=== PATIENT | male | born 1960 | race Caucasian/White ===

== ENCOUNTER 2024-06-12 10:01 | Emergency (ER) | payer MEDICARE, SELFPAY ==
[2024-06-12 10:02] VITALS: BMI 25.6
--- NOTE | 2024-06-12 10:07 | EKG_ITS ---
[facility] Test Date: 2024-06-12 Pat Name: JAI REBOLLEDO Department: Room: - Gender: Male Assistant News Director: : 1960 Requested By: ED Temporary Provider Order Number: [id number] Reading MD: ED Temporary Provider Measurements Intervals [place] Rate: 104 P: 47 [place]: 148 QRS: -40 QRSD: 109 T: 102 QT: 355 QTc: 468 Interpretive Statements SINUS TACHYCARDIA LEFT ATRIAL ENLARGEMENT [-0.15mV P-WAVE IN V1/V2] LEFT AXIS DEVIATION [QRS AXIS < -30] ST DEVIATION AND MODERATE T-WAVE ABNORMALITY, CONSIDER LATERAL ISCHEMIA [-0.1+ mV T-WAVE IN I/aVL/V5/V6] Compared to ECG 03/22/2019 01:22:29 T-wave abnormality now present Possible ischemia now present Left ventricular hypertrophy no longer present ST (T wave) deviation no longer present /store/S0/[id number].pdf
[2024-06-12 10:18] VITALS: BP 119/83; PULSE 100; RESP 19; TEMP 36.3; O2SAT 96; BMI 25.6
--- NOTE | 2024-06-12 10:19 | XR_ITS ---
Examination: Duplex scan of the lower extremity, unilateral left complete Date and time of exam: June 12, 2024 1054 hours INDICATIONS: Left leg swelling and pain beginning 5 days ago Technique: Duplex scan of the extremity veins using B-mode/grayscale imaging and Doppler spectral analysis and color flow Attention is directed to internal echogenicity, compression and augmentation involving these veins, color flow assessment, spectral analysis Findings: Major deep venous structures in the extremity demonstrate normal course and caliber. There is no evidence of deep vein thrombosis. Normal color flow and spectral analysis Impression: Negative for DVT..
--- NOTE | 2024-06-12 10:20 | XR_ITS ---
Examination: PA lateral chest 2 views TECHNIQUE: Upright PA lateral chest 2 views Exam date and time: June 12, 2024 1043 hours Comparison March 22, 2019 INDICATIONS: Coughing chest pain today. FINDINGS: Early heart failure Mild enlargement cardiac contour Prominent vascular congestion with early perihilar edema Cardiac leads satisfactory position IMPRESSION: Early heart failure
[2024-06-12 10:37] LABS: Basophils % (Auto) 0 % (0-2.5); Eosinophils # (Auto) 0.2 Thou/mm3 (0.0-0.5); Eosinophils % (Auto) 3 % (0-10); Hematocrit 38.4 % (41.0-53.0); Hemoglobin 11.9 g/dL (13.5-16.0); Immature Granulocytes % (Auto) 0 % (0-0); Immature Granulocytes Auto 0.02 Thou/mm3 (0.00-0.00); Lymphocytes # (Auto) 1.1 Thou/mm3 (1.0-4.8); Lymphocytes % (Auto) 13 % (10-50); Mean Corpuscular Hemoglobin 30.4 pg (25.0-35.0); Mean Corpuscular Volume 98 fL (80-100); Monocytes # (Auto) 0.9 Thou/mm3 (0.0-0.8); Monocytes % (Auto) 10 % (0-12); Neutrophils # (Auto) 6.6 Thou/mm3 (1.8-7.7); Neutrophils % (Auto) 74 % (37-80); Nucleated Red Blood Cell % 0 /100 WBC (0); Platelet Count 277 Thou/mm3 (140-440); RDW Standard Deviation 55.4 fL (35.1-43.9); Red Blood Count 3.92 Miln/mm3 (4.50-5.90); White Blood Count 8.9 Thou/mm3 (3.8-10.6)
--- NOTE | 2024-06-12 10:38 | PD.EDRME ---
Rapid Medical Screening Exam E Arrival date/time: 06/12/24 10:01 63-year-old male presents to the emergency department today with complaints of left lower extremity swelling and shortness of breath patient reports history of CHF Chief Complaint: Ankle/Foot Injury Vital signs: Vital Signs Temperature 97.4 F 06/12/24 10:18 Pulse Rate 100 06/12/24 10:18 Respiratory Rate 19 06/12/24 10:18 Blood Pressure 119/83 06/12/24 10:18 Pulse Oximetry (%) 96 06/12/24 10:18 Oxygen Delivery Method Room Air 06/12/24 10:18
[2024-06-12 10:57] LABS: B-Type Natriuretic Peptide 2754 pg/mL (0-100)
[2024-06-12 10:58] LABS: Alanine Aminotransferase 125 U/L (10-49); Albumin, Serum 3.9 gm/dL (3.4-4.8); Albumin/Globulin Ratio 1.3 (1.2-2.2); Alkaline Phosphatase 140 U/L (46-116); Anion Gap 5 (7-16); Aspartate Amino Transferase 41 U/L (0-34); BUN/Creatinine Ratio 14 Ratio (12-20); Bilirubin,Total 2.9 mg/dL (0.3-1.2); Blood Urea Nitrogen 19 mg/dL (9-23); Calcium 9.3 mg/dL (8.3-10.6); Calcium (Corrected) 9.4 mg/dL (8.5-10.1); Carbon Dioxide 27.6 mMol/L (20.0-31.0); Chloride 103 mMol/L (98-107); Creatinine (Component) 1.4 mg/dL (0.6-1.3); Estimated Creatinine Clearance 59.3 mL/min (>60); Glucose 93 mg/dL (74-106); Magnesium 1.8 mg/dL (1.6-2.6); Osmolality,Calculated 274 (275-295); Potassium 3.9 mMol/L (3.4-5.1); Sodium 136 mMol/L (136-145); Total Protein 6.9 gm/dL (5.7-8.2); Troponin I 0.043 ng/mL (0.0-0.045); eGFR 56 See Note
--- NOTE | 2024-06-12 12:10 | PC.NURSE ---
PT STATES WANTING TO LEAVE AT THIS TIME; PER PT, I WANNA LEAVE; I NEED A NEW TRUCK AND I NEED A BITE TO EAT. RN OFFERED FOOD FOR PT, BUT PT REFUSED AT THIS TIME. RN ATTEMPTED TO PERSUADE TO STAY BUT PT STATES, I CAN GET CHECKED IN AT [facility] BY THE TIME MATERIALS RESEARCH ENGINEER IF I NEED TO. I WANNA GO. PT SIGNED AMA FORM AT THIS TIME.
[2024-06-12 14:10] LABS: INR 1.1 (0.9-1.3); Partial Thromboplastin Time 28.3 Seconds (22.0-36.0); Prothrombin Time 12.4 Seconds (9.0-12.2)
== END 2024-06-12 12:14 | disposition left against medical advice (07) ==
LOC: SERX 10:42
PROVIDERS: Nurse Practitioner Primary Care; Emergency Provider Emergency Medicine
DX: M79.89 Other specified soft tissue disorders (principal); R06.02 Shortness of breath; R00.0 Tachycardia, unspecified; I50.9 Heart failure, unspecified; Z53.29 Procedure and treatment not carried out because of patient's decision for other reasons
CPT/HCPCS: 36415; 71046; 80053; 80307; 81001; 83735; 83880; 84484; 85025; 85610; 85730; 93005; 93971; 99281

== ENCOUNTER 2024-06-19 09:37 | Inpatient (IN) | payer MEDICARE, SELFPAY ==
[2024-06-19] VITALS (54 sets, daily range): BP systolic 76–157; BP diastolic 50–110; PULSE 92–152; RESP 5–35; TEMP 36.2–36.9; O2SAT 89–98; BMI 26.8
--- NOTE | 2024-06-19 09:45 | EKG_ITS ---
[facility] Test Date: 2024-06-19 Pat Name: JAI REBOLLEDO Department: Room: - Gender: Male Fuel Oil Clerk: : 1960 Requested By: Winston Balderas Order Number: [id number] Reading MD: Winston Balderas Measurements Intervals [place] Rate: 114 P: 61 [place]: 179 QRS: -27 QRSD: 96 T: 98 QT: 333 QTc: 459 Interpretive Statements SINUS TACHYCARDIA POSSIBLE ANTERIOR MYOCARDIAL INFARCTION , OF INDETERMINATE AGE [30 ms Q WAVE IN V3/V4, OR R < 0.2 mV IN V4] MODERATE T-WAVE ABNORMALITY, CONSIDER LATERAL ISCHEMIA [-0.1+ mV T-WAVE IN I/aVL/V5/V6] Compared to ECG 06/12/2024 10:14:07 Myocardial infarct finding now present Atrial abnormality no longer present Left-axis deviation no longer present T-wave abnormality still present Possible ischemia still present /store/S0/[id number]/ecg/[id number].pdf
--- NOTE | 2024-06-19 09:45 | EDNOTE_ITS ---
Nausea/Vomit./Diarrhea-RME/HPI General Chief complaint: Abdominal Pain Stated complaint: ABD PAIN Time Seen by Provider: 06/19/24 09:44 Arrival date/time: 06/19/24 09:37 Limitations: no limitations RME / HPI RME / HPI Narrative: 63 year old male with history of CHF, CAD, hypertension, COPD presents to the ED BIBA from home for evaluation of nausea and nonbloody vomiting beginning at 02:00 AM today. Additionally reports two episodes of loose, watery bowel movements this morning and epigastric abdominal pain. Patient reports they attempted to drink a mixture of drink water, cranberry, and apple juice but was unable to tolerate due to nausea and vomiting. Medics reported administering 4mg Zofran with some improvement. Patient denies fever, chills, or recent changes in appetite. Patient denies any history of diabetes or chronic gastrointestinal conditions. Related Data Previous Rx's ?Medication ?Instructions ?Recorded carvedilol 3.125 mg tablet 3.125 mg PO BID #60 tabs furosemide 40 mg tablet (Lasix) 40 mg PO QDAY #30 tabs 01/01/19 lisinopril 2.5 mg tablet 2.5 mg PO QDAY #30 tabs 12/19 06/06 furosemide 40 mg tablet (Lasix) 40 mg PO QDAY #14 tabs 03/19/19 lisinopril 10 mg tablet 10 mg PO QDAY #14 tabs 03/19 potassium chloride 20 mEq 20 meq PO QDAY #14 tabs 02/20 020 tablet,extended release fluticasone 250 mcg-salmeterol 50 1 each inhalation Q1 2H #60 ea 03/22/19 mcg/dose blistr powdr for inhalation (Advair Diskus) ipratropium 0.5 mg-albuterol 3 mg 3 ml inhalation QID PRN shortness 03/22/19 (2.5 mg base)/3 mL nebulization of breath #90 mL soln lorazepam 0.5 mg tablet (Ativan) 0.5 mg PO BID PRN anx iety #20 tabs 03/22/19 nebulizer and compressor #1 ea 03/22/19 Allergies Allergy/AdvReac Type Severity Reaction Status Date / Time Iodinated Contrast Media Allergy Severe Swelling Verified 06/19/24 10:02 of Lip/Tongue/Throat iodine Allergy Severe Hives Verified 06/19/24 10:02 Review of Systems Review of Systems Systems Reviewed: All systems reviewed, normal except as documented Past Medical History Past Medical History CARDIAC: Positive Cardiac Disorders, Congestive Heart Failure and Hypertension RESPIRATORY: Positive Chronic Obstructive Pulmonary Disease (COPD) PSYCHO/SOCIAL: Positive Depression and Anxiety Family History FAMILY HISTORY: Positive Family Cardiac Disorders Surgical History SURGICAL: Negative Cardiac Catheterization Social History SMOKING STATUS: Former smoker SUBSTANCE USE: former substance user, amphetamines and methamphetamine ED Exam General Limitations: Present no limitations General appearance: Present alert and other (Pale, diaphoretic, arrived in position ) Head Head exam: Present atraumatic Eye Eye exam: Present normal appearance, PERRL and EOMI ENT ENT exam: Present normal exam, normal oropharynx and mucous membranes moist Neck Neck exam: Present normal inspection, full ROM and trachea midline Chest Chest inspection: Present normal inspection and symmetric chest wall rise Respiratory Respiratory exam: Present normal lung sounds bilaterally Cardiovascular Cardiovascular exam: Present regular rate, normal rhythm and normal heart sounds Abdominal Exam Abdominal exam: Present soft and normal bowel sounds Extremities Exam Extremities exam: Present normal inspection and full ROM Back Exam Back exam: Present normal inspection and full ROM Neurological Exam Neurological exam: Present alert, oriented X3 and CN II-XII intact Psychiatric Psychiatric exam: Present normal affect and normal mood Skin Skin exam: Present warm, dry, intact and normal color Course Quality Measures none Orders Category Date Time Status CT Screening NOW Care 06/19/24 13:44 Active Low Pressure Boiler Operator STAT Care 06/19/24 09:45 Active Continuous Pulse Oximetry ONCE Care 06/19/24 09:45 Active EKG (ED ONLY) *Do not use* NOW Care 06/19/24 09:45 Completed EKG (ED ONLY) *Do not use* NOW Care 06/19/24 11:39 Active Insert IV STAT Care 06/19/24 09:[address] abdomen pelvis w con Stat Exams 06/19/24 13:42 Ordered EKG (ED Only) Stat Exams 06/19/24 09:45 Draft EKG (ED Only) Stat Exams 06/19/24 11:39 Draft US abdomen limited Stat Exams 06/19/24 11:05 Taken XR chest 1V portable Stat Exams 06/19/24 09:45 Completed Blood Culture (Lab) Stat Lab 06/19/24 13:51 Received CBC Stat Lab 06/19/24 10:03 Completed Comprehensive Metabolic Panel Stat Lab 06/19/24 10:03 Completed Lipase Stat Lab 06/19/24 11:47 Completed Troponin I Stat Lab 06/19/24 10:03 Completed Troponin I Stat Lab 06/19/24 11:47 Completed Aspirin Chew Med 06/19/24 12:29 Discontinued 162 mg PO X1 ONE Metoprolol Tartrate Inj [Lopressor Inj] Med 06/19/24 12:31 Discontinued 2.5 mg IVP X1 ONE Morphine Inj Med 06/19/24 10:17 Discontinued 5 mg IVP X1 ONE Morphine Inj Med 06/19/24 12:29 Discontinued 5 mg IVP X1 ONE Nitroglycerin Oint 2% [Nitro-paste Oint 2%] Med 06/19/24 12:29 Discontinued 1 inch TOP X1 ONE Ondansetron Inj [Zofran Inj] Med 06/19/24 09:46 Discontinued 4 mg IV X1 ONE Piper/Tazo Inj [Zosyn Inj] 4.5 gm Med 06/19/24 13:44 Discontinued Sodium Chloride 0.9% (Pop) [NS 0.9% mini bag] 100 ml IV X1 Sodium Chloride 0.9% 1000 ml [Ns] 1,000 ml Med 06/19/24 09:45 Discontinued IV 999 mls/hr Sodium Chloride 0.9% 1000 ml [Ns] 1,000 ml Med 06/19/24 13:43 Discontinued IV 999 mls/hr Reevaluation(s) Reevaluation #1: On reassessment, the patient reports pain has subsided and is not vomiting, negative Roque's and no epigastric pain on examination. Time: 11:08 Reevaluation #2: Notified by RN that the patient had a run, ~ 60 seconds, of tachycardia rate 150s. Plan to repeat EKG and troponin. Time: 11:38 Reevaluation #3: We reviewed todays results and discussed treatment plan. Reports his cardiologi st is Dr. Vela in [place], [place]. Time: 12:35 Vital Signs Vital signs: Vital Signs Temperature 98.5 F 06/19/24 09:46 Pulse Rate 121 H 06/19/24 09:46 Respiratory Rate 20 06/19/24 09:46 Blood Pressure 127/84 06/19/24 09:46 Pulse Oximetry (%) 92 L 06/19/24 09:46 Oxygen Delivery Method Room Air 06/19/24 09:46 Pulse ox is 93% on room air which is borderline low. Nausea/Vomiting/Diarrhea MDM Narrative MDM Narrative:: Nguyen Ken am scribing for and in the presence of Dr. Balderas. Patient data External records reviewed:: [facility] previous records (I reviewed ED visit on 09/12/2022 for cellulitis ) and EMS form Clinical information provided by:: patient and EMS Social determinants that could affect healthcare access:: none Patient has the following chronic illnesses:: CHF, CAD, hypertension, COPD How is presenting disease/condition affected by chronic disease/condition?: uneffected by Evaluation data The following diagnostics were reviewed and interpreted by me:: lab results, radiology exam(s) and EKG tracing(s) (EKG #1 at 09:56 am. Sinus tachycardia, rate 114, nonspecific ST and T-wave changes. EKG #2 @ 11:43 am. Sinus tachycardia, rate 108, early repolarization v3 v4 which was seen on EKG #1 and is unchanged. ) Lab and/or radiology exams considered but not ordered:: None Interpretation Summary: Ordering Physician: Winston Balderas MD Date of Service: 06/19/24 Procedure(s): XR chest 1V portable Accession Number(s): [id number] cc: Winston Balderas MD; Jaime Sands MD; NO PRIMARY/FAMILY,PHYSICIAN~ Examination: AP chest single view Technique one AP portable semiupright chest single Exam date and time: June 19, 2024 at 1042 hours INDICATIONS: Chest pain beginning 2 days ago. FINDINGS: Mild prominence left ventricle Cardiac leads stable position compared with June 12, 2024 No pneumonia or pulmonary edema IMPRESSION: No interval pneumonia or pulmonary edema Dictated By: Jaime Sands MD Signed By: <Electronically signed by Jaime Sands MD in OV> 06/19/24 1059 Medications / Prescriptions Medications / Prescriptions considered but not ordered:: None Medication administrations:: Medication Administration History Acetaminophen (Acetaminophen 325 Mg Tablet) 650 mg PO Q6H PRN PRN Reason: Fever >101.5 Stop: 07/19/24 14:17 Acetaminophen (Acetaminophen 325 Mg Tablet) 650 mg PO Q6H PRN PRN Reason: PAIN SCALE 1-3 (mild Stop: 07/19/24 14:17 Hydrocodone Bitart/Acetaminophen (Hydrocodone/Apap 10/325 Tab) 1 tab PO Q4H PRN PRN Reason: PAIN SCALE 4-6 (Moderate Stop: 06/24/24 14:17 Dobutamine HCl/Dextrose (Dobutrex/D5w Ivpb) 500 mg in 250 mls @ 2.694 mls/hr IV .Q24H ONE; Protocol Stop: 06/20/24 15:02 Morphine Sulfate (Morphine Sulf Inj 10 Mg/Ml Vial) 2 mg IVP Q2H PRN PRN Reason: PAIN SCALE 7-10 (Severe Stop: 06/24/24 14:17 Ondansetron HCl (Ondansetron Inj 2 Mg/Ml Inj 2 Ml) 4 mg IV Q6H PRN; Protocol PRN Reason: NAUSEA OR VOMITING Stop: 07/19/24 14:17 Discontinued Medications Aspirin (Aspirin 81 Mg Chew) 162 mg PO X1 ONE Stop: 06/19/24 12:30 Last Admin: 06/19/24 12:38 Dose: 162 mg Documented By: SIERRA Sodium Chloride (Ns) 1,000 mls @ 999 mls/hr IV .Q1H1M ONE Stop: 06/19/24 10:45 Last Infusion: 06/19/24 11:10 Dose: Infused Documented By: Admin: 06/19/24 10:08 Dose: 999 mls/hr Documented By: SIERRA Piperacillin Sod/Tazobactam (Sod 4.5 gm/ Sodium Chloride) 100 mls @ 200 mls/hr IV X1 ONE Stop: 06/19/24 14:13 Sodium Chloride (Ns) 1,000 mls @ 999 mls/hr IV .Q1H1M ONE Stop: 06/19/24 14:43 Last Admin: 06/19/24 15:52 Dose: Not Given Documented By: JUAN Non-Admin Reason: Cancelled by Provider Metoprolol Tartrate (Metoprolol Tartrate Inj 1 Mg/Ml Amp 5 Ml) 2.5 mg IVP X1 ONE Stop: 06/19/24 12:32 Last Admin: 06/19/24 12:45 Dose: 2.5 mg Documented By: SIERRA Morphine Sulfate (Morphine Sulf Inj 10 Mg/Ml Vial) 5 mg IVP X1 ONE Stop: 06/19/24 10:18 Last Admin: 06/19/24 10:25 Dose: 5 mg Documented By: SIERRA Morphine Sulfate (Morphine Sulf Inj 10 Mg/Ml Vial) 5 mg IVP X1 ONE Stop: 06/19/24 12:30 Last Admin: 06/19/24 12:37 Dose: 5 mg Documented By: Nitroglycerin (Nitroglycerin Oint 2% 1 Inch Packet) 1 inch TOP X1 ONE Stop: 06/19/24 12:30 Last Admin: 06/19/24 12:37 Dose: 1 inch Documented By: Ondansetron HCl (Ondansetron Inj 2 Mg/Ml Inj 2 Ml) 4 mg IV X1 ONE Stop: 06/19/24 09:47 Last Admin: 06/19/24 10:07 Dose: 4 mg Documented By: See above Consultations Consultation(s) initiated? (list below): Yes Consultation #1 (Physician, Specialty, Details): I called hydroelectric plant mechanical engineer Dr. Kiran, no answer. Left a voicemail. Time: 12:44 Consultation #2 (Physician, Specialty, Details): I spoke with hydroelectric plant mechanical engineer Dr. Kiran. Discussed patients PMHx, HPI, ED course, exam findings, labs, EKG, and radiology results. States troponin elevation is type II. He agrees to consult. Time: 13:40 Consultation #3 (Physician, Specialty, Details): I spoke with monument mason Dr. Martinez. Discussed patients PMHx, HPI, ED course, exam findings, labs, and radiology results. Exhibit Carpenter accept the patient for admission. Diagnosis Nausea Differential Diagnosis: food poisoning, gastroenteritis, drug-induced nausea and vomiting, dehydration and other (cholelithiasis, cholecystitis, NSTEMI) Most likely diagnosis given after review of the tests above:: Elevated liver enzymes elevated troponin Sepsis Admission Indicated Admission indicated?: indicated Admission Request Was there a request for admission?: Yes Admission Attestation Admission request attestation: Discussed case with [] from Hospitalist service regarding admission. Discussed patients ED course, exam findings, labs, and radiology results. The Hospitalist [agrees,declines] to accept the patient for admission. Disposition Plan Disposition Plan: Admit Critical Care Time Critical Care Time Critical Care Time: Yes Total Critical Care Time (min.): 35 Attestation: The high probability of sudden, clinically significant deterioration in the patient's condition required the highest level of my preparedness to intervene urgently. The services I provided to this patient were to treat and/or prevent clinically significant deterioration. Services included the following: chart data review, reviewing nursing notes and/or old charts, documentation time, international travel consultant collaboration regarding findings and treatment options, medication orders and management, direct patient care, vital sign assessments and ordering, interpreting and reviewing diagnostic studies and lab tests. Aggregate critical care time includes only time during which I was engaged in work directly related to the patient's care, as described above, whether at bedside or elsewhere in the Emergency Department. It did not include time spent performing other reported procedures or the services of residents, students, nurses or physician assistants. Discharge Plan Plan Patient Disposition: Admit Acute Care w/in Hospital Problem List Clinical Impression: Elevated liver enzymes, Sepsis, Elevated troponin
[2024-06-19] MEDS: ONDANSETRON INJ 2 MG/ML INJ 2 ML 4 MG IV (10:07)
[2024-06-19] MEDS: SODIUM CHLORIDE 0.9% 1000 ML 1,000 ML 999 ML IV (10:08)
[2024-06-19 10:16] LABS: Basophils # (Auto) 0.1 Thou/mm3 (0.0-0.2); Basophils % (Auto) 0 % (0-2.5); Eosinophils % (Auto) 0 % (0-10); Hematocrit 43.7 % (41.0-53.0); Hemoglobin 13.8 g/dL (13.5-16.0); Immature Granulocytes % (Auto) 1 % (0-0); Immature Granulocytes Auto 0.34 Thou/mm3 (0.00-0.00); Lymphocytes # (Auto) 0.8 Thou/mm3 (1.0-4.8); Lymphocytes % (Auto) 3 % (10-50); Mean Corpuscular HGB Conc 31.6 g/dl (31.0-37.0); Mean Corpuscular Hemoglobin 30.5 pg (25.0-35.0); Mean Corpuscular Volume 97 fL (80-100); Monocytes % (Auto) 7 % (0-12); Neutrophils # (Auto) 26.6 Thou/mm3 (1.8-7.7); Neutrophils % (Auto) 89 % (37-80); Nucleated Red Blood Cell # 0.03 Thou/mm3 (0.00-0.00); Nucleated Red Blood Cell % 0 /100 WBC (0); Platelet Count 343 Thou/mm3 (140-440); RDW Standard Deviation 55.1 fL (35.1-43.9); Red Blood Count 4.52 Miln/mm3 (4.50-5.90); White Blood Count 29.8 Thou/mm3 (3.8-10.6)
[2024-06-19] MEDS: MORPHINE SULF INJ 10 MG/ML VIAL 5 MG IVP ×2 (10:25→12:37)
[2024-06-19 10:55] LABS: Alanine Aminotransferase 2363 U/L (10-49); Albumin, Serum 3.9 gm/dL (3.4-4.8); Albumin/Globulin Ratio 1.2 (1.2-2.2); Alkaline Phosphatase 140 U/L (46-116); Anion Gap 28 (7-16); Aspartate Amino Transferase 5489 U/L (0-34); BUN/Creatinine Ratio 13 Ratio (12-20); Bilirubin,Total 5.3 mg/dL (0.3-1.2); Blood Urea Nitrogen 33 mg/dL (9-23); Calcium 9.6 mg/dL (8.3-10.6); Calcium (Corrected) 9.7 mg/dL (8.5-10.1); Chloride 94 mMol/L (98-107); Creatinine (Component) 2.5 mg/dL (0.6-1.3); Estimated Creatinine Clearance 33.2 mL/min (>60); Globulin 3.2 gm/dL (2.3-3.5); Glucose 67 mg/dL (74-106); Osmolality,Calculated 279 (275-295); Potassium 4.7 mMol/L (3.4-5.1); Sodium 137 mMol/L (136-145); Total Protein 7.1 gm/dL (5.7-8.2); eGFR 28 See Note
[2024-06-19 11:01] LABS: Carbon Dioxide 14.6 mMol/L (20.0-31.0); Troponin I 3.548 ng/mL (0.0-0.045)
--- NOTE | 2024-06-19 11:05 | XR_ITS ---
Examination: Abdomen sonogram, Limited Date and time of exam: June 19, 2024 at 1252 hours INDICATIONS: Onset epigastric pain today Technique: Real-time espinoza scale transabdominal sonographic images of the upper abdomen obtained. Findings: FINDINGS: Negative for gallstones Gallbladder wall is thickened 16mm with edema Common bile duct obscured by bowel gas The liver 15.1 cm fatty infiltration free fluid adjacent to the liver Pancreatic head 3.2 cm Normal hepatopedal portal venous flow, patent IVC IMPRESSION: Gallbladder wall is thickened with edema suspicious for acute cholecystitis Consider HIDA scan or MRCP follow-up At least mild ascites
--- NOTE | 2024-06-19 11:39 | EKG_ITS ---
[facility] Test Date: 2024-06-19 Pat Name: JAI REBOLLEDO Department: Room: - Gender: Male Application Processor: : 1960 Requested By: Winston Balderas Order Number: [id number] Reading MD: Winston Balderas Measurements Intervals [place] Rate: 108 P: 63 [place]: 177 QRS: -40 QRSD: 102 T: 109 QT: 348 QTc: 468 Interpretive Statements SINUS TACHYCARDIA ANTERIOR MYOCARDIAL INFARCTION , OF INDETERMINATE AGE [40+ ms Q WAVE AND/OR ST/T ABNORMALITY IN V3/V4] INFERIOR MYOCARDIAL INFARCTION , OF INDETERMINATE AGE [40+ ms Q WAVE AND/OR ST/T ABNORMALITY IN II/aVF] MODERATE T-WAVE ABNORMALITY, CONSIDER LATERAL ISCHEMIA [-0.1+ mV T-WAVE IN I/aVL/V5/V6] Compared to ECG 06/19/2024 09:56:55 No significant changes /store/S0/[id number].pdf
[2024-06-19 12:26] LABS: Lipase 40 U/L (12-53)
[2024-06-19 12:28] LABS: Troponin I 4.524 ng/mL (0.0-0.045)
[2024-06-19] MEDS: NITROGLYCERIN OINT 2% 1 INCH PACKET TOP (12:37)
[2024-06-19] MEDS: ASPIRIN 81 MG CHEW 162 MG PO (12:38)
--- NOTE | 2024-06-19 12:39 | PC.CC ---
Addendum entered by Albina Mariee RN 06/19/24 14:01: [address] Balderas that he was able to speak to Dr. Kiran and Dr. Kiran will be consulting the pt. Pt will be admitted. No need for transfer at this time. 1312 called ED charge nurse, Dr. Balderas is unavailable at this time. 1305 called ED to speak to Dr. Balderas for followup. He is unavailable at this time. Left message with ED. Original Note: [address] Espinoza that pt needs to be transferred for [facility] needs cardiology services because pt car repairer is Dr. Watt at [facility]. I informed Dr. Mullins if he reached out to our car repairer laborer construction or leak gang. He stated he will speak to Dr. Kiarn and call me back if transfer is needed.
[2024-06-19] MEDS: METOPROLOL TARTRATE INJ 1 MG/ML AMP 5 ML 2.5 MG IVP (12:45)
--- NOTE | 2024-06-19 14:30 | ESHP_ITS ---
Documentation for date of: 06/19/24 [facility] History of Present Illness Chief complaint: Chest pain History of present illness: Patient is a 63-year-old male with past medical history of CAD, pacemaker/defibrillator by Dr. Ramirez in [place] for abnormal rhythm CHF, hypertension, COPD who came into our ER after he was woken up at 2 AM with chest pain. Patient is a poor historian but does explain that he woke up at 2 AM with severe chest pain that caused some nausea and vomiting after which he decided to come to the ED. Patient lives alone he called 911. In the ED patient was found to be tachycardic with a pulse of 121 saturating at 92% on room air. Troponins were found to be elevated at 3.54 initially and climbed up to 4.52 by the time we saw him at bedside. Patient was also found to have elevated transaminases in the thousands. Chest x-ray revealed no pulmonary edema and EKG showed sinus tachycardia. Patient was given Zofran as well as 1 L bolus of fluids and morphine in the ER as well as aspirin and nitroglycerin and metoprolol which seem to have helped the patient's pain at the time. Dr. Martinez and myself went to evaluate patient at bedside and he was lethargic with brown gunk in his mouth which he describes as sputum and he denies any signs of bleeding. Physical exam revealed 2+ pitting edema in the lower extremities with bilateral lower extremities mottling up to the knees. Patient was pale and capillary refill was greater than 10 seconds. Patient's jugular venous pressure was elevated which was confirmed with ultrasound and patient was found to be likely in cardiogenic shock. The decision was made to admit patient to the ICU and we inserted a central line and arterial line. Further testing revealed that patient was methamphetamine positive. BUN was greater than 3280, lactic acid was elevated at 18 and pH was 7.10 with a pCO2 of 29 and pO2 of 105 subsequent VBG showed improvement in pH to 7.19. Patient was started on dobutamine drip in the ED as well as Levophed. Review of Systems Review of Systems Systems Reviewed: All systems reviewed, normal except as documented Exam Vital Signs Temp Pulse Resp BP Pulse Ox O2 Del Method 97.6 F 111 H 24 H 146/103 H 95 Room Air 06/19/24 12:22 06/19/24 12:45 06/19/24 12:22 06/19/24 12:45 06/19/24 12:22 06/19/24 12:22 Narrative Exam Constitutional: Pale disheveled elderly male that is hard to understand when he speaks Head: Normocephalic/Atraumatic Eyes: PERRL , no conjunctival injection , symmetrical lids. ENMT: Moist Mucous Membranes, No trauma or injury. There seems to be black substance in his mouth.D CVS: RRR, S1 and S2 present, no murmurs, rubs or gallops . JVP was 7 cm above the sternal angle. Capillary refill was greater than 10 seconds. RESP: CTAB, no SOB, no rales, rhonchi or wheezing. No respiratory Distress GI: Normal BS, Nontender/Nondistended. MSK: Full range of motion, No trauma or deformities or masses. Skin: Patient was cold to touch with bilateral lower extremity mottling up to the knees. Neuro: wallpaper cleaner II-XII grossly intact. Sensation grossly intact. Psych: (AAO) x3 . Appropriate mood and affect but lethargic. Results: Labs 06/24/24 04:55 06/24/24 04:55 Labs: Short CBC 06/19/24 Range/Units 10:03 WBC 29.8 H D (3.8-10.6) Thou/mm3 Hgb 13.8 (13.5-16.0) g/dL Hct 43.7 (41.0-53.0) % Plt Count 343 D (140-440) Thou/mm3 BMP 06/19/24 10:03 Sodium 137 Potassium 4.7 Chloride 94 L Carbon Dioxide 14.6 L* BUN 33 H Creatinine 2.5 H D Glucose 67 L Calcium 9.6 Cardiac Enzymes 06/19/24 06/19/24 Range/Units 10:03 11:47 Troponin I 3.548 H* 4.524 H* D (0.0-0.045) ng/mL Liver Function 06/19/24 Range/Units 10:03 Total Bilirubin 5.3 H (0.3-1.2) mg/dL AST 5489 H* (0-34) U/L ALT 2363 H* (10-49) U/L Alkaline Phosphatase 140 H (46-116) U/L Albumin 3.9 (3.4-4.8) gm/dL Quality Measures Quality Measures none Medications Home Medications and Allergies Home Medications ?Medication ?Instructions ?Recorded ?Confirmed ?Type digoxin 125 mcg (0.125 mg) tablet 0.125 mg PO DAILY 06/19/24 History empagliflozin 10 mg tablet 10 mg PO QAM 06/19/2406/19 History (Jardiance) Allergies Allergy/AdvReac Type Severity Reaction Status Date / Time Iodinated Contrast Media Allergy Severe Swelling Verified 06/19/24 10:02 of Lip/Tongue/Throat iodine Allergy Severe Hives Verified 06/19/24 10:02 Visit Medications Acetaminophen (Acetaminophen 325 Mg Tablet) 650 mg PO Q6H PRN PRN Reason: Fever >101.5 Stop: 07/19/24 14:17 Acetaminophen (Acetaminophen 325 Mg Tablet) 650 mg PO Q6H PRN PRN Reason: PAIN SCALE 1-3 (mild Stop: 07/19/24 14:17 Hydrocodone Bitart/Acetaminophen (Hydrocodone/Apap 10/325 Tab) 1 tab PO Q4H PRN PRN Reason: PAIN SCALE 4-6 (Moderate Stop: 06/24/24 14:17 Sodium Chloride (Ns) 1,000 mls @ 999 mls/hr IV .Q1H1M ONE Stop: 06/19/24 14:43 Morphine Sulfate (Morphine Sulf Inj 10 Mg/Ml Vial) 2 mg IVP Q2H PRN PRN Reason: PAIN SCALE 7-10 (Severe Stop: 06/24/24 14:17 Ondansetron HCl (Ondansetron Inj 2 Mg/Ml Inj 2 Ml) 4 mg IV Q6H PRN; Protocol PRN Reason: NAUSEA OR VOMITING Stop: 07/19/24 14:17 Discontinued Medications Aspirin (Aspirin 81 Mg Chew) 162 mg PO X1 ONE Stop: 06/19/24 12:30 Last Admin: 06/19/24 12:38 Dose: 162 mg Sodium Chloride (Ns) 1,000 mls @ 999 mls/hr IV .Q1H1M ONE Stop: 06/19/24 10:45 Last Infusion: 06/19/24 11:10 Dose: Infused Piperacillin Sod/Tazobactam (Sod 4.5 gm/ Sodium Chloride) 100 mls @ 200 mls/hr IV X1 ONE Stop: 06/19/24 14:13 Metoprolol Tartrate (Metoprolol Tartrate Inj 1 Mg/Ml Amp 5 Ml) 2.5 mg IVP X1 ONE Stop: 06/19/24 12:32 Last Admin: 06/19/24 12:45 Dose: 2.5 mg Morphine Sulfate (Morphine Sulf Inj 10 Mg/Ml Vial) 5 mg IVP X1 ONE Stop: 06/19/24 10:18 Last Admin: 06/19/24 10:25 Dose: 5 mg Morphine Sulfate (Morphine Sulf Inj 10 Mg/Ml Vial) 5 mg IVP X1 ONE Stop: 06/19/24 12:30 Last Admin: 06/19/24 12:37 Dose: 5 mg Nitroglycerin (Nitroglycerin Oint 2% 1 Inch Packet) 1 inch TOP X1 ONE Stop: 06/19/24 12:30 Last Admin: 06/19/24 12:37 Dose: 1 inch Ondansetron HCl (Ondansetron Inj 2 Mg/Ml Inj 2 Ml) 4 mg IV X1 ONE Stop: 06/19/24 09:47 Last Admin: 06/19/24 10:07 Dose: 4 mg Assessment & Plan Plan 63-year-old male with past medical history of CAD, pacemaker/defibrillator by Dr. Ramirez in [place] for abnormal rhythm CHF, hypertension, COPD who came into our ER after he was woken up at 2 AM with chest pain and admitted to the ICU for further management of his shock likely cardiogenic. Neuro #Acute encephalopathy Likely metabolic from substance abuse versus shock Patient is currently calm but lethargic however he is easily arousable. CVS #Shock Likely cardiogenic versus distributive Patient presented with chest pain that started in the early hours of the night Sr. Consultant was consulted in the ED, Dr. Kiran did a bedside ultrasound which showed an estimated EF of 15 to 20% Patient has a history of meth abuse and he did test positive for methamphetamine in the urine tox Troponins were initially 3.54 and has gradually increased to 7.37. BNP is greater than 3280 Patient had 2+ pitting edema bilaterally with decreased capillary refill greater than 10 seconds as well as bilateral mottling up to the knees which improved once patient was started on the drips Patient also received morphine and aspirin in the ED as well as metoprolol and nitroglycerin Patient received Zosyn in the ER Plan: ?Follow-up [facility] ? Follow blood cultures to rule out infectious cause ? Dobutamine drip at 2 mics per hour ? Levophed ? Will repeat an echocardiogram ?Strict ULISES's ? Will optimize patient's volume status ? Will monitor his electrical activity ? Cardiology consulted, appreciate recommendations #Troponinemia Likely NSTEMI type II due to demand ischemia Patient's troponin was elevated at 3.54 and has continued to climb to 7.37 EKG did not show any obvious signs of ST segment elevation ? Will continue to trend troponins ? Will monitor closely in telemetry Resp #Stable GI #Transaminases Likely congestive liver versus ischemic damage Patient's LFTs were in the thousands T. bili was also elevated at 5.3 Abdominal ultrasound revealed gallbladder wall thickening could be possibly from congestion Patient denied any right upper quadrant tenderness and there was no jaundice or fevers ? Will continue daily CMP Renal #KERWIN Patient presented with a BUN of 33 and creatinine of 2.5 from a baseline of 1.3 Likely cardiorenal as patient's EF is estimated to be 15 to 20% on bedside ultrasound Patient could be in the early stages of ATN. Infectious source is not ruled out yet ? Will continue to monitor patient's urine output ? Will order renal ultrasound ? Will follow-up with daily renal function panel #High anion gap metabolic acidosis # High anion gap metabolic acidosis #Lactic acidosis Patient presented with a pH of 7.1 Lactic acid was elevated at 18 Patient had bilateral lower extremity mottling up to the knees signifying decreased perfusion Plan ? Will continue inotropic support for the patient Endocrine #Stable ID/Skin #Shock sepsis not ruled out Patient presented with tachycardia and an elevated WBC of the 29.8 Patient did have nausea and vomiting with abdominal pain Patient received Zosyn in the ED as well as 1 L bolus of NS UA shows a concentrated urine but no obvious signs of urinary tract infection Currently an infectious source cannot be identified Patient's abdominal ultrasound revealed gallbladder wall thickening which could be related to congestive heart failure Plan: ? Follow-up with Pro-Jhonny ? Follow-up with blood cultures ? Follow-up with CT abdomen pelvis ? Follow-up daily CBCs Hematology #Leukocytosis Likely reactive Hospital Maintenance: FEN: N.p.o. DVT PPx: Heparin subcu GI PPx: None IV lines: Right IJ, right femoral arterial line Khoury: Inserted Code Status: DNR/DNI Dispo: Patient will remain in the ICU for further management of his shock I discussed patient's care with coordinate measuring machine technician, Dr Michelle Chau MD, PGY3 Attending Provider Attestation/Addendum Patient seen and examined with above resident, Cecil Chau MD. I agree with the findings, assessment, and plan of care as documented except for any differences below. Patient with cardiogenic shock likely in the setting of methamphetamine abuse. Known history of systolic dysfunction. Patient on evaluation emergency department with mottling and hypoperfusion state with altered mental status. Laboratory testing confirmed severe hepatic congestion and associated likely necrosis as well as severe lactic acidosis and renal dysfunction. Likely component of acute tubular necrosis will follow-up in the coming days. Patient did receive 1 L of fluid in the emergency department. Will hold off on diuretics until we are able to adequately ensure perfusion. Central line was placed with VBG to be done for monitoring of central sat. Serial lactate should be trended as well but this may show slow decline despite inotropic support due to lack of ability for clearance in the setting of renal and hepatic dysfunction. Will also asked resident to place arterial line for close monitoring of blood pressure as it is possible that the patient will require vasopressor support given the vasodilatory effect of dobutamine and milrinone. Patient fortunately on minimal oxygen requirements and seems to be on the spray drier operator helper side already. Remain conservative with fluid status. Appreciate cardiology input, agree that there is likely no need for intervention from a ischemic workup perspective. I do not suspect there is an underlying infection or sepsis and this is purely cardiogenic shock at this point. Will continue to follow in the coming days to see how we can wean him off of inotropic support appropriately. Monitor closely for arrhythmia. He does have a BiV AICD in place to provide some layer of protection. Total critical care time: I personally spent 45 minutes for review of physiologic parameters, directing plan of care throughout the day, coordination of care with other specialties, and counseling patient at bedside. This is exclusive of time spent teaching housestaff or performing any separate billable procedures. Patient remains at significant risk for further morbidity and mortality warranting close monitoring and care only available in the ICU. Patient required critical care services for acute on chronic systolic heart failure/cardiogenic shock secondary to methamphetamine abuse with acute renal failure and congestive hepatopathy.
--- NOTE | 2024-06-19 15:39 | XR_ITS ---
Examination: AP chest single view Technique one AP portable supine chest single view Exam date and time: June 19, 2024, 1554 hours Comparison June 19, 2024 1042 hours INDICATIONS: Post central line placement FINDINGS: Right internal jugular central line tip SVC satisfactory position Mild prominence cardiac contour Cardiac leads satisfactory position No pneumothorax, no pneumonia IMPRESSION: Interval right internal jugular central line, tip in satisfactory position, no pneumothorax
[2024-06-19 16:17] LABS: INR 2.9 (0.9-1.3); Prothrombin Time 29.8 Seconds (9.0-12.2)
[2024-06-19] MEDS: PIPER/TAZO INJ 4.5 GM in SODIUM CHLORIDE 0.9% (POP) 100 ML IV (16:21)
[2024-06-19] MEDS: DOBUTamine/D5w 500 MG IVPB 500 MG/250 ML BAG IV (16:25)
[2024-06-19 16:26] LABS: Base Excess -21 (-3-3); HCO3 6 mEq/L (20-26); Inspired O2, VO2 Liters 1 L/min; O2 Saturation 96 % (91-98); PCO2 20 mmHg (32.0-48.0); PO2 105 mmHg (83-108)
[2024-06-19] MEDS: MORPHINE SULF INJ 10 MG/ML VIAL 2 MG IVP (16:28)
[2024-06-19 16:30] LABS: Allen Test Performed/OK; Puncture Site Right Radial
[2024-06-19 16:33] LABS: Glucose Estimated Average 88 mg/dL (80-131); Hemoglobin A1C 4.7 % Hgb (4.8-6.0)
--- NOTE | 2024-06-19 16:43 | ESCONSULT_ITS ---
<Statement entered by Mayela Kiran MD - 06/20/24 16:36> I personally evaluated the patient examined with resident physician in the emergency room as well as after admission patient has history of chronic methamphetamine use acute meth use came to the hospital multiple problems elevated troponin levels with multiple symptoms and sepsis as well as cardiogenic shock bedside echo showed ejection fraction 15 to 20% end-stage heart disease has already had his ICD implanted possibly futility at this time patient is critically ill slight respond to dobutamine but prognosis extremely poor condition remains critical will continue to monitor the patient intensive care unit closely with ICU team patient is not a candidate for any cardiac interventions this acute myocardial infarction 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 HPI Data of Consult Requesting Physician: Bob Martinez MD Admitting Provider: Bob Martinez MD Attending Provider: Bob Martinez MD Primary Care Provider: Physician No Primary/Family Consult Narrative History of present illness: 63-year-old male with past medical history of coronary artery disease, pacemaker/defibilator placed by Dr. Villalobos in [place] for abnormal rhythm CHF, hypertension, COPD came to the ED with chief complaint of nausea and vomiting since last 24-hour. Initial labs in the ED showed WBC count of 29.8 . pH?7.10, pCO2 20, bicarb of 6, sodium?137, potassium?4.7, chloride 97, carbon oxide?14.6, BUN 33, AG 28, creatinine 2.5, lactic acid?18, total bilirubin?5.3, AST?5489, ALT?2363, alk phos?140, elevated troponin initial was 3.5 for the repeat troponin is 4.52. Chest x-ray did not show any pneumonia/no pulmonary fuction . utox showed meth and opoid positive . Bedside Echo showed EF of 15-20 %. PMH- as above PSH- not able to obtain SH- no able to obatin history Allergy- iodine cc:: cc: Bob Martinez MD Review of Systems Review of Systems Systems Reviewed: All systems reviewed, normal except as documented Narrative Review of Systems: GENERAL: Frail, sick looking elderly male on NC HEENT: Normocephalic, atraumatic. Pupils are equal and reactive. Oral mucosa is moist. NECK: Supple, nontender, right IJ present CARDIOVASCULAR: Heart regular rhythm & rate. S1/S2. no murmur or gallop rub or extra beats. LUNGS: Clear to auscultation bilaterally with symmetrical chest rise. No laboring tachypnea or wheezing. ABDOMEN: Soft, flat, nontender to palpation, no guarding or rebound tenderness. Active and normal bowel sounds. EXTREMITIES:Moves all 4 extremities,No B/L LE edema. SKIN: b/l motteling present NEURO: Patient is AO x 3, Cranial nerves II through XII grossly intact. There is no focal neurologic deficits noted. PSYCHIATRIC: Patient is in normal mood, cooperative, no SI or HI or hallucinations. Exam Vital Signs Temp Pulse Resp BP Pulse Ox O2 Del Method O2 Flow Rate 97.6 F 103 H 24 H 117/77 97 Nasal Cannula 2 06/19/24 16:23 06/19/24 16:25 06/19/24 16:23 06/19/24 16:25 06/19/24 16:23 06/19/24 16:23 06/19/24 16:23 Results Labs 06/19/24 10:03 06/19/24 10:03 Labs: Short CBC 06/19/24 Range/Units 10:03 WBC 29.8 H D (3.8-10.6) Thou/mm3 Hgb 13.8 (13.5-16.0) g/dL Hct 43.7 (41.0-53.0) % Plt Count 343 D (140-440) Thou/mm3 BMP 06/19/24 10:03 Sodium 137 Potassium 4.7 Chloride 94 L Carbon Dioxide 14.6 L* BUN 33 H Creatinine 2.5 H D Glucose 67 L Calcium 9.6 Cardiac Enzymes 06/19/24 06/19/24 Range/Units 10:03 11:47 Troponin I 3.548 H* 4.524 H* D (0.0-0.045) ng/mL Liver Function 06/19/24 Range/Units 10:03 Total Bilirubin 5.3 H (0.3-1.2) mg/dL AST 5489 H* (0-34) U/L ALT 2363 H* (10-49) U/L Alkaline Phosphatase 140 H (46-116) U/L Albumin 3.9 (3.4-4.8) gm/dL ABG Interpretation ABG results: 06/19/24 16:21 ABG pH 7.10 L* ABG pCO2 20 L ABG pO2 105 ABG HCO3 6 L* ABG O2 Saturation 96 ABG Base Excess -21 L Quality Measures Quality Measures none Medications Home Medications and Allergies Allergies Allergy/AdvReac Type Severity Reaction Status Date / Time Iodinated Contrast Media Allergy Severe Swelling Verified 06/19/24 10:02 of Lip/Tongue/Throat iodine Allergy Severe Hives Verified 06/19/24 10:02 Visit Medications Acetaminophen (Acetaminophen 325 Mg Tablet) 650 mg PO Q6H PRN PRN Reason: Fever >101.5 Stop: 07/19/24 14:17 Acetaminophen (Acetaminophen 325 Mg Tablet) 650 mg PO Q6H PRN PRN Reason: PAIN SCALE 1-3 (mild Stop: 07/19/24 14:17 Hydrocodone Bitart/Acetaminophen (Hydrocodone/Apap 10/325 Tab) 1 tab PO Q4H PRN PRN Reason: PAIN SCALE 4-6 (Moderate Stop: 06/24/24 14:17 Dobutamine HCl/Dextrose (Dobutrex/D5w Ivpb) 500 mg in 250 mls @ 2.694 mls/hr IV .Q24H ONE; Protocol Stop: 06/20/24 15:02 Last Admin: 06/19/24 16:25 Dose: 1 mcg/kg/min, 2.694 mls/hr Morphine Sulfate (Morphine Sulf Inj 10 Mg/Ml Vial) 2 mg IVP Q2H PRN PRN Reason: PAIN SCALE 7-10 (Severe Stop: 06/24/24 14:17 Last Admin: 06/19/24 16:28 Dose: 2 mg Ondansetron HCl (Ondansetron Inj 2 Mg/Ml Inj 2 Ml) 4 mg IV Q6H PRN; Protocol PRN Reason: NAUSEA OR VOMITING Stop: 07/19/24 14:17 Discontinued Medications Aspirin (Aspirin 81 Mg Chew) 162 mg PO X1 ONE Stop: 06/19/24 12:30 Last Admin: 06/19/24 12:38 Dose: 162 mg Sodium Chloride (Ns) 1,000 mls @ 999 mls/hr IV .Q1H1M ONE Stop: 06/19/24 10:45 Last Infusion: 06/19/24 11:10 Dose: Infused Piperacillin Sod/Tazobactam (Sod 4.5 gm/ Sodium Chloride) 100 mls @ 200 mls/hr IV X1 ONE Stop: 06/19/24 14:13 Last Admin: 06/19/24 16:21 Dose: 200 mls/hr Sodium Chloride (Ns) 1,000 mls @ 999 mls/hr IV .Q1H1M ONE Stop: 06/19/24 14:43 Last Admin: 06/19/24 15:52 Dose: Not Given Metoprolol Tartrate (Metoprolol Tartrate Inj 1 Mg/Ml Amp 5 Ml) 2.5 mg IVP X1 ONE Stop: 06/19/24 12:32 Last Admin: 06/19/24 12:45 Dose: 2.5 mg Morphine Sulfate (Morphine Sulf Inj 10 Mg/Ml Vial) 5 mg IVP X1 ONE Stop: 06/19/24 10:18 Last Admin: 06/19/24 10:25 Dose: 5 mg Morphine Sulfate (Morphine Sulf Inj 10 Mg/Ml Vial) 5 mg IVP X1 ONE Stop: 06/19/24 12:30 Last Admin: 06/19/24 12:37 Dose: 5 mg Nitroglycerin (Nitroglycerin Oint 2% 1 Inch Packet) 1 inch TOP X1 ONE Stop: 06/19/24 12:30 Last Admin: 06/19/24 12:37 Dose: 1 inch Ondansetron HCl (Ondansetron Inj 2 Mg/Ml Inj 2 Ml) 4 mg IV X1 ONE Stop: 06/19/24 09:47 Last Admin: 06/19/24 10:07 Dose: 4 mg Assessment & Plan Plan 63-year-old male with past medical history of coronary artery disease, pacemaker/defibilator placed by Dr. 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 Initial labs in the ED showed WBC count of 29.8 . pH?7.10, pCO2 20, bicarb of 6, sodium?137, potassium?4.7, chloride 97, carbon oxide?14.6, BUN 33, AG 28, creatinine 2.5, lactic acid?18, total bilirubin?5.3, AST?5489, ALT?2363, alk phos?140, elevated troponin initial was 3.5 for the repeat troponin is 4.52. Chest x-ray did not show any pneumonia/no pulmonary fuction . # Cardiogenic shock # NSTEMI most likely type II in setting of Meth use # cardiomyopathy from meth #HfrEF 15-20 % ( bedside US ) - pt came to ED with Chicf complain of pain abdomen , labs showed elevated troponin 3.5 , repeat troponin was 4.5 , -motteling present on B/l legs - he denies chest pain -Bedside US showed EF of 15-20 % -he has ROLL SETTER-D placed by Dr Tam from [place] unknown exact date -His elevated troponin could be type I versus type II, most likely in the setting of sepsis -Echo 2019 shows - Normal left ventricular size and function. Approximate ejection fraction is 30-35%. Moderate mitral and tricuspid regurgitation noted. Mild pulmonic regurgitation.Mild PHTN. Slight posterior MVP. -he received 1 L NS in ED -Started him on Dobutamine drip -will do echo -meth is positive # H/o HTN #H/o chf - pending BNP - held home anti hypertensive meds in setting of cardiogenic shock - he will need diuretics later after he is more warm Rest of medcal problem management as per ICU Case discussed david my attending Dr Magno Shea, PGY-3
[2024-06-19 16:55] LABS: Collection Type, Urine Catheter
[2024-06-19 17:01] LABS: Bilirubin,Urine 1+ (Negative); Blood,Urine 2+ (Negative); Clarity,Urine Cloudy (Clear/Hazy); Color,Urine Drk-Yellow (Lt Yel-Yel); Glucose, Urine Negative (Negative); Hyaline Casts,Urine 3 /hpf (0-1); Ketones,Urine 1+ (Negative); Leukocyte Esterase,Urine Negative (Negative); Nitrite,Urine Negative (Negative); PH,Urine 5.5 (5.0-7.0); Protein,Urine 2+ (Neg - Trace); RBC,Urine 4 /hpf (0-3); Specific Gravity,Urine 1.022 (1.001-1.035); Squamous Epithelial Cell,Urine 1 /hpf (0-5); WBC,Urine 9 /hpf (0-5)
--- NOTE | 2024-06-19 17:10 | PD.RESPROC ---
Procedures Procedure Date / Time 06/19/24 1710 Procedure Narrative Procedure Narrative: Attending attestation: I was present for entire procedure. Patient tolerated procedure well with no immediate complications. Follow-up chest x-ray showed adequate placement of central line/tip of catheter. No postprocedural pneumothorax. No significant blood loss. Central Line Placement Right IJ: Indication(s): shock Informed consent obtained: from patient and procedure done urgently Time out done, and the following verified: correct patient, side and site, procedure and patient position Patient placed on monitor/pulse ox: Yes Hand Hygiene: scrub, soap & water and alcohol-based hand rub Max Sterile Barrier Techniques used: cap, mask, sterile gown, sterile gloves and sterile full body drape Central line prep: Povidone-Iodine 1%, Chlorhexidine scrub and sterile drapes applied Local anesthesia used: lidocaine 1% Amount of anesthesia used (mL): 5 Sterile Technique if Ultrasound used, including sterile gel: yes Central line lumen inserted: triple Post procedure: sutured in place, good blood return, all ports aspirated, flushed, capped and sterile dressing applied Post procedure x-ray: tip of catheter in good position and no pneumothorax seen Patient tolerated procedure: well and no complications EBL(ml): 3 Complications: none Procedure comment: Procedure was done at bedside in the ER with Dr. Martinez. There were no complications and patient had minimal blood loss.
[2024-06-19 17:21] LABS: B-Type Natriuretic Peptide > 3280 pg/mL (0-100)
[2024-06-19 17:21] LABS: Amphetamine/Methamp Scrn,U Positive (Negative); Barbiturate Screen,Urine Negative (Negative); Benzodiazepines Screen,Urine Negative (Negative); Benzoylecgonine Screen, Ur Negative (Negative); Fentanyl Screen,Urine Negative (Negative); Opiate Screen,Urine Positive (Negative); THC Screen,Urine Negative (Negative)
[2024-06-19] MEDS: Sodium Bicarb Inj 8.4% SYR 50 ML SYRINGE IV (17:26)
[2024-06-19 17:33] LABS: Troponin I 6.577 ng/mL (0.0-0.045)
[2024-06-19 17:52] LABS: Base Excess, Venous -16 (-3-3); O2 Saturation, Venous 81 % (96-97); PCO2, Venous 28 mmHg (36-56); PO2, Venous 55 mmHg (15-58); pH, Venous 7.19 (7.33-7.66)
[2024-06-19] MEDS: Norepinephrine/NS 16mg/250ml 16 MG/250 ML BAG 4.21 MG IV (18:20)
[2024-06-19] MEDS: DOBUTamine/D5w 500 MG IVPB 500 MG/250 ML BAG 5.389 MG IV (18:40)
[2024-06-19 18:49] LABS: Reflex Lactate? Y
--- NOTE | 2024-06-19 19:45 | XR_ITS ---
Examination: Abdomen AP single view Technique: AP portable supine abdomen, single view Exam date and time: June 19, 2024 2018 hours INDICATIONS: Post insertion of arterial line FINDINGS: Arterial line overlies the common femoral artery in proper position Mildly air distended stomach No obstruction No free air Mild enlargement left ventricle IMPRESSION: Arterial line overlies the region of the common femoral artery
--- NOTE | 2024-06-19 20:26 | PD.RESPROC ---
Procedures Procedure Date / Time 06/19/241925 Procedure Narrative Procedure Narrative: Attending attestation: I was not present at the time of procedure. However, it was discussed with me, I remain agreeable for placement for close monitoring blood pressure in the setting of cardiogenic shock. Arterial Line Indication(s): frequent arterial line sampling and shock Informed consent obtained: from patient and procedure done urgently Time out done, and the following verified: correct patient, side and site, procedure and patient position Size (Gauge): 20 Technique used: direct puncture technique Post-Procedure: line sutured into place and dry sterile dressing placed Patient tolerated procedure: well and no complications EBL(ml): 2 Complications: none Site: right and femoral Procedure comment: Procedure was done in the ICU at bedside with Dr. Martinez. Procedure went well without complications and patient tolerated procedure with minimal blood loss.
[2024-06-19 20:38] LABS: Troponin I 7.374 ng/mL (0.0-0.045)
[2024-06-19] MEDS: HEPARIN SOD INJ 5000 UNIT/ML VIAL SC (22:32)
[2024-06-19 22:56] LABS: Procalcitonin 6.08 ng/ml (0.0-0.49)
[2024-06-20] VITALS (103 sets, daily range): BP systolic 70–136; BP diastolic 43–95; PULSE 75–111; RESP 7–26; TEMP 35.7–36.8; O2SAT 80–100
[2024-06-20 02:35] LABS: Lactate (Lactic Acid) 11.6 mMol/L (0.4-2.0)
[2024-06-20 03:05] LABS: Lactate (Lactic Acid) 6.4 mMol/L (0.4-2.0)
[2024-06-20 03:25] LABS: Troponin I 9.896 ng/mL (0.0-0.045)
[2024-06-20 05:14] LABS: Basophils % (Auto) 0 % (0-2.5); Eosinophils % (Auto) 0 % (0-10); Hemoglobin 11.2 g/dL (13.5-16.0); Immature Granulocytes % (Auto) 1 % (0-0); Immature Granulocytes Auto 0.17 Thou/mm3 (0.00-0.00); Lactate (Lactic Acid) 5.2 mMol/L (0.4-2.0); Lymphocytes # (Auto) 0.6 Thou/mm3 (1.0-4.8); Lymphocytes % (Auto) 2 % (10-50); Mean Corpuscular Hemoglobin 30.8 pg (25.0-35.0); Mean Corpuscular Volume 96 fL (80-100); Monocytes # (Auto) 1.1 Thou/mm3 (0.0-0.8); Monocytes % (Auto) 5 % (0-12); Neutrophils # (Auto) 21.6 Thou/mm3 (1.8-7.7); Neutrophils % (Auto) 92 % (37-80); Nucleated Red Blood Cell # 0.08 Thou/mm3 (0.00-0.00); Nucleated Red Blood Cell % 0 /100 WBC (0); Platelet Count 254 Thou/mm3 (140-440); RDW Standard Deviation 54.2 fL (35.1-43.9); Red Blood Count 3.64 Miln/mm3 (4.50-5.90); White Blood Count 23.4 Thou/mm3 (3.8-10.6)
[2024-06-20] MEDS: HEPARIN SOD INJ 5000 UNIT/ML VIAL SC (05:19)
[2024-06-20 05:30] LABS: Reflex Lactate? Y
[2024-06-20 05:44] LABS: INR 3.2 (0.9-1.3)
[2024-06-20 05:48] LABS: Prothrombin Time 31.8 Seconds (9.0-12.2)
[2024-06-20 05:55] LABS: Reflex Lactate? Y
--- NOTE | 2024-06-20 06:00 | XR_ITS ---
Examination: AP chest single view TECHNIQUE: Portable upright AP chest single view Exam date and time: June 20, 2024 at 0640 hours Comparison June 19, 2024 INDICATIONS: Shortness of breath this week FINDINGS: Mild heart failure Mild enlargement cardiac contour Prominent vascular congestion Air distended stomach. Cardiac leads stable position. Right internal jugular central line tip right atrium No pneumothorax IMPRESSION: Mild heart failure
[2024-06-20 06:29] LABS: Albumin, Serum 3.2 gm/dL (3.4-4.8); Albumin/Globulin Ratio 1.2 (1.2-2.2); Alkaline Phosphatase 137 U/L (46-116); Anion Gap 18 (7-16); BUN/Creatinine Ratio 15 Ratio (12-20); Bilirubin,Total 5.5 mg/dL (0.3-1.2); Blood Urea Nitrogen 50 mg/dL (9-23); Calcium 7.5 mg/dL (8.3-10.6); Calcium (Corrected) 8.1 mg/dL (8.5-10.1); Cardiac Risk Estimate 8.7 RATIO (4.0-6.7); Chloride 97 mMol/L (98-107); Cholesterol 113 mg/dL (132-200); Creatinine (Component) 3.4 mg/dL (0.6-1.3); Estimated Creatinine Clearance 24.4 mL/min (>60); Globulin 2.6 gm/dL (2.3-3.5); Glucose 114 mg/dL (74-106); HDL Cholesterol 13 mg/dL (40-60); LDL Cholesterol,Calculated 86 mg/dL (0-130); Magnesium 1.9 mg/dL (1.6-2.6); Osmolality,Calculated 291 (275-295); Phosphorous 7.9 mg/dL (2.4-5.1); Potassium 4.4 mMol/L (3.4-5.1); Sodium 139 mMol/L (136-145); Total Protein 5.8 gm/dL (5.7-8.2); Triglycerides 70 mg/dL (30-150); eGFR 19 See Note
[2024-06-20 06:55] LABS: Alanine Aminotransferase > 3300 U/L (10-49); Aspartate Amino Transferase > 6000 U/L (0-34)
[2024-06-20 08:14] LABS: Reflex Lactate? Y
[2024-06-20 08:57] LABS: Base Excess, Venous 1 (-3-3); O2 Saturation, Venous 62 % (96-97); PCO2, Venous 46 mmHg (36-56); PO2, Venous 37 mmHg (15-58); pH, Venous 7.38 (7.33-7.66)
[2024-06-20 08:58] LABS: Lactic Acid, 3 HR 4.3 mMol/L (0.4-2.0)
[2024-06-20] MEDS: ASPIRIN EC 81 MG TABEC PO (09:02)
[2024-06-20] MEDS: CALCIUM GLUC/NS 1000MG IVPB 1,000 MG/50 ML BAG 50 MG IV (09:08)
[2024-06-20] MEDS: SODIUM CHLORIDE 0.9% 500 ML 500 ML 150 ML IV (09:08)
[2024-06-20 09:25] LABS: Troponin I 12.943 ng/mL (0.0-0.045)
[2024-06-20] MEDS: DEXMEDETOMIDINE 400 MCG IVPB 400 MCG/100 ML BAG IV (10:12)
[2024-06-20] MEDS: PANTOPRAZOLE INJ 40 MG VIAL IVP ×2 (10:12→20:40)
--- NOTE | 2024-06-20 10:31 | XR_ITS ---
Examination: AP chest single view. TECHNIQUE: AP portable semiupright chest single view Exam date and time: June 20, 2024, 11:00 AM Comparison June 20, 2024 0640 hours INDICATIONS: Increasing shortness of breath history. FINDINGS: Mild heart failure. Mild enlargement left ventricle Prominent vascular congestion. Early septal edema at the lung bases. Stable position transvenous dual-chamber bipolar cardiac leads. Right internal jugular central line tip SVC, no pneumothorax IMPRESSION: Mild heart failure
[2024-06-20] MEDS: LIDOCAINE INJ PF 2% 5 ML VIAL INFL (10:51)
[2024-06-20 11:20] LABS: Base Excess -1 (-3-3); Base Excess, Venous 0 (-3-3); HCO3 24 mEq/L (20-26); Inspired Oxygen, FIO2 5 %; O2 Saturation 91 % (91-98); O2 Saturation, Venous 64 % (96-97); PCO2 40 mmHg (32.0-48.0); PCO2, Venous 44 mmHg (36-56); PO2 63 mmHg (83-108); PO2, Venous 38 mmHg (15-58); pH, Arterial 7.39 (7.35-7.45); pH, Venous 7.37 (7.33-7.66)
[2024-06-20 11:21] LABS: Allen Test Not Performed; Puncture Site Arterial Line
--- NOTE | 2024-06-20 11:39 | ESPR_ITS ---
<Statement entered by Mayela Kiran MD - 06/20/24 16:39> I personally evaluated the patient examined intensive care in critical condition remains on vasopressors including norepinephrine as well as dobutamine blood pressure still soft cardiogenic shock as well as possible sepsis underlying methamphetamine abuse causing toxic cardiomyopathy chronic systolic heart failure acute decompensation with cardiogenic shock troponin continues to go up but still possible due to methamphetamine use prognosis poor condition remains critical so far is not have any arrhythmias hemodynamically tolerating the medications well we will continue to monitor the patient cardiac status no cardiac intervention can be performed. Documentation for date of: 06/20/24 Subjective Subjective Interval history: Patient was examined at bedside this morning, troponin went upto 12 , meth positive in utox , lactic acid trending down. he is still on dobutamine , AST > 6000, ALT- 3300, procsl- 6.08 . levophed added to maintain the pressure. he has poor prognosis Exam Vital Signs Temp Pulse Resp BP Pulse Ox O2 Del Method O2 Flow Rate 98.2 F 105 H 17 100/76 95 Nasal Cannula 2 06/20/24 08:00 06/20/24 10:30 06/20/24 10:30 06/20/24 10:30 06/20/24 10:30 06/19/24 16:23 06/19/24 16:23 Narrative Exam GENERAL: Frail, sick looking elderly male on NC , mittins on hand HEENT: Normocephalic, atraumatic. Pupils are equal and reactive. Oral mucosa is moist. NECK: Supple, nontender, right IJ present CARDIOVASCULAR: Heart regular rhythm & rate. S1/S2. no murmur or gallop rub or extra beats. LUNGS: Clear to auscultation bilaterally with symmetrical chest rise. No laboring tachypnea or wheezing. ABDOMEN: Soft, flat, nontender to palpation, no guarding or rebound tenderness. Active and normal bowel sounds. EXTREMITIES:Moves all 4 extremities,No B/L LE edema. SKIN: b/l motteling present NEURO: Patient is AO x 3, Cranial nerves II through XII grossly intact. There is no focal neurologic deficits noted. PSYCHIATRIC: Patient is in normal mood, cooperative, no SI or HI or hallucinations. Objective Labs 06/20/24 05:04 06/20/24 05:04 Labs: Laboratory Results - last 24 hr 06/19/24 06/19/24 06/19/24 11:47 15:23 16:21 WBC RBC Hgb Hct MCV MCH MCHC RDW Std Deviation Plt Count Neut % (Auto) Lymph % (Auto) [place] % (Auto) Eos % (Auto) Baso % (Auto) Neut # (Auto) Lymph # (Auto) [place] # (Auto) Eos # (Auto) Baso # (Auto) Immature Gran # (Auto) Absolute Nucleated RBC Immature Gran % Nucleated RBC % PT 29.8 H D INR 2.9 H Puncture Site Right Radial ABG pH 7.10 L* ABG pCO2 20 L ABG pO2 105 ABG HCO3 6 L* ABG O2 Saturation 96 ABG Base Excess -21 L VBG pH VBG pCO2 VBG pO2 VBG O2 Sat ([place]) VBG Base Excess Oxygen Liter Flow 1 FiO2 Sodium Potassium Chloride Carbon Dioxide Anion Gap BUN Creatinine Estim Creat Clear Calc eGFR BUN/Creatinine Ratio Glucose Estimated Ave Glu mg/dL 88 Hemoglobin A1c 4.7 L Calculated Osmolality Lactic Acid 18.0 H* Calcium Corrected Calcium Phosphorus Magnesium Total Bilirubin AST ALT Alkaline Phosphatase Troponin I 4.524 H* D 6.577 H* D B-Natriuretic Peptide > 3280 H* Total Protein Albumin Globulin Albumin/Globulin Ratio Triglycerides Cholesterol LDL Cholesterol, Calc HDL Cholesterol Cholesterol/HDL Ratio Lipase 40 Procalcitonin Ur Collection Type Urine Color Urine Clarity Urine pH Ur Specific [place] Urine Protein Urine Glucose (UA) Urine Ketones Urine Blood Urine Nitrite Urine Bilirubin Urine Urobilinogen (Auto) Ur Leukocyte Esterase Urine RBC Urine WBC Ur Squamous Epith Cells Urine Bacteria Hyaline Casts Urine Opiates Screen Urine Fentanyl Screen Ur Barbiturates Screen U Amphetamin/Meth Scrn U Benzodiazepines Scrn U Cocaine Metab Screen U Marijuana (THC) Screen 06/19/24 06/19/24 06/19/24 16:40 16:46 17:41 WBC RBC Hgb Hct MCV MCH MCHC RDW Std Deviation Plt Count Neut % (Auto) Lymph % (Auto) [place] % (Auto) Eos % (Auto) Baso % (Auto) Neut # (Auto) Lymph # (Auto) [place] # (Auto) Eos # (Auto) Baso # (Auto) Immature Gran # (Auto) Absolute Nucleated RBC Immature Gran % Nucleated RBC % PT INR Puncture Site ABG pH ABG pCO2 ABG pO2 ABG HCO3 ABG O2 Saturation ABG Base Excess VBG pH 7.19 L VBG pCO2 28 L VBG pO2 55 VBG O2 Sat (Ariana) 81 L VBG Base Excess -16 L Oxygen Liter Flow FiO2 Sodium Potassium Chloride Carbon Dioxide Anion Gap BUN Creatinine Estim Creat Clear Calc eGFR BUN/Creatinine Ratio Glucose Estimated Ave Glu mg/dL Hemoglobin A1c Calculated Osmolality Lactic Acid Calcium Corrected Calcium Phosphorus Magnesium Total Bilirubin AST ALT Alkaline Phosphatase Troponin I B-Natriuretic Peptide Total Protein Albumin Globulin Albumin/Globulin Ratio Triglycerides Cholesterol LDL Cholesterol, Calc HDL Cholesterol Cholesterol/HDL Ratio Lipase Procalcitonin Ur Collection Type Catheter Urine Color Drk-Yellow A Urine Clarity Cloudy A Urine pH 5.5 Ur Specific [place] 1.022 Urine Protein 2+ A Urine Glucose (UA) Negative Urine Ketones 1+ A Urine Blood 2+ A Urine Nitrite Negative Urine Bilirubin 1+ A Urine Urobilinogen (Auto) 4.0 Ur Leukocyte Esterase Negative Urine RBC 4 H Urine WBC 9 H Ur Squamous Epith Cells 1 Urine Bacteria None Hyaline Casts 3 H Urine Opiates Screen Positive A Urine Fentanyl Screen Negative Ur Barbiturates Screen Negative U Amphetamin/Meth Scrn Positive A U Benzodiazepines Scrn Negative U Cocaine Metab Screen Negative U Marijuana (THC) Screen Negative 06/19/24 06/19/24 06/19/24 19:54 22:19 22:40 WBC RBC Hgb Hct MCV MCH MCHC RDW Std Deviation Plt Count Neut % (Auto) Lymph % (Auto) [place] % (Auto) Eos % (Auto) Baso % (Auto) Neut # (Auto) Lymph # (Auto) [place] # (Auto) Eos # (Auto) Baso # (Auto) Immature Gran # (Auto) Absolute Nucleated RBC Immature Gran % Nucleated RBC % PT INR Puncture Site ABG pH ABG pCO2 ABG pO2 ABG HCO3 ABG O2 Saturation ABG Base Excess VBG pH VBG pCO2 VBG pO2 VBG O2 Sat (Ariana) VBG Base Excess Oxygen Liter Flow FiO2 Sodium Potassium Chloride Carbon Dioxide Anion Gap BUN Creatinine Estim Creat Clear Calc eGFR BUN/Creatinine Ratio Glucose Estimated Ave Glu mg/dL Hemoglobin A1c Calculated Osmolality Lactic Acid 16.0 H* 11.6 H* Calcium Corrected Calcium Phosphorus Magnesium Total Bilirubin AST ALT Alkaline Phosphatase Troponin I 7.374 H* D B-Natriuretic Peptide Total Protein Albumin Globulin Albumin/Globulin Ratio Triglycerides Cholesterol LDL Cholesterol, Calc HDL Cholesterol Cholesterol/HDL Ratio Lipase Procalcitonin 6.08 H Ur Collection Type Urine Color Urine Clarity Urine pH Ur Specific [place] Urine Protein Urine Glucose (UA) Urine Ketones Urine Blood Urine Nitrite Urine Bilirubin Urine Urobilinogen (Auto) Ur Leukocyte Esterase Urine RBC Urine WBC Ur Squamous Epith Cells Urine Bacteria Hyaline Casts Urine Opiates Screen Urine Fentanyl Screen Ur Barbiturates Screen U Amphetamin/Meth Scrn U Benzodiazepines Scrn U Cocaine Metab Screen U Marijuana (THC) Screen 06/20/24 06/20/24 06/20/24 02:50 05:04 08:48 WBC 23.4 H D RBC 3.64 L Hgb 11.2 L D Hct 35.0 L MCV 96 MCH 30.8 MCHC 32.0 RDW Std Deviation 54.2 H Plt Count 254 D Neut % (Auto) 92 H Lymph % (Auto) 2 L [place] % (Auto) 5 Eos % (Auto) 0 Baso % (Auto) 0 Neut # (Auto) 21.6 H Lymph # (Auto) 0.6 L [place] # (Auto) 1.1 H Eos # (Auto) 0.0 Baso # (Auto) 0.0 Immature Gran # (Auto) 0.17 H Absolute Nucleated RBC 0.08 H Immature Gran % 1 H Nucleated RBC % 0 PT 31.8 H* INR 3.2 H Puncture Site ABG pH ABG pCO2 ABG pO2 ABG HCO3 ABG O2 Saturation ABG Base Excess VBG pH 7.38 VBG pCO2 46 D VBG pO2 37 VBG O2 Sat (Ariana) 62 L D VBG Base Excess 1 Oxygen Liter Flow FiO2 Sodium 139 Potassium 4.4 Chloride 97 L Carbon Dioxide 24.0 Anion Gap 18 H BUN 50 H Creatinine 3.4 H D Estim Creat Clear Calc 24.4 L eGFR 19 L BUN/Creatinine Ratio 15 Glucose [address] Glu mg/dL Hemoglobin A1c Calculated Osmolality 291 Lactic Acid 6.4 H* 5.2 H* 4.3 H* Calcium 7.5 L D Corrected Calcium 8.1 L D Phosphorus 7.9 H Magnesium 1.9 Total Bilirubin 5.5 H AST > 6000 H* ALT > 3300 H* Alkaline Phosphatase 137 H Troponin I 9.896 H* D B-Natriuretic Peptide Total Protein 5.8 Albumin 3.2 L D Globulin 2.6 Albumin/Globulin Ratio 1.2 Triglycerides 70 Cholesterol 113 L LDL Cholesterol, Calc 86 HDL Cholesterol 13 L Cholesterol/HDL Ratio 8.7 H Lipase Procalcitonin Ur Collection Type Urine Color Urine Clarity Urine pH Ur Specific [place] Urine Protein Urine Glucose (UA) Urine Ketones Urine Blood Urine Nitrite Urine Bilirubin Urine Urobilinogen (Auto) Ur Leukocyte Esterase Urine RBC Urine WBC Ur Squamous Epith Cells Urine Bacteria Hyaline Casts Urine Opiates Screen Urine Fentanyl Screen Ur Barbiturates Screen U Amphetamin/Meth Scrn U Benzodiazepines Scrn U Cocaine Metab Screen U Marijuana (THC) Screen 06/20/24 06/20/24 08:53 11:10 WBC RBC Hgb Hct MCV MCH MCHC RDW Std Deviation Plt Count Neut % (Auto) Lymph % (Auto) [place] % (Auto) Eos % (Auto) Baso % (Auto) Neut # (Auto) Lymph # (Auto) [place] # (Auto) Eos # (Auto) Baso # (Auto) Immature Gran # (Auto) Absolute Nucleated RBC Immature Gran % Nucleated RBC % PT INR Puncture Site Arterial Line ABG pH 7.39 D ABG pCO2 40 D ABG pO2 63 L D ABG HCO3 24 ABG O2 Saturation 91 ABG Base Excess -1 VBG pH 7.37 VBG pCO2 44 VBG pO2 38 VBG O2 Sat (Ariana) 64 L VBG Base Excess 0 Oxygen Liter Flow FiO2 5 Sodium Potassium Chloride Carbon Dioxide Anion Gap BUN Creatinine Estim Creat Clear Calc eGFR BUN/Creatinine Ratio Glucose Estimated Ave Glu mg/dL Hemoglobin A1c Calculated Osmolality Lactic Acid Calcium Corrected Calcium Phosphorus Magnesium Total Bilirubin AST ALT Alkaline Phosphatase Troponin I 12.943 H* D B-Natriuretic Peptide Total Protein Albumin Globulin Albumin/Globulin Ratio Triglycerides Cholesterol LDL Cholesterol, Calc HDL Cholesterol Cholesterol/HDL Ratio Lipase Procalcitonin Ur Collection Type Urine Color Urine Clarity Urine pH Ur Specific [place] Urine Protein Urine Glucose (UA) Urine Ketones Urine Blood Urine Nitrite Urine Bilirubin Urine Urobilinogen (Auto) Ur Leukocyte Esterase Urine RBC Urine WBC Ur Squamous Epith Cells Urine Bacteria Hyaline Casts Urine Opiates Screen Urine Fentanyl Screen Ur Barbiturates Screen U Amphetamin/Meth Scrn U Benzodiazepines Scrn U Cocaine Metab Screen U Marijuana (THC) Screen ABG Interpretation ABG results: 06/19/24 06/19/24 06/20/24 16:21 17:41 08:48 ABG pH 7.10 L* ABG pCO2 20 L ABG pO2 105 ABG HCO3 6 L* ABG O2 Saturation 96 ABG Base Excess -21 L VBG pH 7.19 L 7.38 VBG pCO2 28 L 46 D VBG pO2 55 37 VBG Base Excess -16 L 1 06/20/24 11:10 ABG pH 7.39 D ABG pCO2 40 D ABG pO2 63 L D ABG HCO3 24 ABG O2 Saturation 91 ABG Base Excess -1 VBG pH 7.37 VBG pCO2 44 VBG pO2 38 VBG Base Excess 0 Quality Measures Quality Measures none Assessment & Plan Assessment Current Active Medications: Generic Name Dose Route Start Last Admin Trade Name Freq PRN Reason Stop Dose Admin Acetaminophen 650 mg 06/19/24 14:18 Acetaminophen 325 Mg Tablet PO 07/19/24 14:17 Q6H PRN Fever >101.5 Acetaminophen 650 mg 06/19/24 14:18 Acetaminophen 325 Mg Tablet PO 07/19/24 14:17 Q6H PRN PAIN SCALE 1-3 (mild Hydrocodone Bitart/Acetaminophen 1 tab 06/19/24 14:18 Hydrocodone/Apap 10/325 Tab PO 06/24/24 14:17 Q4H PRN PAIN SCALE 4-6 (Moderate Albuterol/Ipratropium 3 ml 06/20/24 07:13 Albuterol/Ipratropium (Duoneb) Rt Yamila 3 Ml Nebu INH 07/20/24 07:12 Q2HR PRN SHORTNESS OF BREATH OR WHEEZE Albuterol/Ipratropium 3 ml 06/20/24 15:00 Albuterol/Ipratropium (Duoneb) Rt Yamila 3 Ml Nebu INH 07/20/24 14:59 Q8HRRT NYDIA Aspirin 81 mg 06/20/24 09:00 06/20/24 09:02 Aspirin Ec 81 Mg Tabec PO 07/20/24 08:59 81 mg QDAY NYDIA Administration Atorvastatin Calcium 80 mg 06/20/24 21:00 Atorvastatin Calcium 20 Mg Tablet PO 07/20/24 20:59 HS NYDIA Heparin Sodium (Porcine) 5,000 unit 06/19/24 22:00 06/20/24 05:19 Heparin Sod Inj 5000 Unit/Ml Vial SC 07/03/24 21:59 5,000 unit Q8HR NYDIA Administration Norepinephrine Bitartrate 16 mg in 250 mls @ 4.21 mls/hr 06/19/24 18:21 06/20/24 11:00 Levophed In Ns 16mg/250ml IV 07/19/24 18:20 0.05 mcg/kg/min .Q24H PRN 4.21 mls/hr PER protocol Titration Protocol 0.05 MCG/KG/MIN Dobutamine HCl/Dextrose 500 mg in 250 mls @ 5.389 mls/hr 06/19/24 18:48 06/19/24 18:40 Dobutrex/D5w Ivpb IV 07/19/24 18:47 2 mcg/kg/min .Q24H PRN 5.389 mls/hr PER PROTOCOL Administration Protocol 2 MCG/KG/MIN Dexmedetomidine/Sodium Chloride 400 mcg in 100 mls @ 4.3 mls/hr 06/20/24 10:00 06/20/24 11:08 Precedex Ivpb IV 07/20/24 09:59 1 mcg/kg/hr .[id number] PRN 21.5 mls/hr Per PROTOCOL Titration Protocol 0.2 MCG/KG/HR Morphine Sulfate 2 mg 06/19/24 14:18 06/19/24 16:28 Morphine Sulf Inj 10 Mg/Ml Vial IVP 06/24/24 14:17 2 mg Q2H PRN Administration PAIN SCALE 7-10 (Severe Ondansetron HCl 4 mg 06/19/24 14:18 Ondansetron Inj 2 Mg/Ml Inj 2 Ml IV 07/19/24 14:17 Q6H PRN NAUSEA OR VOMITING Protocol Pantoprazole Sodium 40 mg 06/20/24 10:00 06/20/24 10:12 Pantoprazole Inj 40 Mg Vial IVP 07/20/24 09:59 40 mg BID NYDIA Administration Plan 63-year-old male with past medical history of coronary artery disease, pacemaker/defibilator placed by Dr. 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 Initial labs in the ED showed WBC count of 29.8 . pH?7.10, pCO2 20, bicarb of 6, sodium?137, potassium?4.7, chloride 97, carbon oxide?14.6, BUN 33, AG 28, creatinine 2.5, lactic acid?18, total bilirubin?5.3, AST?5489, ALT?2363, alk phos?140, elevated troponin initial was 3.5 for the repeat troponin is 4.52. Chest x-ray did not show any pneumonia/no pulmonary fuction . # Cardiogenic shock # NSTEMI most likely type II in setting of Meth use # cardiomyopathy from meth #HfrEF 15-20 % ( bedside US ) - pt came to ED with [place] complain of pain abdomen , labs showed elevated troponin 3.5 , repeat troponin was 4.5 , -motteling present on B/l legs - he denies chest pain -Bedside US showed EF of 15-20 % -he has VP [employer]ATIONS-D placed by Dr Tam from [place] unknown exact date -His elevated troponin could be type I versus type II, most likely in the setting of sepsis -Echo 2018 shows - Normal left ventricular size and function. Approximate ejection fraction is 30-35%. Moderate mitral and tricuspid regurgitation noted. Mild pulmonic regurgitation.Mild PHTN. Slight posterior MVP. -he received 1 L NS in ED -Started him on Dobutamine drip -will do echo -meth is positive 06/20/2024: troponin went upto 12 , meth positive in utox , lactic acid trending down. he is still on dobutamine 2mcg , AST > 6000, ALT- 3300, procsl- 6.08 . levophed added to maintain the pressure. he has overall poor prognosis, levophed requirement going up . # H/o HTN #H/o chf - BNP ->3280 - held home anti hypertensive meds in setting of cardiogenic shock - he will need diuretics later after he is more warm Rest of medcal problem management as per ICU Case discussed david my attending Dr Magno Shea, PGY-3
--- NOTE | 2024-06-20 12:56 | PD.RESPRO ---
Documentation for date of: 06/20/24 Subjective Subjective Interval history: Patient is a 63-year-old male with past medical history of CAD, pacemaker/defibrillator by Dr. Ramirez in [place] for abnormal rhythm CHF, hypertension, COPD who came into our ER after he was woken up at 2 AM with chest pain. Patient is a poor historian but does explain that he woke up at 2 AM with severe chest pain that caused some nausea and vomiting after which he decided to come to the ED. Patient lives alone he called 911. In the ED patient was found to be tachycardic with a pulse of 121 saturating at 92% on room air. Troponins were found to be elevated at 3.54 initially and climbed up to 4.52 by the time we saw him at bedside. Patient was also found to have elevated transaminases in the thousands. Chest x-ray revealed no pulmonary edema and EKG showed sinus tachycardia. Patient was given Zofran as well as 1 L bolus of fluids and morphine in the ER as well as aspirin and nitroglycerin and metoprolol which seem to have helped the patient's pain at the time. Physical exam revealed 2+ pitting edema in the lower extremities with bilateral lower extremities mottling up to the knees. Patient was pale and capillary refill was greater than 10 seconds. Patient's jugular venous pressure was elevated which was confirmed with ultrasound and patient was found to be likely in cardiogenic shock. The decision was made to admit patient to the ICU and we inserted a central line and arterial line. Further testing revealed that patient was methamphetamine positive. BUN was greater than 3280, lactic acid was elevated at 18 and pH was 7.10 with a pCO2 of 29 and pO2 of 105 subsequent VBG showed improvement in pH to 7.19. Patient was started on dobutamine drip in the ED as well as Levophed. 06/20/2024: Patient seen and examined in the ICU today. There were no major overnight events and patient was stable this morning. Cardiac output has maintained with pressor support and dobutamine. Patient has been spitting out frothy pink to dark brown material likely from pulmonary congestion. Patient's ABG and VBG showed increased cardiac output and is now warmer with no mottling and capillary refill of less than 3 seconds. Patient received 1 dose of Lasix 40 mg IV push. Will continue to monitor patient closely and try to wean him off of pressor support and inotropic support. Patient's PT and INR are elevated with an INR of 3.2. Patient is likely in DIC as his liver is still short with T. bili of 5.5 and AST greater than 6000 and ALT greater than 3300. Troponins have continued to climb to 12.9 but patient denies any chest pain, it is likely secondary to demand ischemia as well as damage from substance abuse, methamphetamine. Urine output has slowly improved. Exam Vital Signs Temp Pulse Resp BP Pulse Ox O2 Del Method O2 Flow Rate 98.2 F 94 12 93/64 92 L Nasal Cannula 2 06/20/24 08:00 06/20/24 12:15 06/20/24 12:15 06/20/24 12:15 06/20/24 12:15 06/19/24 16:23 06/19/24 16:23 Narrative Exam Constitutional: Pale disheveled elderly male in no acute distress Head: Normocephalic/Atraumatic Eyes: PERRL , no conjunctival injection , symmetrical lids. ENMT: Moist Mucous Membranes, No trauma or injury. There seems to be black substance in his mouth. Neck: Supple to palpation CVS: RRR, S1 and S2 present, no murmurs, rubs or gallops . Capillary refills less than 3 seconds RESP: CTAB, no SOB, no rales, rhonchi or wheezing. No respiratory Distress GI: Normal BS, Nontender/Nondistended. MSK: Full range of motion, No trauma or deformities or masses. Skin: Skin is warm to the touch and there is no mottling seen on the lower extremities anymore. Neuro: Patient is AAO x 2 as he is alert to place but not to time. Objective Labs 06/24/24 04:55 06/24/24 04:55 Labs: Laboratory Results - last 24 hr 06/19/24 06/19/24 06/19/24 15:23 16:21 16:40 WBC RBC Hgb Hct MCV MCH MCHC RDW Std Deviation Plt Count Neut % (Auto) Lymph % (Auto) [place] % (Auto) Eos % (Auto) Baso % (Auto) Neut # (Auto) Lymph # (Auto) [place] # (Auto) Eos # (Auto) Baso # (Auto) Immature Gran # (Auto) Absolute Nucleated RBC Immature Gran % Nucleated RBC % PT 29.8 H D INR 2.9 H Puncture Site Right Radial ABG pH 7.10 L* ABG pCO2 20 L ABG pO2 105 ABG HCO3 6 L* ABG O2 Saturation 96 ABG Base Excess -21 L VBG pH VBG pCO2 VBG pO2 VBG O2 Sat (Ariana) VBG Base Excess Oxygen Liter Flow 1 FiO2 Sodium Potassium Chloride Carbon Dioxide Anion Gap BUN Creatinine Estim Creat Clear Calc eGFR BUN/Creatinine Ratio Glucose Estimated Ave Glu mg/dL 88 Hemoglobin A1c 4.7 L Calculated Osmolality Lactic Acid 18.0 H* Calcium Corrected Calcium Phosphorus Magnesium Total Bilirubin AST ALT Alkaline Phosphatase Troponin I 6.577 H* D B-Natriuretic Peptide > 3280 H* Total Protein Albumin Globulin Albumin/Globulin Ratio Triglycerides Cholesterol LDL Cholesterol, Calc HDL Cholesterol Cholesterol/HDL Ratio Procalcitonin Ur Collection Type Catheter Urine Color Drk-Yellow A Urine Clarity Cloudy A Urine pH 5.5 Ur Specific [place] 1.022 Urine Protein 2+ A Urine Glucose (UA) Negative Urine Ketones 1+ A Urine Blood 2+ A Urine Nitrite Negative Urine Bilirubin 1+ A Urine Urobilinogen (Auto) 4.0 Ur Leukocyte Esterase Negative Urine RBC 4 H Urine WBC 9 H Ur Squamous Epith Cells 1 Urine Bacteria None Hyaline Casts 3 H Urine Opiates Screen Urine Fentanyl Screen Ur Barbiturates Screen U Amphetamin/Meth Scrn U Benzodiazepines Scrn U Cocaine Metab Screen U Marijuana (THC) Screen Blood Type Antibody Screen Blood Bank Wristband ID 06/19/24 06/19/24 06/19/24 16:46 17:41 19:54 WBC RBC Hgb Hct MCV MCH MCHC RDW Std Deviation Plt Count Neut % (Auto) Lymph % (Auto) Mil[place] % (Auto) Eos % (Auto) Baso % (Auto) Neut # (Auto) Lymph # (Auto) [place] # (Auto) Eos # (Auto) Baso # (Auto) Immature Gran # (Auto) Absolute Nucleated RBC Immature Gran % Nucleated RBC % PT INR Puncture Site ABG pH ABG pCO2 ABG pO2 ABG HCO3 ABG O2 Saturation ABG Base Excess VBG pH 7.19 L VBG pCO2 28 L VBG pO2 55 VBG O2 Sat (Ariana) 81 L VBG Base Excess -16 L Oxygen Liter Flow FiO2 Sodium Potassium Chloride Carbon Dioxide Anion Gap BUN Creatinine Estim Creat Clear Calc eGFR BUN/Creatinine Ratio Glucose Estimated Ave Glu mg/dL Hemoglobin A1c Calculated Osmolality Lactic Acid 16.0 H* Calcium Corrected Calcium Phosphorus Magnesium Total Bilirubin AST ALT Alkaline Phosphatase Troponin I 7.374 H* D B-Natriuretic Peptide Total Protein Albumin Globulin Albumin/Globulin Ratio Triglycerides Cholesterol LDL Cholesterol, Calc HDL Cholesterol Cholesterol/HDL Ratio Procalcitonin Ur Collection Type Urine Color Urine Clarity Urine pH Ur Specific [place] Urine Protein Urine Glucose (UA) Urine Ketones Urine Blood Urine Nitrite Urine Bilirubin Urine Urobilinogen (Auto) Ur Leukocyte Esterase Urine RBC Urine WBC Ur Squamous Epith Cells Urine Bacteria Hyaline Casts Urine Opiates Screen Positive A Urine Fentanyl Screen Negative Ur Barbiturates Screen Negative U Amphetamin/Meth Scrn Positive A U Benzodiazepines Scrn Negative U Cocaine Metab Screen Negative U Marijuana (THC) Screen Negative Blood Type Antibody Screen Blood Bank Wristband ID 06/19/24 06/19/24 06/20/24 22:19 22:40 02:50 WBC RBC Hgb Hct MCV MCH MCHC RDW Std Deviation Plt Count Neut % (Auto) Lymph % (Auto) [place] % (Auto) Eos % (Auto) Baso % (Auto) Neut # (Auto) Lymph # (Auto) [place] # (Auto) Eos # (Auto) Baso # (Auto) Immature Gran # (Auto) Absolute Nucleated RBC Immature Gran % Nucleated RBC % PT INR Puncture Site ABG pH ABG pCO2 ABG pO2 ABG HCO3 ABG O2 Saturation ABG Base Excess VBG pH VBG pCO2 VBG pO2 VBG O2 Sat (Ariana) VBG Base Excess Oxygen Liter Flow FiO2 Sodium Potassium Chloride Carbon Dioxide Anion Gap BUN Creatinine Estim Creat Clear Calc eGFR BUN/Creatinine Ratio Glucose Estimated Ave Glu mg/dL Hemoglobin A1c Calculated Osmolality Lactic Acid 11.6 H* 6.4 H* Calcium Corrected Calcium Phosphorus Magnesium Total Bilirubin AST ALT Alkaline Phosphatase Troponin I 9.896 H* D B-Natriuretic Peptide Total Protein Albumin Globulin Albumin/Globulin Ratio Triglycerides Cholesterol LDL Cholesterol, Calc HDL Cholesterol Cholesterol/HDL Ratio Procalcitonin 6.08 H Ur Collection Type Urine Color Urine Clarity Urine pH Ur Specific [place] Urine Protein Urine Glucose (UA) Urine Ketones Urine Blood Urine Nitrite Urine Bilirubin Urine Urobilinogen (Auto) Ur Leukocyte Esterase Urine RBC Urine WBC Ur Squamous Epith Cells Urine Bacteria Hyaline Casts Urine Opiates Screen Urine Fentanyl Screen Ur Barbiturates Screen U Amphetamin/Meth Scrn U Benzodiazepines Scrn U Cocaine Metab Screen U Marijuana (THC) Screen Blood Type Antibody Screen Blood Bank Wristband ID 06/20/24 06/20/24 06/20/24 05:04 08:48 08:53 WBC 23.4 H D RBC 3.64 L Hgb 11.2 L D Hct 35.0 L MCV 96 MCH 30.8 MCHC 32.0 RDW Std Deviation 54.2 H Plt Count 254 D Neut % (Auto) 92 H Lymph % (Auto) 2 L Milam % (Auto) 5 Eos % (Auto) 0 Baso % (Auto) 0 Neut # (Auto) 21.6 H Lymph # (Auto) 0.6 L Milam # (Auto) 1.1 H Eos # (Auto) 0.0 Baso # (Auto) 0.0 Immature Gran # (Auto) 0.17 H Absolute Nucleated RBC 0.08 H Immature Gran % 1 H Nucleated RBC % 0 PT 31.8 H* INR 3.2 H Puncture Site ABG pH ABG pCO2 ABG pO2 ABG HCO3 ABG O2 Saturation ABG Base Excess VBG pH 7.38 VBG pCO2 46 D VBG pO2 37 VBG O2 Sat (Ariana) 62 L D VBG Base Excess 1 Oxygen Liter Flow FiO2 Sodium 139 Potassium 4.4 Chloride 97 L Carbon Dioxide 24.0 Anion Gap 18 H BUN 50 H Creatinine 3.4 H D Estim Creat Clear Calc 24.4 L eGFR 19 L BUN/Creatinine Ratio 15 Glucose [address] Glu mg/dL Hemoglobin A1c Calculated Osmolality 291 Lactic Acid 5.2 H* 4.3 H* Calcium 7.5 L D Corrected Calcium 8.1 L D Phosphorus 7.9 H Magnesium 1.9 Total Bilirubin 5.5 H AST > 6000 H* ALT > 3300 H* Alkaline Phosphatase 137 H Troponin I 12.943 H* D B-Natriuretic Peptide Total Protein 5.8 Albumin 3.2 L D Globulin 2.6 Albumin/Globulin Ratio 1.2 Triglycerides 70 Cholesterol 113 L LDL Cholesterol, Calc 86 HDL Cholesterol 13 L Cholesterol/HDL Ratio 8.7 H Procalcitonin Ur Collection Type Urine Color Urine Clarity Urine pH Ur Specific [place] Urine Protein Urine Glucose (UA) Urine Ketones Urine Blood Urine Nitrite Urine Bilirubin Urine Urobilinogen (Auto) Ur Leukocyte Esterase Urine RBC Urine WBC Ur Squamous Epith Cells Urine Bacteria Hyaline Casts Urine Opiates Screen Urine Fentanyl Screen Ur Barbiturates Screen U Amphetamin/Meth Scrn U Benzodiazepines Scrn U Cocaine Metab Screen U Marijuana (THC) Screen Blood Type Antibody Screen Blood Bank Wristband ID 06/20/24 06/20/24 11:10 11:11 WBC RBC Hgb Hct MCV MCH MCHC RDW Std Deviation Plt Count Neut % (Auto) Lymph % (Auto) [place] % (Auto) Eos % (Auto) Baso % (Auto) Neut # (Auto) Lymph # (Auto) [place] # (Auto) Eos # (Auto) Baso # (Auto) Immature Gran # (Auto) Absolute Nucleated RBC Immature Gran % Nucleated RBC % PT INR Puncture Site Arterial Line ABG pH 7.39 D ABG pCO2 40 D ABG pO2 63 L D ABG HCO3 24 ABG O2 Saturation 91 ABG Base Excess -1 VBG pH 7.37 VBG pCO2 44 VBG pO2 38 VBG O2 Sat (Ariana) 64 L VBG Base Excess 0 Oxygen Liter Flow FiO2 5 Sodium Potassium Chloride Carbon Dioxide Anion Gap BUN Creatinine Estim Creat Clear Calc eGFR BUN/Creatinine Ratio Glucose Estimated Ave Glu mg/dL Hemoglobin A1c Calculated Osmolality Lactic Acid Calcium Corrected Calcium Phosphorus Magnesium Total Bilirubin AST ALT Alkaline Phosphatase Troponin I B-Natriuretic Peptide Total Protein Albumin Globulin Albumin/Globulin Ratio Triglycerides Cholesterol LDL Cholesterol, Calc HDL Cholesterol Cholesterol/HDL Ratio Procalcitonin Ur Collection Type Urine Color Urine Clarity Urine pH Ur Specific [place] Urine Protein Urine Glucose (UA) Urine Ketones Urine Blood Urine Nitrite Urine Bilirubin Urine Urobilinogen (Auto) Ur Leukocyte Esterase Urine RBC Urine WBC Ur Squamous Epith Cells Urine Bacteria Hyaline Casts Urine Opiates Screen Urine Fentanyl Screen Ur Barbiturates Screen U Amphetamin/Meth Scrn U Benzodiazepines Scrn U Cocaine Metab Screen U Marijuana (THC) Screen Blood Type O Negative Antibody Screen NEGATIVE Blood Bank Wristband ID Yes ABG Interpretation ABG results: 06/19/24 06/19/24 06/20/24 16:21 17:41 08:48 ABG pH 7.10 L* ABG pCO2 20 L ABG pO2 105 ABG HCO3 6 L* ABG O2 Saturation 96 ABG Base Excess -21 L VBG pH 7.19 L 7.38 VBG pCO2 28 L 46 D VBG pO2 55 37 VBG Base Excess -16 L 1 06/20/24 11:10 ABG pH 7.39 D ABG pCO2 40 D ABG pO2 63 L D ABG HCO3 24 ABG O2 Saturation 91 ABG Base Excess -1 VBG pH 7.37 VBG pCO2 44 VBG pO2 38 VBG Base Excess 0 Quality Measures Quality Measures none Assessment & Plan Assessment Current Active Medications: Generic Name Dose Route Start Last Admin Trade Name Freq PRN Reason Stop Dose Admin Acetaminophen 650 mg 06/19/24 14:18 Acetaminophen 325 Mg Tablet PO 07/19/24 14:17 Q6H PRN Fever >101.5 Acetaminophen 650 mg 06/19/24 14:18 Acetaminophen 325 Mg Tablet PO 07/19/24 14:17 Q6H PRN PAIN SCALE 1-3 (mild Hydrocodone Bitart/Acetaminophen 1 tab 06/19/24 14:18 Hydrocodone/Apap 10/325 Tab PO 06/24/24 14:17 Q4H PRN PAIN SCALE 4-6 (Moderate Albuterol/Ipratropium 3 ml 06/20/24 07:13 Albuterol/Ipratropium (Duoneb) Rt Yamila 3 Ml Nebu INH 07/20/24 07:12 Q2HR PRN SHORTNESS OF BREATH OR WHEEZE Albuterol/Ipratropium 3 ml 06/20/24 15:00 Albuterol/Ipratropium (Duoneb) Rt Yamila 3 Ml Nebu INH 07/20/24 14:59 Q8HRRT NYDIA Aspirin 81 mg 06/20/24 09:00 06/20/24 09:02 Aspirin Ec 81 Mg Tabec PO 07/20/24 08:59 81 mg QDAY NYDIA Administration Atorvastatin Calcium 80 mg 06/20/24 21:00 Atorvastatin Calcium 20 Mg Tablet PO 07/20/24 20:59 HS NYDIA Heparin Sodium (Porcine) 5,000 unit 06/19/24 22:00 06/20/24 05:19 Heparin Sod Inj 5000 Unit/Ml Vial SC 07/03/24 21:59 5,000 unit Q8HR NYDIA Administration Norepinephrine Bitartrate 16 mg in 250 mls @ 4.21 mls/hr 06/19/24 18:21 06/20/24 12:15 Levophed In Ns 16mg/250ml IV 07/19/24 18:20 0.11 mcg/kg/min .Q24H PRN 9.262 mls/hr PER protocol Titration Protocol 0.05 MCG/KG/MIN Dobutamine HCl/Dextrose 500 mg in 250 mls @ 5.389 mls/hr 06/19/24 18:48 06/19/24 18:40 Dobutrex/D5w Ivpb IV 07/19/24 18:47 2 mcg/kg/min .Q24H PRN 5.389 mls/hr PER PROTOCOL Administration Protocol 2 MCG/KG/MIN Dexmedetomidine/Sodium Chloride 400 mcg in 100 mls @ 4.3 mls/hr 06/20/24 10:00 06/20/24 11:38 Precedex Ivpb IV 07/20/24 09:59 1.2 mcg/kg/hr .[id number] PRN 25.8 mls/hr Per PROTOCOL Titration Protocol 0.2 MCG/KG/HR Morphine Sulfate 2 mg 06/19/24 14:18 06/19/24 16:28 Morphine Sulf Inj 10 Mg/Ml Vial IVP 06/24/24 14:17 2 mg Q2H PRN Administration PAIN SCALE 7-10 (Severe Ondansetron HCl 4 mg 06/19/24 14:18 Ondansetron Inj 2 Mg/Ml Inj 2 Ml IV 07/19/24 14:17 Q6H PRN NAUSEA OR VOMITING Protocol Pantoprazole Sodium 40 mg 06/20/24 10:00 06/20/24 10:12 Pantoprazole Inj 40 Mg Vial IVP 07/20/24 09:59 40 mg BID NYDIA Administration Plan 63-year-old male with past medical history of CAD, pacemaker/defibrillator by Dr. Ramirez in [place] for abnormal rhythm CHF, hypertension, COPD who came into our ER after he was woken up at 2 AM with chest pain and admitted to the ICU for further management of his shock likely cardiogenic. Neuro #Acute encephalopathy Likely metabolic from substance abuse versus shock Patient is currently calm but lethargic however he is easily arousable. CVS #Shock Likely cardiogenic versus distributive Patient presented with chest pain that started in the early hours of the night Risk Assessment Consultant was consulted in the ED, Dr. Kiran did a bedside ultrasound which showed an estimated EF of 15 to 20% Patient has a history of meth abuse and he did test positive for methamphetamine in the urine tox Troponins were initially 3.54 and has gradually increased to 7.37. BNP is greater than 3280 Patient had 2+ pitting edema bilaterally with decreased capillary refill greater than 10 seconds as well as bilateral mottling up to the knees which improved once patient was started on the drips Patient also received morphine and aspirin in the ED as well as metoprolol and nitroglycerin Patient received Zosyn in the ER. Patient's cardiac output has improved with pressor support and dobutamine drip. Plan: ? Dobutamine drip at 2 mics per hour ? Levophed ? Will repeat an echocardiogram ?Strict ULISES's ? Will optimize patient's volume status ? Will monitor his electrical activity ? Cardiology consulted, appreciate recommendations #Troponinemia Likely NSTEMI type II due to demand ischemia Patient's troponin was elevated at 3.54 and has continued to climb to 7.37 EKG did not show any obvious signs of ST segment elevation ? Will continue to trend troponins ? Will monitor closely in telemetry Resp #History of COPD Patient is oxygenating well on 2 L nasal cannula There is no wheezing or rhonchi heard on physical examination Patient is spitting out frothy sputum that is mixed with dried blood likely from nasopharyngeal bleed ?Oxygen support ? Frequent suctioning ? DuoNebs as needed for wheezing GI #Transaminases #Ischemic hepatitis #DIC Likely congestive liver versus ischemic damage Patient's LFTs were in the thousands T. bili was also elevated at 5.3 Abdominal ultrasound revealed gallbladder wall thickening could be possibly from congestion Patient denied any right upper quadrant tenderness and there was no jaundice or fevers Patient is spitting up frothy dark brown substance likely an upper airway bleed as patient may be in DIC PT/INR elevated without INR of 3.2 ? Will continue daily CMP ? Follow-up with DIC panel ?Hold heparin Renal #KERWIN Patient presented with a BUN of 33 and creatinine of 2.5 from a baseline of 1.3 Likely cardiorenal as patient's EF is estimated to be 15 to 20% on bedside ultrasound Patient could be in the early stages of ATN. Infectious source is not ruled out yet Urine output has slowly increased today. ? Will continue to monitor patient's urine output ? Will follow-up with daily renal function panel #High anion gap metabolic acidosis?improving # High anion gap metabolic acidosis #Lactic acidosis?improving Patient presented with a pH of 7.1 Lactic acid was elevated at 18 trended down to 4.2 Patient had bilateral lower extremity mottling up to the knees signifying decreased perfusion Plan ? Will continue inotropic support for the patient ?Will trend lactate Endocrine #Stable ID/Skin #Shock sepsis not ruled out but less likely Patient presented with tachycardia and an elevated WBC of the 29.8 Patient did have nausea and vomiting with abdominal pain Patient received Zosyn in the ED as well as 1 L bolus of NS UA shows a concentrated urine but no obvious signs of urinary tract infection Currently an infectious source cannot be identified Patient's abdominal ultrasound revealed gallbladder wall thickening which could be related to congestive heart failure Pro-Jhonny is elevated but this is inaccurate as patient is likely in ATN with decreased urine output Plan: ? Follow-up with blood cultures ? Follow-up with CT abdomen pelvis ? Follow-up daily CBCs Hematology #Leukocytosis Likely reactive # DIC Patient is likely in DIC due to severe shock DIC panel showed up platelet that is within normal limits at 236, PTT is elevated at 32, INR 3.2, fibrinogen 172 and D-dimer 3300 ISTH criteria for DIC is [address] the patient overt DIC Patient is currently having small amounts of bleeding from the upper respiratory tract Plan: ? Will hold heparin at this time ? Will continue to evaluate for any signs of major bleeding and monitor H&H and transfuse blood products if needed Hospital Maintenance: FEN: N.p.o. DVT PPx: Heparin subcu on hold GI PPx: None IV lines: Right IJ, right femoral arterial line Khoury: Inserted Code Status: DNR/DNI Dispo: Patient will remain in the ICU for further management of his shock I discussed patient's care with spray booth operator, Dr Michelle Chau MD, PGY3 Attending Provider Attestation/Addendum Patient seen and examined with above resident, Cecil Chau MD. I agree with the findings, assessment, and plan of care as documented except for any differences below. Patient with decompensated heart failure, systolic with subsequent development of cardiogenic shock setting of methamphetamine use. Requiring inotropic support with dobutamine. Low pressor requirement for countering vaso dilation associated with beta agonist. Patient's renal function remains stable but he has component of acute tubular necrosis which will improve gradually. Will consider challenge with diuretics based on fluid status. Patient with likely normal CVP based on bedside assessment. Will continue to use central side and lactic acid serially to help determine appropriate titration of inotropic support as well as vasopressors for adequate perfusion. His mottling has resolved his mentation slowly improving. LFTs remain elevated though will likely trend in the right direction in coming days. Patient with brownish sputum/hematemesis output potentially. I do not suspect upper GI bleed at this point though coagulopathy likely is present in the setting of his acute liver injury from congestive hepatopathy and possible necrosis. Will continue to monitor coagulation and intervene as appropriately needed. Patient remains DNR based on prior wishes and family input. We we will continue to monitor closely in the ICU's given risk of further morbidity and mortality now in the setting of multiorgan dysfunction though he appears to be on the right trajectory now. Total critical care time: I personally spent 40 minutes for review of physiologic parameters, directing plan of care with frequent titration of vasopressors and inotropic support, counseling patient at bedside, and coordination of care with other specialists. This is exclusive of time spent teaching housestaff or performing any separate billable procedures. home patient requiring critical care services for acute on chronic systolic heart failure secondary to methamphetamine abuse complicated by cardiogenic shock, acute tubular necrosis, and congestive hepatopathy.
[2024-06-20] MEDS: FUROSEMIDE INJ 10 MG/ML 4ML VIAL 40 MG IVP (13:01)
[2024-06-20] MEDS: DEXMEDETOMIDINE 400 MCG IVPB 400 MCG/100 ML BAG 21.5 MCG IV ×2 (14:17→18:58)
[2024-06-20 14:36] LABS: Lactate (Lactic Acid) 2.5 mMol/L (0.4-2.0)
[2024-06-20 14:41] LABS: Basophils % (Auto) 0 % (0-2.5); Eosinophils % (Auto) 0 % (0-10); Hematocrit 34.2 % (41.0-53.0); Hemoglobin 10.8 g/dL (13.5-16.0); Immature Granulocytes % (Auto) 1 % (0-0); Immature Granulocytes Auto 0.18 Thou/mm3 (0.00-0.00); Lymphocytes # (Auto) 0.5 Thou/mm3 (1.0-4.8); Lymphocytes % (Auto) 3 % (10-50); Mean Corpuscular HGB Conc 31.6 g/dl (31.0-37.0); Mean Corpuscular Hemoglobin 30.3 pg (25.0-35.0); Mean Corpuscular Volume 96 fL (80-100); Monocytes # (Auto) 0.8 Thou/mm3 (0.0-0.8); Monocytes % (Auto) 4 % (0-12); Neutrophils # (Auto) 19.7 Thou/mm3 (1.8-7.7); Neutrophils % (Auto) 93 % (37-80); Nucleated Red Blood Cell # 0.09 Thou/mm3 (0.00-0.00); Nucleated Red Blood Cell % 0 /100 WBC (0); Platelet Count 236 Thou/mm3 (140-440); RDW Standard Deviation 54.2 fL (35.1-43.9); Red Blood Count 3.56 Miln/mm3 (4.50-5.90); White Blood Count 21.3 Thou/mm3 (3.8-10.6)
[2024-06-20 15:02] LABS: Fibrinogen 172 mg/dL (175-375); INR 3.2 (0.9-1.3); Partial Thromboplastin Time 32.8 Seconds (22.0-36.0)
[2024-06-20 15:11] LABS: D-Dimer 3300 ng/mL (<600); Thyroid Stimulating Hormone 0.55 uIU/mL (0.55-4.78); Troponin I 13.252 ng/mL (0.0-0.045)
--- NOTE | 2024-06-20 16:15 | PC.NURSE ---
Patients toes were noted to be purple on examination, which was a change from the previous assessment. MD Chau was notified and ordered for the levophed to be titrated down as the MAP allows, and to continue to monitor.
[2024-06-20 17:34] LABS: Reflex Lactate? Y
[2024-06-20 18:05] LABS: Lactic Acid, 3 HR 2.9 mMol/L (0.4-2.0)
[2024-06-20 18:33] LABS: Base Excess, Venous 1 (-3-3); O2 Saturation, Venous 91 % (96-97); PCO2, Venous 36 mmHg (36-56); PO2, Venous 58 mmHg (15-58); pH, Venous 7.45 (7.33-7.66)
[2024-06-20 19:54] LABS: Base Excess 2 (-3-3); HCO3 27 mEq/L (20-26); Inspired O2, VO2 Liters 5 L/min; Inspired Oxygen, FIO2 21 %; O2 Saturation 97 % (91-98); PCO2 45 mmHg (32.0-48.0); PO2 90 mmHg (83-108); pH, Arterial 7.39 (7.35-7.45)
[2024-06-20 19:55] LABS: Puncture Site Arterial Line
[2024-06-20 22:21] LABS: Troponin I 10.874 ng/mL (0.0-0.045)
[2024-06-20] MEDS: DEXMEDETOMIDINE 400 MCG IVPB 400 MCG/100 ML BAG 17.2 MCG IV (23:19)
[2024-06-21] VITALS (107 sets, daily range): BP systolic 11–163; BP diastolic 10–138; PULSE 69–93; RESP 7–31; TEMP 35.6–36.2; O2SAT 84–100; BMI 25.0
[2024-06-21 03:53] LABS: Troponin I 9.881 ng/mL (0.0-0.045)
[2024-06-21 04:55] LABS: Base Excess 2 (-3-3); HCO3 27 mEq/L (20-26); Inspired O2, VO2 Liters 5 L/min; Inspired Oxygen, FIO2 21 %; O2 Saturation 99 % (91-98); PCO2 43 mmHg (32.0-48.0); PO2 102 mmHg (83-108); pH, Arterial 7.41 (7.35-7.45)
[2024-06-21 04:56] LABS: Allen Test Performed/OK; Puncture Site Arterial Line
[2024-06-21] MEDS: DEXMEDETOMIDINE 400 MCG IVPB 400 MCG/100 ML BAG 17.2 MCG IV (05:00)
[2024-06-21 06:23] LABS: Base Excess, Venous 2 (-3-3); O2 Saturation, Venous 100 % (96-97); PCO2, Venous 29 mmHg (36-56); PO2, Venous 115 mmHg (15-58); pH, Venous 7.53 (7.33-7.66)
[2024-06-21 06:32] LABS: Basophils % (Auto) 0 % (0-2.5); Eosinophils % (Auto) 0 % (0-10); Hemoglobin 10.8 g/dL (13.5-16.0); Immature Granulocytes % (Auto) 1 % (0-0); Immature Granulocytes Auto 0.12 Thou/mm3 (0.00-0.00); Lymphocytes # (Auto) 0.6 Thou/mm3 (1.0-4.8); Lymphocytes % (Auto) 4 % (10-50); Mean Corpuscular HGB Conc 32.7 g/dl (31.0-37.0); Mean Corpuscular Hemoglobin 30.7 pg (25.0-35.0); Mean Corpuscular Volume 94 fL (80-100); Monocytes # (Auto) 0.5 Thou/mm3 (0.0-0.8); Monocytes % (Auto) 4 % (0-12); Neutrophils % (Auto) 91 % (37-80); Nucleated Red Blood Cell # 0.07 Thou/mm3 (0.00-0.00); Nucleated Red Blood Cell % 1 /100 WBC (0); Platelet Count 214 Thou/mm3 (140-440); RDW Standard Deviation 51.4 fL (35.1-43.9); Red Blood Count 3.52 Miln/mm3 (4.50-5.90); White Blood Count 13.2 Thou/mm3 (3.8-10.6)
[2024-06-21 06:47] LABS: INR 2.8 (0.9-1.3); Prothrombin Time 28.5 Seconds (9.0-12.2)
[2024-06-21 07:03] LABS: Alanine Aminotransferase 2568 U/L (10-49); Albumin, Serum 2.9 gm/dL (3.4-4.8); Albumin/Globulin Ratio 1.1 (1.2-2.2); Alkaline Phosphatase 145 U/L (46-116); Anion Gap 14 (7-16); Aspartate Amino Transferase 2968 U/L (0-34); BUN/Creatinine Ratio 20 Ratio (12-20); Bilirubin,Total 5.9 mg/dL (0.3-1.2); Blood Urea Nitrogen 77 mg/dL (9-23); Calcium 7.1 mg/dL (8.3-10.6); Carbon Dioxide 26.1 mMol/L (20.0-31.0); Chloride 101 mMol/L (98-107); Creatinine (Component) 3.9 mg/dL (0.6-1.3); Estimated Creatinine Clearance 21.3 mL/min (>60); Globulin 2.6 gm/dL (2.3-3.5); Glucose 132 mg/dL (74-106); Magnesium 2.2 mg/dL (1.6-2.6); Osmolality,Calculated 306 (275-295); Phosphorous 6.3 mg/dL (2.4-5.1); Potassium 4.1 mMol/L (3.4-5.1); Sodium 141 mMol/L (136-145); Total Protein 5.5 gm/dL (5.7-8.2); eGFR 17 See Note
[2024-06-21] MEDS: PANTOPRAZOLE INJ 40 MG VIAL IVP (08:09)
[2024-06-21] MEDS: CALCIUM GLUC/NS 1000MG IVPB 1,000 MG/50 ML BAG 50 MG IV (08:09)
--- NOTE | 2024-06-21 09:37 | PD.RESPRO ---
Documentation for date of: 06/21/24 Subjective Subjective Interval history: Patient is a 63-year-old male with past medical history of CAD, pacemaker/defibrillator by Dr. Ramirez in [place] for abnormal rhythm CHF, hypertension, COPD who came into our ER after he was woken up at 2 AM with chest pain. Patient is a poor historian but does explain that he woke up at 2 AM with severe chest pain that caused some nausea and vomiting after which he decided to come to the ED. Patient lives alone he called 911. In the ED patient was found to be tachycardic with a pulse of 121 saturating at 92% on room air. Troponins were found to be elevated at 3.54 initially and climbed up to 4.52 by the time we saw him at bedside. Patient was also found to have elevated transaminases in the thousands. Chest x-ray revealed no pulmonary edema and EKG showed sinus tachycardia. Patient was given Zofran as well as 1 L bolus of fluids and morphine in the ER as well as aspirin and nitroglycerin and metoprolol which seem to have helped the patient's pain at the time. Physical exam revealed 2+ pitting edema in the lower extremities with bilateral lower extremities mottling up to the knees. Patient was pale and capillary refill was greater than 10 seconds. Patient's jugular venous pressure was elevated which was confirmed with ultrasound and patient was found to be likely in cardiogenic shock. The decision was made to admit patient to the ICU and we inserted a central line and arterial line. Further testing revealed that patient was methamphetamine positive. BUN was greater than 3280, lactic acid was elevated at 18 and pH was 7.10 with a pCO2 of 29 and pO2 of 105 subsequent VBG showed improvement in pH to 7.19. Patient was started on dobutamine drip in the ED as well as Levophed. 06/20/2024: Patient seen and examined in the ICU today. There were no major overnight events and patient was stable this morning. Cardiac output has maintained with pressor support and dobutamine. Patient has been spitting out frothy pink to dark brown material likely from pulmonary congestion. Patient's ABG and VBG showed increased cardiac output and is now warmer with no mottling and capillary refill of less than 3 seconds. Patient received 1 dose of Lasix 40 mg IV push. Will continue to monitor patient closely and try to wean him off of pressor support and inotropic support. Patient's PT and INR are elevated with an INR of 3.2. Patient is likely in DIC as his liver is still short with T. bili of 5.5 and AST greater than 6000 and ALT greater than 3300. Troponins have continued to climb to 12.9 but patient denies any chest pain, it is likely secondary to demand ischemia as well as damage from substance abuse, methamphetamine. Urine output has slowly improved. 06/21/2024: Overnight, patient was started on precedex for agitation and weaned off this morning. He remains on levophed at 0.03 and dobutamine at 0.2. He had good urine output at 2.6L in the last 24 hours and is net negative at 1.9L. Extremities are warm. His SvO2 with dobutamine at 2 was 100%, suggestive of peripheral shunting. Extremities are warm and liver enzymes are improving, suggestive that cardiogenic shock is improving. Patient was titrated off levophed and dobutamine adjusted from 2 to 1. The SvO2 was then 40%, so dobutamine was increased to 1.5. Will follow up on next VBG for SvO2 and adjust rate of dobutamine accordingly. For his ATN, patient now in polyuric phase so will replace volume with gentle IVF. Will discontinue arterial line. Exam Vital Signs Temp Pulse Resp BP Pulse Ox O2 Del Method O2 Flow Rate 96.4 F L 85 23 H 101/68 92 L Nasal Cannula 5 06/21/24 04:00 06/21/24 08:15 06/21/24 08:15 06/21/24 08:15 06/21/24 08:15 06/21/24 04:00 06/20/24 20:00 Narrative Exam Constitutional: Mild agitation. Orientated to name, place, year. HEENT: NCAT. Vision grossly intact. Mucous membranes dry. Respiratory: Mild bilateral ronchi. Cardiac: RRR Abdomen: Soft, non-distended, non-tender. MSK: No B/L LE edema. Skin: No mottling appreciated. Extremities warm. Objective Labs 06/22/24 05:27 06/22/24 05:27 Labs: Laboratory Results - last 24 hr 06/20/24 06/20/24 06/20/24 11:10 11:11 14:20 WBC 21.3 H RBC 3.56 L Hgb 10.8 L Hct 34.2 L MCV 96 MCH 30.3 MCHC 31.6 RDW Std Deviation 54.2 H Plt Count 236 Neut % (Auto) 93 H Lymph % (Auto) 3 L [place] % (Auto) 4 Eos % (Auto) 0 Baso % (Auto) 0 Neut # (Auto) 19.7 H Lymph # (Auto) 0.5 L [place] # (Auto) 0.8 Eos # (Auto) 0.0 Baso # (Auto) 0.0 Immature Gran # (Auto) 0.18 H Absolute Nucleated RBC 0.09 H Immature Gran % 1 H Nucleated RBC % 0 PT 32.0 H* INR 3.2 H APTT 32.8 Fibrinogen 172 L D-Dimer 3300 H Puncture Site Arterial Line ABG pH 7.39 D ABG pCO2 40 D ABG pO2 63 L D ABG HCO3 24 ABG O2 Saturation 91 ABG Base Excess -1 VBG pH 7.37 VBG pCO2 44 VBG pO2 38 VBG O2 Sat (Ariana) 64 L VBG Base Excess 0 Oxygen Liter Flow FiO2 5 Sodium Potassium Chloride Carbon Dioxide Anion Gap BUN Creatinine Estim Creat Clear Calc eGFR BUN/Creatinine Ratio Glucose Calculated Osmolality Lactic Acid 2.5 H Calcium Corrected Calcium Phosphorus Magnesium Total Bilirubin AST ALT Alkaline Phosphatase Troponin I 13.252 H* D Total Protein Albumin Globulin Albumin/Globulin Ratio TSH 0.55 Blood Type O Negative Antibody Screen NEGATIVE Blood Bank Wristband ID Yes 06/20/24 06/20/24 06/20/24 17:54 19:45 21:24 WBC RBC Hgb Hct MCV MCH MCHC RDW Std Deviation Plt Count Neut % (Auto) Lymph % (Auto) [place] % (Auto) Eos % (Auto) Baso % (Auto) Neut # (Auto) Lymph # (Auto) [place] # (Auto) Eos # (Auto) Baso # (Auto) Immature Gran # (Auto) Absolute Nucleated RBC Immature Gran % Nucleated RBC % PT INR APTT Fibrinogen D-Dimer Puncture Site Arterial Line ABG pH 7.39 ABG pCO2 45 ABG pO2 90 D ABG HCO3 27 H ABG O2 Saturation 97 ABG Base Excess 2 VBG pH 7.45 VBG pCO2 36 VBG pO2 58 D VBG O2 Sat (Ariana) 91 L D VBG Base Excess 1 Oxygen Liter Flow 5 FiO2 21 Sodium Potassium Chloride Carbon Dioxide Anion Gap BUN Creatinine Estim Creat Clear Calc eGFR BUN/Creatinine Ratio Glucose Calculated Osmolality Lactic Acid 2.9 H Calcium Corrected Calcium Phosphorus Magnesium Total Bilirubin AST ALT Alkaline Phosphatase Troponin I 10.874 H* D Total Protein Albumin Globulin Albumin/Globulin Ratio TSH Blood Type Antibody Screen Blood Bank Wristband ID 06/21/24 06/21/24 06/21/24 02:25 04:30 05:56 WBC 13.2 H D RBC 3.52 L Hgb 10.8 L Hct 33.0 L MCV 94 MCH 30.7 MCHC 32.7 RDW Std Deviation 51.4 H Plt Count 214 Neut % (Auto) 91 H Lymph % (Auto) 4 L [place] % (Auto) 4 Eos % (Auto) 0 Baso % (Auto) 0 Neut # (Auto) 12.0 H Lymph # (Auto) 0.6 L [place] # (Auto) 0.5 Eos # (Auto) 0.0 Baso # (Auto) 0.0 Immature Gran # (Auto) 0.12 H Absolute Nucleated RBC 0.07 H Immature Gran % 1 H Nucleated RBC % 1 H PT 28.5 H D INR 2.8 H APTT Fibrinogen D-Dimer Puncture Site Arterial Line ABG pH 7.41 ABG pCO2 43 ABG pO2 102 ABG HCO3 27 H ABG O2 Saturation 99 H ABG Base Excess 2 VBG pH 7.53 VBG pCO2 29 L VBG pO2 115 H D VBG O2 Sat (Ariana) 100 H VBG Base Excess 2 Oxygen Liter Flow 5 FiO2 21 Sodium 141 Potassium 4.1 Chloride 101 Carbon Dioxide 26.1 Anion Gap 14 BUN 77 H Creatinine 3.9 H D Estim Creat Clear Calc 21.3 L eGFR 17 L BUN/Creatinine Ratio 20 Glucose 132 H Calculated Osmolality 306 H Lactic Acid Calcium 7.1 L Corrected Calcium 8.0 L Phosphorus 6.3 H Magnesium 2.2 Total Bilirubin 5.9 H AST 2968 H* ALT 2568 H* Alkaline Phosphatase 145 H Troponin I 9.881 H* D Total Protein 5.5 L Albumin 2.9 L Globulin 2.6 Albumin/Globulin Ratio 1.1 L [facility] Blood Type Antibody Screen Blood Bank Wristband ID ABG Interpretation ABG results: 06/19/24 06/19/24 06/20/24 16:21 17:41 08:48 ABG pH 7.10 L* ABG pCO2 20 L ABG pO2 105 ABG HCO3 6 L* ABG O2 Saturation 96 ABG Base Excess -21 L VBG pH 7.19 L 7.38 VBG pCO2 28 L 46 D VBG pO2 55 37 VBG Base Excess -16 L 1 06/20/24 06/20/24 06/20/24 11:10 17:54 19:45 ABG pH 7.39 D 7.39 ABG pCO2 40 D 45 ABG pO2 63 L D 90 D ABG HCO3 24 27 H ABG O2 Saturation 91 97 ABG Base Excess -1 2 VBG pH 7.37 7.45 VBG pCO2 44 36 VBG pO2 38 58 D VBG Base Excess 0 1 06/21/24 06/21/24 04:30 05:56 ABG pH 7.41 ABG pCO2 43 ABG pO2 102 ABG HCO3 27 H ABG O2 Saturation 99 H ABG Base Excess 2 VBG pH 7.53 VBG pCO2 29 L VBG pO2 115 H D VBG Base Excess 2 Quality Measures Quality Measures none Assessment & Plan Assessment Current Active Medications: Generic Name Dose Route Start Last Admin Trade Name Freq PRN Reason Stop Dose Admin Acetaminophen 650 mg 06/19/24 14:18 Acetaminophen 325 Mg Tablet PO 07/19/24 14:17 Q6H PRN Fever >101.5 Acetaminophen 650 mg 06/19/24 14:18 Acetaminophen 325 Mg Tablet PO 07/19/24 14:17 Q6H PRN PAIN SCALE 1-3 (mild Hydrocodone Bitart/Acetaminophen 1 tab 06/19/24 14:18 Hydrocodone/Apap 10/325 Tab PO 06/24/24 14:17 Q4H PRN PAIN SCALE 4-6 (Moderate Albuterol/Ipratropium 3 ml 06/20/24 07:13 Albuterol/Ipratropium (Duoneb) Rt Yamila 3 Ml Nebu INH 07/20/24 07:12 Q2HR PRN SHORTNESS OF BREATH OR WHEEZE Aspirin 81 mg 06/20/24 09:00 06/21/24 08:13 Aspirin Ec 81 Mg Tabec PO 07/20/24 08:59 Not Given QDAY NYDIA Atorvastatin Calcium 80 mg 06/20/24 21:00 06/20/24 20:14 Atorvastatin Calcium 20 Mg Tablet PO 07/20/24 20:59 Not Given HS NYDIA Heparin Sodium (Porcine) 5,000 unit 06/19/24 22:00 06/20/24 05:19 Heparin Sod Inj 5000 Unit/Ml Vial SC 07/03/24 21:59 5,000 unit Q8HR NYDIA Administration Norepinephrine Bitartrate 16 mg in 250 mls @ 4.21 mls/hr 06/19/24 18:21 06/21/24 06:00 Levophed In Ns 16mg/250ml IV 07/19/24 18:20 0.03 mcg/kg/min .Q24H PRN 2.526 mls/hr PER protocol Titration Protocol 0.05 MCG/KG/MIN Dobutamine HCl/Dextrose 500 mg in 250 mls @ 5.389 mls/hr 06/19/24 18:48 06/21/24 06:00 Dobutrex/D5w Ivpb IV 07/19/24 18:47 2 mcg/kg/min .Q24H PRN 5.389 mls/hr PER PROTOCOL Titration Protocol 2 MCG/KG/MIN Dexmedetomidine/Sodium Chloride 400 mcg in 100 mls @ 4.3 mls/hr 06/20/24 10:00 06/21/24 06:00 Precedex Ivpb IV 07/20/24 09:59 0.8 mcg/kg/hr .[id number] PRN 17.2 mls/hr Per PROTOCOL Titration Protocol 0.2 MCG/KG/HR Morphine Sulfate 2 mg 06/19/24 14:18 06/19/24 16:28 Morphine Sulf Inj 10 Mg/Ml Vial IVP 06/24/24 14:17 2 mg Q2H PRN Administration PAIN SCALE 7-10 (Severe Ondansetron HCl 4 mg 06/19/24 14:18 Ondansetron Inj 2 Mg/Ml Inj 2 Ml IV 07/19/24 14:17 Q6H PRN NAUSEA OR VOMITING Protocol Pantoprazole Sodium 40 mg 06/20/24 10:00 06/21/24 08:09 Pantoprazole Inj 40 Mg Vial IVP 07/20/24 09:59 40 mg BID NYDIA Administration Plan 63-year-old male with past medical history of CAD, pacemaker/defibrillator by Dr. Ramirez in [place] for abnormal rhythm CHF, hypertension, COPD who came into our ER after he was woken up at 2 AM with chest pain and admitted to the ICU for further management of his shock likely cardiogenic. Neuro #Acute encephalopathy Likely metabolic from substance abuse versus shock - Discontinue precedex CVS #Shock Likely cardiogenic versus distributive Patient presented with chest pain that started in the early hours of the night [employer] was consulted in the ED, Dr. Kiran did a bedside ultrasound which showed an estimated EF of 15 to 20% Patient has a history of meth abuse and he did test positive for methamphetamine in the urine tox Troponins were initially 3.54 and has gradually increased to 7.37. BNP is greater than 3280 Patient had 2+ pitting edema bilaterally with decreased capillary refill greater than 10 seconds as well as bilateral mottling up to the knees which improved once patient was started on the drips Patient also received morphine and aspirin in the ED as well as metoprolol and nitroglycerin Patient received Zosyn in the ER. Patient's cardiac output has improved with pressor support and dobutamine drip. Plan: ? Dobutamine at 1.5, follow SvO2 for goal 65-75% ? Echo pending ? Strict ULISES's ? Cardiology consulted: medical management #Troponinemia, downtrending Likely NSTEMI type II due to demand ischemia EKG did not show any obvious signs of ST segment elevation - Echo ordered Resp #Acute hypoxic respiratory failure due to pulmonary edema #History of COPD Patient is oxygenating well on 2 L nasal cannula There is no wheezing or rhonchi heard on physical examination Patient is spitting out frothy sputum that is mixed with dried blood likely from nasopharyngeal bleed ?Oxygen support ? Frequent suctioning ? DuoNebs as needed for wheezing GI #Ischemic hepatitis, improving Likely congestive liver Abdominal ultrasound revealed gallbladder wall thickening could be possibly from congestion Patient denied any right upper quadrant tenderness and there was no jaundice or fevers PT/INR elevated without INR of 3.2 ? Will continue daily CMP Renal #KERWIN Patient presented with a BUN of 33 and creatinine of 2.5 from a baseline of 1.3 Likely cardiorenal as patient's EF is estimated to be 15 to 20% on bedside ultrasound Creatinine uptrending. Patient polyuric - 50cc NS /hr - Check IVC later if need 250 bolus - Monitor UOP #High anion gap metabolic acidosis, resolved #Lactic acidosis?improving ? Will continue inotropic support for the patient Endocrine #Stable ID/Skin #Shock sepsis not ruled out but less likely No acute problems Hematology #Leukocytosis Likely reactive #Coagulopathy Given fibrinogen low end of normal, less likely patient is in DIC and coagulopathy is related to acute liver injury - Continue heparin for DVT prophylaxis Hospital Maintenance: FEN: N.p.o., can eat once pass swallow screen DVT PPx: Heparin GI PPx: pepcid IV lines: Right IJ, Khoury, arterial line (to be removed) Code Status: DNR/DNI Dispo: Patient will remain in the ICU for further management of his shock, remains on dobutamine drip I have reviewed and discussed the patient's care with my attending, Dr. Martinez, Leonora Mariscal MD PGY-3 Attending Provider Attestation/Addendum Patient seen and examined with above resident, Leonora Mariscal MD. I agree with the findings, assessment, and plan of care as documented except for any differences below. Patient continues to slowly improve with ability to wean down dobutamine. Will continue to adjust based on central saturation from right IJ. This line is little bit deeper than ideally situation but continuing to use it serially will help guide therapy. Patient also with notable pulse pressure variation and likely is now partially volume depleted. We did check CVP which showed normal. Patient will benefit from some return of volume likely with high output post obstructive diuresis in the setting of ATN from his prerenal failure in the setting of cardiogenic shock. Patient no longer requiring pressor support with normalized blood pressure. Patient's mentation continues to lag behind though this may no longer be related to hypoperfusion but instead withdraw from methamphetamine use. Acute exacerbation of his systolic heart failure likely in the setting of methamphetamine abuse which will take days to resolve. Will continue to wean as able. Khoury remains in place for close monitoring of output. Will not try to return or fluid back but instead moderate based on response of post perforation on arterial catheter/line. Once this has been normalized we will DC the arterial line as well. Patient's family has been updated by resident staff. Patient is not a candidate for long-term therapy with inotropic support so we will have to continue to be aggressive to wean off and at this point I suspect he will continue to improve as evidenced by both renal and liver functions headed in the right direction. Total critical care time: I personally spent 40 minutes for review of physiologic parameters, directing plan of care throughout the day, coordination of care with other specialties, and counseling patient at bedside. This is exclusive of time spent teaching housestaff performing any separate billable procedures. Patient continues require critical care services for cardiogenic shock secondary to methamphetamine induced acute on chronic systolic heart failure. Patient remains at significant risk for further morbidity and mortality warranting close monitoring and care only available in the ICU.
[2024-06-21] MEDS: DEXMEDETOMIDINE 400 MCG IVPB 400 MCG/100 ML BAG 12.9 MCG IV (10:45)
[2024-06-21 10:58] LABS: Troponin I 8.389 ng/mL (0.0-0.045)
[2024-06-21] MEDS: SODIUM CHLORIDE 0.9% 1000 ML 1,000 ML 50 ML IV (11:55)
[2024-06-21 12:22] LABS: Base Excess, Venous 5 (-3-3); O2 Saturation, Venous 66 % (96-97); PCO2, Venous 51 mmHg (36-56); PO2, Venous 39 mmHg (15-58); pH, Venous 7.39 (7.33-7.66)
[2024-06-21 14:20] LABS: Base Excess, Venous 5 (-3-3); O2 Saturation, Venous 46 % (96-97); PCO2, Venous 49 mmHg (36-56); PO2, Venous 29 mmHg (15-58); pH, Venous 7.41 (7.33-7.66)
[2024-06-21] MEDS: HEPARIN SOD INJ 5000 UNIT/ML VIAL SC ×2 (14:45→21:14)
[2024-06-21 14:49] LABS: Troponin I 8.252 ng/mL (0.0-0.045)
[2024-06-21] MEDS: DOBUTamine/D5w 500 MG IVPB 500 MG/250 ML BAG IV ×2 (15:50→18:13)
[2024-06-21 16:01] LABS: Base Excess, Venous 3 (-3-3); O2 Saturation, Venous 93 % (96-97); PCO2, Venous 30 mmHg (36-56); PO2, Venous 57 mmHg (15-58); pH, Venous 7.54 (7.33-7.66)
--- NOTE | 2024-06-21 17:00 | ESPR_ITS ---
<Statement entered by Mayela Kiran MD - 06/21/24 17:56> I personally evaluated examined this patient who is intensive care unit but much more stable today he is taken off the IV vasopressors sedated still not responding that well because of sedation but definite improvement perfusion improved as well patient had clearly methamphetamine abuse with active abuse or methamphetamine and is having problems with elevated troponin levels cardiogenic shock despite low ejection fraction of 15 to 20% he used methamphetamine survive this episode but will be strongly recommended to quit methamphetamine completely in order for him to survive. Evaluate the patient all the findings agree with the treatment plan recommendation as per ICU team and also as documented recommended by Dr. Salazar PGY 2 who is rotating in cardiology Documentation for date of: 06/21/24 Subjective Subjective Interval history: Patient was seen and examined at the bedside. No acute overnight events. Patient was discontinued on norepinephrine and remained only on dobutamine 2 mcg/kg/min. He is able to maintain blood pressure around 90/60. His heparin remains on hold due to suspected DIC. Transaminitis remains high. He remains on Precedex drip. Continue current management and monitor patient. Exam Vital Signs Temp Pulse Resp BP Pulse Ox O2 Del Method O2 Flow Rate 97.2 F 77 13 163/138 H 96 Nasal Cannula 5 06/21/24 12:00 06/21/24 15:15 06/21/24 15:15 06/21/24 14:50 06/21/24 15:15 06/21/24 08:00 06/21/24 13:38 Narrative Exam Gen: Well-developed and well-nourished male. HEENT: NCAT, PERRLA, EOMI, MMM, anicteric conjunctivae. CVS: normal S1 and S2. RRR. No M/R/G. Resp: Minimal rhonchi B/L. No rhonchi, rales, crackles or wheezing. Abd: soft, non-tender, non-distended. BS+ in all 4 quadrants. MSK: Good ROM in BUE & BLE. Trace edema BLE. Neuro: Limited exam due to sedation. Objective Labs 06/21/24 05:56 06/21/24 05:56 Labs: Laboratory Results - last 24 hr 06/20/24 06/20/24 06/20/24 17:54 19:45 21:24 WBC RBC Hgb Hct MCV MCH MCHC RDW Std Deviation Plt Count Neut % (Auto) Lymph % (Auto) [place] % (Auto) Eos % (Auto) Baso % (Auto) Neut # (Auto) Lymph # (Auto) [place] # (Auto) Eos # (Auto) Baso # (Auto) Immature Gran # (Auto) Absolute Nucleated RBC Immature Gran % Nucleated RBC % PT INR Puncture Site Arterial Line ABG pH 7.39 ABG pCO2 45 ABG pO2 90 D ABG HCO3 27 H ABG O2 Saturation 97 ABG Base Excess 2 VBG pH 7.45 VBG pCO2 36 VBG pO2 58 D VBG O2 Sat (Ariana) 91 L D VBG Base Excess 1 Oxygen Liter Flow 5 FiO2 21 Sodium Potassium Chloride Carbon Dioxide Anion Gap BUN Creatinine Estim Creat Clear Calc eGFR BUN/Creatinine Ratio Glucose Calculated Osmolality Lactic Acid 2.9 H Calcium Corrected Calcium Phosphorus Magnesium Total Bilirubin AST ALT Alkaline Phosphatase Troponin I 10.874 H* D Total Protein Albumin Globulin Albumin/Globulin Ratio 06/21/24 06/21/24 06/21/24 02:25 04:30 05:56 WBC 13.2 H D RBC 3.52 L Hgb 10.8 L Hct 33.0 L MCV 94 MCH 30.7 MCHC 32.7 RDW Std Deviation 51.4 H Plt Count 214 Neut % (Auto) 91 H Lymph % (Auto) 4 L [place] % (Auto) 4 Eos % (Auto) 0 Baso % (Auto) 0 Neut # (Auto) 12.0 H Lymph # (Auto) 0.6 L [place] # (Auto) 0.5 Eos # (Auto) 0.0 Baso # (Auto) 0.0 Immature Gran # (Auto) 0.12 H Absolute Nucleated RBC 0.07 H Immature Gran % 1 H Nucleated RBC % 1 H PT 28.5 H D INR 2.8 H Puncture Site Arterial Line ABG pH 7.41 ABG pCO2 43 ABG pO2 102 ABG HCO3 27 H ABG O2 Saturation 99 H ABG Base Excess 2 VBG pH 7.53 VBG pCO2 29 L VBG pO2 115 H D VBG O2 Sat (Ariana) 100 H VBG Base Excess 2 Oxygen Liter Flow 5 FiO2 21 Sodium 141 Potassium 4.1 Chloride 101 Carbon Dioxide 26.1 Anion Gap 14 BUN 77 H Creatinine 3.9 H D Estim Creat Clear Calc 21.3 L eGFR 17 L BUN/Creatinine Ratio 20 Glucose 132 H Calculated Osmolality 306 H Lactic Acid Calcium 7.1 L Corrected Calcium 8.0 L Phosphorus 6.3 H Magnesium 2.2 Total Bilirubin 5.9 H AST 2968 H* ALT 2568 H* Alkaline Phosphatase 145 H Troponin I 9.881 H* D Total Protein 5.5 L Albumin 2.9 L Globulin 2.6 Albumin/Globulin Ratio 1.1 L 06/21/24 06/21/24 06/21/24 09:12 12:00 13:45 WBC RBC Hgb Hct MCV MCH MCHC RDW Std Deviation Plt Count Neut % (Auto) Lymph % (Auto) [place] % (Auto) Eos % (Auto) Baso % (Auto) Neut # (Auto) Lymph # (Auto) [place] # (Auto) Eos # (Auto) Baso # (Auto) Immature Gran # (Auto) Absolute Nucleated RBC Immature Gran % Nucleated RBC % PT INR Puncture Site ABG pH ABG pCO2 ABG pO2 ABG HCO3 ABG O2 Saturation ABG Base Excess VBG pH 7.39 VBG pCO2 51 D VBG pO2 39 D VBG O2 Sat (Ariana) 66 L D VBG Base Excess 5 H Oxygen Liter Flow FiO2 Sodium Potassium Chloride Carbon Dioxide Anion Gap BUN Creatinine Estim Creat Clear Calc eGFR BUN/Creatinine Ratio Glucose Calculated Osmolality Lactic Acid Calcium Corrected Calcium Phosphorus Magnesium Total Bilirubin AST ALT Alkaline Phosphatase Troponin I 8.389 H* D 8.252 H* Total Protein Albumin Globulin Albumin/Globulin Ratio 06/21/24 06/21/24 13:50 15:37 WBC RBC Hgb Hct MCV MCH MCHC RDW Std Deviation Plt Count Neut % (Auto) Lymph % (Auto) [place] % (Auto) Eos % (Auto) Baso % (Auto) Neut # (Auto) Lymph # (Auto) [place] # (Auto) Eos # (Auto) Baso # (Auto) Immature Gran # (Auto) Absolute Nucleated RBC Immature Gran % Nucleated RBC % PT INR Puncture Site ABG pH ABG pCO2 ABG pO2 ABG HCO3 ABG O2 Saturation ABG Base Excess VBG pH 7.41 7.54 VBG pCO2 49 30 L D VBG pO2 29 57 D VBG O2 Sat (Ariana) 46 L D 93 L D VBG Base Excess 5 H 3 Oxygen Liter Flow FiO2 Sodium Potassium Chloride Carbon Dioxide Anion Gap BUN Creatinine Estim Creat Clear Calc eGFR BUN/Creatinine Ratio Glucose Calculated Osmolality Lactic Acid Calcium Corrected Calcium Phosphorus Magnesium Total Bilirubin AST ALT Alkaline Phosphatase Troponin I Total Protein Albumin Globulin Albumin/Globulin Ratio ABG Interpretation ABG results: 06/19/24 06/19/24 06/20/24 16:21 17:41 08:48 ABG pH 7.10 L* ABG pCO2 20 L ABG pO2 105 ABG HCO3 6 L* ABG O2 Saturation 96 ABG Base Excess -21 L VBG pH 7.19 L 7.38 VBG pCO2 28 L 46 D VBG pO2 55 37 VBG Base Excess -16 L 1 06/20/24 06/20/24 06/20/24 11:10 17:54 19:45 ABG pH 7.39 D 7.39 ABG pCO2 40 D 45 ABG pO2 63 L D 90 D ABG HCO3 24 27 H ABG O2 Saturation 91 97 ABG Base Excess -1 2 VBG pH 7.37 7.45 VBG pCO2 44 36 VBG pO2 38 58 D VBG Base Excess 0 1 06/21/24 06/21/24 06/21/24 04:30 05:56 12:00 ABG pH 7.41 ABG pCO2 43 ABG pO2 102 ABG HCO3 27 H ABG O2 Saturation 99 H ABG Base Excess 2 VBG pH 7.53 7.39 VBG pCO2 29 L 51 D VBG pO2 115 H D 39 D VBG Base Excess 2 5 H 06/21/24 06/21/24 13:50 15:37 ABG pH ABG pCO2 ABG pO2 ABG HCO3 ABG O2 Saturation ABG Base Excess VBG pH 7.41 7.54 VBG pCO2 49 30 L D VBG pO2 29 57 D VBG Base Excess 5 H 3 Quality Measures Quality Measures VTE prophylaxis Assessment & Plan Assessment Current Active Medications: Generic Name Dose Route Start Last Admin Trade Name Freq PRN Reason Stop Dose Admin Acetaminophen 650 mg 06/19/24 14:18 Acetaminophen 325 Mg Tablet PO 07/19/24 14:17 Q6H PRN Fever >101.5 Acetaminophen 650 mg 06/19/24 14:18 Acetaminophen 325 Mg Tablet PO 07/19/24 14:17 Q6H PRN PAIN SCALE 1-3 (mild Hydrocodone Bitart/Acetaminophen 1 tab 06/19/24 14:18 Hydrocodone/Apap 10/325 Tab PO 06/24/24 14:17 Q4H PRN PAIN SCALE 4-6 (Moderate Albuterol/Ipratropium 3 ml 06/20/24 07:13 Albuterol/Ipratropium (Duoneb) Rt Yamila 3 Ml Nebu INH 07/20/24 07:12 Q2HR PRN SHORTNESS OF BREATH OR WHEEZE Aspirin 81 mg 06/20/24 09:00 06/21/24 08:13 Aspirin Ec 81 Mg Tabec PO 07/20/24 08:59 Not Given QDAY NYDIA Atorvastatin Calcium 80 mg 06/20/24 21:00 06/20/24 20:14 Atorvastatin Calcium 20 Mg Tablet PO 07/20/24 20:59 Not Given HS NYDIA Famotidine 10 mg 06/21/24 21:00 Famotidine Inj 10 Mg/Ml Vial 2 Ml IVP 07/21/24 20:59 HS NYDIA Heparin Sodium (Porcine) 5,000 unit 06/19/24 22:00 06/21/24 14:45 Heparin Sod Inj 5000 Unit/Ml Vial SC 07/03/24 21:59 5,000 unit Q8HR NYDIA Administration Norepinephrine Bitartrate 16 mg in 250 mls @ 4.21 mls/hr 06/19/24 18:21 06/21/24 10:49 Levophed In Ns 16mg/250ml IV 07/19/24 18:20 0 mcg/kg/min .Q24H PRN 0 mls/hr PER protocol Titration Protocol 0.05 MCG/KG/MIN Dexmedetomidine/Sodium Chloride 400 mcg in 100 mls @ 4.3 mls/hr 06/20/24 10:00 06/21/24 10:45 Precedex Ivpb IV 07/20/24 09:59 0.6 mcg/kg/hr .[id number] PRN 12.9 mls/hr Per PROTOCOL Administration Protocol 0.2 MCG/KG/HR Dobutamine HCl/Dextrose 500 mg in 250 mls @ 4.041 mls/hr 06/21/24 16:00 Dobutrex/D5w Ivpb IV 07/19/24 18:47 .Q24H PRN PER PROTOCOL Protocol 1.5 MCG/KG/MIN Morphine Sulfate 2 mg 06/19/24 14:18 06/19/24 16:28 Morphine Sulf Inj 10 Mg/Ml Vial IVP 06/24/24 14:17 2 mg Q2H PRN Administration PAIN SCALE 7-10 (Severe Ondansetron HCl 4 mg 06/19/24 14:18 Ondansetron Inj 2 Mg/Ml Inj 2 Ml IV 07/19/24 14:17 Q6H PRN NAUSEA OR VOMITING Protocol Plan 63-year-old male with past medical history of coronary artery disease, pacemaker/defibilator placed by Dr. 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 Initial labs in the ED showed WBC count of 29.8 . pH?7.10, pCO2 20, bicarb of 6, sodium?137, potassium?4.7, chloride 97, carbon oxide?14.6, BUN 33, AG 28, creatinine 2.5, lactic acid?18, total bilirubin?5.3, AST?5489, ALT?2363, alk phos?140, elevated troponin initial was 3.5 for the repeat troponin is 4.52. Chest x-ray did not show any pneumonia/no pulmonary fuction . # Cardiogenic shock. # NSTEMI most likely type II in setting of Meth use. # Cardiomyopathy from meth use. # HFrEF 15-20 % ( bedside US ) -pt came to ED with [place] complain of pain abdomen , labs showed elevated troponin 3.5 , repeat troponin was 4.5 , -motteling present on B/l legs -he denies chest pain -Bedside US showed EF of 15-20 % -he has [employer]-D placed by Dr Tam from [place] unknown exact date -His elevated troponin could be type I versus type II, most likely in the setting of sepsis -Echo 2018 shows - Normal left ventricular size and function. Approximate ejection fraction is 30-35%. Moderate mitral and tricuspid regurgitation noted. Mild pulmonic regurgitation.Mild PHTN. Slight posterior MVP. -he received 1 L NS in ED. Plan: -Continue on Dobutamine drip. -Norepinephrine discontinued. -Continue on Precedex. 06/20/2024: troponin went upto 12 , meth positive in utox , lactic acid trending down. he is still on dobutamine 2mcg , AST > 6000, ALT- 3300, procsl- 6.08 . levophed added to maintain the pressure. he has overall poor prognosis, levophed requirement going up . 06/21/2024: Norepinephrine was discontinued by ICU team, he is able to maintain blood pressure around 90/60. Continue dobutamine drip. LFTs are downtrending. # H/o HTN - BNP ->3280 - held home anti hypertensive meds in setting of cardiogenic shock Rest of medical problem management as per ICU team. Case discussed with my attending Dr Kiran. Martin Armstrong MD, PGY 2. Disclaimer: This note was dictated by speech recognition. Minor errors in security attendant may be present due to voice recognition software.
[2024-06-21] MEDS: FAMOTIDINE INJ 10 MG/ML VIAL 2 ML IVP (20:25)
[2024-06-21] MEDS: ATORVASTATIN CALCIUM 20 MG TABLET 80 MG PO (20:25)
[2024-06-22] VITALS (105 sets, daily range): BP systolic 96–158; BP diastolic 44–134; PULSE 82–123; RESP 10–95; TEMP 36.2–36.8; O2SAT 88–100; BMI 23.6; BMI 23.5
[2024-06-22] MEDS: SODIUM CHLORIDE 0.9% 250 ML 250 ML 999 ML IV (00:59)
[2024-06-22 04:37] LABS: Base Excess 3 (-3-3); HCO3 27 mEq/L (20-26); Inspired Oxygen, FIO2 3 %; O2 Saturation 97 % (91-98); PCO2 39 mmHg (32.0-48.0); PO2 78 mmHg (83-108); pH, Arterial 7.46 (7.35-7.45)
[2024-06-22 04:40] LABS: Allen Test Performed/OK; Puncture Site Right Radial
[2024-06-22] MEDS: HEPARIN SOD INJ 5000 UNIT/ML VIAL SC ×3 (05:33→21:52)
[2024-06-22 05:49] LABS: Base Excess, Venous 4 (-3-3); Lactate (Lactic Acid) 1.7 mMol/L (0.4-2.0); O2 Saturation, Venous 69 % (96-97); PCO2, Venous 45 mmHg (36-56); PO2, Venous 39 mmHg (15-58); pH, Venous 7.43 (7.33-7.66)
[2024-06-22 06:13] LABS: Basophils % (Auto) 0 % (0-2.5); Eosinophils % (Auto) 0 % (0-10); Hematocrit 32.5 % (41.0-53.0); Hemoglobin 10.9 g/dL (13.5-16.0); INR 1.8 (0.9-1.3); Immature Granulocytes % (Auto) 1 % (0-0); Immature Granulocytes Auto 0.15 Thou/mm3 (0.00-0.00); Lymphocytes # (Auto) 0.7 Thou/mm3 (1.0-4.8); Lymphocytes % (Auto) 7 % (10-50); Mean Corpuscular HGB Conc 33.5 g/dl (31.0-37.0); Mean Corpuscular Hemoglobin 31.2 pg (25.0-35.0); Mean Corpuscular Volume 93 fL (80-100); Monocytes # (Auto) 0.7 Thou/mm3 (0.0-0.8); Monocytes % (Auto) 6 % (0-12); Neutrophils # (Auto) 9.1 Thou/mm3 (1.8-7.7); Neutrophils % (Auto) 86 % (37-80); Nucleated Red Blood Cell # 0.04 Thou/mm3 (0.00-0.00); Nucleated Red Blood Cell % 0 /100 WBC (0); Platelet Count 215 Thou/mm3 (140-440); Prothrombin Time 18.8 Seconds (9.0-12.2); RDW Standard Deviation 51.8 fL (35.1-43.9); Red Blood Count 3.49 Miln/mm3 (4.50-5.90); White Blood Count 10.7 Thou/mm3 (3.8-10.6)
[2024-06-22 06:53] LABS: Alanine Aminotransferase 1863 U/L (10-49); Albumin/Globulin Ratio 1.2 (1.2-2.2); Alkaline Phosphatase 143 U/L (46-116); Anion Gap 15 (7-16); Aspartate Amino Transferase 1097 U/L (0-34); BUN/Creatinine Ratio 25 Ratio (12-20); Bilirubin,Total 6.9 mg/dL (0.3-1.2); Blood Urea Nitrogen 95 mg/dL (9-23); Calcium 7.9 mg/dL (8.3-10.6); Calcium (Corrected) 8.7 mg/dL (8.5-10.1); Carbon Dioxide 26.8 mMol/L (20.0-31.0); Chloride 103 mMol/L (98-107); Creatinine (Component) 3.8 mg/dL (0.6-1.3); Estimated Creatinine Clearance 21.8 mL/min (>60); Globulin 2.6 gm/dL (2.3-3.5); Glucose 98 mg/dL (74-106); Magnesium 2.4 mg/dL (1.6-2.6); Osmolality,Calculated 318 (275-295); Potassium 3.5 mMol/L (3.4-5.1); Sodium 145 mMol/L (136-145); Total Protein 5.6 gm/dL (5.7-8.2); eGFR 17 See Note
--- NOTE | 2024-06-22 09:09 | PD.RESPRO ---
Documentation for date of: 06/22/24 Subjective Subjective Interval history: Patient is a 63-year-old male with past medical history of CAD, pacemaker/defibrillator by Dr. Ramirez in [place] for abnormal rhythm CHF, hypertension, COPD who came into our ER after he was woken up at 2 AM with chest pain. Patient is a poor historian but does explain that he woke up at 2 AM with severe chest pain that caused some nausea and vomiting after which he decided to come to the ED. Patient lives alone he called 911. In the ED patient was found to be tachycardic with a pulse of 121 saturating at 92% on room air. Troponins were found to be elevated at 3.54 initially and climbed up to 4.52 by the time we saw him at bedside. Patient was also found to have elevated transaminases in the thousands. Chest x-ray revealed no pulmonary edema and EKG showed sinus tachycardia. Patient was given Zofran as well as 1 L bolus of fluids and morphine in the ER as well as aspirin and nitroglycerin and metoprolol which seem to have helped the patient's pain at the time. Physical exam revealed 2+ pitting edema in the lower extremities with bilateral lower extremities mottling up to the knees. Patient was pale and capillary refill was greater than 10 seconds. Patient's jugular venous pressure was elevated which was confirmed with ultrasound and patient was found to be likely in cardiogenic shock. The decision was made to admit patient to the ICU and we inserted a central line and arterial line. Further testing revealed that patient was methamphetamine positive. BUN was greater than 3280, lactic acid was elevated at 18 and pH was 7.10 with a pCO2 of 29 and pO2 of 105 subsequent VBG showed improvement in pH to 7.19. Patient was started on dobutamine drip in the ED as well as Levophed. 06/20/2024: Patient seen and examined in the ICU today. There were no major overnight events and patient was stable this morning. Cardiac output has maintained with pressor support and dobutamine. Patient has been spitting out frothy pink to dark brown material likely from pulmonary congestion. Patient's ABG and VBG showed increased cardiac output and is now warmer with no mottling and capillary refill of less than 3 seconds. Patient received 1 dose of Lasix 40 mg IV push. Will continue to monitor patient closely and try to wean him off of pressor support and inotropic support. Patient's PT and INR are elevated with an INR of 3.2. Patient is likely in DIC as his liver is still short with T. bili of 5.5 and AST greater than 6000 and ALT greater than 3300. Troponins have continued to climb to 12.9 but patient denies any chest pain, it is likely secondary to demand ischemia as well as damage from substance abuse, methamphetamine. Urine output has slowly improved. 06/21/2024: Overnight, patient was started on precedex for agitation and weaned off this morning. He remains on levophed at 0.03 and dobutamine at 0.2. He had good urine output at 2.6L in the last 24 hours and is net negative at 1.9L. Extremities are warm. His SvO2 with dobutamine at 2 was 100%, suggestive of peripheral shunting. Extremities are warm and liver enzymes are improving, suggestive that cardiogenic shock is improving. Patient was titrated off levophed and dobutamine adjusted from 2 to 1. The SvO2 was then 40%, so dobutamine was increased to 1.5. Will follow up on next VBG for SvO2 and adjust rate of dobutamine accordingly. For his ATN, patient now in polyuric phase so will replace volume with gentle IVF. Will discontinue arterial line. 06/22/2024: Patient was seen and examined in ICU today. There were no major overnight events and patient was gradually titrating down on dobutamine. Patient's official echo confirmed 15-20% EF. Dobutamine was stopped around 8 AM in the morning and follow up SvO2 showed adequate perfusion and patient continues to be warm to touch in the extremities as well as good urine output. Patient was started on coreg for goal directed medical therapy for HFrEF, and we are holding his TONI/ARBS until his kidney function improves. Patient was subsequently downgraded to telemetry in the afternoon and Dr Wright accepted the downgrade. We recommend adding the rest of goal directed medical therapy for HFrEF prior to DC. Exam Vital Signs Temp Pulse Resp BP Pulse Ox O2 Del Method O2 Flow Rate 97.4 F 99 14 123/87 H 93 L Nasal Cannula 3 06/22/24 04:00 06/22/24 06:00 06/22/24 06:00 06/22/24 06:00 06/22/24 06:00 06/22/24 04:00 06/22/24 04:00 Narrative Exam Constitutional: Pale disheveled elderly male in no acute distress CVS: RRR, S1 and S2 present, no murmurs, rubs or gallops . Capillary refills less than 3 seconds RESP: CTAB, no SOB, no rales, rhonchi or wheezing. No respiratory Distress GI: Normal BS, Nontender/Nondistended. MSK: Full range of motion, No trauma or deformities or masses. Skin: Skin is warm to the touch and there is no mottling seen on the lower extremities anymore. Neuro: Patient is AAO x 2 as he is alert to place but not to time. Objective Labs 06/25/24 05:35 06/25/24 05:35 Labs: Laboratory Results - last 24 hr 06/21/24 06/21/24 06/21/24 09:12 12:00 13:45 WBC RBC Hgb Hct MCV MCH MCHC RDW Std Deviation Plt Count Neut % (Auto) Lymph % (Auto) Woods % (Auto) Eos % (Auto) Baso % (Auto) Neut # (Auto) Lymph # (Auto) Woods # (Auto) Eos # (Auto) Baso # (Auto) Immature Gran # (Auto) Absolute Nucleated RBC Immature Gran % Nucleated RBC % PT INR Puncture Site ABG pH ABG pCO2 ABG pO2 ABG HCO3 ABG O2 Saturation ABG Base Excess VBG pH 7.39 VBG pCO2 51 D VBG pO2 39 D VBG O2 Sat (Ariana) 66 L D VBG Base Excess 5 H FiO2 Sodium Potassium Chloride Carbon Dioxide Anion Gap BUN Creatinine Estim Creat Clear Calc eGFR BUN/Creatinine Ratio Glucose Calculated Osmolality Lactic Acid Calcium Corrected Calcium Phosphorus Magnesium Total Bilirubin AST ALT Alkaline Phosphatase Troponin I 8.389 H* D 8.252 H* Total Protein Albumin Globulin Albumin/Globulin Ratio 06/21/24 06/21/24 06/22/24 13:50 15:37 04:18 WBC RBC Hgb Hct MCV MCH MCHC RDW Std Deviation Plt Count Neut % (Auto) Lymph % (Auto) Woods % (Auto) Eos % (Auto) Baso % (Auto) Neut # (Auto) Lymph # (Auto) Woods # (Auto) Eos # (Auto) Baso # (Auto) Immature Gran # (Auto) Absolute Nucleated RBC Immature Gran % Nucleated RBC % PT INR Puncture Site Right Radial ABG pH 7.46 H ABG pCO2 39 ABG pO2 78 L D ABG HCO3 27 H ABG O2 Saturation 97 ABG Base Excess 3 VBG pH 7.41 7.54 VBG pCO2 49 30 L D VBG pO2 29 57 D VBG O2 Sat (Ariana) 46 L D 93 L D VBG Base Excess 5 H 3 FiO2 3 Sodium Potassium Chloride Carbon Dioxide Anion Gap BUN Creatinine Estim Creat Clear Calc eGFR BUN/Creatinine Ratio Glucose Calculated Osmolality Lactic Acid Calcium Corrected Calcium Phosphorus Magnesium Total Bilirubin AST ALT Alkaline Phosphatase Troponin I Total Protein Albumin Globulin Albumin/Globulin Ratio 06/22/24 05:27 WBC 10.7 H RBC 3.49 L Hgb 10.9 L Hct 32.5 L MCV 93 MCH 31.2 MCHC 33.5 RDW Std Deviation 51.8 H Plt Count 215 Neut % (Auto) 86 H Lymph % (Auto) 7 L Woods % (Auto) 6 Eos % (Auto) 0 Baso % (Auto) 0 Neut # (Auto) 9.1 H Lymph # (Auto) 0.7 L Woods # (Auto) 0.7 Eos # (Auto) 0.0 Baso # (Auto) 0.0 Immature Gran # (Auto) 0.15 H Absolute Nucleated RBC 0.04 H Immature Gran % 1 H Nucleated RBC % 0 PT 18.8 H D INR 1.8 H Puncture Site ABG pH ABG pCO2 ABG pO2 ABG HCO3 ABG O2 Saturation ABG Base Excess VBG pH 7.43 VBG pCO2 45 D VBG pO2 39 VBG O2 Sat (Ariana) 69 L D VBG Base Excess 4 H FiO2 Sodium 145 Potassium 3.5 D Chloride 103 Carbon Dioxide 26.8 Anion Gap 15 BUN 95 H Creatinine 3.8 H Estim Creat Clear Calc 21.8 L eGFR 17 L BUN/Creatinine Ratio 25 H Glucose 98 Calculated Osmolality 318 H Lactic Acid 1.7 Calcium 7.9 L Corrected Calcium 8.7 Phosphorus 4.0 Magnesium 2.4 Total Bilirubin 6.9 H D AST 1097 H* ALT 1863 H* Alkaline Phosphatase 143 H Troponin I Total Protein 5.6 L Albumin 3.0 L Globulin 2.6 Albumin/Globulin Ratio 1.2 ABG Interpretation ABG results: 06/19/24 06/19/24 06/20/24 16:21 17:41 08:48 ABG pH 7.10 L* ABG pCO2 20 L ABG pO2 105 ABG HCO3 6 L* ABG O2 Saturation 96 ABG Base Excess -21 L VBG pH 7.19 L 7.38 VBG pCO2 28 L 46 D VBG pO2 55 37 VBG Base Excess -16 L 1 06/20/24 06/20/24 06/20/24 11:10 17:54 19:45 ABG pH 7.39 D 7.39 ABG pCO2 40 D 45 ABG pO2 63 L D 90 D ABG HCO3 24 27 H ABG O2 Saturation 91 97 ABG Base Excess -1 2 VBG pH 7.37 7.45 VBG pCO2 44 36 VBG pO2 38 58 D VBG Base Excess 0 1 06/21/24 06/21/24 06/21/24 04:30 05:56 12:00 ABG pH 7.41 ABG pCO2 43 ABG pO2 102 ABG HCO3 27 H ABG O2 Saturation 99 H ABG Base Excess 2 VBG pH 7.53 7.39 VBG pCO2 29 L 51 D VBG pO2 115 H D 39 D VBG Base Excess 2 5 H 06/21/24 06/21/24 06/22/24 13:50 15:37 04:18 ABG pH 7.46 H ABG pCO2 39 ABG pO2 78 L D ABG HCO3 27 H ABG O2 Saturation 97 ABG Base Excess 3 VBG pH 7.41 7.54 VBG pCO2 49 30 L D VBG pO2 29 57 D VBG Base Excess 5 H 3 06/22/24 05:27 ABG pH ABG pCO2 ABG pO2 ABG HCO3 ABG O2 Saturation ABG Base Excess VBG pH 7.43 VBG pCO2 45 D VBG pO2 39 VBG Base Excess 4 H Quality Measures Quality Measures VTE prophylaxis Assessment & Plan Assessment Current Active Medications: Generic Name Dose Route Start Last Admin Trade Name Freq PRN Reason Stop Dose Admin Acetaminophen 650 mg 06/19/24 14:18 Acetaminophen 325 Mg Tablet PO 07/19/24 14:17 Q6H PRN Fever >101.5 Acetaminophen 650 mg 06/19/24 14:18 Acetaminophen 325 Mg Tablet PO 07/19/24 14:17 Q6H PRN PAIN SCALE 1-3 (mild Hydrocodone Bitart/Acetaminophen 1 tab 06/19/24 14:18 Hydrocodone/Apap 10/325 Tab PO 06/24/24 14:17 Q4H PRN PAIN SCALE 4-6 (Moderate Albuterol/Ipratropium 3 ml 06/20/24 07:13 Albuterol/Ipratropium (Duoneb) Rt Yamila 3 Ml Nebu INH 07/20/24 07:12 Q2HR PRN SHORTNESS OF BREATH OR WHEEZE Aspirin 81 mg 06/20/24 09:00 06/21/24 08:13 Aspirin Ec 81 Mg Tabec PO 07/20/24 08:59 Not Given QDAY NYDIA Atorvastatin Calcium 80 mg 06/20/24 21:00 06/21/24 20:25 Atorvastatin Calcium 20 Mg Tablet PO 07/20/24 20:59 80 mg HS NYDIA Administration Famotidine 10 mg 06/21/24 21:00 06/21/24 20:25 Famotidine Inj 10 Mg/Ml Vial 2 Ml IVP 07/21/24 20:59 10 mg HS NYDIA Administration Heparin Sodium (Porcine) 5,000 unit 06/19/24 22:00 06/22/24 05:33 Heparin Sod Inj 5000 Unit/Ml Vial SC 07/03/24 21:59 5,000 unit Q8HR NYDIA Administration Norepinephrine Bitartrate 16 mg in 250 mls @ 4.21 mls/hr 06/19/24 18:21 06/21/24 10:49 Levophed In Ns 16mg/250ml IV 07/19/24 18:20 0 mcg/kg/min .Q24H PRN 0 mls/hr PER protocol Titration Protocol 0.05 MCG/KG/MIN Morphine Sulfate 2 mg 06/19/24 14:18 06/19/24 16:28 Morphine Sulf Inj 10 Mg/Ml Vial IVP 06/24/24 14:17 2 mg Q2H PRN Administration PAIN SCALE 7-10 (Severe Ondansetron HCl 4 mg 06/19/24 14:18 Ondansetron Inj 2 Mg/Ml Inj 2 Ml IV 07/19/24 14:17 Q6H PRN NAUSEA OR VOMITING Protocol Plan 63-year-old male with past medical history of CAD, pacemaker/defibrillator by Dr. Ramirez in [place] for abnormal rhythm CHF, hypertension, COPD who came into our ER after he was woken up at 2 AM with chest pain and admitted to the ICU for further management of his shock likely cardiogenic. Neuro #Acute encephalopathy Likely metabolic from substance abuse versus shock - Discontinue precedex since 06/21/24 CVS #Shock #HFrEF EF 15-20% Likely cardiogenic versus distributive Patient presented with chest pain that started in the early hours of the night Preschool Assistant Principal was consulted in the ED, Dr. Kiran did a bedside ultrasound which showed an estimated EF of 15 to 20% Patient has a history of meth abuse and he did test positive for methamphetamine in the urine tox Troponins were initially 3.54 and has gradually increased to 7.37. BNP is greater than 3280 Patient had 2+ pitting edema bilaterally with decreased capillary refill greater than 10 seconds as well as bilateral mottling up to the knees which improved once patient was started on the drips Patient also received morphine and aspirin in the ED as well as metoprolol and nitroglycerin Patient received Zosyn in the ER. Patient's cardiac output has improved with pressor support and dobutamine drip. Plan: ? Discontinued Dobutamine since 06/22/24 ? Echo revealed EF 15-0% ? Strict ULISES's ? Cardiology consulted: medical management #Troponinemia, downtrending Likely NSTEMI type II due to demand ischemia EKG did not show any obvious signs of ST segment elevation Resp #Acute hypoxic respiratory failure due to pulmonary edema #History of COPD Patient is oxygenating well on 2 L nasal cannula There is no wheezing or rhonchi heard on physical examination Patient is spitting out frothy sputum that is mixed with dried blood likely from nasopharyngeal bleed ?Oxygen support ? Frequent suctioning ? DuoNebs as needed for wheezing GI #Ischemic hepatitis, improving Likely congestive liver Abdominal ultrasound revealed gallbladder wall thickening could be possibly from congestion Patient denied any right upper quadrant tenderness and there was no jaundice or fevers PT/INR elevated without INR of 3.2 ? Will continue daily CMP Renal #KERWIN Patient presented with a BUN of 33 and creatinine of 2.5 from a baseline of 1.3 Likely cardiorenal as patient's EF is estimated to be 15 to 20% on bedside ultrasound Creatinine uptrending. Patient polyuric - 50cc NS /hr - Check IVC later if need 250 bolus - Monitor UOP #High anion gap metabolic acidosis, resolved #Lactic acidosis?improving ? Will continue inotropic support for the patient Endocrine #Stable ID/Skin #Shock sepsis not ruled out but less likely No acute problems Hematology #Leukocytosis Likely reactive #Coagulopathy Given fibrinogen low end of normal, less likely patient is in DIC and coagulopathy is related to acute liver injury - Continue heparin for DVT prophylaxis Hospital Maintenance: FEN: Cardiac diet DVT PPx: Heparin GI PPx: pepcid IV lines: PIV Code Status: DNR/DNI Dispo: Patient downgraded to telemetry for monitoring of HFrEF exacerbation I have reviewed and discussed the patient's care with my attending, Dr. Martinez, Dr Cecil Chau PGY3 Attending Provider Attestation/Addendum Patient seen and examined with above resident, Cecil Chau MD. I agree with the findings, assessment, and plan of care as documented except for any differences below. Patient with resolution of cardiogenic shock with discontinuation of inotropic support. Remains slightly tachycardic and we will start to initiate therapy with goal-directed optimization. Will start with beta-blockade before addition of TONI/ARB or Entresto given acute tubular necrosis which will likely recover in the coming days. Urine output remains excellent and we have ensured adequate fluid replacement to avoid secondary insult from hypovolemia associated with postobstructive diuresis on a tubular level. Patient's mentation slowly continues to improve along with need for oxygen supplementation which is likely more reflection of his hypoventilation from central apnea. We will obtain echocardiography. Suspect this is all related to exacerbation of heart failure with reduced ejection fraction secondary to methamphetamine abuse. Leukocytosis likely is reactive and not solar sales representative and assessor of a true infection. Coagulopathy, liver dysfunction, and renal function are all trending in the right direction. Patient will be transferred to medicine [facility] for further optimization prior to discharge in the coming days. Total critical care time: I personally spent 40 minutes for review of physiologic parameters, directing plan of care throughout the day, coordination of care with other subspecialists, and counseling patient at bedside. This is exclusive of time spent teaching of staff or performing any separate billable procedures. Patient remains at significant risk for further morbidity and mortality warranting close monitoring and care only available in the intensive care unit. He was receiving critical care services for cardiogenic shock secondary to methamphetamine abuse with acute on chronic systolic heart failure.
[2024-06-22] MEDS: ASPIRIN EC 81 MG TABEC PO (09:37)
[2024-06-22 09:59] LABS: Base Excess, Venous 4 (-3-3); O2 Saturation, Venous 81 % (96-97); PCO2, Venous 46 mmHg (36-56); PO2, Venous 48 mmHg (15-58); pH, Venous 7.41 (7.33-7.66)
[2024-06-22] MEDS: carVEDILOL 3.125 MG TABLET PO ×2 (13:01→18:24)
--- NOTE | 2024-06-22 13:36 | ESPR_ITS ---
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 Evaluated the patient the resident physician Dr. SHEA agree with the treatment plan recommendation as documented by PGY 3 Documentation for date of: 06/22/24 Subjective Subjective Interval history: Patient was examined at bedside this afternoon in ICU. He is being off pressors. Echo showed -Findings are consistent with dilated cardiomyopathy severe global hypokinesis.Left ventricle is markedly dilated with severe LV dysfunction severe global hypokinesis ejection fraction 15 to 20% . he needs to quit meth permanently . Exam Vital Signs Temp Pulse Resp BP Pulse Ox O2 Del Method O2 Flow Rate 98.2 F 97 14 103/72 99 Nasal Cannula 3 06/22/24 12:00 06/22/24 13:31 06/22/24 13:31 06/22/24 13:31 06/22/24 13:31 06/22/24 04:00 06/22/24 04:00 Narrative Exam Gen: Well-developed and well-nourished male. HEENT: NCAT, PERRLA, EOMI, MMM, anicteric conjunctivae. CVS: normal S1 and S2. RRR. No M/R/G. Resp: Minimal rhonchi B/L. No rhonchi, rales, crackles or wheezing. Abd: soft, non-tender, non-distended. BS+ in all 4 quadrants. MSK: Good ROM in BUE & BLE. Trace edema BLE. Objective Labs 06/22/24 05:27 06/22/24 05:27 Labs: Laboratory Results - last 24 hr 06/21/24 06/21/24 06/21/24 13:45 13:50 15:37 WBC RBC Hgb Hct MCV MCH MCHC RDW Std Deviation Plt Count Neut % (Auto) Lymph % (Auto) [place] % (Auto) Eos % (Auto) Baso % (Auto) Neut # (Auto) Lymph # (Auto) [place] # (Auto) Eos # (Auto) Baso # (Auto) Immature Gran # (Auto) Absolute Nucleated RBC Immature Gran % Nucleated RBC % PT INR Puncture Site ABG pH ABG pCO2 ABG pO2 ABG HCO3 ABG O2 Saturation ABG Base Excess VBG pH 7.41 7.54 VBG pCO2 49 30 L D VBG pO2 29 57 D VBG O2 Sat (Ariana) 46 L D 93 L D VBG Base Excess 5 H 3 FiO2 Sodium Potassium Chloride Carbon Dioxide Anion Gap BUN Creatinine Estim Creat Clear Calc eGFR BUN/Creatinine Ratio Glucose Calculated Osmolality Lactic Acid Calcium Corrected Calcium Phosphorus Magnesium Total Bilirubin AST ALT Alkaline Phosphatase Troponin I 8.252 H* Total Protein Albumin Globulin Albumin/Globulin Ratio 06/22/24 06/22/24 06/22/24 04:18 05:27 09:33 WBC 10.7 H RBC 3.49 L Hgb 10.9 L Hct 32.5 L MCV 93 MCH 31.2 MCHC 33.5 RDW Std Deviation 51.8 H Plt Count 215 Neut % (Auto) 86 H Lymph % (Auto) 7 L [place] % (Auto) 6 Eos % (Auto) 0 Baso % (Auto) 0 Neut # (Auto) 9.1 H Lymph # (Auto) 0.7 L [place] # (Auto) 0.7 Eos # (Auto) 0.0 Baso # (Auto) 0.0 Immature Gran # (Auto) 0.15 H Absolute Nucleated RBC 0.04 H Immature Gran % 1 H Nucleated RBC % 0 PT 18.8 H D INR 1.8 H Puncture Site Right Radial ABG pH 7.46 H ABG pCO2 39 ABG pO2 78 L D ABG HCO3 27 H ABG O2 Saturation 97 ABG Base Excess 3 VBG pH 7.43 7.41 VBG pCO2 45 D 46 VBG pO2 39 48 VBG O2 Sat (Ariana) 69 L D 81 L D VBG Base Excess 4 H 4 H FiO2 3 Sodium 145 Potassium 3.5 D Chloride 103 Carbon Dioxide 26.8 Anion Gap 15 BUN 95 H Creatinine 3.8 H Estim Creat Clear Calc 21.8 L eGFR 17 L BUN/Creatinine Ratio 25 H Glucose 98 Calculated Osmolality 318 H Lactic Acid 1.7 Calcium 7.9 L Corrected Calcium 8.7 Phosphorus 4.0 Magnesium 2.4 Total Bilirubin 6.9 H D AST 1097 H* ALT 1863 H* Alkaline Phosphatase 143 H Troponin I Total Protein 5.6 L Albumin 3.0 L Globulin 2.6 Albumin/Globulin Ratio 1.2 ABG Interpretation ABG results: 06/19/24 06/19/24 06/20/24 16:21 17:41 08:48 ABG pH 7.10 L* ABG pCO2 20 L ABG pO2 105 ABG HCO3 6 L* ABG O2 Saturation 96 ABG Base Excess -21 L VBG pH 7.19 L 7.38 VBG pCO2 28 L 46 D VBG pO2 55 37 VBG Base Excess -16 L 1 06/20/24 06/20/24 06/20/24 11:10 17:54 19:45 ABG pH 7.39 D 7.39 ABG pCO2 40 D 45 ABG pO2 63 L D 90 D ABG HCO3 24 27 H ABG O2 Saturation 91 97 ABG Base Excess -1 2 VBG pH 7.37 7.45 VBG pCO2 44 36 VBG pO2 38 58 D VBG Base Excess 0 1 06/21/24 06/21/24 06/21/24 04:30 05:56 12:00 ABG pH 7.41 ABG pCO2 43 ABG pO2 102 ABG HCO3 27 H ABG O2 Saturation 99 H ABG Base Excess 2 VBG pH 7.53 7.39 VBG pCO2 29 L 51 D VBG pO2 115 H D 39 D VBG Base Excess 2 5 H 06/21/24 06/21/24 06/22/24 13:50 15:37 04:18 ABG pH 7.46 H ABG pCO2 39 ABG pO2 78 L D ABG HCO3 27 H ABG O2 Saturation 97 ABG Base Excess 3 VBG pH 7.41 7.54 VBG pCO2 49 30 L D VBG pO2 29 57 D VBG Base Excess 5 H 3 06/22/24 06/22/24 05:27 09:33 ABG pH ABG pCO2 ABG pO2 ABG HCO3 ABG O2 Saturation ABG Base Excess VBG pH 7.43 7.41 VBG pCO2 45 D 46 VBG pO2 39 48 VBG Base Excess 4 H 4 H Quality Measures Quality Measures VTE prophylaxis Assessment & Plan Assessment Current Active Medications: Generic Name Dose Route Start Last Admin Trade Name Freq PRN Reason Stop Dose Admin Acetaminophen 650 mg 06/19/24 14:18 Acetaminophen 325 Mg Tablet PO 07/19/24 14:17 Q6H PRN Fever >101.5 Acetaminophen 650 mg 06/19/24 14:18 Acetaminophen 325 Mg Tablet PO 07/19/24 14:17 Q6H PRN PAIN SCALE 1-3 (mild Hydrocodone Bitart/Acetaminophen 1 tab 06/19/24 14:18 Hydrocodone/Apap 10/325 Tab PO 06/24/24 14:17 Q4H PRN PAIN SCALE 4-6 (Moderate Albuterol/Ipratropium 3 ml 06/20/24 07:13 Albuterol/Ipratropium (Duoneb) Rt Yamila 3 Ml Nebu INH 07/20/24 07:12 Q2HR PRN SHORTNESS OF BREATH OR WHEEZE Aspirin 81 mg 06/20/24 09:00 06/22/24 09:37 Aspirin Ec 81 Mg Tabec PO 07/20/24 08:59 81 mg QDAY NYDIA Administration Atorvastatin Calcium 80 mg 06/20/24 21:00 06/21/24 20:25 Atorvastatin Calcium 20 Mg Tablet PO 07/20/24 20:59 80 mg HS NYDIA Administration Carvedilol 3.125 mg 06/22/24 10:10 06/22/24 13:01 Carvedilol 3.125 Mg Tablet PO 07/22/24 10:09 3.125 mg BIDWM NYDIA Administration Famotidine 10 mg 06/21/24 21:00 06/21/24 20:25 Famotidine Inj 10 Mg/Ml Vial 2 Ml IVP 07/21/24 20:59 10 mg HS NYDIA Administration Heparin Sodium (Porcine) 5,000 unit 06/19/24 22:00 06/22/24 13:05 Heparin Sod Inj 5000 Unit/Ml Vial SC 07/03/24 21:59 5,000 unit Q8HR NYDIA Administration Norepinephrine Bitartrate 16 mg in 250 mls @ 4.21 mls/hr 06/19/24 18:21 06/21/24 10:49 Levophed In Ns 16mg/250ml IV 07/19/24 18:20 0 mcg/kg/min .Q24H PRN 0 mls/hr PER protocol Titration Protocol 0.05 MCG/KG/MIN Morphine Sulfate 2 mg 06/19/24 14:18 06/19/24 16:28 Morphine Sulf Inj 10 Mg/Ml Vial IVP 06/24/24 14:17 2 mg Q2H PRN Administration PAIN SCALE 7-10 (Severe Ondansetron HCl 4 mg 06/19/24 14:18 Ondansetron Inj 2 Mg/Ml Inj 2 Ml IV 07/19/24 14:17 Q6H PRN NAUSEA OR VOMITING Protocol Plan 63-year-old male with past medical history of coronary artery disease, pacemaker/defibilator placed by Dr. Villalobos in [place] for abnormal rhythm CHF, hypertension, COPD ,cardiomyopathy from methamphetamine use with ejection fraction 30 to 35% (2019) came to the ED with chief complaint of nausea and vomiting since last 24-hour. Initial labs in the ED showed WBC count of 29.8 . pH?7.10, pCO2 20, bicarb of 6, sodium?137, potassium?4.7, chloride 97, carbon oxide?14.6, BUN 33, AG 28, creatinine 2.5, lactic acid?18, total bilirubin?5.3, AST?5489, ALT?2363, alk phos?140, elevated troponin initial was 3.5 for the repeat troponin is 4.52. Chest x-ray did not show any pneumonia/no pulmonary fuction . # Cardiogenic shock. # NSTEMI most likely type II in setting of Meth use. # Cardiomyopathy from meth use. # HFrEF 15-20 % ( bedside US ) -pt came to ED with Chicf complain of pain abdomen , labs showed elevated troponin 3.5 , repeat troponin was 4.5 , -motteling present on B/l legs -he denies chest pain -Bedside US showed EF of 15-20 % -he has [employer] TRA[employer]ER-D placed by Dr Tam from [place] unknown exact date -His elevated troponin could be type I versus type II, most likely in the setting of sepsis -Echo 2018 shows - Normal left ventricular size and function. Approximate ejection fraction is 30-35%. Moderate mitral and tricuspid regurgitation noted. Mild pulmonic regurgitation.Mild PHTN. Slight posterior MVP. -he received 1 L NS in ED. Plan: -Continue on Dobutamine drip. -Norepinephrine discontinued. -Continue on Precedex. 06/20/2024: troponin went upto 12 , meth positive in utox , lactic acid trending down. he is still on dobutamine 2mcg , AST > 6000, ALT- 3300, procsl- 6.08 . levophed added to maintain the pressure. he has overall poor prognosis, levophed requirement going up . 06/21/2024: Norepinephrine was discontinued by ICU team, he is able to maintain blood pressure around 90/60. Continue dobutamine drip. LFTs are downtrending. 06/22/2024: He is being off pressors. Echo showed -Findings are consistent with dilated cardiomyopathy severe global hypokinesis.Left ventricle is markedly dilated with severe LV dysfunction severe global hypokinesis ejection fraction 15 to 20% . he needs to quit meth permanently . patient downgraded to floors . # H/o HTN - BNP ->3280 - held home anti hypertensive meds in setting of cardiogenic shock Rest of medical problem management as per ICU team. Case discussed with my attending Dr Kiran. Ilda Shea MD,PGY-3
--- NOTE | 2024-06-22 14:18 | ECHO_ITS ---
Transthoracic Echo Report Ht (in): 72 Wt (lb): 173 Exam Location: [facility] Status: Inpatient Customer Success Intern: MARTIN Carmen^^^^ Indications: Procedure Performed: BP: 103 / 75 HR: 97 Technical Quality: Fair MEASUREMENTS (Male / Female) Normal Values 2D ECHO LV Diastolic Diameter PLAX 6.7 cm 4.2 - 5.9 / 3.9 - 5.3 cm LV Systolic Diameter PLAX 6.0 cm IVS Diastolic Thickness 0.6 cm 0.6 - 1.0 / 0.6 - 0.9 cm LVPW Diastolic Thickness 0.9 cm 0.6 - 1.0 / 0.6 - 0.9 cm LV Relative Wall Thickness 0.2 LVOT Diameter 1.9 cm Aortic Root Diameter 3.3 cm LA Systolic Diameter LX 3.9 cm 3.0 - 4.0 / 2.7 - 3.8 cm LV Ejection Fraction MOD BP 29.5 % >= 55 % LV Cardiac Index MOD BP 3155.1 cm?/min?m? LV Ejection Fraction MOD 4C 26.2 % LV Cardiac Index MOD 4C 2572.6 cm?/min?m? LV Ejection Fraction 4C AL 30.0 % LV Cardiac Index 4C AL 3034.9 cm?/min?m? LV Ejection Fraction MOD 2C 27.9 % LV Cardiac Index MOD 2C 2815.3 cm?/min?m? LV Ejection Fraction 2C AL 27.1 % LV Cardiac Index 2C AL 2757.8 cm?/min?m? LA Volume Index 68.0 cm?/m? 16 - 28 cm?/m? DOPPLER AV Peak Velocity 162.5 cm/s AV Peak Gradient 10.6 mmHg AV Mean Gradient 5.0 mmHg AV Velocity Time Integral 22.9 cm LVOT Peak Velocity 59.9 cm/s LVOT Peak Gradient 1.4 mmHg LVOT Velocity Time Integral 11.7 cm LVOT Cardiac Index 1610.2 cm?/min?m? AV Area Cont Eq vti 1.4 cm? AV Area Cont Eq pk 1.0 cm? MV Peak Velocity 92.7 cm/s MV Peak Gradient 3.4 mmHg MV Mean Velocity 61.1 cm/s MV Mean Gradient 2.0 mmHg MV Area PHT 4.5 cm? MR Peak Velocity 547.0 cm/s MR Peak Gradient 119.7 mmHg Mitral E Point Velocity 108.0 cm/s Mitral A Point Velocity 73.2 cm/s Mitral E to A Ratio 1.5 LV E' Lateral Velocity 15.7 cm/s Mitral E to LV E' Lateral Ratio 6.9 LV E' Septal Velocity 5.0 cm/s Mitral E to LV E' Septal Ratio 21.8 TR Peak Velocity 345.0 cm/s TR Peak Gradient 47.6 mmHg PV Peak Velocity 112.0 cm/s PV Peak Gradient 5.0 mmHg RVOT Peak Velocity 64.3 cm/s FINDINGS Left Ventricle The left ventricular ejection fraction is severely decreased, estimated at 15- 20%. There is grade III diastolic dysfunction of the left ventricle (restrictive filling pattern). Regional wall motion abnormalities are present. There is global left ventricular hypokinesis. Right Ventricle The right ventricle is normal in size and systolic function. The estimated right ventricular systolic pressure is moderatley increased, 55 mmHg. Left Atrium The left atrial cavity size is moderately increased. Right Atrium The right atrial cavity size is mildly increased. Atrial Septum The interatrial septum appears normal with no evidence of a shunt. Aorta The aorta is normal by two-dimensional, color flow and Doppler interrogation. Mitral Valve Mild mitral regurgitation. Mild mitral annular calcification. Mild thickening of the mitral valve leaflets. Aortic Valve Aortic valve sclerosis. Tricuspid Valve There is moderate tricuspid regurgitation. Pulmonic Valve Trivial pulmonic valve regurgitation. Vessels Dilated inferior vena cava. Less than 50% respiratory change in dimension of the inferior vena cava abnormal. Pericardium There is a tiny, hemodynamically insignificant pericardial effusion. CONCLUSIONS indication: NSTEMI Findings are consistent with dilated cardiomyopathy severe global hypokinesis. Left ventricle is markedly dilated with severe LV dysfunction severe global hypokinesis ejection fraction 15 to 20% Right atrium right ventricle normal in size. There is evidence of pacing lead defibrillator lead in RV Moderate to severe tricuspid regurgitation with moderate pulmonary hypertension PA pressure estimated 55 mmHg Moderate 2+ mitral regurgitation secondary to mitral annulus dilation. Severely dilated left atrium and mildly dilated right atrium. Rissa Jackson (Electronically Signed) Final Date: 22 Jun 2024 11:18
--- NOTE | 2024-06-22 17:46 | ESPR_ITS ---
Documentation for date of: 06/22/24 Subjective Subjective Interval history: Patient is a 63-year-old male with past medical history significant for CAD, pacemaker/defibrillator for abnormal rhythm, CHF, hypertension, COPD who came to the ED initially with chest pain. Patient was later admitted to ICU for further management of cardiogenic shock requiring both Levophed and dobutamine drip which was discontinued as of today. Patient's hospital course was also complicated with ATN and shock liver, however is making good urine output today. Patient's creatinine level was still elevated at 3.8. At this time, will consult nephrology for further recommendations. Echocardiogram revealed that left ventricle is markedly dilated with severe left ventricular dysfunction, and severe global hypokinesis with ejection fraction 15 to 20%. Patient is recommended to completely avoid methamphetamine to improve patient's quality of life and survival. Patient is currently on low-dose carvedilol, and will most likely need to be on goal-directed medical therapy prior to discharge. Patient seen and examined at bedside. Patient denies any complaints at this time. Patient seen with bilateral mittens most likely due to patient's continued delirious state. Patient is alert and oriented x 2, able to tell me his name and location however unable to tell me what happened throughout the course of his hospitalization and what led to his hospitalization. Patient denies using any oxygen at home. Will order physical therapy to help with further dispo plan. Exam Vital Signs Temp Pulse Resp BP Pulse Ox O2 Del Method O2 Flow Rate 98.2 F 106 H 23 H 116/60 98 Nasal Cannula 3 06/22/24 12:00 06/22/24 15:05 06/22/24 15:06/22/24 14:46 06/22/24 15:06/22/24 04:00 06/22/24 04:00 Narrative Exam General Appearance: Pt in no apparent distress laying in bed with nasal cannula off to his chin. HEENT: NC/AT, no scleral icterus, no conjunctival pallor, MMM Lungs: Coarse breath sounds bilaterally otherwise equal air entry throughout and no crackles or wheezes appreciated CVS: RRR, S1/S2 heard, no murmurs or rubs appreciated, trace edema ABD: Soft, non-tender, non-distended, BS + in all 4 quadrants EXT: no deformity/edema/lesions/cyanosis/clubbing except for mild mottling seen bilaterally up to patient's mid calves, radial pulses 2+ BL, DP pulses 2 + BL, patient able to move extremities. SKIN: Skin exam normal without any rashes. Neuro: A&O x [address]. Unable to assess full neuroexam due to patient's current mental condition Objective Labs 06/23/24 05:30 06/23/24 05:30 Labs: Laboratory Results - last 24 hr 06/22/24 06/22/24 06/22/24 04:18 05:27 09:33 WBC 10.7 H RBC 3.49 L Hgb 10.9 L Hct 32.5 L MCV 93 MCH 31.2 MCHC 33.5 RDW Std Deviation 51.8 H Plt Count 215 Neut % (Auto) 86 H Lymph % (Auto) 7 L [place] % (Auto) 6 Eos % (Auto) 0 Baso % (Auto) 0 Neut # (Auto) 9.1 H Lymph # (Auto) 0.7 L [place] # (Auto) 0.7 Eos # (Auto) 0.0 Baso # (Auto) 0.0 Immature Gran # (Auto) 0.15 H Absolute Nucleated RBC 0.04 H Immature Gran % 1 H Nucleated RBC % 0 PT 18.8 H D INR 1.8 H Puncture Site Right Radial ABG pH 7.46 H ABG pCO2 39 ABG pO2 78 L D ABG HCO3 27 H ABG O2 Saturation 97 ABG Base Excess 3 VBG pH 7.43 7.41 VBG pCO2 45 D 46 VBG pO2 39 48 VBG O2 Sat (Ariana) 69 L D 81 L D VBG Base Excess 4 H 4 H FiO2 3 Sodium 145 Potassium 3.5 D Chloride 103 Carbon Dioxide 26.8 Anion Gap 15 BUN 95 H Creatinine 3.8 H Estim Creat Clear Calc 21.8 L eGFR 17 L BUN/Creatinine Ratio 25 H Glucose 98 Calculated Osmolality 318 H Lactic Acid 1.7 Calcium 7.9 L Corrected Calcium 8.7 Phosphorus 4.0 Magnesium 2.4 Total Bilirubin 6.9 H D AST 1097 H* ALT 1863 H* Alkaline Phosphatase 143 H Total Protein 5.6 L Albumin 3.0 L Globulin 2.6 Albumin/Globulin Ratio 1.2 ABG Interpretation ABG results: 06/19/24 06/19/24 06/20/24 16:21 17:41 08:48 ABG pH 7.10 L* ABG pCO2 20 L ABG pO2 105 ABG HCO3 6 L* ABG O2 Saturation 96 ABG Base Excess -21 L VBG pH 7.19 L 7.38 VBG pCO2 28 L 46 D VBG pO2 55 37 VBG Base Excess -16 L 1 06/20/24 06/20/24 06/20/24 11:10 17:54 19:45 ABG pH 7.39 D 7.39 ABG pCO2 40 D 45 ABG pO2 63 L D 90 D ABG HCO3 24 27 H ABG O2 Saturation 91 97 ABG Base Excess -1 2 VBG pH 7.37 7.45 VBG pCO2 44 36 VBG pO2 38 58 D VBG Base Excess 0 1 06/21/24 06/21/24 06/21/24 04:30 05:56 12:00 ABG pH 7.41 ABG pCO2 43 ABG pO2 102 ABG HCO3 27 H ABG O2 Saturation 99 H ABG Base Excess 2 VBG pH 7.53 7.39 VBG pCO2 29 L 51 D VBG pO2 115 H D 39 D VBG Base Excess 2 5 H 06/21/24 06/21/24 06/22/24 13:50 15:37 04:18 ABG pH 7.46 H ABG pCO2 39 ABG pO2 78 L D ABG HCO3 27 H ABG O2 Saturation 97 ABG Base Excess 3 VBG pH 7.41 7.54 VBG pCO2 49 30 L D VBG pO2 29 57 D VBG Base Excess 5 H 3 06/22/24 06/22/24 05:27 09:33 ABG pH ABG pCO2 ABG pO2 ABG HCO3 ABG O2 Saturation ABG Base Excess VBG pH 7.43 7.41 VBG pCO2 45 D 46 VBG pO2 39 48 VBG Base Excess 4 H 4 H Quality Measures Quality Measures VTE prophylaxis Assessment & Plan Assessment Current Active Medications: Generic Name Dose Route Start Last Admin Trade Name Freq PRN Reason Stop Dose Admin Acetaminophen 650 mg 06/19/24 14:18 Acetaminophen 325 Mg Tablet PO 07/19/24 14:17 Q6H PRN Fever >101.5 Acetaminophen 650 mg 06/19/24 14:18 Acetaminophen 325 Mg Tablet PO 07/19/24 14:17 Q6H PRN PAIN SCALE 1-3 (mild Hydrocodone Bitart/Acetaminophen 1 tab 06/19/24 14:18 Hydrocodone/Apap 10/325 Tab PO 06/24/24 14:17 Q4H PRN PAIN SCALE 4-6 (Moderate Albuterol/Ipratropium 3 ml 06/20/24 07:13 Albuterol/Ipratropium (Duoneb) Rt Yamila 3 Ml Nebu INH 07/20/24 07:12 Q2HR PRN SHORTNESS OF BREATH OR WHEEZE Aspirin 81 mg 06/20/24 09:00 06/22/24 09:37 Aspirin Ec 81 Mg Tabec PO 07/20/24 08:59 81 mg QDAY NYDIA Administration Atorvastatin Calcium 80 mg 06/20/24 21:00 06/21/24 20:25 Atorvastatin Calcium 20 Mg Tablet PO 07/20/24 20:59 80 mg HS NYDIA Administration Carvedilol 3.125 mg 06/22/24 10:10 06/22/24 13:01 Carvedilol 3.125 Mg Tablet PO 07/22/24 10:09 3.125 mg BIDWM NYDIA Administration Famotidine 10 mg 06/21/24 21:00 06/21/24 20:25 Famotidine Inj 10 Mg/Ml Vial 2 Ml IVP 07/21/24 20:59 10 mg HS NYDIA Administration Heparin Sodium (Porcine) 5,000 unit 06/19/24 22:00 06/22/24 13:05 Heparin Sod Inj 5000 Unit/Ml Vial SC 07/03/24 21:59 5,000 unit Q8HR NYDIA Administration Morphine Sulfate 2 mg 06/19/24 14:18 06/19/24 16:28 Morphine Sulf Inj 10 Mg/Ml Vial IVP 06/24/24 14:17 2 mg Q2H PRN Administration PAIN SCALE 7-10 (Severe Ondansetron HCl 4 mg 06/19/24 14:18 Ondansetron Inj 2 Mg/Ml Inj 2 Ml IV 07/19/24 14:17 Q6H PRN NAUSEA OR VOMITING Protocol Plan 63-year-old male with past medical history of CAD, pacemaker/defibrillator by Dr. Ramirez in [place] for abnormal rhythm CHF, hypertension, COPD who came into our ER after he was woken up at 2 AM with chest pain and admitted to the ICU for further management of shock. #Acute encephalopathy Likely metabolic from substance abuse versus shock - CTM vital signs and symptoms - Consider Benzodiazepine for methanphetamine wd if reorientation doesn't help - PT referral #KERWIN Patient presented with a BUN of 33 and creatinine of 2.5 from a baseline of 1.3 Likely cardiorenal as patient's EF is estimated to be 15 to 20% vs ATN phase Creatinine uptrending. Patient polyuric - Monitor UOP - Consulted Nephrology, appreciate recs - Consider starting low dose Lasix tomorrow after patient tolerates diet #Ischemic hepatitis, improving Likely congestive liver Abdominal ultrasound revealed gallbladder wall thickening could be possibly from congestion Patient denied any right upper quadrant tenderness and there was no jaundice or fevers PT/INR elevated without INR of 3.2 ? Will continue daily CMP - Continue heparin for DVT prophylaxis #Acute hypoxic respiratory failure due to pulmonary edema #History of COPD Patient is oxygenating well on 2 L nasal cannula There is no wheezing or rhonchi heard on physical examination Patient is spitting out frothy sputum that is mixed with dried blood likely from nasopharyngeal bleed ?Oxygen support ? Frequent suctioning ? DuoNebs as needed for wheezing #Shock #Acute on chronic HFrEF, EF 15-20% Likely cardiogenic versus distributive Patient presented with chest pain that started in the early hours of the night Elevator Operator was consulted in the ED, Dr. Kiran did a bedside ultrasound which showed an estimated EF of 15 to 20% Patient has a history of meth abuse and he did test positive for methamphetamine in the urine tox Troponins were initially 3.54 and has gradually increased to 7.37. BNP is greater than 3280 Patient had 2+ pitting edema bilaterally with decreased capillary refill greater than 10 seconds as well as bilateral mottling up to the knees which improved once patient was started on the drips Patient also received morphine and aspirin in the ED as well as metoprolol and nitroglycerin Patient received Zosyn in the ER. Patient's cardiac output has improved with pressor support and dobutamine drip. Plan: ? Discontinued Dobutamine since 06/22/24 ? Strict ULISES's ? Cardiology consulted, recommended to start GDMT as BP tolerates #Troponinemia, downtrending Likely NSTEMI type II due to demand ischemia EKG did not show any obvious signs of ST segment elevation #High anion gap metabolic acidosis, resolved #Lactic acidosis?resolved Hospital Maintenance: FEN: Cardiac diet DVT PPx: Heparin GI PPx: pepcid IV lines: PIV Code Status: DNR/DNI Dispo: Patient downgraded to telemetry for monitoring of HFrEF exacerbation Patient's plan and care discussed with my attending, Dr. Aguilera. Mallory Wright MD PGY-2 Attending Provider Attestation/Addendum I reviewed labs, imaging, EKG, home medications and prior available records. Face to face evaluation was performed by me. I have personally examined the patient and discussed assessment and plan with the IM team. I reviewed the resident note and agree with the plan with exceptions as below. Cardiogenic shock Acute hypotension HFrEF EF 15 to 20% Methamphetamine abuse Acute encephalopathy Hyperactive agitation Medication noncompliance Acute kidney injury Acute liver injury Transaminitis, downtrending High anion gap metabolic acidosis, resolved He is off Levophed and dobutamine He had significant troponin elevation but troponin peaked Held diuretics in the setting of significant decreased creatinine clearance Held TONI inhibitors/ARBs in the setting of KERWIN Continue Coreg Creatinine slightly improved. Continue to hold diuretics. Consulted nephrology LFTs are downtrending, continue to monitor Counseled the patient regarding the importance of stopping methamphetamine Ensure medication compliance Discontinue mitten in 24 hours if remains calm PT evaluation
[2024-06-22] MEDS: ATORVASTATIN CALCIUM 20 MG TABLET 80 MG PO (21:52)
[2024-06-22] MEDS: FAMOTIDINE INJ 10 MG/ML VIAL 2 ML IVP (21:52)
[2024-06-23] VITALS (50 sets, daily range): BP systolic 104–140; BP diastolic 67–97; PULSE 87–102; RESP 10–35; TEMP 36.1–36.7; O2SAT 86–100; BMI 13.0
[2024-06-23] MEDS: HEPARIN SOD INJ 5000 UNIT/ML VIAL SC ×3 (05:16→21:03)
[2024-06-23 06:13] LABS: Basophils # (Auto) 0.1 Thou/mm3 (0.0-0.2); Basophils % (Auto) 0 % (0-2.5); Eosinophils # (Auto) 0.2 Thou/mm3 (0.0-0.5); Eosinophils % (Auto) 1 % (0-10); Immature Granulocytes % (Auto) 2 % (0-0); Immature Granulocytes Auto 0.38 Thou/mm3 (0.00-0.00); Lymphocytes % (Auto) 6 % (10-50); Mean Corpuscular HGB Conc 32.4 g/dl (31.0-37.0); Mean Corpuscular Hemoglobin 30.3 pg (25.0-35.0); Mean Corpuscular Volume 93 fL (80-100); Monocytes # (Auto) 2.1 Thou/mm3 (0.0-0.8); Monocytes % (Auto) 14 % (0-12); Neutrophils # (Auto) 11.9 Thou/mm3 (1.8-7.7); Neutrophils % (Auto) 76 % (37-80); Nucleated Red Blood Cell # 0.07 Thou/mm3 (0.00-0.00); Nucleated Red Blood Cell % 0 /100 WBC (0); Platelet Count 206 Thou/mm3 (140-440); RDW Standard Deviation 54.3 fL (35.1-43.9); Red Blood Count 3.96 Miln/mm3 (4.50-5.90); White Blood Count 15.7 Thou/mm3 (3.8-10.6)
[2024-06-23 07:03] LABS: Alanine Aminotransferase 1366 U/L (10-49); Albumin, Serum 3.2 gm/dL (3.4-4.8); Albumin/Globulin Ratio 1.1 (1.2-2.2); Alkaline Phosphatase 164 U/L (46-116); Anion Gap 15 (7-16); Aspartate Amino Transferase 550 U/L (0-34); BUN/Creatinine Ratio 22 Ratio (12-20); Blood Urea Nitrogen 76 mg/dL (9-23); Calcium 8.1 mg/dL (8.3-10.6); Calcium (Corrected) 8.7 mg/dL (8.5-10.1); Carbon Dioxide 26.1 mMol/L (20.0-31.0); Chloride 104 mMol/L (98-107); Creatinine (Component) 3.4 mg/dL (0.6-1.3); Estimated Creatinine Clearance 24.4 mL/min (>60); Globulin 2.9 gm/dL (2.3-3.5); Glucose 90 mg/dL (74-106); Magnesium 2.6 mg/dL (1.6-2.6); Osmolality,Calculated 311 (275-295); Phosphorous 3.2 mg/dL (2.4-5.1); Sodium 145 mMol/L (136-145); Total Protein 6.1 gm/dL (5.7-8.2); eGFR 19 See Note
[2024-06-23] MEDS: ASPIRIN EC 81 MG TABEC PO (08:19)
[2024-06-23] MEDS: carVEDILOL 3.125 MG TABLET PO ×2 (08:19→19:25)
[2024-06-23] MEDS: POTASSIUM CHLORIDE 20 mEq TABCR PO (08:21)
[2024-06-23] MEDS: POTASSIUM CHLORIDE 20 mEq TABCR 40 MEQ PO (08:21)
--- NOTE | 2024-06-23 09:15 | ESPR_ITS ---
Documentation for date of: 06/23/24 Subjective Subjective Interval history: No acute overnight evens noted. Seen and examined at bedside in ICU and patient does not have any complaints. He had mittens on during evaluation that were taken off. However, nursing staff reports that patient was becoming restless and not following commands, pulled out his IV lines, and so was placed on soft restraints as he was taking off his mittens. Nephrology and cardiology following. CBC increased from 10 to 15 but afebrile overnight and patient denies fever, chills, N/V. K 3.0 and repleted with 60 mEq IV, creatinine improving with 1.4 L urine output within last 24 hours. T bili uptrending from 6.9 to 8.0, AST and ALT downtrending and patient denies abdominal pain. Exam Vital Signs Temp Pulse Resp BP Pulse Ox O2 Del Method O2 Flow Rate 98 F 95 15 126/78 97 Nasal Cannula 2 06/23/24 08:00 06/23/24 08:19 06/23/24 08:00 06/23/24 08:19 06/23/24 08:00 06/22/24 04:00 06/23/24 07:40 Narrative Exam General: alert and oriented to self/birthdate/town/year, no acute distress, able to speak full sentences HEENT: NC/AT, mucous membranes moist, bilateral sclera anicteric Cardiovascular: regular rate and rhythm, S1/S2 present, no murmurs appreciated Pulmonary: clear to auscultation bilaterally, no rales/rhonchi/wheezes Abdominal: soft, non-tender, non-distended, no rebound/guarding, normal bowel sounds present Musculoskeletal: normal ROM, no peripheral edema Skin: warm and dry, intact, no rashes Neuro: CN II-XII intact, no focal deficits Objective Labs 06/24/24 04:55 06/24/24 04:55 Labs: Laboratory Results - last 24 hr 06/22/24 06/23/24 09:33 05:30 WBC 15.7 H D RBC 3.96 L Hgb 12.0 L Hct 37.0 L MCV 93 MCH 30.3 MCHC 32.4 RDW Std Deviation 54.3 H Plt Count 206 Neut % (Auto) 76 Lymph % (Auto) 6 L [place] % (Auto) 14 H Eos % (Auto) 1 Baso % (Auto) 0 Neut # (Auto) 11.9 H Lymph # (Auto) 1.0 [place] # (Auto) 2.1 H Eos # (Auto) 0.2 Baso # (Auto) 0.1 Immature Gran # (Auto) 0.38 H Absolute Nucleated RBC 0.07 H Immature Gran % 2 H Nucleated RBC % 0 VBG pH 7.41 VBG pCO2 46 VBG pO2 48 VBG O2 Sat (Ariana) 81 L D VBG Base Excess 4 H Sodium 145 Potassium 3.0 L D Chloride 104 Carbon Dioxide 26.1 Anion Gap 15 BUN 76 H Creatinine 3.4 H Estim Creat Clear Calc 24.4 L eGFR 19 L BUN/Creatinine Ratio 22 H Glucose 90 Calculated Osmolality 311 H Calcium 8.1 L Corrected Calcium 8.7 Phosphorus 3.2 Magnesium 2.6 Total Bilirubin 8.0 H D AST 550 H* ALT 1366 H* Alkaline Phosphatase 164 H D Total Protein 6.1 Albumin 3.2 L Globulin 2.9 Albumin/Globulin Ratio 1.1 L ABG Interpretation ABG results: 06/19/24 06/19/24 06/20/24 16:21 17:41 08:48 ABG pH 7.10 L* ABG pCO2 20 L ABG pO2 105 ABG HCO3 6 L* ABG O2 Saturation 96 ABG Base Excess -21 L VBG pH 7.19 L 7.38 VBG pCO2 28 L 46 D VBG pO2 55 37 VBG Base Excess -16 L 1 06/20/24 06/20/24 06/20/24 11:10 17:54 19:45 ABG pH 7.39 D 7.39 ABG pCO2 40 D 45 ABG pO2 63 L D 90 D ABG HCO3 24 27 H ABG O2 Saturation 91 97 ABG Base Excess -1 2 VBG pH 7.37 7.45 VBG pCO2 44 36 VBG pO2 38 58 D VBG Base Excess 0 1 06/21/24 06/21/24 06/21/24 04:30 05:56 12:00 ABG pH 7.41 ABG pCO2 43 ABG pO2 102 ABG HCO3 27 H ABG O2 Saturation 99 H ABG Base Excess 2 VBG pH 7.53 7.39 VBG pCO2 29 L 51 D VBG pO2 115 H D 39 D VBG Base Excess 2 5 H 05/06/1206/21/24 06/22/24 13:50 15:37 04:18 ABG pH 7.46 H ABG pCO2 39 ABG pO2 78 L D ABG HCO3 27 H ABG O2 Saturation 97 ABG Base Excess 3 VBG pH 7.41 7.54 VBG pCO2 49 30 L D VBG pO2 29 57 D VBG Base Excess 5 H 3 06/22/24 06/22/24 05:27 09:33 ABG pH ABG pCO2 ABG pO2 ABG HCO3 ABG O2 Saturation ABG Base Excess VBG pH 7.43 7.41 VBG pCO2 45 D 46 VBG pO2 39 48 VBG Base Excess 4 H 4 H Quality Measures Quality Measures VTE prophylaxis Assessment & Plan Assessment Current Active Medications: Generic Name Dose Route Start Last Admin Trade Name Freq PRN Reason Stop Dose Admin Acetaminophen 650 mg 06/19/24 14:18 Acetaminophen 325 Mg Tablet PO 07/19/24 14:17 Q6H PRN Fever >101.5 Acetaminophen 650 mg 06/19/24 14:18 Acetaminophen 325 Mg Tablet PO 07/19/24 14:17 Q6H PRN PAIN SCALE 1-3 (mild Hydrocodone Bitart/Acetaminophen 1 tab 06/19/24 14:18 Hydrocodone/Apap 10/325 Tab PO 06/24/24 14:17 Q4H PRN PAIN SCALE 4-6 (Moderate Albuterol/Ipratropium 3 ml 06/20/24 07:13 Albuterol/Ipratropium (Duoneb) Rt Yamila 3 Ml Nebu INH 07/20/24 07:12 Q2HR PRN SHORTNESS OF BREATH OR WHEEZE Aspirin 81 mg 06/20/24 09:00 06/23/24 08:19 Aspirin Ec 81 Mg Tabec PO 07/20/24 08:59 81 mg QDAY NYDIA Administration Atorvastatin Calcium 80 mg 06/20/24 21:00 06/22/24 21:52 Atorvastatin Calcium 20 Mg Tablet PO 07/20/24 20:59 80 mg HS NYDIA Administration Carvedilol 3.125 mg 06/22/24 10:10 06/23/24 08:19 Carvedilol 3.125 Mg Tablet PO 07/22/24 10:09 3.125 mg BIDWM NYDIA Administration Famotidine 10 mg 06/21/24 21:00 06/22/24 21:52 Famotidine Inj 10 Mg/Ml Vial 2 Ml IVP 07/21/24 20:59 10 mg HS NYDIA Administration Heparin Sodium (Porcine) 5,000 unit 06/19/24 22:00 06/23/24 05:16 Heparin Sod Inj 5000 Unit/Ml Vial SC 07/03/24 21:59 5,000 unit Q8HR NYDIA Administration Ondansetron HCl 4 mg 06/19/24 14:18 Ondansetron Inj 2 Mg/Ml Inj 2 Ml IV 07/19/24 14:17 Q6H PRN NAUSEA OR VOMITING Protocol Plan Shaheed Fernandez is a 63-year-old male with past medical history of CAD, pacemaker/defibrillator by Dr. Ramirez in [place] for abnormal rhythm CHF, hypertension, COPD who came into our ER after he was woken up at 2 AM with chest pain and admitted to the ICU for further management of shock. #Acute encephalopathy #Agitation Likely metabolic from substance abuse versus shock CTM vital signs and symptoms ? Quetiapine 25 mg PO BID ? Consider benzodiazepines for methamphetamine withdrawal if reorientation doesn't help ? PT referral #KERWIN secondary to ATN vs cardiorenal syndrome Presented with BUN of 33 and creatinine of 2.5 from a baseline of 1.3. Likely cardiorenal as patient's EF is estimated to be 15 to 20% vs ATN. Patient has good urine output of 1.4 L in last 24 hours as of 06/23 and improving renal function. ? Monitor UOP ? Consulted nephrology, appreciate recs ? Avoid nephrotoxic agents, renally dose medications #Ischemic hepatitis, improving #Hyperbilirubinemia Likely shock liver in setting of cardiogenic shock. AST peaked > 6000, ALT peaked at > 3300. T bili continues to uptrend at 8.0. Abdominal ultrasound revealed gallbladder wall thickening could be possibly from congestion Patient denied any right upper quadrant tenderness and there was no jaundice or fevers ? Will continue daily CMP ? Continue heparin for DVT prophylaxis ? Avoid hepatotoxic agents #Shock #Acute on chronic HFrEF, EF 15-20% Likely cardiogenic versus distributive. Presented with chest pain that started in the early hours of the night. Rf Design Engineer consulted in ED, and Dr. Kiran did bedside US which showed estimated EF of 15 to 20%. Echo 06/22: Dilated cardiomyopathy, severe global hypokinesis/LV dysfunction, EF 15 to 20%, moderate to severe TR, moderate, PA pressure 55 mmHg, moderate MR secondary to mitral annulus dilatation, severely dilated LA, mildly dilated RA. History of meth abuse and he did test positive for methamphetamine on his urine tox. Presented with troponin of 3.5 and peaked at 13.25, BNP > 3280. Patient's cardiac output improved with pressor support and dobutamine drip in ICU. ? Discontinued Dobutamine since 06/22/24 ? Strict ULISES's ? Cardiology consulted, recommended to start GDMT as BP tolerates #Troponinemia, downtrending Likely NSTEMI type II due to demand ischemia EKG did not show any obvious signs of ST segment elevation #Acute hypoxic respiratory failure due to pulmonary edema, resolved #History of COPD Currently saturating well on room air. Lungs clear to auscultation on exam. Previously spitting out frothy sputum that is mixed with dried blood likely from nasopharyngeal bleed vs DIC. ? Oxygen support ? Frequent suctioning ? DuoNebs as needed for wheezing #Hypokalemia Likely secondary to ATN. Phos and Mg within normal limits. ? Repleted with 60 mEq IV potassium ? Monitor daily labs and replete as needed #High anion gap metabolic acidosis, resolved #Lactic acidosis, resolved Hospital Maintenance: Dispo: Patient downgraded to telemetry for monitoring of HFrEF exacerbation FEN: Cardiac diet DVT PPx: Heparin GI PPx: pepcid IV lines: PIV Code Status: DNR/DNI ----- Plan discussed with attending physician Dr. Willy Giron MD PGY-1 Internal Medicine Attending Provider Attestation/Addendum I reviewed labs, imaging, EKG, home medications and prior available records. Face to face evaluation was performed by me. I have personally examined the patient and discussed assessment and plan with the IM team. I reviewed the resident note and agree with the plan with exceptions as below. Cardiogenic shock Acute hypotension HFrEF EF 15 to 20% Methamphetamine abuse NSTEMI Acute encephalopathy Hyperactive agitation Medication noncompliance Acute kidney injury Acute liver injury Transaminitis, downtrending COPD without exacerbation High anion gap metabolic acidosis, resolved He is off Levophed and dobutamine He had significant troponin elevation but troponin peaked Held diuretics in the setting of significant decreased creatinine clearance Held TONI inhibitors/ARBs in the setting of KERWIN Continue Coreg Creatinine slightly improved. Continue to hold diuretics. Consulted nephrology: likely ATN. Contiune current management LFTs are downtrending, continue to monitor Counseled the patient regarding the importance of stopping methamphetamine Ensure medication compliance Remained agitated. Kept the mittens. Started seroquil 25 mg DuoNebs as needed PT evaluation
--- NOTE | 2024-06-23 13:08 | ESPR_ITS ---
Documentation for date of: 06/23/24 Subjective Subjective Interval history: Patient was examined at bedside this morning, he is downgraded from ICU. Blood pressure is 126/78. balance of -1150 . He will require goal-directed medical therapy currently only on Coreg., His kidney function is creatinine 2.4 with creatinine clearance of 24.4. Patient has home Jardiance who, Lasix and lisinopril at home. Exam Vital Signs Temp Pulse Resp BP Pulse Ox O2 Del Method O2 Flow Rate 98 F 95 15 126/78 97 Nasal Cannula 2 06/23/24 08:00 06/23/24 08:19 06/23/24 08:00 06/23/24 08:19 06/23/24 08:00 06/22/24 04:00 06/23/24 07:40 Narrative Exam Gen: ill looking male, looks older than his age. HEENT: NCAT, PERRLA, EOMI, MMM, anicteric conjunctivae. CVS: normal S1 and S2. RRR. No M/R/G. Resp: Minimal rhonchi B/L. No rhonchi, rales, crackles or wheezing. Abd: soft, non-tender, non-distended. BS+ in all 4 quadrants. MSK: Good ROM in BUE & BLE. Trace edema BLE. Objective Labs 06/23/24 05:30 06/23/24 05:30 Labs: Laboratory Results - last 24 hr 06/23/24 05:30 WBC 15.7 H D RBC 3.96 L Hgb 12.0 L Hct 37.0 L MCV 93 MCH 30.3 MCHC 32.4 RDW Std Deviation 54.3 H Plt Count 206 Neut % (Auto) 76 Lymph % (Auto) 6 L [place] % (Auto) 14 H Eos % (Auto) 1 Baso % (Auto) 0 Neut # (Auto) 11.9 H Lymph # (Auto) 1.0 [place] # (Auto) 2.1 H Eos # (Auto) 0.2 Baso # (Auto) 0.1 Immature Gran # (Auto) 0.38 H Absolute Nucleated RBC 0.07 H Immature Gran % 2 H Nucleated RBC % 0 Sodium 145 Potassium 3.0 L D Chloride 104 Carbon Dioxide 26.1 Anion Gap 15 BUN 76 H Creatinine 3.4 H Estim Creat Clear Calc 24.4 L eGFR 19 L BUN/Creatinine Ratio 22 H Glucose 90 Calculated Osmolality 311 H Calcium 8.1 L Corrected Calcium 8.7 Phosphorus 3.2 Magnesium 2.6 Total Bilirubin 8.0 H D AST 550 H* ALT 1366 H* Alkaline Phosphatase 164 H D Total Protein 6.1 Albumin 3.2 L Globulin 2.9 Albumin/Globulin Ratio 1.1 L ABG Interpretation ABG results: 06/19/24 06/19/24 06/20/24 16:21 17:41 08:48 ABG pH 7.10 L* ABG pCO2 20 L ABG pO2 105 ABG HCO3 6 L* ABG O2 Saturation 96 ABG Base Excess -21 L VBG pH 7.19 L 7.38 VBG pCO2 28 L 46 D VBG pO2 55 37 VBG Base Excess -16 L 1 06/20/24 06/20/24 06/20/24 11:10 17:54 19:45 ABG pH 7.39 D 7.39 ABG pCO2 40 D 45 ABG pO2 63 L D 90 D ABG HCO3 24 27 H ABG O2 Saturation 91 97 ABG Base Excess -1 2 VBG pH 7.37 7.45 VBG pCO2 44 36 VBG pO2 38 58 D VBG Base Excess 0 1 06/21/24 06/21/24 06/21/24 04:30 05:56 12:00 ABG pH 7.41 ABG pCO2 43 ABG pO2 102 ABG HCO3 27 H ABG O2 Saturation 99 H ABG Base Excess 2 VBG pH 7.53 7.39 VBG pCO2 29 L 51 D VBG pO2 115 H D 39 D VBG Base Excess 2 5 H 06/21/24 06/21/24 06/22/24 13:50 15:37 04:18 ABG pH 7.46 H ABG pCO2 39 ABG pO2 78 L D ABG HCO3 27 H ABG O2 Saturation 97 ABG Base Excess 3 VBG pH 7.41 7.54 VBG pCO2 49 30 L D VBG pO2 29 57 D VBG Base Excess 5 H 3 06/22/24 06/22/24 05:27 09:33 ABG pH ABG pCO2 ABG pO2 ABG HCO3 ABG O2 Saturation ABG Base Excess VBG pH 7.43 7.41 VBG pCO2 45 D 46 VBG pO2 39 48 VBG Base Excess 4 H 4 H Quality Measures Quality Measures VTE prophylaxis Assessment & Plan Assessment Current Active Medications: Generic Name Dose Route Start Last Admin Trade Name Freq PRN Reason Stop Dose Admin Acetaminophen 650 mg 06/19/24 14:18 Acetaminophen 325 Mg Tablet PO 07/19/24 14:17 Q6H PRN Fever >101.5 Acetaminophen 650 mg 06/19/24 14:18 Acetaminophen 325 Mg Tablet PO 07/19/24 14:17 Q6H PRN PAIN SCALE 1-3 (mild Hydrocodone Bitart/Acetaminophen 1 tab 06/19/24 14:18 Hydrocodone/Apap 10/325 Tab PO 06/24/24 14:17 Q4H PRN PAIN SCALE 4-6 (Moderate Albuterol/Ipratropium 3 ml 06/20/24 07:13 Albuterol/Ipratropium (Duoneb) Rt Yamila 3 Ml Nebu INH 07/20/24 07:12 Q2HR PRN SHORTNESS OF BREATH OR WHEEZE Aspirin 81 mg 06/20/24 09:00 06/23/24 08:19 Aspirin Ec 81 Mg Tabec PO 07/20/24 08:59 81 mg QDAY NYDIA Administration Atorvastatin Calcium 80 mg 06/20/24 21:00 06/22/24 21:52 Atorvastatin Calcium 20 Mg Tablet PO 07/20/24 20:59 80 mg HS NYDIA Administration Carvedilol 3.125 mg 06/22/24 10:10 06/23/24 08:19 Carvedilol 3.125 Mg Tablet PO 07/22/24 10:09 3.125 mg BIDWM NYDIA Administration Famotidine 10 mg 06/21/24 21:00 06/22/24 21:52 Famotidine Inj 10 Mg/Ml Vial 2 Ml IVP 07/21/24 20:59 10 mg HS NYDIA Administration Heparin Sodium (Porcine) 5,000 unit 06/19/24 22:00 06/23/24 05:16 Heparin Sod Inj 5000 Unit/Ml Vial SC 07/03/24 21:59 5,000 unit Q8HR NYDIA Administration Ondansetron HCl 4 mg 06/19/24 14:18 Ondansetron Inj 2 Mg/Ml Inj 2 Ml IV 07/19/24 14:17 Q6H PRN NAUSEA OR VOMITING Protocol Plan 63-year-old male with past medical history of coronary artery disease, pacemaker/defibilator placed by Dr. 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 Initial labs in the ED showed WBC count of 29.8 . pH?7.10, pCO2 20, bicarb of 6, sodium?137, potassium?4.7, chloride 97, carbon oxide?14.6, BUN 33, AG 28, creatinine 2.5, lactic acid?18, total bilirubin?5.3, AST?5489, ALT?2363, alk phos?140, elevated troponin initial was 3.5 for the repeat troponin is 4.52. Chest x-ray did not show any pneumonia/no pulmonary fuction . # Cardiogenic shock- resolved # NSTEMI most likely type II in setting of Meth use. # Cardiomyopathy from meth use. # HFrEF 15-20 % -pt came to ED with Chicf complain of pain abdomen , labs showed elevated troponin 3.5 , repeat troponin was 4.5 , -motteling present on B/l legs -he denies chest pain -Bedside US showed EF of 15-20 % -he has CUSTOMER SUPPLY COORDINATOR-D placed by Dr Tam from [place] unknown exact date -His elevated troponin could be type I versus type II, most likely in the setting of sepsis -Echo 2019 shows - Normal left ventricular size and function. Approximate ejection fraction is 30-35%. Moderate mitral and tricuspid regurgitation noted. Mild pulmonic regurgitation.Mild PHTN. Slight posterior MVP. -he received 1 L NS in ED. Plan: -Continue on Dobutamine drip. -Norepinephrine discontinued. -Continue on Precedex. 06/20/2024: troponin went upto 12 , meth positive in utox , lactic acid trending down. he is still on dobutamine 2mcg , AST > 6000, ALT- 3300, procsl- 6.08 . levophed added to maintain the pressure. he has overall poor prognosis, levophed requirement going up . 06/21/2024: Norepinephrine was discontinued by ICU team, he is able to maintain blood pressure around 90/60. Continue dobutamine drip. LFTs are downtrending. 06/22/2024: He is being off pressors. Echo showed -Findings are consistent with dilated cardiomyopathy severe global hypokinesis.Left ventricle is markedly dilated with severe LV dysfunction severe global hypokinesis ejection fraction 15 to 20% . he needs to quit meth permanently . patient downgraded to floors . 06/23/2024: He will require goal-directed medical therapy currently only on Coreg, His kidney function is creatinine 2.4 with creatinine clearance of 24.4. Patient has home Jardiance who, Lasix and lisinopril at home. he needs to quit meth and follow this PCP . he is restrained in bed , probably withdrawing from meth. # H/o HTN - BNP ->3280 -currently just on coreg Rest of medical problem management as per ICU team. Case discussed with my attending Dr Kiran. Ilda Shea MD,PGY-3
[2024-06-23] MEDS: QUEtiapine FUMARATE 25 MG TABLET PO ×2 (14:45→20:27)
--- NOTE | 2024-06-23 17:16 | PC.SS ---
STUDY MANAGER attempted phone contact with patient's son, Brennan Fernandez ; to conduct initial assessment on the patient. No response, STUDY MANAGER left voicemail requesting return call. STUDY MANAGER attempted phone contact at [facility] number . No response.
[2024-06-23] MEDS: ATORVASTATIN CALCIUM 20 MG TABLET 80 MG PO (20:27)
[2024-06-23] MEDS: FAMOTIDINE 20 MG TABLET PO (21:03)
[2024-06-24] VITALS (7 sets, daily range): BP systolic 94–124; BP diastolic 68–80; PULSE 76–105; RESP 14–16; TEMP 36.1–36.6; O2SAT 90–100; BMI 24.7
[2024-06-24] MEDS: HEPARIN SOD INJ 5000 UNIT/ML VIAL SC ×3 (05:48→22:32)
[2024-06-24 06:19] LABS: Basophils # (Auto) 0.1 Thou/mm3 (0.0-0.2); Basophils % (Auto) 0 % (0-2.5); Eosinophils % (Auto) 0 % (0-10); Hematocrit 33.1 % (41.0-53.0); Hemoglobin 10.2 g/dL (13.5-16.0); Immature Granulocytes % (Auto) 3 % (0-0); Lymphocytes # (Auto) 1.1 Thou/mm3 (1.0-4.8); Lymphocytes % (Auto) 8 % (10-50); Mean Corpuscular HGB Conc 30.8 g/dl (31.0-37.0); Mean Corpuscular Hemoglobin 30.1 pg (25.0-35.0); Mean Corpuscular Volume 98 fL (80-100); Monocytes # (Auto) 1.5 Thou/mm3 (0.0-0.8); Monocytes % (Auto) 11 % (0-12); Neutrophils # (Auto) 10.9 Thou/mm3 (1.8-7.7); Neutrophils % (Auto) 78 % (37-80); Nucleated Red Blood Cell # 0.04 Thou/mm3 (0.00-0.00); Nucleated Red Blood Cell % 0 /100 WBC (0); Platelet Count 158 Thou/mm3 (140-440); RDW Standard Deviation 57.4 fL (35.1-43.9); Red Blood Count 3.39 Miln/mm3 (4.50-5.90)
[2024-06-24 07:34] LABS: Alanine Aminotransferase 838 U/L (10-49); Albumin, Serum 2.9 gm/dL (3.4-4.8); Albumin/Globulin Ratio 1.2 (1.2-2.2); Alkaline Phosphatase 165 U/L (46-116); Anion Gap 12 (7-16); Aspartate Amino Transferase 284 U/L (0-34); BUN/Creatinine Ratio 23 Ratio (12-20); Blood Urea Nitrogen 70 mg/dL (9-23); Calcium 7.6 mg/dL (8.3-10.6); Calcium (Corrected) 8.5 mg/dL (8.5-10.1); Carbon Dioxide 25.4 mMol/L (20.0-31.0); Chloride 109 mMol/L (98-107); Creatinine (Component) 3.1 mg/dL (0.6-1.3); Estimated Creatinine Clearance 26.8 mL/min (>60); Globulin 2.5 gm/dL (2.3-3.5); Glucose 149 mg/dL (74-106); Magnesium 2.7 mg/dL (1.6-2.6); Osmolality,Calculated 314 (275-295); Phosphorous 3.2 mg/dL (2.4-5.1); Potassium 3.8 mMol/L (3.4-5.1); Sodium 146 mMol/L (136-145); Total Protein 5.4 gm/dL (5.7-8.2); eGFR 22 See Note
[2024-06-24] MEDS: carVEDILOL 3.125 MG TABLET PO ×2 (08:25→17:52)
[2024-06-24] MEDS: ASPIRIN EC 81 MG TABEC PO (08:25)
[2024-06-24] MEDS: QUEtiapine FUMARATE 25 MG TABLET PO ×2 (08:25→20:16)
--- NOTE | 2024-06-24 11:43 | PC.SS ---
Update: Patient on nasal cannula. P.O. feeds. No skin issues. Patient is afebrile. No villasenor catheter in place. Patient is ICU downgrade.
--- NOTE | 2024-06-24 12:27 | PD.RESPRO ---
Documentation for date of: 06/24/24 Subjective Subjective Interval history: No acute overnight events noted. Seen and examined at bedside and he does not have any complaints at this time. Yesterday he required soft restraints but upon evaluation he was no longer on them. WBC improving, creatinine improving without diuresis or fluids, LFTs improving, and total bilirubin improving. Vital signs stable, on room air and afebrile. Will continue to monitor for one more day and anticipate possible discharge to SNF vs home health within the next 48 hours. Exam Vital Signs Temp Pulse Resp BP Pulse Ox O2 Del Method O2 Flow Rate 97.7 F 91 14 124/68 95 Nasal Cannula 3 06/24/24 04:00 06/24/24 08:25 06/24/24 06:42 06/24/24 08:25 06/24/24 06:42 06/24/24 04:00 06/24/24 06:42 Narrative Exam General: alert and oriented to self/birthdate/town/year, no acute distress, able to speak full sentences HEENT: NC/AT, mucous membranes moist, bilateral sclera anicteric Cardiovascular: regular rate and rhythm, S1/S2 present, no murmurs appreciated Pulmonary: clear to auscultation bilaterally, no rales/rhonchi/wheezes Abdominal: soft, non-tender, non-distended, no rebound/guarding, normal bowel sounds present Musculoskeletal: normal ROM, no peripheral edema Skin: warm and dry, intact, no rashes Neuro: CN II-XII intact, no focal deficits Objective Labs 06/24/24 04:55 06/24/24 04:55 Labs: Laboratory Results - last 24 hr 06/24/24 04:55 WBC 14.0 H RBC 3.39 L Hgb 10.2 L Hct 33.1 L MCV 98 MCH 30.1 MCHC 30.8 L RDW Std Deviation 57.4 H Plt Count 158 D Neut % (Auto) 78 Lymph % (Auto) 8 L [place] % (Auto) 11 Eos % (Auto) 0 Baso % (Auto) 0 Neut # (Auto) 10.9 H Lymph # (Auto) 1.1 [place] # (Auto) 1.5 H Eos # (Auto) 0.0 Baso # (Auto) 0.1 Immature Gran # (Auto) 0.40 H Absolute Nucleated RBC 0.04 H Immature Gran % 3 H Nucleated RBC % 0 Sodium 146 H Potassium 3.8 D Chloride 109 H Carbon Dioxide 25.4 Anion Gap 12 BUN 70 H Creatinine 3.1 H Estim Creat Clear Calc 26.8 L eGFR 22 L BUN/Creatinine Ratio 23 H Glucose 149 H D Calculated Osmolality 314 H Calcium 7.6 L Corrected Calcium 8.5 Phosphorus 3.2 Magnesium 2.7 H Total Bilirubin 6.0 H D AST 284 H ALT 838 H* Alkaline Phosphatase 165 H Total Protein 5.4 L Albumin 2.9 L Globulin 2.5 Albumin/Globulin Ratio 1.2 ABG Interpretation ABG results: 06/19/24 06/19/24 06/20/24 16:21 17:41 08:48 ABG pH 7.10 L* ABG pCO2 20 L ABG pO2 105 ABG HCO3 6 L* ABG O2 Saturation 96 ABG Base Excess -21 L VBG pH 7.19 L 7.38 VBG pCO2 28 L 46 D VBG pO2 55 37 VBG Base Excess -16 L 1 06/20/24 06/20/24 06/20/24 11:10 17:54 19:45 ABG pH 7.39 D 7.39 ABG pCO2 40 D 45 ABG pO2 63 L D 90 D ABG HCO3 24 27 H ABG O2 Saturation 91 97 ABG Base Excess -1 2 VBG pH 7.37 7.45 VBG pCO2 44 36 VBG pO2 38 58 D VBG Base Excess 0 1 06/21/24 06/21/24 06/21/24 04:30 05:56 12:00 ABG pH 7.41 ABG pCO2 43 ABG pO2 102 ABG HCO3 27 H ABG O2 Saturation 99 H ABG Base Excess 2 VBG pH 7.53 7.39 VBG pCO2 29 L 51 D VBG pO2 115 H D 39 D VBG Base Excess 2 5 H 06/21/24 06/21/24 06/22/24 13:50 15:37 04:18 ABG pH 7.46 H ABG pCO2 39 ABG pO2 78 L D ABG HCO3 27 H ABG O2 Saturation 97 ABG Base Excess 3 VBG pH 7.41 7.54 VBG pCO2 49 30 L D VBG pO2 29 57 D VBG Base Excess 5 H 3 06/22/24 06/22/24 05:27 09:33 ABG pH ABG pCO2 ABG pO2 ABG HCO3 ABG O2 Saturation ABG Base Excess VBG pH 7.43 7.41 VBG pCO2 45 D 46 VBG pO2 39 48 VBG Base Excess 4 H 4 H Quality Measures Quality Measures VTE prophylaxis Assessment & Plan Assessment Current Active Medications: Generic Name Dose Route Start Last Admin Trade Name Freq PRN Reason Stop Dose Admin Acetaminophen 650 mg 06/19/24 14:18 Acetaminophen 325 Mg Tablet PO 07/19/24 14:17 Q6H PRN Fever >101.5 Acetaminophen 650 mg 06/19/24 14:18 Acetaminophen 325 Mg Tablet PO 07/19/24 14:17 Q6H PRN PAIN SCALE 1-3 (mild Hydrocodone Bitart/Acetaminophen 1 tab 06/19/24 14:18 Hydrocodone/Apap 10/325 Tab PO 06/24/24 14:17 Q4H PRN PAIN SCALE 4-6 (Moderate Albuterol/Ipratropium 3 ml 06/20/24 07:13 Albuterol/Ipratropium (Duoneb) Rt Yamila 3 Ml Nebu INH 07/20/24 07:12 Q2HR PRN SHORTNESS OF BREATH OR WHEEZE Aspirin 81 mg 06/20/24 09:00 06/24/24 08:25 Aspirin Ec 81 Mg Tabec PO 07/20/24 08:59 81 mg QDAY NYDIA Administration Atorvastatin Calcium 80 mg 06/20/24 21:00 06/23/24 20:27 Atorvastatin Calcium 20 Mg Tablet PO 07/20/24 20:59 80 mg HS NYDIA Administration Carvedilol 3.125 mg 06/22/24 10:10 06/24/24 08:25 Carvedilol 3.125 Mg Tablet PO 07/22/24 10:09 3.125 mg BIDWM NYDIA Administration Famotidine 10 mg 06/21/24 21:00 06/23/24 21:04 Famotidine Inj 10 Mg/Ml Vial 2 Ml IVP 07/21/24 20:59 Not Given HS NYDIA Heparin Sodium (Porcine) 5,000 unit 06/19/24 22:00 06/24/24 05:48 Heparin Sod Inj 5000 Unit/Ml Vial SC 07/03/24 21:59 5,000 unit Q8HR NYDIA Administration Ondansetron HCl 4 mg 06/19/24 14:18 Ondansetron Inj 2 Mg/Ml Inj 2 Ml IV 07/19/24 14:17 Q6H PRN NAUSEA OR VOMITING Protocol Quetiapine Fumarate 25 mg 06/23/24 14:00 06/24/24 08:25 Quetiapine Fumarate 25 Mg Tablet PO 07/23/24 13:59 25 mg BID NYDIA Administration Plan Shaheed Fernandez is a 63-year-old male with past medical history of CAD, pacemaker/defibrillator by Dr. Ramirez in [place] for abnormal rhythm CHF, hypertension, COPD who came into our ER after he was woken up at 2 AM with chest pain and admitted to the ICU for further management of shock and has since been downgraded to floors. #Acute encephalopathy #Agitation Likely metabolic from substance abuse versus shock CTM vital signs and symptoms ? Quetiapine 25 mg PO BID ? Consider benzodiazepines for methamphetamine withdrawal if reorientation doesn't help ? PT referral #KERWIN secondary to ATN vs cardiorenal syndrome Presented with BUN of 33 and creatinine of 2.5 from a baseline of 1.3. Likely cardiorenal as patient's EF is estimated to be 15 to 20% vs ATN. Patient has good urine output of 1.4 L in last 24 hours as of 06/23 and improving renal function. ? Monitor UOP ? Consulted nephrology, appreciate recs ? Avoid nephrotoxic agents, renally dose medications #Ischemic hepatitis, improving #Hyperbilirubinemia Likely shock liver in setting of cardiogenic shock. AST peaked > 6000, ALT peaked at > 3300. T bili continues to uptrend at 8.0. Abdominal ultrasound revealed gallbladder wall thickening could be possibly from congestion Patient denied any right upper quadrant tenderness and there was no jaundice or fevers ? Will continue daily CMP ? Continue heparin for DVT prophylaxis ? Avoid hepatotoxic agents #Shock #Acute on chronic HFrEF, EF 15-20% Likely cardiogenic versus distributive. Presented with chest pain that started in the early hours of the night. Printing Sign Machine Operator consulted in ED, and Dr. Kiran did bedside US which showed estimated EF of 15 to 20%. Echo 06/22: Dilated cardiomyopathy, severe global hypokinesis/LV dysfunction, EF 15 to 20%, moderate to severe TR, moderate, PA pressure 55 mmHg, moderate MR secondary to mitral annulus dilatation, severely dilated LA, mildly dilated RA. History of meth abuse and he did test positive for methamphetamine on his urine tox. Presented with troponin of 3.5 and peaked at 13.25, BNP > 3280. Patient's cardiac output improved with pressor support and dobutamine drip in ICU but have since been discontinued. ? Strict I's and O's ? Cardiology consulted, recommended to start GDMT as BP tolerates #Troponinemia, downtrending Likely NSTEMI type II due to demand ischemia EKG did not show any obvious signs of ST segment elevation #Acute hypoxic respiratory failure due to pulmonary edema, resolved #History of COPD Currently saturating well on room air. Lungs clear to auscultation on exam. Previously spitting out frothy sputum that is mixed with dried blood likely from nasopharyngeal bleed vs DIC. ? Oxygen support ? Frequent suctioning ? DuoNebs as needed for wheezing #Hypokalemia Likely secondary to ATN. Phos and Mg within normal limits. ? Repleted with 60 mEq IV potassium ? Monitor daily labs and replete as needed #High anion gap metabolic acidosis, resolved #Lactic acidosis, resolved Hospital Maintenance: Dispo: Patient downgraded to telemetry for monitoring of HFrEF exacerbation FEN: Cardiac diet DVT PPx: Heparin GI PPx: pepcid IV lines: PIV Code Status: DNR/DNI ----- Plan discussed with attending physician Dr. Sarah Giron MD PGY-1 Internal Medicine Attending Provider Attestation/Addendum I have discussed and was present for the essential components of the history, physical examination, diagnosis, and treatment plan with the resident. I agree with the patient's care as documented by the resident and amended herein by me. Yuval Smith DO. Patient seen and evaluated this AM. No acute events overnight, vital signs stable, patient afebrile, liver enzymes are downtrending. Patient was less altered today however still not himself, still confused. No*6 noted on physical examination. Patient will need SNF placement, social worker palliative care notified. Patient will also need GDMT upon discharge, presently on aspirin, statin and Coreg 3.125 mg twice daily. Cardiology consulted, appreciate recommendations. Although this document has been carefully reviewed, there may still be some phonetic and other typographical errors. These errors are purely grammatical due to imperfections in the software program and should not be construed in any way to compromise the substance of the patient's medical care during this visit.
--- NOTE | 2024-06-24 15:27 | PC.SS ---
SNF referrals submitted on [facility]. Responses are pending.
--- NOTE | 2024-06-24 15:31 | PC.SS ---
PASSR completed. Patient meets Level II criteria. PASSR follow up is pending.
--- NOTE | 2024-06-24 15:53 | PC.SS ---
GUSSET STITCHER conducted phone contact with patient?s son, Brennan Fernandez ; to conduct initial assessment and to discuss discharge planning.? Patient resides at home alone.? Prior to admission son reports patient was self-efficient.? Patient does not utilize DME to assist with ambulation.? Patient does not utilize home oxygen.? Patient possesses the ability to complete ADL?s independently.? Patient?s son, Brennan Fernandez; is patient?s medical surrogate decision maker.? Patient utilizes the [facility]; for PCP services. ?Patient does not participate with dialysis.? Discharge plan is for the patient to transition to SNF.? No preferred SNF identified.? medical and health services manager will assist with arranging transportation on behalf of the patient. ?No further discharge needs identified by the patient.? No further intervention required at this time, manager social work will be available to address any further concerns.? Next of Kin: Brennan Fernandez D/C Plan: SNF
--- NOTE | 2024-06-24 16:41 | PC.NURSE ---
Dr. Giron aware pt has no IV, confirmed with Dr. Giron IV not put in at this time
--- NOTE | 2024-06-24 17:31 | ESPR_ITS ---
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 Torres in [place] [employer]. Documentation for date of: 06/24/24 Subjective Subjective Interval history: Patient was seen and examined at bedside. No acute overnight events. He continues to be very sleepy, reports no complaints. Patient appears to be still dry, creatinine is downtrending today at 3.1, will continue holding diuretics. Ultimately on discharge she will need to be on Lasix 40 mg daily and losartan 25 mg daily. Exam Vital Signs Temp Pulse Resp BP Pulse Ox O2 Del Method O2 Flow Rate 97.9 F 89 16 107/77 90 L Nasal Cannula 4 06/24/24 16:00 06/24/24 16:00 06/24/24 16:00 06/24/24 16:00 06/24/24 16:00 06/24/24 16:00 06/24/24 16:00 Narrative Exam Gen: ill looking male, looks older than his age. HEENT: NCAT, PERRLA, EOMI, MMM, anicteric conjunctivae. CVS: normal S1 and S2. RRR. No M/R/G. Resp: Minimal rhonchi B/L. No rhonchi, rales, crackles or wheezing. Abd: soft, non-tender, non-distended. BS+ in all 4 quadrants. MSK: Good ROM in BUE & BLE. No edema BLE. Objective Labs 06/24/24 04:55 06/24/24 04:55 Labs: Laboratory Results - last 24 hr 06/24/24 04:55 WBC 14.0 H RBC 3.39 L Hgb 10.2 L Hct 33.1 L MCV 98 MCH 30.1 MCHC 30.8 L RDW Std Deviation 57.4 H Plt Count 158 D Neut % (Auto) 78 Lymph % (Auto) 8 L [place] % (Auto) 11 Eos % (Auto) 0 Baso % (Auto) 0 Neut # (Auto) 10.9 H Lymph # (Auto) 1.1 [place] # (Auto) 1.5 H Eos # (Auto) 0.0 Baso # (Auto) 0.1 Immature Gran # (Auto) 0.40 H Absolute Nucleated RBC 0.04 H Immature Gran % 3 H Nucleated RBC % 0 Sodium 146 H Potassium 3.8 D Chloride 109 H Carbon Dioxide 25.4 Anion Gap 12 BUN 70 H Creatinine 3.1 H Estim Creat Clear Calc 26.8 L eGFR 22 L BUN/Creatinine Ratio 23 H Glucose 149 H D Calculated Osmolality 314 H Calcium 7.6 L Corrected Calcium 8.5 Phosphorus 3.2 Magnesium 2.7 H Total Bilirubin 6.0 H D AST 284 H ALT 838 H* Alkaline Phosphatase 165 H Total Protein 5.4 L Albumin 2.9 L Globulin 2.5 Albumin/Globulin Ratio 1.2 ABG Interpretation ABG results: 06/19/24 06/19/24 06/20/24 16:21 17:41 08:48 ABG pH 7.10 L* ABG pCO2 20 L ABG pO2 105 ABG HCO3 6 L* ABG O2 Saturation 96 ABG Base Excess -21 L VBG pH 7.19 L 7.38 VBG pCO2 28 L 46 D VBG pO2 55 37 VBG Base Excess -16 L 1 06/20/24 06/20/24 06/20/24 11:10 17:54 19:45 ABG pH 7.39 D 7.39 ABG pCO2 40 D 45 ABG pO2 63 L D 90 D ABG HCO3 24 27 H ABG O2 Saturation 91 97 ABG Base Excess -1 2 VBG pH 7.37 7.45 VBG pCO2 44 36 VBG pO2 38 58 D VBG Base Excess 0 1 06/21/24 06/21/24 06/21/24 04:30 05:56 12:00 ABG pH 7.41 ABG pCO2 43 ABG pO2 102 ABG HCO3 27 H ABG O2 Saturation 99 H ABG Base Excess 2 VBG pH 7.53 7.39 VBG pCO2 29 L 51 D VBG pO2 115 H D 39 D VBG Base Excess 2 5 H 06/21/24 06/21/24 06/22/24 13:50 15:37 04:18 ABG pH 7.46 H ABG pCO2 39 ABG pO2 78 L D ABG HCO3 27 H ABG O2 Saturation 97 ABG Base Excess 3 VBG pH 7.41 7.54 VBG pCO2 49 30 L D VBG pO2 29 57 D VBG Base Excess 5 H 3 06/22/24 06/22/24 05:27 09:33 ABG pH ABG pCO2 ABG pO2 ABG HCO3 ABG O2 Saturation ABG Base Excess VBG pH 7.43 7.41 VBG pCO2 45 D 46 VBG pO2 39 48 VBG Base Excess 4 H 4 H Quality Measures Quality Measures VTE prophylaxis Assessment & Plan Assessment Current Active Medications: Generic Name Dose Route Start Last Admin Trade Name Freq PRN Reason Stop Dose Admin Acetaminophen 650 mg 06/19/24 14:18 Acetaminophen 325 Mg Tablet PO 07/19/24 14:17 Q6H PRN Fever >101.5 Acetaminophen 650 mg 06/19/24 14:18 Acetaminophen 325 Mg Tablet PO 07/19/24 14:17 Q6H PRN PAIN SCALE 1-3 (mild Albuterol/Ipratropium 3 ml 06/20/24 07:13 Albuterol/Ipratropium (Duoneb) Rt [place] 3 Ml Nebu INH 07/20/24 07:12 Q2HR PRN SHORTNESS OF BREATH OR WHEEZE Aspirin 81 mg 06/20/24 09:00 06/24/24 08:25 Aspirin Ec 81 Mg Tabec PO 07/20/24 08:59 81 mg QDAY NYDIA Administration Atorvastatin Calcium 80 mg 06/20/24 21:00 06/23/24 20:27 Atorvastatin Calcium 20 Mg Tablet PO 07/20/24 20:59 80 mg HS NYDIA Administration Carvedilol 3.125 mg 06/22/24 10:10 06/24/24 08:25 Carvedilol 3.125 Mg Tablet PO 07/22/24 10:09 3.125 mg BIDWM NYDIA Administration Famotidine 10 mg 06/21/24 21:00 06/23/24 21:04 Famotidine Inj 10 Mg/Ml Vial 2 Ml IVP 07/21/24 20:59 Not Given HS NYDIA Heparin Sodium (Porcine) 5,000 unit 06/19/24 22:00 06/24/24 13:53 Heparin Sod Inj 5000 Unit/Ml Vial SC 07/03/24 21:59 5,000 unit Q8HR NYDIA Administration Ondansetron HCl 4 mg 06/19/24 14:18 Ondansetron Inj 2 Mg/Ml Inj 2 Ml IV 07/19/24 14:17 Q6H PRN NAUSEA OR VOMITING Protocol Quetiapine Fumarate 25 mg 06/23/24 14:00 06/24/24 08:25 Quetiapine Fumarate 25 Mg Tablet PO 07/23/24 13:59 25 mg BID NYDIA Administration Plan 63-year-old male with past medical history of coronary artery disease, pacemaker/defibilator placed by Dr. Villalobos in [place] [employer] for abnormal rhythm CHF, hypertension, COPD ,cardiomyopathy from methamphetamine use with ejection fraction 30 to 35% (2019) came to the ED with chief complaint of nausea and vomiting since last 24-hour. Initial labs in the ED showed WBC count of 29.8 . pH?7.10, pCO2 20, bicarb of 6, sodium?137, potassium?4.7, chloride 97, carbon oxide?14.6, BUN 33, AG 28, creatinine 2.5, lactic acid?18, total bilirubin?5.3, AST?5489, ALT?2363, alk phos?140, elevated troponin initial was 3.5 for the repeat troponin is 4.52. Chest x-ray did not show any pneumonia/no pulmonary fuction . # Cardiogenic shock- resolved # NSTEMI most likely type II in setting of Meth use. # Cardiomyopathy from meth use. # HFrEF 15-20 % -pt came to ED with Chicf complain of pain abdomen , labs showed elevated troponin 3.5 , repeat troponin was 4.5 , -motteling present on B/l legs -he denies chest pain -Bedside US showed EF of 15-20 % -he has [employer] ARCHITECT-D placed by Dr Tam from [place] unknown exact date -His elevated troponin could be type I versus type II, most likely in the setting of sepsis -Echo 2018 shows - Normal left ventricular size and function. Approximate ejection fraction is 30-35%. Moderate mitral and tricuspid regurgitation noted. Mild pulmonic regurgitation.Mild PHTN. Slight posterior MVP. -he received 1 L NS in ED. Plan: - Continue on aspirin, atorvastatin, Coreg. - Once KERWIN has improved patient can be discharged on Lasix 40 mg daily and losartan 25 mg daily. 06/20/2024: troponin went upto 12 , meth positive in utox , lactic acid trending down. he is still on dobutamine 2mcg , AST > 6000, ALT- 3300, procsl- 6.08 . levophed added to maintain the pressure. he has overall poor prognosis, levophed requirement going up . 06/21/2024: Norepinephrine was discontinued by ICU team, he is able to maintain blood pressure around 90/60. Continue dobutamine drip. LFTs are downtrending. 06/22/2024: He is being off pressors. Echo showed -Findings are consistent with dilated cardiomyopathy severe global hypokinesis.Left ventricle is markedly dilated with severe LV dysfunction severe global hypokinesis ejection fraction 15 to 20% . he needs to quit meth permanently . patient downgraded to floors . 06/23/2024: He will require goal-directed medical therapy currently only on Coreg, His kidney function is creatinine 2.4 with creatinine clearance of 24.4. Patient has home Jardiance who, Lasix and lisinopril at home. he needs to quit meth and follow this PCP . he is restrained in bed , probably withdrawing from meth. # H/o HTN - BNP ->3280 -currently current management. Rest of medical problem management as per ICU team. Case discussed with my attending Dr Kiran. Martin Armstrong MD, PGY 2. Disclaimer: This note was dictated by speech recognition. Minor errors in civil preparedness officer may be present due to voice recognition software.
[2024-06-24] MEDS: ATORVASTATIN CALCIUM 20 MG TABLET 80 MG PO (20:16)
[2024-06-24] MEDS: FAMOTIDINE INJ 10 MG/ML VIAL 2 ML IVP (20:16)
[2024-06-25] VITALS (9 sets, daily range): BP systolic 89–110; BP diastolic 61–78; PULSE 65–98; RESP 15–24; TEMP 35.9–36.4; O2SAT 96–100; BMI 24.6; BMI 13.0
[2024-06-25] MEDS: HEPARIN SOD INJ 5000 UNIT/ML VIAL SC ×3 (05:31→21:02)
[2024-06-25 06:47] LABS: Basophils # (Auto) 0.1 Thou/mm3 (0.0-0.2); Basophils % (Auto) 0 % (0-2.5); Eosinophils # (Auto) 0.1 Thou/mm3 (0.0-0.5); Eosinophils % (Auto) 1 % (0-10); Hematocrit 32.1 % (41.0-53.0); Hemoglobin 10.4 g/dL (13.5-16.0); Immature Granulocytes % (Auto) 6 % (0-0); Immature Granulocytes Auto 0.74 Thou/mm3 (0.00-0.00); Lymphocytes # (Auto) 1.1 Thou/mm3 (1.0-4.8); Lymphocytes % (Auto) 8 % (10-50); Mean Corpuscular HGB Conc 32.4 g/dl (31.0-37.0); Mean Corpuscular Hemoglobin 30.6 pg (25.0-35.0); Mean Corpuscular Volume 94 fL (80-100); Monocytes # (Auto) 1.5 Thou/mm3 (0.0-0.8); Monocytes % (Auto) 12 % (0-12); Neutrophils # (Auto) 9.8 Thou/mm3 (1.8-7.7); Neutrophils % (Auto) 74 % (37-80); Nucleated Red Blood Cell # 0.04 Thou/mm3 (0.00-0.00); Nucleated Red Blood Cell % 0 /100 WBC (0); Platelet Count 156 Thou/mm3 (140-440); RDW Standard Deviation 54.4 fL (35.1-43.9); White Blood Count 13.2 Thou/mm3 (3.8-10.6)
[2024-06-25 07:12] LABS: Alanine Aminotransferase 685 U/L (10-49); Albumin, Serum 2.9 gm/dL (3.4-4.8); Albumin/Globulin Ratio 1.1 (1.2-2.2); Alkaline Phosphatase 162 U/L (46-116); Anion Gap 10 (7-16); Aspartate Amino Transferase 217 U/L (0-34); BUN/Creatinine Ratio 26 Ratio (12-20); Bilirubin,Total 5.3 mg/dL (0.3-1.2); Blood Urea Nitrogen 79 mg/dL (9-23); Calcium 7.6 mg/dL (8.3-10.6); Calcium (Corrected) 8.5 mg/dL (8.5-10.1); Carbon Dioxide 28.8 mMol/L (20.0-31.0); Chloride 106 mMol/L (98-107); Estimated Creatinine Clearance 27.7 mL/min (>60); Globulin 2.6 gm/dL (2.3-3.5); Glucose 122 mg/dL (74-106); Magnesium 2.6 mg/dL (1.6-2.6); Osmolality,Calculated 313 (275-295); Phosphorous 3.3 mg/dL (2.4-5.1); Potassium 3.9 mMol/L (3.4-5.1); Sodium 145 mMol/L (136-145); Total Protein 5.5 gm/dL (5.7-8.2); eGFR 23 See Note
[2024-06-25] MEDS: ASPIRIN EC 81 MG TABEC PO (09:20)
[2024-06-25] MEDS: carVEDILOL 3.125 MG TABLET PO ×2 (09:21→18:19)
[2024-06-25] MEDS: QUEtiapine FUMARATE 25 MG TABLET PO ×2 (09:21→21:01)
--- NOTE | 2024-06-25 09:34 | PC.SS ---
Follow up completed with PASSR staff, Dustin Dowd. PASSR Level II case to be closed. Pending online confirmation.
--- NOTE | 2024-06-25 09:38 | PC.SS ---
Addendum entered by Nella Pizarro 06/26/24 14:57: SS follow up note; SS contacted patients insurance [employer] in regards to status on auth. SS spoke to Nicky and she informed SS that auth will still pending. Addendum entered by Nella Pizarro 06/25/24 11:41: SS follow up note; SS contacted patients joe Amin and informed him that [employer] was not contracted with patient's insurance, SS provided SNF choices and his second choice was [facility]. SS contacted Tila from [facility] and she informed SS She would submit for auth. Tila provided patient's insurance contact number, [phone]. SS will follow up with insurance at a later time to check status on auth. Addendum entered by Nella Pizarro 06/25/24 11:21: SS follow up note; SS contacted Bhavana from [facility] and she informed SS that she would follow up and see if they are able to accept patient's insurance. SS informed her that patient was medically cleared and that auth would need to be submitted right away since tomorrow is Saturday. SS informed her that SS would have to present other facilities who accepted patient to patient's son. Original Note: SS follow up note; SS contacted patient sonBrennan and presented SNF choices, he reported his first choice is [facility]. SS followed up with Bhavana from [facility] and she informed SS that she would have to check to see if they are contracted with patient's insurance. SS informed Bhavana that patient was medically cleared and auth would need to be submitted. Bhavana informed SS she would contact SS back with response. SS will stand by for further needs.
--- NOTE | 2024-06-25 11:57 | PD.RESPRO ---
Documentation for date of: 06/25/24 Subjective Subjective Interval history: No acute overnight events noted. Seen and examined at bedside and appeared to be slightly lethargic compared to yesterday. He does know where he is, his name, his birthdate, and recognizes his son when he sees him. Also spoke to son over the phone who states that patient continues to be off of his baseline regarding his mentation. Otherwise, he is now on 2 L humidified nasal cannula but saturating well. Other vital signs stable, leukocytosis improving, hemoglobin stable, renal function slowly improving, LFTs downtrending, and total bilirubin also improving. At this time pending placement to SNF and will continue to monitor. Exam Vital Signs Temp Pulse Resp BP Pulse Ox O2 Del Method O2 Flow Rate 97.5 F 97 15 110/75 99 Humidified Nasal Cannula 4 06/25/24 08:00 06/25/24 09:41 06/25/24 09:41 06/25/24 09:21 06/25/24 09:41 06/25/24 08:00 06/25/24 09:41 Narrative Exam General: alert and oriented to self/birthdate/town/year, lethargic, able to speak full sentences HEENT: NC/AT, mucous membranes moist, bilateral sclera anicteric Cardiovascular: regular rate and rhythm, S1/S2 present, no murmurs appreciated Pulmonary: clear to auscultation bilaterally, no rales/rhonchi/wheezes Abdominal: soft, non-tender, non-distended, no rebound/guarding, normal bowel sounds present Musculoskeletal: normal ROM, no peripheral edema Skin: warm and dry, intact, no rashes Neuro: CN II-XII intact, no focal deficits Objective Labs 06/25/24 05:35 06/25/24 05:35 Labs: Laboratory Results - last 24 hr 06/25/24 05:35 WBC 13.2 H RBC 3.40 L Hgb 10.4 L Hct 32.1 L MCV 94 MCH 30.6 MCHC 32.4 RDW Std Deviation 54.4 H Plt Count 156 Neut % (Auto) 74 Lymph % (Auto) [address] [place] % (Auto) 12 Eos % (Auto) 1 Baso % (Auto) 0 Neut # (Auto) 9.8 H Lymph # (Auto) 1.1 [place] # (Auto) 1.5 H Eos # (Auto) 0.1 Baso # (Auto) 0.1 Immature Gran # (Auto) 0.74 H Absolute Nucleated RBC 0.04 H Immature Gran % 6 H Nucleated RBC % 0 Sodium 145 Potassium 3.9 Chloride 106 Carbon Dioxide 28.8 Anion Gap 10 BUN 79 H Creatinine 3.0 H Estim Creat Clear Calc 27.7 L eGFR 23 L BUN/Creatinine Ratio 26 H Glucose 122 H Calculated Osmolality 313 H Calcium 7.6 L Corrected Calcium 8.5 Phosphorus 3.3 Magnesium 2.6 Total Bilirubin 5.3 H D AST 217 H ALT 685 H* Alkaline Phosphatase 162 H Total Protein 5.5 L Albumin 2.9 L Globulin 2.6 Albumin/Globulin Ratio 1.1 L ABG Interpretation ABG results: 06/19/24 06/19/24 06/20/24 16:21 17:41 08:48 ABG pH 7.10 L* ABG pCO2 20 L ABG pO2 105 ABG HCO3 6 L* ABG O2 Saturation 96 ABG Base Excess -21 L VBG pH 7.19 L 7.38 VBG pCO2 28 L 46 D VBG pO2 55 37 VBG Base Excess -16 L 1 06/20/24 06/20/24 06/20/24 11:10 17:54 19:45 ABG pH 7.39 D 7.39 ABG pCO2 40 D 45 ABG pO2 63 L D 90 D ABG HCO3 24 27 H ABG O2 Saturation 91 97 ABG Base Excess -1 2 VBG pH 7.37 7.45 VBG pCO2 44 36 VBG pO2 38 58 D VBG Base Excess 0 1 06/21/24 06/21/24 06/21/24 04:30 05:56 12:00 ABG pH 7.41 ABG pCO2 43 ABG pO2 102 ABG HCO3 27 H ABG O2 Saturation 99 H ABG Base Excess 2 VBG pH 7.53 7.39 VBG pCO2 29 L 51 D VBG pO2 115 H D 39 D VBG Base Excess 2 5 H 06/21/24 06/21/24 06/22/24 13:50 15:37 04:18 ABG pH 7.46 H ABG pCO2 39 ABG pO2 78 L D ABG HCO3 27 H ABG O2 Saturation 97 ABG Base Excess 3 VBG pH 7.41 7.54 VBG pCO2 49 30 L D VBG pO2 29 57 D VBG Base Excess 5 H 3 06/22/24 06/22/24 05:27 09:33 ABG pH ABG pCO2 ABG pO2 ABG HCO3 ABG O2 Saturation ABG Base Excess VBG pH 7.43 7.41 VBG pCO2 45 D 46 VBG pO2 39 48 VBG Base Excess 4 H 4 H Quality Measures Quality Measures VTE prophylaxis Assessment & Plan Assessment Current Active Medications: Generic Name Dose Route Start Last Admin Trade Name Freq PRN Reason Stop Dose Admin Acetaminophen 650 mg 06/19/24 14:18 Acetaminophen 325 Mg Tablet PO 07/19/24 14:17 Q6H PRN Fever >101.5 Acetaminophen 650 mg 06/19/24 14:18 Acetaminophen 325 Mg Tablet PO 07/19/24 14:17 Q6H PRN PAIN SCALE 1-3 (mild Albuterol/Ipratropium 3 ml 06/20/24 07:13 Albuterol/Ipratropium (Duoneb) Rt Yamila 3 Ml Nebu INH 07/20/24 07:12 Q2HR PRN SHORTNESS OF BREATH OR WHEEZE Aspirin 81 mg 06/20/24 09:00 06/25/24 09:20 Aspirin Ec 81 Mg Tabec PO 07/20/24 08:59 81 mg QDAY NYDIA Administration Atorvastatin Calcium 80 mg 06/20/24 21:00 06/24/24 20:16 Atorvastatin Calcium 20 Mg Tablet PO 07/20/24 20:59 80 mg HS NYDIA Administration Carvedilol 3.125 mg 06/22/24 10:10 06/25/24 09:21 Carvedilol 3.125 Mg Tablet PO 07/22/24 10:09 3.125 mg BIDWM NYDIA Administration Famotidine 10 mg 06/25/24 21:00 Famotidine 20 Mg Tablet PO 07/25/24 20:59 HS NYDIA Heparin Sodium (Porcine) 5,000 unit 06/19/24 22:00 06/25/24 05:31 Heparin Sod Inj 5000 Unit/Ml Vial SC 07/03/24 21:59 5,000 unit Q8HR NYDIA Administration Ondansetron HCl 4 mg 06/19/24 14:18 Ondansetron Inj 2 Mg/Ml Inj 2 Ml IV 07/19/24 14:17 Q6H PRN NAUSEA OR VOMITING Protocol Quetiapine Fumarate 25 mg 06/23/24 14:00 06/25/24 09:21 Quetiapine Fumarate 25 Mg Tablet PO 07/23/24 13:59 25 mg BID NYDIA Administration Plan Shaheed Fernandez is a 63-year-old male with past medical history of CAD, pacemaker/defibrillator by Dr. Ramirez in [place] for abnormal rhythm CHF, hypertension, COPD who came into our ER after he was woken up at 2 AM with chest pain and admitted to the ICU for further management of shock and has since been downgraded to floors. #Acute encephalopathy #Agitation Likely metabolic from substance abuse versus shock CTM vital signs and symptoms ? Quetiapine 25 mg PO BID ? Consider benzodiazepines for methamphetamine withdrawal if reorientation doesn't help ? PT referral #KERWIN secondary to ATN vs cardiorenal syndrome Presented with BUN of 33 and creatinine of 2.5 from a baseline of 1.3. Likely cardiorenal as patient's EF is estimated to be 15 to 20% vs ATN. Patient has good urine output of 1.4 L in last 24 hours as of 06/23 and improving renal function. ? Monitor UOP ? Consulted nephrology, appreciate recs ? Avoid nephrotoxic agents, renally dose medications #Ischemic hepatitis, improving #Hyperbilirubinemia Likely shock liver in setting of cardiogenic shock. AST peaked > 6000, ALT peaked at > 3300. T bili continues to uptrend at 8.0. Abdominal ultrasound revealed gallbladder wall thickening could be possibly from congestion Patient denied any right upper quadrant tenderness and there was no jaundice or fevers ? Will continue daily CMP ? Continue heparin for DVT prophylaxis ? Avoid hepatotoxic agents #Shock #Acute on chronic HFrEF, EF 15-20% Likely cardiogenic versus distributive. Presented with chest pain that started in the early hours of the night. Grinder Set Up Operator External consulted in ED, and Dr. Kiran did bedside US which showed estimated EF of 15 to 20%. Echo 06/22: Dilated cardiomyopathy, severe global hypokinesis/LV dysfunction, EF 15 to 20%, moderate to severe TR, moderate, PA pressure 55 mmHg, moderate MR secondary to mitral annulus dilatation, severely dilated LA, mildly dilated RA. History of meth abuse and he did test positive for methamphetamine on his urine tox. Presented with troponin of 3.5 and peaked at 13.25, BNP > 3280. Patient's cardiac output improved with pressor support and dobutamine drip in ICU but have since been discontinued. ? Strict I's and O's ? Cardiology consulted, recommended to start GDMT as BP tolerates ? Aspirin 81 mg p.o. daily ? Carvedilol 3.125 mg p.o. BID #Troponinemia, downtrending Likely NSTEMI type II due to demand ischemia EKG did not show any obvious signs of ST segment elevation #Acute hypoxic respiratory failure due to pulmonary edema, resolved #History of COPD Currently saturating well on room air. Lungs clear to auscultation on exam. Previously spitting out frothy sputum that is mixed with dried blood likely from nasopharyngeal bleed vs DIC. ? Oxygen support ? Frequent suctioning ? DuoNebs as needed for wheezing #Hypokalemia Likely secondary to ATN. Phos and Mg within normal limits. ? Repleted with 60 mEq IV potassium ? Monitor daily labs and replete as needed #High anion gap metabolic acidosis, resolved #Lactic acidosis, resolved Hospital Maintenance: Dispo: Patient downgraded to telemetry for monitoring of HFrEF exacerbation FEN: Cardiac diet DVT PPx: Heparin GI PPx: pepcid IV lines: PIV Code Status: DNR/DNI ----- Plan discussed with attending physician Dr. Sarah Giron MD PGY-1 Internal Medicine Attending Provider Attestation/Addendum I have discussed and was present for the essential components of the history, physical examination, diagnosis, and treatment plan with the resident. I agree with the patient's care as documented by the resident and amended herein by me. Yuval Smith, DO. Patient seen and evaluated this AM. No acute events overnight, vital signs stable, patient afebrile, patient was a bit more somnolent this morning so we will continue to monitor that. Creatinine is continue to improve, 3.0 today and on the downtrend, liver function also continue to improve. Patient will need the addition of ARB and Lasix upon discharge per cardiology, will continue aspirin, statin and Coreg for now. SNF placement authorization pending, will continue to monitor patient closely while he is here. Although this document has been carefully reviewed, there may still be some phonetic and other typographical errors. These errors are purely grammatical due to imperfections in the software program and should not be construed in any way to compromise the substance of the patient's medical care during this visit.
--- NOTE | 2024-06-25 13:15 | ESPR_ITS ---
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 head Ct was ordered by primary team which showed - Negative for acute hemorrhage, mass effect or midline shift. pending placement. Exam Vital Signs Temp Pulse Resp BP Pulse Ox O2 Del Method O2 Flow Rate 97.5 F 97 15 110/75 99 Humidified Nasal Cannula 4 06/25/24 08:00 06/25/24 12:00 06/25/24 09:41 06/25/24 09:21 06/25/24 09:41 06/25/24 08:00 06/25/24 09:41 Narrative Exam Gen: ill looking male, looks older than his age. HEENT: NCAT, PERRLA, EOMI, MMM, anicteric conjunctivae. CVS: normal S1 and S2. RRR. No M/R/G. Resp: Minimal rhonchi B/L. No rhonchi, rales, crackles or wheezing. Abd: soft, non-tender, non-distended. BS+ in all 4 quadrants. MSK: Good ROM in BUE & BLE. No edema BLE. Objective Labs 06/25/24 05:35 06/25/24 05:35 Labs: Laboratory Results - last 24 hr 06/25/24 05:35 WBC 13.2 H RBC 3.40 L Hgb 10.4 L Hct 32.1 L MCV 94 MCH 30.6 MCHC 32.4 RDW Std Deviation 54.4 H Plt Count 156 Neut % (Auto) 74 Lymph % (Auto) 8 L [place] % (Auto) 12 Eos % (Auto) 1 Baso % (Auto) 0 Neut # (Auto) 9.8 H Lymph # (Auto) 1.1 [place] # (Auto) 1.5 H Eos # (Auto) 0.1 Baso # (Auto) 0.1 Immature Gran # (Auto) 0.74 H Absolute Nucleated RBC 0.04 H Immature Gran % 6 H Nucleated RBC % 0 Sodium 145 Potassium 3.9 Chloride 106 Carbon Dioxide 28.8 Anion Gap 10 BUN 79 H Creatinine 3.0 H Estim Creat Clear Calc 27.7 L eGFR 23 L BUN/Creatinine Ratio 26 H Glucose 122 H Calculated Osmolality 313 H Calcium 7.6 L Corrected Calcium 8.5 Phosphorus 3.3 Magnesium 2.6 Total Bilirubin 5.3 H D AST 217 H ALT 685 H* Alkaline Phosphatase 162 H Total Protein 5.5 L Albumin 2.9 L Globulin 2.6 Albumin/Globulin Ratio 1.1 L ABG Interpretation ABG results: 06/19/24 06/19/24 06/20/24 16:21 17:41 08:48 ABG pH 7.10 L* ABG pCO2 20 L ABG pO2 105 ABG HCO3 6 L* ABG O2 Saturation 96 ABG Base Excess -21 L VBG pH 7.19 L 7.38 VBG pCO2 28 L 46 D VBG pO2 55 37 VBG Base Excess -16 L 1 06/20/24 06/20/24 06/20/24 11:10 17:54 19:45 ABG pH 7.39 D 7.39 ABG pCO2 40 D 45 ABG pO2 63 L D 90 D ABG HCO3 24 27 H ABG O2 Saturation 91 97 ABG Base Excess -1 2 VBG pH 7.37 7.45 VBG pCO2 44 36 VBG pO2 38 58 D VBG Base Excess 0 1 06/21/24 06/21/24 06/21/24 04:30 05:56 12:00 ABG pH 7.41 ABG pCO2 43 ABG pO2 102 ABG HCO3 27 H ABG O2 Saturation 99 H ABG Base Excess 2 VBG pH 7.53 7.39 VBG pCO2 29 L 51 D VBG pO2 115 H D 39 D VBG Base Excess 2 5 H 06/21/24 06/21/24 06/22/24 13:50 15:37 04:18 ABG pH 7.46 H ABG pCO2 39 ABG pO2 78 L D ABG HCO3 27 H ABG O2 Saturation 97 ABG Base Excess 3 VBG pH 7.41 7.54 VBG pCO2 49 30 L D VBG pO2 29 57 D VBG Base Excess 5 H 3 06/22/24 06/22/24 05:27 09:33 ABG pH ABG pCO2 ABG pO2 ABG HCO3 ABG O2 Saturation ABG Base Excess VBG pH 7.43 7.41 VBG pCO2 45 D 46 VBG pO2 39 48 VBG Base Excess 4 H 4 H Quality Measures Quality Measures VTE prophylaxis Assessment & Plan Assessment Current Active Medications: Generic Name Dose Route Start Last Admin Trade Name Freq PRN Reason Stop Dose Admin Acetaminophen 650 mg 06/19/24 14:18 Acetaminophen 325 Mg Tablet PO 07/19/24 14:17 Q6H PRN Fever >101.5 Acetaminophen 650 mg 06/19/24 14:18 Acetaminophen 325 Mg Tablet PO 07/19/24 14:17 Q6H PRN PAIN SCALE 1-3 (mild Albuterol/Ipratropium 3 ml 06/20/24 07:13 Albuterol/Ipratropium (Duoneb) Rt Yamila 3 Ml Nebu INH 07/20/24 07:12 Q2HR PRN SHORTNESS OF BREATH OR WHEEZE Aspirin 81 mg 06/20/24 09:00 06/25/24 09:20 Aspirin Ec 81 Mg Tabec PO 07/20/24 08:59 81 mg QDAY NYDIA Administration Atorvastatin Calcium 80 mg 06/20/24 21:00 06/24/24 20:16 Atorvastatin Calcium 20 Mg Tablet PO 07/20/24 20:59 80 mg HS NYDIA Administration Carvedilol 3.125 mg 06/22/24 10:10 06/25/24 09:21 Carvedilol 3.125 Mg Tablet PO 07/22/24 10:09 3.125 mg BIDWM NYDIA Administration Famotidine 10 mg 06/25/24 21:00 Famotidine 20 Mg Tablet PO 07/25/24 20:59 HS NYDIA Heparin Sodium (Porcine) 5,000 unit 06/19/24 22:00 06/25/24 05:31 Heparin Sod Inj 5000 Unit/Ml Vial SC 07/03/24 21:59 5,000 unit Q8HR NYDIA Administration Ondansetron HCl 4 mg 06/19/24 14:18 Ondansetron Inj 2 Mg/Ml Inj 2 Ml IV 07/19/24 14:17 Q6H PRN NAUSEA OR VOMITING Protocol Quetiapine Fumarate 25 mg 06/23/24 14:00 06/25/24 09:21 Quetiapine Fumarate 25 Mg Tablet PO 07/23/24 13:59 25 mg BID NYDIA Administration Plan 63-year-old male with past medical history of coronary artery disease, pacemaker/defibilator placed by Dr. 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 Initial labs in the ED showed WBC count of 29.8 . pH?7.10, pCO2 20, bicarb of 6, sodium?137, potassium?4.7, chloride 97, carbon oxide?14.6, BUN 33, AG 28, creatinine 2.5, lactic acid?18, total bilirubin?5.3, AST?5489, ALT?2363, alk phos?140, elevated troponin initial was 3.5 for the repeat troponin is 4.52. Chest x-ray did not show any pneumonia/no pulmonary fuction . # Cardiogenic shock- resolved # NSTEMI most likely type II in setting of Meth use. # Cardiomyopathy from meth use. # HFrEF 15-20 % -pt came to ED with [facility] complain of pain abdomen , labs showed elevated troponin 3.5 , repeat troponin was 4.5 , -motteling present on B/l legs -he denies chest pain -Bedside US showed EF of 15-20 % -he has SCHOOL AIDE-D placed by Dr Tam from [place] unknown exact date -His elevated troponin could be type I versus type II, most likely in the setting of sepsis -Echo 2019 shows - Normal left ventricular size and function. Approximate ejection fraction is 30-35%. Moderate mitral and tricuspid regurgitation noted. Mild pulmonic regurgitation.Mild PHTN. Slight posterior MVP. -he received 1 L NS in ED. Plan: - Continue on aspirin, atorvastatin, Coreg. - Once KERWIN has improved patient can be discharged on Lasix 40 mg daily and losartan 25 mg daily. 06/20/2024: troponin went upto 12 , meth positive in utox , lactic acid trending down. he is still on dobutamine 2mcg , AST > 6000, ALT- 3300, procsl- 6.08 . levophed added to maintain the pressure. he has overall poor prognosis, levophed requirement going up . 06/21/2024: Norepinephrine was discontinued by ICU team, he is able to maintain blood pressure around 90/60. Continue dobutamine drip. LFTs are downtrending. 06/22/2024: He is being off pressors. Echo showed -Findings are consistent with dilated cardiomyopathy severe global hypokinesis.Left ventricle is markedly dilated with severe LV dysfunction severe global hypokinesis ejection fraction 15 to 20% . he needs to quit meth permanently . patient downgraded to floors . 06/23/2024: He will require goal-directed medical therapy currently only on Coreg, His kidney function is creatinine 2.4 with creatinine clearance of 24.4. Patient has home Jardiance who, Lasix and lisinopril at home. he needs to quit meth and follow this PCP . he is restrained in bed , probably withdrawing from meth. 06/25/2024: He will require goal-directed medical therapy currently only on Coreg, His kidney function is creatinine 3 with creatinine clearance of 27.7 Patient has home Jardiance who, Lasix and lisinopril at home. he needs to quit meth and follow this PCP .Head Ct was ordered by primary team which showed - Negative for acute hemorrhage, mass effect or midline shift. pending placement. . He can follow-up with primary small electric engine technician as an outpatient he has a private small electric engine technician Dr. Torres in [place]. # H/o HTN - BNP ->3280 -currently current management. Rest of medical problem management as per ICU team. Case discussed with my attending Dr Magno Shea MD,PGY-3
--- NOTE | 2024-06-25 14:58 | XR_ITS ---
Examination: CT brain head without contrast. 2-D sagittal coronal reconstructions Date and time of exam:June 25, 2024 1538 hours INDICATIONS: Altered mental status today CTDI: vol (mGy):53.6 DLP: (mGycm):1102 Technique: Multiple CT axial sections of the brain have been obtained, 5 mm slice thickness. Contrast has not been administered. 2-D sagittal, coronal reconstructions have been obtained Low dose protocols were performed. One or more of the following dose reduction techniques were used; automated exposure control, adjustment of the mA and/or KV according to patient size, use of iterative reconstruction technique. Findings: No significant ventricular enlargement. Intra-axial or extra-axial hemorrhage density is not seen. No mass effect or midline shift Basal cisterns are not remarkable. Fourth ventricle is midline. Cranial vault intact. Impression: Negative for acute hemorrhage, mass effect or midline shift Advise clinical correlation follow-up accordingly
[2024-06-25] MEDS: ATORVASTATIN CALCIUM 20 MG TABLET 80 MG PO (21:00)
[2024-06-25] MEDS: FAMOTIDINE 20 MG TABLET 10 MG PO (21:01)
[2024-06-25] MEDS: bisacodyL 5 MG TABEC PO (21:19)
[2024-06-26] VITALS (10 sets, daily range): BP systolic 92–114; BP diastolic 64–87; PULSE 68–93; RESP 12–83; TEMP 36–36.6; O2SAT 89–98; BMI 24.9
[2024-06-26] MEDS: HEPARIN SOD INJ 5000 UNIT/ML VIAL SC ×3 (05:17→21:09)
[2024-06-26 06:22] LABS: Basophils % (Auto) 0 % (0-2.5); Eosinophils # (Auto) 0.1 Thou/mm3 (0.0-0.5); Eosinophils % (Auto) 1 % (0-10); Hemoglobin 10.2 g/dL (13.5-16.0); Immature Granulocytes % (Auto) 8 % (0-0); Immature Granulocytes Auto 1.02 Thou/mm3 (0.00-0.00); Lymphocytes # (Auto) 1.2 Thou/mm3 (1.0-4.8); Lymphocytes % (Auto) 9 % (10-50); Mean Corpuscular HGB Conc 32.9 g/dl (31.0-37.0); Mean Corpuscular Hemoglobin 30.4 pg (25.0-35.0); Mean Corpuscular Volume 93 fL (80-100); Monocytes # (Auto) 1.9 Thou/mm3 (0.0-0.8); Monocytes % (Auto) 15 % (0-12); Neutrophils # (Auto) 8.8 Thou/mm3 (1.8-7.7); Neutrophils % (Auto) 67 % (37-80); Nucleated Red Blood Cell # 0.17 Thou/mm3 (0.00-0.00); Nucleated Red Blood Cell % 1 /100 WBC (0); Platelet Count 137 Thou/mm3 (140-440); RDW Standard Deviation 53.3 fL (35.1-43.9); Red Blood Count 3.35 Miln/mm3 (4.50-5.90); White Blood Count 13.1 Thou/mm3 (3.8-10.6)
[2024-06-26 06:54] LABS: Alanine Aminotransferase 560 U/L (10-49); Albumin, Serum 2.8 gm/dL (3.4-4.8); Albumin/Globulin Ratio 1.1 (1.2-2.2); Alkaline Phosphatase 179 U/L (46-116); Anion Gap 13 (7-16); Aspartate Amino Transferase 199 U/L (0-34); BUN/Creatinine Ratio 28 Ratio (12-20); Bilirubin,Total 5.8 mg/dL (0.3-1.2); Blood Urea Nitrogen 89 mg/dL (9-23); Calcium 7.8 mg/dL (8.3-10.6); Calcium (Corrected) 8.8 mg/dL (8.5-10.1); Carbon Dioxide 27.5 mMol/L (20.0-31.0); Chloride 103 mMol/L (98-107); Creatinine (Component) 3.2 mg/dL (0.6-1.3); Estimated Creatinine Clearance 25.9 mL/min (>60); Globulin 2.6 gm/dL (2.3-3.5); Glucose 111 mg/dL (74-106); Magnesium 2.6 mg/dL (1.6-2.6); Osmolality,Calculated 313 (275-295); Phosphorous 3.8 mg/dL (2.4-5.1); Sodium 143 mMol/L (136-145); Total Protein 5.4 gm/dL (5.7-8.2); eGFR 21 See Note
--- NOTE | 2024-06-26 08:06 | XR_ITS ---
Examination: Retroperitoneal ultrasound, complete Technique: Multiple high resolution grayscale images of the retroperitoneum obtained, including kidneys and bladder. Exam date and time:June 26, 2024 0822 hours INDICATIONS: Diagnosis septic shock FINDINGS: Right kidney 9.8 cm cortex 2.4 cm Left kidney 10.7 cm cortex 2.0 cm Mild bilateral renal parenchymal scar formation No bladder mass or bladder calculi Bladder prevoid: 233 cc IMPRESSION: Mild bilateral renal parenchymal scar formation No renal edema, no renal abscess
[2024-06-26] MEDS: ASPIRIN EC 81 MG TABEC PO (08:56)
[2024-06-26] MEDS: SODIUM CHLORIDE 0.9% 250 ML 250 ML 999 ML IV ×2 (09:01→15:10)
--- NOTE | 2024-06-26 09:52 | PC.SS ---
Addendum entered by Nella Pizarro 06/26/24 13:40: SS follow up note; Kidneys functions being monitored. Patient will discharge to [facility] once medically cleared. Original Note: SS follow up note; SS contacted patient's insurance to check status on authorization, Anny informed SS that authorization was still under clinical review and at the time authorization was still pending.
--- NOTE | 2024-06-26 11:42 | PD.HHPROG ---
Documentation for date of: 06/26/24 Subjective - Hospitalist Subjective Interval history: No acute events overnight, no subjective complaints by the patient, he was still bit somnolent this morning however improved from previous day. Blood pressure was soft this morning, 95/64 mmHg, significant labs include a stable WBC at 13, hemoglobin stable at 12, liver enzymes improving, T. bili 5.5, renal function slightly worse today BUN 83 and creatinine 3.2. Exam Vital Signs Temp Pulse Resp BP Pulse Ox O2 Del Method O2 Flow Rate 97.2 F 85 20 95/64 94 L Room Air 2 06/26/24 08:00 06/26/24 08:52 06/26/24 08:00 06/26/24 08:52 06/26/24 08:00 06/26/24 04:00 06/26/24 07:43 Objective - Hospitalist Labs Diagram: 06/26/24 05:28 06/26/24 05:28 Labs: Laboratory Results - last 24 hr 06/26/24 05:28 WBC 13.1 H RBC 3.35 L Hgb 10.2 L Hct 31.0 L MCV 93 MCH 30.4 MCHC 32.9 RDW Std Deviation 53.3 H Plt Count 137 L Neut % (Auto) 67 Lymph % (Auto) 9 L [place] % (Auto) 15 H Eos % (Auto) 1 Baso % (Auto) 0 Neut # (Auto) 8.8 H Lymph # (Auto) 1.2 [place] # (Auto) 1.9 H Eos # (Auto) 0.1 Baso # (Auto) 0.0 Immature Gran # (Auto) 1.02 H Absolute Nucleated RBC 0.17 H Immature Gran % 8 H Nucleated RBC % 1 H Sodium 143 Potassium 4.0 Chloride 103 Carbon Dioxide 27.5 Anion Gap 13 BUN 89 H Creatinine 3.2 H Estim Creat Clear Calc 25.9 L eGFR 21 L BUN/Creatinine Ratio 28 H Glucose 111 H Calculated Osmolality 313 H Calcium 7.8 L Corrected Calcium 8.8 Phosphorus 3.8 Magnesium 2.6 Total Bilirubin 5.8 H D AST 199 H ALT 560 H* Alkaline Phosphatase 179 H Total Protein 5.4 L Albumin 2.8 L Globulin 2.6 Albumin/Globulin Ratio 1.1 L ABG Interpretation ABG results: 06/19/24 06/19/24 06/20/24 16:21 17:41 08:48 ABG pH 7.10 L* ABG pCO2 20 L ABG pO2 105 ABG HCO3 6 L* ABG O2 Saturation 96 ABG Base Excess -21 L VBG pH 7.19 L 7.38 VBG pCO2 28 L 46 D VBG pO2 55 37 VBG Base Excess -16 L 1 06/20/24 06/20/24 06/20/24 11:10 17:54 19:45 ABG pH 7.39 D 7.39 ABG pCO2 40 D 45 ABG pO2 63 L D 90 D ABG HCO3 24 27 H ABG O2 Saturation 91 97 ABG Base Excess -1 2 VBG pH 7.37 7.45 VBG pCO2 44 36 VBG pO2 38 58 D VBG Base Excess 0 1 06/21/24 06/21/24 06/21/24 04:30 05:56 12:00 ABG pH 7.41 ABG pCO2 43 ABG pO2 102 ABG HCO3 27 H ABG O2 Saturation 99 H ABG Base Excess 2 VBG pH 7.53 7.39 VBG pCO2 29 L 51 D VBG pO2 115 H D 39 D VBG Base Excess 2 5 H 06/21/24 06/21/24 06/22/24 13:50 15:37 04:18 ABG pH 7.46 H ABG pCO2 39 ABG pO2 78 L D ABG HCO3 27 H ABG O2 Saturation 97 ABG Base Excess 3 VBG pH 7.41 7.54 VBG pCO2 49 30 L D VBG pO2 29 57 D VBG Base Excess 5 H 3 06/22/24 06/22/24 05:27 09:33 ABG pH ABG pCO2 ABG pO2 ABG HCO3 ABG O2 Saturation ABG Base Excess VBG pH 7.43 7.41 VBG pCO2 45 D 46 VBG pO2 39 48 VBG Base Excess 4 H 4 H Assessment & Plan Plan: Shaheed Fernandez is a 63-year-old male with past medical history of CAD, pacemaker/defibrillator by Dr. Ramirez in [place] for abnormal rhythm CHF, hypertension, COPD who came into our ER after he was woken up at 2 AM with chest pain and admitted to the ICU for further management of shock and has since been downgraded to floors. #Acute encephalopathy likely secondary to ICU delirium #Agitation?resolved Likely metabolic from substance abuse versus shock CTM vital signs and symptoms ? Considering the patient's somnolence today, stop Seroquel #KERWIN secondary to ATN vs cardiorenal syndrome-worst today, BUN 83, creatinine 3.2 ?Nephrology consulted, will see patient on 06/27 -Urine electrolytes and renal ultrasound ordered ?Small fluid bolus, 250 mL given ? Avoid nephrotoxic agents, renally dose medications #Ischemic hepatitis, improving #Hyperbilirubinemia Likely shock liver in setting of cardiogenic shock. AST peaked > 6000, ALT peaked at > 3300. T bili continues to uptrend at 8.0. Abdominal ultrasound revealed gallbladder wall thickening could be possibly from congestion Patient denied any right upper quadrant tenderness and there was no jaundice or fevers -CTM #Shock?resolved #Acute on chronic HFrEF, EF 15-20% Likely cardiogenic versus distributive. Presented with chest pain that started in the early hours of the night. Counter Tender consulted in ED, and Dr. Kiran did bedside US which showed estimated EF of 15 to 20%. Echo 06/22: Dilated cardiomyopathy, severe global hypokinesis/LV dysfunction, EF 15 to 20%, moderate to severe TR, moderate, PA pressure 55 mmHg, moderate MR secondary to mitral annulus dilatation, severely dilated LA, mildly dilated RA. History of meth abuse and he did test positive for methamphetamine on his urine tox. Presented with troponin of 3.5 and peaked at 13.25, BNP > 3280. Patient's cardiac output improved with pressor support and dobutamine drip in ICU but have since been discontinued. ? Strict I's and O's ? Cardiology consulted, recommended to start GDMT as BP tolerates ? Aspirin 81 mg p.o. daily -Will hold Coreg today due to soft blood pressure #Troponinemia,?likely secondary to demand ischemia?resolved Likely NSTEMI type II due to demand ischemia EKG did not show any obvious signs of ST segment elevation #Acute hypoxic respiratory failure due to pulmonary edema, resolved #History of COPD Currently saturating well on room air. Lungs clear to auscultation on exam. Previously spitting out frothy sputum that is mixed with dried blood likely from nasopharyngeal bleed vs DIC. ? Oxygen support ? Frequent suctioning ? DuoNebs as needed for wheezing #Hypokalemia Likely secondary to ATN. Phos and Mg within normal limits. ? Repleted with 60 mEq IV potassium ? Monitor daily labs and replete as needed #High anion gap metabolic acidosis, resolved #Lactic acidosis, resolved Hospital Maintenance: Dispo: Pending clinical course, likely DC in 1 to 2 days pending improvement and SNF authorization as well as specialist recommendations FEN: Cardiac diet DVT PPx: Heparin GI PPx: pepcid IV lines: PIV Code Status: DNR/DNI Time Spent with Patient Time: Total time spent is greater than 50% in coordination of care (as documented) at patient's floor/unit and/or counseling patient: Time with patient: 25 - 35 minutes Reason for Continued Stay Reason for continued stay: further monitoring Quality Measures Quality Measures VTE prophylaxis
--- NOTE | 2024-06-26 14:56 | ESPR_ITS ---
Documentation for date of: 06/26/24 Subjective Subjective Interval history: Patient seen and examined at the bedside. No new cardiac complaints. Patient still mildly confused and unable to give proper history. Blood pressure was soft this morning at 95/64 mmHg and renal function appears to have slightly answered with a BUN of 89 with creatinine of 3.2. Agree with IV fluids for now. Primary team did stop the Coreg for the patient. Patient had 10 beat NSVT and discussed with the primary team to keep potassium greater than 4 and magnesium greater than 2.0. Recommend to start patient on metoprolol XL 25 mg once daily given the patient has NSVT once blood pressure is permissible Exam Vital Signs Temp Pulse Resp BP Pulse Ox O2 Del Method O2 Flow Rate 97.2 F 85 20 95/64 94 L Room Air 2 06/26/24 08:00 06/26/24 08:52 06/26/24 08:00 06/26/24 08:52 06/26/24 08:00 06/26/24 04:00 06/26/24 07:43 Narrative Exam General: Patient appears to be in no acute distress but is slightly somnolent. Eyes: Pupils are equal and reactive to light bilaterally. HEENT: Atraumatic, normocephalic. Mucosa moist. Cardiovascular: Normal S1 and S2. Normal rate and regular rhythm. 2 or 6 systolic murmur heard at the apex. No peripheral pitting edema noted. Respiratory: No respiratory distress. Lungs are clear to auscultation bilaterally. No wheezing or crackles heard. Abdomen: Soft, nontender, nondistended. Skin: No rash. Warm to touch. Musculoskeletal: No gross injuries. Able to move all 4 extremities. Neuro: Appears to be mildly confused and Limited neuroexam Objective Labs 06/26/24 05:28 06/26/24 05:28 Labs: Laboratory Results - last 24 hr 06/26/24 05:28 WBC 13.1 H RBC 3.35 L Hgb 10.2 L Hct 31.0 L MCV 93 MCH 30.4 MCHC 32.9 RDW Std Deviation 53.3 H Plt Count 137 L Neut % (Auto) 67 Lymph % (Auto) 9 L [place] % (Auto) 15 H Eos % (Auto) 1 Baso % (Auto) 0 Neut # (Auto) 8.8 H Lymph # (Auto) 1.2 [place] # (Auto) 1.9 H Eos # (Auto) 0.1 Baso # (Auto) 0.0 Immature Gran # (Auto) 1.02 H Absolute Nucleated RBC 0.17 H Immature Gran % 8 H Nucleated RBC % 1 H Sodium 143 Potassium 4.0 Chloride 103 Carbon Dioxide 27.5 Anion Gap 13 BUN 89 H Creatinine 3.2 H Estim Creat Clear Calc 25.9 L eGFR 21 L BUN/Creatinine Ratio 28 H Glucose 111 H Calculated Osmolality 313 H Calcium 7.8 L Corrected Calcium 8.8 Phosphorus 3.8 Magnesium 2.6 Total Bilirubin 5.8 H D AST 199 H ALT 560 H* Alkaline Phosphatase 179 H Total Protein 5.4 L Albumin 2.8 L Globulin 2.6 Albumin/Globulin Ratio 1.1 L ABG Interpretation ABG results: 06/19/24 06/19/24 06/20/24 16:21 17:41 08:48 ABG pH 7.10 L* ABG pCO2 20 L ABG pO2 105 ABG HCO3 6 L* ABG O2 Saturation 96 ABG Base Excess -21 L VBG pH 7.19 L 7.38 VBG pCO2 28 L 46 D VBG pO2 55 37 VBG Base Excess -16 L 1 06/20/24 06/20/24 06/20/24 11:10 17:54 19:45 ABG pH 7.39 D 7.39 ABG pCO2 40 D 45 ABG pO2 63 L D 90 D ABG HCO3 24 27 H ABG O2 Saturation 91 97 ABG Base Excess -1 2 VBG pH 7.37 7.45 VBG pCO2 44 36 VBG pO2 38 58 D VBG Base Excess 0 1 06/21/24 06/21/24 06/21/24 04:30 05:56 12:00 ABG pH 7.41 ABG pCO2 43 ABG pO2 102 ABG HCO3 27 H ABG O2 Saturation 99 H ABG Base Excess 2 VBG pH 7.53 7.39 VBG pCO2 29 L 51 D VBG pO2 115 H D 39 D VBG Base Excess 2 5 H 06/21/24 06/21/24 06/22/24 13:50 15:37 04:18 ABG pH 7.46 H ABG pCO2 39 ABG pO2 78 L D ABG HCO3 27 H ABG O2 Saturation 97 ABG Base Excess 3 VBG pH 7.41 7.54 VBG pCO2 49 30 L D VBG pO2 29 57 D VBG Base Excess 5 H 3 06/22/24 06/22/24 05:27 09:33 ABG pH ABG pCO2 ABG pO2 ABG HCO3 ABG O2 Saturation ABG Base Excess VBG pH 7.43 7.41 VBG pCO2 45 D 46 VBG pO2 39 48 VBG Base Excess 4 H 4 H Assessment & Plan A&P Narrative 63-year-old male with past medical history of coronary artery disease, pacemaker/defibilator placed by Dr. 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 Initial labs in the ED showed WBC count of 29.8 . pH?7.10, pCO2 20, bicarb of 6, sodium?137, potassium?4.7, chloride 97, carbon oxide?14.6, BUN 33, AG 28, creatinine 2.5, lactic acid?18, total bilirubin?5.3, AST?5489, ALT?2363, alk phos?140, elevated troponin initial was 3.5 for the repeat troponin is 4.52. Chest x-ray did not show any pneumonia/no pulmonary fuction . # Cardiogenic shock- resolved # NSTEMI most likely type II in setting of Meth use. # Cardiomyopathy from meth use. # HFrEF 15-20 % -pt came to ED with Chic[facility] complain of pain abdomen , labs showed elevated troponin 3.5 , repeat troponin was 4.5 , -motteling present on B/l legs -he denies chest pain -Bedside US showed EF of 15-20 % -he has FINANCIAL COUNSELOR-D placed by Dr Tam from [place] unknown exact date -His elevated troponin could be type I versus type II, most likely in the setting of sepsis -Echo 2018 shows - Normal left ventricular size and function. Approximate ejection fraction is 30-35%. Moderate mitral and tricuspid regurgitation noted. Mild pulmonic regurgitation.Mild PHTN. Slight posterior MVP. -he received 1 L NS in ED. Plan: - Continue on aspirin, atorvastatin, Coreg. - Once KERWIN has improved patient can be discharged on Lasix 40 mg daily and losartan 25 mg daily. 06/20/2024: troponin went upto 12 , meth positive in utox , lactic acid trending down. he is still on dobutamine 2mcg , AST > 6000, ALT- 3300, procsl- 6.08 . levophed added to maintain the pressure. he has overall poor prognosis, levophed requirement going up . 06/21/2024: Norepinephrine was discontinued by ICU team, he is able to maintain blood pressure around 90/60. Continue dobutamine drip. LFTs are downtrending. 06/22/2024: He is being off pressors. Echo showed -Findings are consistent with dilated cardiomyopathy severe global hypokinesis.Left ventricle is markedly dilated with severe LV dysfunction severe global hypokinesis ejection fraction 15 to 20% . he needs to quit meth permanently . patient downgraded to floors . 06/23/2024: He will require goal-directed medical therapy currently only on Coreg, His kidney function is creatinine 2.4 with creatinine clearance of 24.4. Patient has home Jardiance who, Lasix and lisinopril at home. he needs to quit meth and follow this PCP . he is restrained in bed , probably withdrawing from meth. 06/25/2024: He will require goal-directed medical therapy currently only on Coreg, His kidney function is creatinine 3 with creatinine clearance of 27.7 Patient has home Jardiance who, Lasix and lisinopril at home. he needs to quit meth and follow this PCP .Head Ct was ordered by primary team which showed - Negative for acute hemorrhage, mass effect or midline shift. pending placement. . He can follow-up with primary hardboard press operator as an outpatient he has a private hardboard press operator Dr. Torres in [place]. 06/26/2024: Patient still mildly confused and unable to give proper history. Blood pressure was soft this morning at 95/64 mmHg and renal function appears to have slightly answered with a BUN of 89 with creatinine of 3.2. Agree with IV fluids for now. Primary team did stop the Coreg for the patient.Patient had 10 beat NSVT and discussed with the primary team to keep potassium greater than 4 and magnesium greater than 2.0. Recommend to start patient on metoprolol XL 25 mg once daily given the patient has NSVT once blood pressure is permissible. Management of rest of the medical conditions as per primary team and other consultants. Thank you for the consult and allowing me to participate in the care of the patient. Cardiology will continue to follow. Damian Ortega M.D. Interventional Cardiology Time Spent With Patient Time: Total time spent is greater than 50% in coordination of care (as documented) at patient's floor/unit and/or counseling patient: Procedures Arterial Line Size (Gauge): 20
[2024-06-26] MEDS: METOPROLOL SUCCINATE XL 25 MG TABCR PO (15:15)
[2024-06-26] MEDS: ACETAMINOPHEN 325 MG TABLET 650 MG PO (21:00)
[2024-06-26] MEDS: ATORVASTATIN CALCIUM 20 MG TABLET 80 MG PO (21:00)
[2024-06-26] MEDS: FAMOTIDINE 20 MG TABLET 10 MG PO (21:01)
[2024-06-27] VITALS (11 sets, daily range): BP systolic 90–112; BP diastolic 66–88; PULSE 80–118; RESP 17–88; TEMP 36.1–36.3; O2SAT 91–95
[2024-06-27 06:08] LABS: Basophils # (Auto) 0.1 Thou/mm3 (0.0-0.2); Basophils % (Auto) 0 % (0-2.5); Eosinophils # (Auto) 0.1 Thou/mm3 (0.0-0.5); Eosinophils % (Auto) 0 % (0-10); Hematocrit 33.2 % (41.0-53.0); Hemoglobin 10.6 g/dL (13.5-16.0); Immature Granulocytes % (Auto) 8 % (0-0); Immature Granulocytes Auto 1.66 Thou/mm3 (0.00-0.00); Lymphocytes # (Auto) 1.2 Thou/mm3 (1.0-4.8); Lymphocytes % (Auto) 6 % (10-50); Mean Corpuscular HGB Conc 31.9 g/dl (31.0-37.0); Mean Corpuscular Hemoglobin 29.5 pg (25.0-35.0); Mean Corpuscular Volume 93 fL (80-100); Monocytes # (Auto) 2.3 Thou/mm3 (0.0-0.8); Monocytes % (Auto) 12 % (0-12); Neutrophils # (Auto) 14.7 Thou/mm3 (1.8-7.7); Neutrophils % (Auto) 73 % (37-80); Nucleated Red Blood Cell # 0.39 Thou/mm3 (0.00-0.00); Nucleated Red Blood Cell % 2 /100 WBC (0); Platelet Count 154 Thou/mm3 (140-440); RDW Standard Deviation 53.3 fL (35.1-43.9); Red Blood Count 3.59 Miln/mm3 (4.50-5.90); White Blood Count 20.1 Thou/mm3 (3.8-10.6)
[2024-06-27 06:41] LABS: Alanine Aminotransferase 491 U/L (10-49); Albumin, Serum 2.8 gm/dL (3.4-4.8); Alkaline Phosphatase 197 U/L (46-116); Anion Gap 12 (7-16); Aspartate Amino Transferase 260 U/L (0-34); BUN/Creatinine Ratio 28 Ratio (12-20); Bilirubin,Total 6.4 mg/dL (0.3-1.2); Blood Urea Nitrogen 88 mg/dL (9-23); Calcium 7.2 mg/dL (8.3-10.6); Calcium (Corrected) 8.2 mg/dL (8.5-10.1); Carbon Dioxide 24.7 mMol/L (20.0-31.0); Chloride 105 mMol/L (98-107); Creatinine (Component) 3.2 mg/dL (0.6-1.3); Estimated Creatinine Clearance 25.9 mL/min (>60); Globulin 2.7 gm/dL (2.3-3.5); Glucose 131 mg/dL (74-106); Magnesium 2.9 mg/dL (1.6-2.6); Osmolality,Calculated 312 (275-295); Phosphorous 4.3 mg/dL (2.4-5.1); Potassium 4.2 mMol/L (3.4-5.1); Sodium 142 mMol/L (136-145); Total Protein 5.5 gm/dL (5.7-8.2); eGFR 21 See Note
--- NOTE | 2024-06-27 09:40 | PD.RESCONSUL ---
HPI Data of Consult Patient: new to practice Consult date: 06/26/24 Requesting Physician: Luke Smith DO Admitting Provider: Bob Martinez MD Attending Provider: Luke Smith DO Primary Care Provider: Physician No Primary/Family Consult Narrative History of present illness: Mr. Fernandez is a 63-year-old male with past medical history of CAD, pacemaker/defibrillator by Dr. Ramirez in [place] for abnormal rhythm CHF, hypertension, COPD who came into our ER after he was woken up at 2 AM with chest pain. Patient was a poor historian but did endorse that he woke up at 2 AM with severe chest pain that caused some nausea and vomiting after which he decided to come to the ED. Patient lives alone he called 911. In the ED patient was found to be tachycardic with a pulse of 121 saturating at 92% on room air. Troponins were found to be elevated at 3.54 initially and climbed up to 4.52 by the time we saw him at bedside. Patient was also found to have elevated transaminases in the thousands. Chest x-ray revealed no pulmonary edema and EKG showed sinus tachycardia. Patient was given Zofran as well as 1 L bolus of fluids and morphine in the ER as well as aspirin and nitroglycerin and metoprolol which seem to have helped the patient's pain at the time. Patient had elevated JVP, bedside ultrasound showed high suspicion of cardiogenic shock patient was admitted to the ICU for further management. With further progression of hospital course patient was downgraded to telemetry, after being weaned off of Levophed and dobutamine. Patient's hospital course was complicated by ATN and shock liver. Nephrology consulted in setting of ATN. 06/27/2024: Patient's renal function today noted to be BUN 88, creatinine 3.2, GFR 21. Patient's urine output not being charted, ordered strict I&O's. Renal function is stable compared to yesterday, was given 1 L LR bolus today. Will follow renal function in a.m. open, patient did have elevated lactate today. Echocardiogram from 06/22 shows global hypokinesis with ejection fraction 15 to 20% cc:: cc: Luke Smith DO Review of Systems Review of Systems Systems Reviewed: All systems reviewed, normal except as documented Past Medical History Past Medical History CARDIAC: Positive Cardiac Disorders, Congestive Heart Failure and Hypertension RESPIRATORY: Positive Chronic Obstructive Pulmonary Disease (COPD) PSYCHO/SOCIAL: Positive Depression and Anxiety Family History FAMILY HISTORY: Positive Family Cardiac Disorders Surgical History SURGICAL: Negative Cardiac Catheterization Social History SMOKING STATUS: Former smoker SUBSTANCE USE: former substance user, amphetamines and methamphetamine Exam Vital Signs Temp Pulse Resp BP Pulse Ox O2 Del Method O2 Flow Rate 97.0 F 85 17 112/88 H 91 L Room Air 2 06/27/24 04:00 06/27/24 08:04 06/27/24 08:04 06/27/24 04:00 06/27/24 08:04 06/27/24 04:00 06/26/24 07:43 Narrative Exam General: Patient appears to be in no acute distress but is slightly somnolent. Eyes: Pupils are equal and reactive to light bilaterally. HEENT: Atraumatic, normocephalic. Mucosa moist. Cardiovascular: Normal S1 and S2. Normal rate and regular rhythm. 2 or 6 systolic murmur heard at the apex. No peripheral pitting edema noted. Respiratory: No respiratory distress. Lungs are clear to auscultation bilaterally. No wheezing or crackles heard. Abdomen: Soft, nontender, nondistended. Skin: No rash. Warm to touch. Musculoskeletal: No gross injuries. Able to move all 4 extremities. Neuro: Confusion slightly improved, remains unable to participate fully with neuroexam. Results Labs 06/29/24 05:21 06/29/24 05:21 Labs: Short CBC 06/27/24 Range/Units 05:19 WBC 20.1 H D (3.8-10.6) Thou/mm3 Hgb 10.6 L (13.5-16.0) g/dL Hct 33.2 L (41.0-53.0) % Plt Count 154 (140-440) Thou/mm3 BMP 06/27/24 05:19 Sodium 142 Potassium 4.2 Chloride 105 Carbon Dioxide 24.7 BUN 88 H Creatinine 3.2 H Glucose 131 H Calcium 7.2 L Liver Function 06/27/24 Range/Units 05:19 Total Bilirubin 6.4 H D (0.3-1.2) mg/dL AST 260 H (0-34) U/L ALT 491 H (10-49) U/L Alkaline Phosphatase 197 H (46-116) U/L Albumin 2.8 L (3.4-4.8) gm/dL ABG Interpretation ABG results: 06/19/24 06/19/24 06/20/24 16:21 17:41 08:48 ABG pH 7.10 L* ABG pCO2 20 L ABG pO2 105 ABG HCO3 6 L* ABG O2 Saturation 96 ABG Base Excess -21 L VBG pH 7.19 L 7.38 VBG pCO2 28 L 46 D VBG pO2 55 37 VBG Base Excess -16 L 1 06/20/24 06/20/24 06/20/24 11:10 17:54 19:45 ABG pH 7.39 D 7.39 ABG pCO2 40 D 45 ABG pO2 63 L D 90 D ABG HCO3 24 27 H ABG O2 Saturation 91 97 ABG Base Excess -1 2 VBG pH 7.37 7.45 VBG pCO2 44 36 VBG pO2 38 58 D VBG Base Excess 0 1 06/21/24 06/21/24 06/21/24 04:30 05:56 12:00 ABG pH 7.41 ABG pCO2 43 ABG pO2 102 ABG HCO3 27 H ABG O2 Saturation 99 H ABG Base Excess 2 VBG pH 7.53 7.39 VBG pCO2 29 L 51 D VBG pO2 115 H D 39 D VBG Base Excess 2 5 H 06/21/24 06/21/24 06/22/24 13:50 15:37 04:18 ABG pH 7.46 H ABG pCO2 39 ABG pO2 78 L D ABG HCO3 27 H ABG O2 Saturation 97 ABG Base Excess 3 VBG pH 7.41 7.54 VBG pCO2 49 30 L D VBG pO2 29 57 D VBG Base Excess 5 H 3 06/22/24 06/22/24 05:27 09:33 ABG pH ABG pCO2 ABG pO2 ABG HCO3 ABG O2 Saturation ABG Base Excess VBG pH 7.43 7.41 VBG pCO2 45 D 46 VBG pO2 39 48 VBG Base Excess 4 H 4 H Quality Measures Quality Measures VTE prophylaxis Medications Home Medications and Allergies Home Medications ?Medication ?Instructions ?Recorded ?Confirmed ?Type digoxin 125 mcg (0.125 mg) tablet 0.125 mg PO DAILY 06/19/24 06/19/24 History empagliflozin 10 mg tablet 10 mg PO QAM 06/19/24 06/19/24 History (Jardiance) Allergies Allergy/AdvReac Type Severity Reaction Status Date / Time Iodinated Contrast Media Allergy Severe Swelling Verified 06/19/24 10:02 of Lip/Tongue/Throat iodine Allergy Severe Hives Verified 06/19/24 10:02 Visit Medications Acetaminophen (Acetaminophen 325 Mg Tablet) 650 mg PO Q6H PRN PRN Reason: Fever >101.5 Stop: 07/19/24 14:17 Acetaminophen (Acetaminophen 325 Mg Tablet) 650 mg PO Q6H PRN PRN Reason: PAIN SCALE 1-3 (mild Stop: 07/19/24 14:17 Last Admin: 06/26/24 21:00 Dose: 650 mg Albuterol/Ipratropium (Albuterol/Ipratropium (Duoneb) Rt Yamila 3 Ml Nebu) 3 ml INH Q2HR PRN PRN Reason: SHORTNESS OF BREATH OR WHEEZE Stop: 07/20/24 07:12 Aspirin (Aspirin Ec 81 Mg Tabec) 81 mg PO QDAY [facility] Stop: 07/20/24 08:59 Last Admin: 06/26/24 08:56 Dose: 81 mg Atorvastatin Calcium (Atorvastatin Calcium 20 Mg Tablet) 80 mg PO HS [facility] Stop: 07/20/24 20:59 Last Admin: 06/26/24 21:00 Dose: 80 mg Famotidine (Famotidine 20 Mg Tablet) 10 mg PO HS [facility] Stop: 07/25/24 20:59 Last Admin: 06/26/24 21:01 Dose: 10 mg Heparin Sodium (Porcine) (Heparin Sod Inj 5000 Unit/Ml Vial) 5,000 unit SC Q8HR NYDIA Stop: 07/03/24 21:59 Last Admin: 06/27/24 05:30 Dose: Not Given Metoprolol Succinate (Metoprolol Succinate Xl 25 Mg Tabcr) 25 mg PO QDAY [facility] Stop: 07/26/24 14:14 Last Admin: 06/26/24 15:15 Dose: 25 mg Ondansetron HCl (Ondansetron Inj 2 Mg/Ml Inj 2 Ml) 4 mg IV Q6H PRN; Protocol PRN Reason: NAUSEA OR VOMITING Stop: 07/19/24 14:17 Discontinued Medications Hydrocodone Bitart/Acetaminophen (Hydrocodone/Apap 10/325 Tab) 1 tab PO Q4H PRN PRN Reason: PAIN SCALE 4-6 (Moderate Stop: 06/24/24 14:17 Albuterol/Ipratropium (Albuterol/Ipratropium (Duoneb) Rt Yamila 3 Ml Nebu) 3 ml INH Q8HRRT [facility] Stop: 07/20/24 14:59 Aspirin (Aspirin 81 Mg Chew) 162 mg PO X1 ONE Stop: 06/19/24 12:30 Last Admin: 06/19/24 12:38 Dose: 162 mg Bisacodyl (Bisacodyl 5 Mg Tabec) 5 mg PO X1 ONE; Protocol Stop: 06/25/24 21:08 Last Admin: 06/25/24 21:19 Dose: 5 mg Calcium Gluconate (Calcium Gluconate 10% Inj 1 Gm/10 Ml Vial) 1 gm IV X1 ONE Stop: 06/20/24 08:33 Last Admin: 06/20/24 11:03 Dose: Not Given Carvedilol (Carvedilol 3.125 Mg Tablet) 3.125 mg PO BIDWM [facility]DIA Stop: 07/22/24 17:29 Carvedilol (Carvedilol 3.125 Mg Tablet) 3.125 mg PO BIDWM [facility]DIA Stop: 07/22/24 10:09 Last Admin: 06/26/24 08:52 Dose: Not Given Famotidine (Famotidine Inj 10 Mg/Ml Vial 2 Ml) 10 mg IVP HS NYDIA Stop: 07/21/24 20:59 Last Admin: 06/24/24 20:16 Dose: 10 mg Famotidine (Famotidine 20 Mg Tablet) 20 mg PO X1 ONE Stop: 06/23/24 20:35 Last Admin: 06/23/24 21:03 Dose: 20 mg Furosemide (Furosemide Inj 10 Mg/Ml 4ml Vial) 80 mg IVP X1 ONE Stop: 06/19/24 17:16 Last Admin: 06/19/24 17:28 Dose: Not Given Furosemide (Furosemide Inj 10 Mg/Ml 4ml Vial) 40 mg IVP X1 ONE Stop: 06/20/24 12:46 Last Admin: 06/20/24 13:01 Dose: 40 mg Sodium Chloride (Ns) 1,000 mls @ 999 mls/hr IV .Q1H1M ONE Stop: 06/19/24 10:45 Last Infusion: 06/19/24 11:10 Dose: Infused Piperacillin Sod/Tazobactam (Sod 4.5 gm/ Sodium Chloride) 100 mls @ 200 mls/hr IV X1 ONE Stop: 06/19/24 14:13 Last Infusion: 06/19/24 16:59 Dose: Infused Sodium Chloride (Ns) 1,000 mls @ 999 mls/hr IV .Q1H1M ONE Stop: 06/19/24 14:43 Last Admin: 06/19/24 15:52 Dose: Not Given Dobutamine HCl/Dextrose (Dobutrex/D5w Ivpb) 500 mg in 250 mls @ 2.694 mls/hr IV .Q24H ONE; Protocol Stop: 06/20/24 15:02 Last Titration: 06/19/24 18:40 Dose: 0 mcg/kg/min, 0 mls/hr Norepinephrine Bitartrate (Levophed In Ns 16mg/250ml) 16 mg in 250 mls @ 4.21 mls/hr IV .Q24H PRN; Protocol PRN Reason: PER protocol Stop: 07/19/24 18:20 Last Titration: 06/21/24 10:49 Dose: 0 mcg/kg/min, 0 mls/hr Dobutamine HCl/Dextrose (Dobutrex/D5w Ivpb) 500 mg in 250 mls @ 5.389 mls/hr IV .Q24H PRN; Protocol PRN Reason: PER PROTOCOL Stop: 07/19/24 18:47 Last Titration: 06/21/24 11:39 Dose: 1 mcg/kg/min, 2.694 mls/hr Calcium Gluconate/Sodium Chloride (Calcium Gluc/Ns 1000mg Ivpb) 1,000 mg in 50 mls @ 50 mls/hr IV X1 ONE Stop: 06/20/24 09:58 Last Admin: 06/20/24 09:08 Dose: 50 mls/hr Sodium Chloride (Ns) 500 mls @ 150 mls/hr IV .Q3H20M ONE Stop: 06/20/24 12:19 Last Admin: 06/20/24 09:08 Dose: 150 mls/hr Dexmedetomidine/Sodium Chloride (Precedex Ivpb) 400 mcg in 100 mls @ 4.3 mls/hr IV .[id number] PRN; Protocol PRN Reason: Per PROTOCOL Stop: 07/20/24 09:59 Last Admin: 06/21/24 10:45 Dose: 0.6 mcg/kg/hr, 12.9 mls/hr Calcium Gluconate/Sodium Chloride (Calcium Gluc/Ns 1000mg Ivpb) 1,000 mg in 50 mls @ 50 mls/hr IV X1 ONE Stop: 06/21/24 08:17 Last Admin: 06/21/24 08:09 Dose: 50 mls/hr Sodium Chloride (Ns) 1,000 mls @ 50 mls/hr IV .Q20H NYDIA Stop: 06/21/24 15:00 Last Admin: 06/21/24 11:55 Dose: 50 mls/hr Dobutamine HCl/Dextrose (Dobutrex/D5w Ivpb) 500 mg in 250 mls @ 4.041 mls/hr IV .Q24H PRN; Protocol PRN Reason: PER PROTOCOL Stop: 07/19/24 18:47 Last Titration: 06/22/24 06:00 Dose: 0.5 mcg/kg/min, 1.347 mls/hr Sodium Chloride (Ns) 250 mls @ 999 mls/hr IV .Q16M ONE Stop: 06/22/24 01:09 Last Infusion: 06/22/24 01:17 Dose: Infused Sodium Chloride (Ns) 250 mls @ 999 mls/hr IV .Q16M ONE Stop: 06/26/24 08:25 Last Admin: 06/26/24 09:01 Dose: 999 mls/hr Sodium Chloride (Ns) 250 mls @ 999 mls/hr IV .Q16M ONE Stop: 06/26/24 14:29 Last Admin: 06/26/24 15:10 Dose: 999 mls/hr Lidocaine HCl (Lidocaine Inj Pf 2% 5 Ml Vial) 5 ml INFL X1 ONE Stop: 06/20/24 08:47 Last Admin: 06/20/24 10:51 Dose: 5 ml Metoprolol Tartrate (Metoprolol Tartrate Inj 1 Mg/Ml Amp 5 Ml) 2.5 mg IVP X1 ONE Stop: 06/19/24 12:32 Last Admin: 06/19/24 12:45 Dose: 2.5 mg Morphine Sulfate (Morphine Sulf Inj 10 Mg/Ml Vial) 5 mg IVP X1 ONE Stop: 06/19/24 10:18 Last Admin: 06/19/24 10:25 Dose: 5 mg Morphine Sulfate (Morphine Sulf Inj 10 Mg/Ml Vial) 5 mg IVP X1 ONE Stop: 06/19/24 12:30 Last Admin: 06/19/24 12:37 Dose: 5 mg Morphine Sulfate (Morphine Sulf Inj 10 Mg/Ml Vial) 2 mg IVP Q2H PRN PRN Reason: PAIN SCALE 7-10 (Severe Stop: 06/24/24 14:17 Last Admin: 06/19/24 16:28 Dose: 2 mg Nitroglycerin (Nitroglycerin Oint 2% 1 Inch Packet) 1 inch TOP X1 ONE Stop: 06/19/24 12:30 Last Admin: 06/19/24 12:37 Dose: 1 inch Ondansetron HCl (Ondansetron Inj 2 Mg/Ml Inj 2 Ml) 4 mg IV X1 ONE Stop: 06/19/24 09:47 Last Admin: 06/19/24 10:07 Dose: 4 mg Pantoprazole Sodium (Pantoprazole Inj 40 Mg Vial) 40 mg IVP BID NYDIA Stop: 07/20/24 09:59 Last Admin: 06/21/24 08:09 Dose: 40 mg Potassium Chloride (Potassium Chloride 20 Meq Tabcr) 40 meq PO X1 ONE Stop: 06/23/24 08:07 Last Admin: 06/23/24 08:21 Dose: 40 meq Potassium Chloride (Potassium Chloride 20 Meq Tabcr) 20 meq PO X1 ONE Stop: 06/23/24 08:07 Last Admin: 06/23/24 08:21 Dose: 20 meq Quetiapine Fumarate (Quetiapine Fumarate 25 Mg Tablet) 25 mg PO BID NYDIA Stop: 07/23/24 13:59 Last Admin: 06/25/24 21:01 Dose: 25 mg Sodium Bicarbonate (Sodium Bicarb Inj 8.4% 1 Meq/Ml 50 Ml Vial) 50 meq IV X1 ONE Stop: 06/19/24 17:18 Last Admin: 06/19/24 17:23 Dose: Not Given Sodium Bicarbonate (Sodium Bicarb Inj 8.4% Syr 50 Ml Syringe) 50 ml IV X1 ONE Stop: 06/19/24 17:24 Last Admin: 06/19/24 17:26 Dose: 50 ml Assessment & Plan Plan Shaheed Fernandez is a 63-year-old male with past medical history of CAD, pacemaker/defibrillator by Dr. Ramirez in [place] for abnormal rhythm CHF, hypertension, COPD who came into our ER after he was woken up at 2 AM with chest pain and admitted to the ICU for further management of shock and has since been downgraded to floors. #KERWIN secondary to ATN vs cardiorenal syndrome Patient's renal function today noted to be BUN 88, creatinine 3.2, GFR 21. Renal ultrasound 06/26/24 shows Mild bilateral renal parenchymal scar formation Recommendations/plan: -Patient was given 1 L LR bolus today, did have elevated lactate -Patient's urine output not being charted, ordered strict I&O's -Urine electrolytes pending -Monitor renal function in a.m. -Avoid nephrotoxic agents, renally dose medications #Acute encephalopathy likely secondary to ICU delirium #Agitation?resolved #Ischemic hepatitis, improving #Hyperbilirubinemia #Shock?resolved #Acute on chronic HFrEF, EF 15-20% #Troponinemia,?likely secondary to demand ischemia?resolved #Acute hypoxic respiratory failure due to pulmonary edema, resolved #History of COPD #Hypokalemia #High anion gap metabolic acidosis, resolved #Lactic acidosis, resolved -Management as per primary team Case discussed with Attending Dr. Rodriguez. Ritu Ray PGY1 Disclaimer: This note was dictated by speech recognition. Minor errors in national dedicated truck driver may be present due to voice recognition software. Attending Provider Attestation/Addendum Pt is seen and examined. Labs and investigations are reviewed. Agree witth assessment and plan by resident. agree with findings. Jose Rodriguez MD
--- NOTE | 2024-06-27 09:51 | PD.RESPRO ---
Documentation for date of: 06/27/24 Subjective Subjective Interval history: Seen and examined with son at bedside. Confused improved, answering question appropriately, states feeling sleepy and tired. BP 92/66, HR 87, satting well on room air. Had a spike WBC of 20.1, remains afebrile, Hgb 10.6 at baseline, PLT 154. Renal function remains poor, BUN 88, CR 3.2, GFR 21, magnesium 2.9, potassium 4.2. LFTs downtrending, AST 260, ALT 03/24/1990, ALP 197. ALBUMIN 2.8. Blood culture remains negative after 5 days. Recommended maintaining potassium greater than 4 to avoid further SVTs. Exam Vital Signs Temp Pulse Resp BP Pulse Ox O2 Del Method O2 Flow Rate 97.0 F 85 17 112/88 H 91 L Room Air 2 06/27/24 04:00 06/27/24 08:04 06/27/24 08:04 06/27/24 04:00 06/27/24 08:04 06/27/24 04:00 06/26/24 07:43 Narrative Exam General: Patient appears to be in no acute distress but is slightly somnolent. Eyes: Pupils are equal and reactive to light bilaterally. HEENT: Atraumatic, normocephalic. Mucosa moist. Cardiovascular: Normal S1 and S2. Normal rate and regular rhythm. 2 or 6 systolic murmur heard at the apex. No peripheral pitting edema noted. Respiratory: No respiratory distress. Lungs are clear to auscultation bilaterally. No wheezing or crackles heard. Abdomen: Soft, nontender, nondistended. Skin: No rash. Warm to touch. Musculoskeletal: No gross injuries. Able to move all 4 extremities. Neuro: Confusion slightly improved, remains unable to participate fully with neuroexam. Objective Labs 06/29/24 05:21 06/29/24 05:21 Labs: Laboratory Results - last 24 hr 06/27/24 05:19 WBC 20.1 H D RBC 3.59 L Hgb 10.6 L Hct 33.2 L MCV 93 MCH 29.5 MCHC 31.9 RDW Std Deviation 53.3 H Plt Count 154 Neut % (Auto) 73 Lymph % (Auto) 6 L [place] % (Auto) 12 Eos % (Auto) 0 Baso % (Auto) 0 Neut # (Auto) 14.7 H Lymph # (Auto) 1.2 [place] # (Auto) 2.3 H Eos # (Auto) 0.1 Baso # (Auto) 0.1 Immature Gran # (Auto) 1.66 H Absolute Nucleated RBC 0.39 H Immature Gran % 8 H Nucleated RBC % 2 H Sodium 142 Potassium 4.2 Chloride 105 Carbon Dioxide 24.7 Anion Gap 12 BUN 88 H Creatinine 3.2 H Estim Creat Clear Calc 25.9 L eGFR 21 L BUN/Creatinine Ratio 28 H Glucose 131 H Calculated Osmolality 312 H Calcium 7.2 L Corrected Calcium 8.2 L Phosphorus 4.3 Magnesium 2.9 H Total Bilirubin 6.4 H D AST 260 H ALT 491 H Alkaline Phosphatase 197 H Total Protein 5.5 L Albumin 2.8 L Globulin 2.7 Albumin/Globulin Ratio 1.0 L ABG Interpretation ABG results: 06/19/24 06/19/24 06/20/24 16:21 17:41 08:48 ABG pH 7.10 L* ABG pCO2 20 L ABG pO2 105 ABG HCO3 6 L* ABG O2 Saturation 96 ABG Base Excess -21 L VBG pH 7.19 L 7.38 VBG pCO2 28 L 46 D VBG pO2 55 37 VBG Base Excess -16 L 1 06/20/24 06/20/24 06/20/24 11:10 17:54 19:45 ABG pH 7.39 D 7.39 ABG pCO2 40 D 45 ABG pO2 63 L D 90 D ABG HCO3 24 27 H ABG O2 Saturation 91 97 ABG Base Excess -1 2 VBG pH 7.37 7.45 VBG pCO2 44 36 VBG pO2 38 58 D VBG Base Excess 0 1 06/21/24 06/21/24 06/21/24 04:30 05:56 12:00 ABG pH 7.41 ABG pCO2 43 ABG pO2 102 ABG HCO3 27 H ABG O2 Saturation 99 H ABG Base Excess 2 VBG pH 7.53 7.39 VBG pCO2 29 L 51 D VBG pO2 115 H D 39 D VBG Base Excess 2 5 H 06/21/24 06/21/24 06/22/24 13:50 15:37 04:18 ABG pH 7.46 H ABG pCO2 39 ABG pO2 78 L D ABG HCO3 27 H ABG O2 Saturation 97 ABG Base Excess 3 VBG pH 7.41 7.54 VBG pCO2 49 30 L D VBG pO2 29 57 D VBG Base Excess 5 H 3 06/22/24 06/22/24 05:27 09:33 ABG pH ABG pCO2 ABG pO2 ABG HCO3 ABG O2 Saturation ABG Base Excess VBG pH 7.43 7.41 VBG pCO2 45 D 46 VBG pO2 39 48 VBG Base Excess 4 H 4 H Quality Measures Quality Measures VTE prophylaxis Assessment & Plan Assessment Current Active Medications: Generic Name Dose Route Start Last Admin Trade Name Freq PRN Reason Stop Dose Admin Acetaminophen 650 mg 06/19/24 14:18 Acetaminophen 325 Mg Tablet PO 07/19/24 14:17 Q6H PRN Fever >101.5 Acetaminophen 650 mg 06/19/24 14:18 06/26/24 21:00 Acetaminophen 325 Mg Tablet PO 07/19/24 14:17 650 mg Q6H PRN Administration PAIN SCALE 1-3 (mild Albuterol/Ipratropium 3 ml 06/20/24 07:13 Albuterol/Ipratropium (Duoneb) Rt Yamila 3 Ml Nebu INH 07/20/24 07:12 Q2HR PRN SHORTNESS OF BREATH OR WHEEZE Aspirin 81 mg 06/20/24 09:00 06/26/24 08:56 Aspirin Ec 81 Mg Tabec PO 07/20/24 08:59 81 mg QDAY NYDIA Administration Atorvastatin Calcium 80 mg 06/20/24 21:00 06/26/24 21:00 Atorvastatin Calcium 20 Mg Tablet PO 07/20/24 20:59 80 mg HS NYDIA Administration Famotidine 10 mg 06/25/24 21:00 06/26/24 21:01 Famotidine 20 Mg Tablet PO 07/25/24 20:59 10 mg HS NYDIA Administration Heparin Sodium (Porcine) 5,000 unit 06/19/24 22:00 06/27/24 05:30 Heparin Sod Inj 5000 Unit/Ml Vial SC 07/03/24 21:59 Not Given Q8HR NYDIA Metoprolol Succinate 25 mg 06/26/24 14:15 06/26/24 15:15 Metoprolol Succinate Xl 25 Mg Tabcr PO 07/26/24 14:14 25 mg QDAY NYDIA Administration Ondansetron HCl 4 mg 06/19/24 14:18 Ondansetron Inj 2 Mg/Ml Inj 2 Ml IV 07/19/24 14:17 Q6H PRN NAUSEA OR VOMITING Protocol Plan 63-year-old male with past medical history of coronary artery disease, pacemaker/defibilator placed by Dr. 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 Initial labs in the ED showed WBC count of 29.8 . pH?7.10, pCO2 20, bicarb of 6, sodium?137, potassium?4.7, chloride 97, carbon oxide?14.6, BUN 33, AG 28, creatinine 2.5, lactic acid?18, total bilirubin?5.3, AST?5489, ALT?2363, alk phos?140, elevated troponin initial was 3.5 for the repeat troponin is 4.52. Chest x-ray did not show any pneumonia/no pulmonary fuction . Cardiogenic shock- resolved NSTEMI most likely type II in setting of Meth use. Cardiomyopathy from meth use. HFrEF 15-20 % Presented with Chief complain of pain abdomen , labs showed elevated troponin 3.5 , repeat troponin was 4.5, -motteling present on B/l legs -he denies chest pain -Bedside US showed EF of 15-20 % -he has [employer]-D placed by Dr Tam [facility] unknown exact date -His elevated troponin could be type I versus type II, most likely in the setting of sepsis -Echo 2018 shows - Normal left ventricular size and function. Approximate ejection fraction is 30-35%. Moderate mitral and tricuspid regurgitation noted. Mild pulmonic regurgitation.Mild PHTN. Slight posterior MVP. -he received 1 L NS in ED. Plan: - Continue on aspirin, atorvastatin, Coreg. - Once KERWIN has improved patient can be discharged on Lasix 40 mg daily and losartan 25 mg daily. 06/20/2024: troponin went upto 12 , meth positive in utox , lactic acid trending down. he is still on dobutamine 2mcg , AST > 6000, ALT- 3300, procsl- 6.08 . levophed added to maintain the pressure. he has overall poor prognosis, levophed requirement going up . 06/21/2024: Norepinephrine was discontinued by ICU team, he is able to maintain blood pressure around 90/60. Continue dobutamine drip. LFTs are downtrending. 06/22/2024: He is being off pressors. Echo showed -Findings are consistent with dilated cardiomyopathy severe global hypokinesis.Left ventricle is markedly dilated with severe LV dysfunction severe global hypokinesis ejection fraction 15 to 20% . he needs to quit meth permanently . patient downgraded to floors . 06/23/2024: He will require goal-directed medical therapy currently only on Coreg, His kidney function is creatinine 2.4 with creatinine clearance of 24.4. Patient has home Jardiance who, Lasix and lisinopril at home. he needs to quit meth and follow this PCP . he is restrained in bed , probably withdrawing from meth. 06/25/2024: He will require goal-directed medical therapy currently only on Coreg, His kidney function is creatinine 3 with creatinine clearance of 27.7 Patient has home Jardiance who, Lasix and lisinopril at home. he needs to quit meth and follow this PCP .Head Ct was ordered by primary team which showed - Negative for acute hemorrhage, mass effect or midline shift. pending placement. . He can follow-up with primary reservations sales agent as an outpatient he has a private reservations sales agent Dr. Torres in [place]. 06/26/2024: Patient still mildly confused and unable to give proper history. Blood pressure was soft this morning at 95/64 mmHg and renal function appears to have slightly answered with a BUN of 89 with creatinine of 3.2. Agree with IV fluids for now. Primary team did stop the Coreg for the patient.Patient had 10 beat NSVT and discussed with the primary team to keep potassium greater than 4 and magnesium greater than 2.0. Recommend to start patient on metoprolol XL 25 mg once daily given the patient has NSVT once blood pressure is permissible. 06/27/2024: BP remains soft 92/66, HR 87 with METOPROLOL XL 25 mg daily. No improvement in renal function from yesterday, CR 3.2, BUN 88, GFR 21. Potassium 4.2, mag 2.3. ? Continue METOPROLOL XL 25 daily for NSVT as long as BP tolerates ? Continue IVF, monitor renal function ? Maintain K>4, MAG >2 Management of rest of the medical conditions as per primary team and other consultants. Thank you for the consult and allowing me to participate in the care of the patient. Cardiology will continue to follow. Thank you for the opportunity to participate in the patient's care. Case was discussed with attending, Dr. Ortega. Zuleika Zurita, DO PGYI Attending Provider Attestation/Addendum I have personally seen and examined the patient separately on the above date of service and discussed the plan of care with the resident. I reviewed the resident Dr. Zuleika Zurita consultation progress note and agree with the resident findings and plan in the note above and have also edited the documentation to reflect my findings and plan. Damian Ortega M.D. Interventional Cardiology
[2024-06-27] MEDS: ASPIRIN EC 81 MG TABEC PO (10:01)
--- NOTE | 2024-06-27 10:42 | ESPR_ITS ---
Documentation for date of: 06/27/24 Subjective Subjective Interval history: No acute overnight events noted. Seen and examined at bedside and patient again appears confused and unable to appropriately answer orientation questions. Kyle britt called in afternoon as patient attempted to walk out of his room for a bowel movement but no aggressive measures required. Vital signs stable, though blood pressure on softer side of 97/71 and afebrile. WBC noted to jump from 13 to 20, hemoglobin stable at 10.6. Renal function elevated but stable at 3.2, BUN elevated at 88, mag 2.9, total bilirubin increased from 5.8 to 6.4, AST increased from 200 to 260, and lactate elevated at 3.0. Renal ultrasound obtained yesterday and showed mild bilateral renal parenchymal scar formation. Per nursing staff, had bowel movement that appeared bloody with some stool that was dark and occult blood sent to lab. Exam Vital Signs Temp Pulse Resp BP Pulse Ox O2 Del Method O2 Flow Rate 97.4 F 87 17 92/66 91 L Room Air 2 06/27/24 08:00 06/27/24 09:30 06/27/24 08:04 06/27/24 09:30 06/27/24 08:04 06/27/24 04:00 06/26/24 07:43 Narrative Exam General: alert and orientated x0, lethargic, able to speak full sentences HEENT: NC/AT, mucous membranes moist, bilateral sclera anicteric Cardiovascular: regular rate and rhythm, S1/S2 present, no murmurs appreciated Pulmonary: clear to auscultation bilaterally, no rales/rhonchi/wheezes Abdominal: soft, non-tender, non-distended, no rebound/guarding, normal bowel sounds present Musculoskeletal: normal ROM, no peripheral edema Skin: warm and dry, intact, no rashes Neuro: CN II-XII intact, no focal deficits Objective Labs 06/27/24 05:19 06/27/24 05:19 Labs: Laboratory Results - last 24 hr 06/27/24 05:19 WBC 20.1 H D RBC 3.59 L Hgb 10.6 L Hct 33.2 L MCV 93 MCH 29.5 MCHC 31.9 RDW Std Deviation 53.3 H Plt Count 154 Neut % (Auto) 73 Lymph % (Auto) 6 L [place] % (Auto) 12 Eos % (Auto) 0 Baso % (Auto) 0 Neut # (Auto) 14.7 H Lymph # (Auto) 1.2 [place] # (Auto) 2.3 H Eos # (Auto) 0.1 Baso # (Auto) 0.1 Immature Gran # (Auto) 1.66 H Absolute Nucleated RBC 0.39 H Immature Gran % 8 H Nucleated RBC % 2 H Sodium 142 Potassium 4.2 Chloride 105 Carbon Dioxide 24.7 Anion Gap 12 BUN 88 H Creatinine 3.2 H Estim Creat Clear Calc 25.9 L eGFR 21 L BUN/Creatinine Ratio 28 H Glucose 131 H Calculated Osmolality 312 H Calcium 7.2 L Corrected Calcium 8.2 L Phosphorus 4.3 Magnesium 2.9 H Total Bilirubin 6.4 H D AST 260 H ALT 491 H Alkaline Phosphatase 197 H Total Protein 5.5 L Albumin 2.8 L Globulin 2.7 Albumin/Globulin Ratio 1.0 L ABG Interpretation ABG results: 06/19/24 06/19/24 06/20/24 16:21 17:41 08:48 ABG pH 7.10 L* ABG pCO2 20 L ABG pO2 105 ABG HCO3 6 L* ABG O2 Saturation 96 ABG Base Excess -21 L VBG pH 7.19 L 7.38 VBG pCO2 28 L 46 D VBG pO2 55 37 VBG Base Excess -16 L 1 06/20/24 06/20/24 06/20/24 11:10 17:54 19:45 ABG pH 7.39 D 7.39 ABG pCO2 40 D 45 ABG pO2 63 L D 90 D ABG HCO3 24 27 H ABG O2 Saturation 91 97 ABG Base Excess -1 2 VBG pH 7.37 7.45 VBG pCO2 44 36 VBG pO2 38 58 D VBG Base Excess 0 1 06/21/24 06/21/24 06/21/24 04:30 05:56 12:00 ABG pH 7.41 ABG pCO2 43 ABG pO2 102 ABG HCO3 27 H ABG O2 Saturation 99 H ABG Base Excess 2 VBG pH 7.53 7.39 VBG pCO2 29 L 51 D VBG pO2 115 H D 39 D VBG Base Excess 2 5 H 06/21/24 06/21/24 06/22/24 13:50 15:37 04:18 ABG pH 7.46 H ABG pCO2 39 ABG pO2 78 L D ABG HCO3 27 H ABG O2 Saturation 97 ABG Base Excess 3 VBG pH 7.41 7.54 VBG pCO2 49 30 L D VBG pO2 29 57 D VBG Base Excess 5 H 3 06/22/24 06/22/24 05:27 09:33 ABG pH ABG pCO2 ABG pO2 ABG HCO3 ABG O2 Saturation ABG Base Excess VBG pH 7.43 7.41 VBG pCO2 45 D 46 VBG pO2 39 48 VBG Base Excess 4 H 4 H Quality Measures Quality Measures VTE prophylaxis Assessment & Plan Assessment Current Active Medications: Generic Name Dose Route Start Last Admin Trade Name Freq PRN Reason Stop Dose Admin Acetaminophen 650 mg 06/19/24 14:18 Acetaminophen 325 Mg Tablet PO 07/19/24 14:17 Q6H PRN Fever >101.5 Acetaminophen 650 mg 06/19/24 14:18 06/26/24 21:00 Acetaminophen 325 Mg Tablet PO 07/19/24 14:17 650 mg Q6H PRN Administration PAIN SCALE 1-3 (mild Albuterol/Ipratropium 3 ml 06/20/24 07:13 Albuterol/Ipratropium (Duoneb) Rt [place] 3 Ml Nebu INH 07/20/24 07:12 Q2HR PRN SHORTNESS OF BREATH OR WHEEZE Aspirin 81 mg 06/20/24 09:00 06/27/24 10:01 Aspirin Ec 81 Mg Tabec PO 07/20/24 08:59 81 mg QDAY NYDIA Administration Atorvastatin Calcium 80 mg 06/20/24 21:00 06/26/24 21:00 Atorvastatin Calcium 20 Mg Tablet PO 07/20/24 20:59 80 mg HS NYDIA Administration Famotidine 10 mg 06/25/24 21:00 06/26/24 21:01 Famotidine 20 Mg Tablet PO 07/25/24 20:59 10 mg HS NYDIA Administration Heparin Sodium (Porcine) 5,000 unit 06/19/24 22:00 06/27/24 05:30 Heparin Sod Inj 5000 Unit/Ml Vial SC 07/03/24 21:59 Not Given Q8HR NYDIA Lactated Ringer's 500 mls @ 999 mls/hr 06/27/24 10:13 Lactated Ringers IV 06/27/24 10:43 .Q31M ONE Ceftriaxone Sodium/Dextrose 1 gm in 50 mls @ 100 mls/hr 06/27/24 10:13 Rocephin/D5w 1gm Iv Premix IV 07/04/24 10:12 QDAY NYDIA Metoprolol Succinate 25 mg 06/26/24 14:15 06/27/24 09:30 Metoprolol Succinate Xl 25 Mg Tabcr PO 07/26/24 14:14 Not Given QDAY NYDIA Midodrine 5 mg 06/27/24 14:00 Midodrine 5 Mg Tablet PO 07/27/24 13:59 TID NYDIA Ondansetron HCl 4 mg 06/19/24 14:18 Ondansetron Inj 2 Mg/Ml Inj 2 Ml IV 07/19/24 14:17 Q6H PRN NAUSEA OR VOMITING Protocol Plan Shaheed Fernandez is a 63-year-old male with past medical history of CAD, pacemaker/defibrillator by Dr. Ramirez in [place] for abnormal rhythm CHF, hypertension, COPD who came into our ER after he was woken up at 2 AM with chest pain and admitted to the ICU for further management of shock and has since been downgraded to floors. #Acute encephalopathy likely secondary to ICU delirium #Agitation?resolved Likely metabolic from substance abuse versus shock. ? CTM vital signs and symptoms ? Considering patient's somnolence, Seroquel discontinued ? Follow-up ammonia #Leukocytosis, secondary to ? UTI #Lactic acidosis WBC increased from 13 to 20 overnight, afebrile. UA on admission showed 2+ protein, 2+ blood, 2+ bilirubin, 4 RBC, 9 WBC and no bacteria. Patient is encephalopathic and unable to obtain subjective. ? Follow-up urine culture ? Ceftriaxone 1 g IV daily (06/27-) #KERWIN secondary to ATN vs cardiorenal syndrome, BUN 88, creatinine 3.2 Renal ultrasound showed mild bilateral renal parenchymal scar formation. ? Nephrology consulted, will see patient on 06/27 ? Folllw-up urine studies ? 500 cc IVF bolus given ? Avoid nephrotoxic agents, renally dose medications #Ischemic hepatitis, improving #Hyperbilirubinemia Likely shock liver in setting of cardiogenic shock. AST peaked > 6000, ALT peaked at > 3300. T bili continues to uptrend at 8.0. Abdominal ultrasound revealed gallbladder wall thickening could be possibly from congestion Patient denied any right upper quadrant tenderness and there was no jaundice or fevers ? CTM #Shock, resolved #Acute on chronic HFrEF, EF 15-20% Likely cardiogenic versus distributive. Presented with chest pain that started in the early hours of the night. Computer Help Desk Representative consulted in ED, and Dr. Kiran did bedside US which showed estimated EF of 15 to 20%. Echo 06/22: Dilated cardiomyopathy, severe global hypokinesis/LV dysfunction, EF 15 to 20%, moderate to severe TR, moderate, PA pressure 55 mmHg, moderate MR secondary to mitral annulus dilatation, severely dilated LA, mildly dilated RA. History of meth abuse and he did test positive for methamphetamine on his urine tox. Presented with troponin of 3.5 and peaked at 13.25, BNP > 3280. Patient's cardiac output improved with pressor support and dobutamine drip in ICU but have since been discontinued. ? Cardiology consulted, recommended to start GDMT as BP tolerates ? Strict I's and O's ? Aspirin 81 mg p.o. daily ? Coreg switched to metoprolol succinate 25 mg p.o. daily #Troponinemia, likely secondary to demand ischemia, resolved Likely NSTEMI type II due to demand ischemia EKG did not show any obvious signs of ST segment elevation #Acute hypoxic respiratory failure due to pulmonary edema, resolved #History of COPD Currently saturating well on room air. Lungs clear to auscultation on exam. Previously spitting out frothy sputum that is mixed with dried blood likely from nasopharyngeal bleed vs DIC. ? Oxygen support ? Frequent suctioning ? DuoNebs as needed for wheezing #Hypokalemia Likely secondary to ATN. Phos and Mg within normal limits. ? Repleted with 60 mEq IV potassium ? Monitor daily labs and replete as needed #High anion gap metabolic acidosis, resolved #Lactic acidosis, resolved Hospital Maintenance: Dispo: Pending clinical course, likely DC in 1 to 2 days pending improvement and SNF authorization as well as specialist recommendations FEN: Cardiac diet DVT PPx: Heparin GI PPx: pepcid IV lines: PIV Code Status: DNR/DNI Attending Provider Attestation/Addendum I have discussed and was present for the essential components of the history, physical examination, diagnosis, and treatment plan with the resident. I agree with the patient's care as documented by the resident and amended herein by me. Yuval Smith DO. Patient seen and evaluated this AM. No acute events overnight, vital signs stable, patient afebrile, WBC did elevate to 20 today, no apparent source of infection, patient still confused, ANO x 1 this morning, renal function still impaired, BUN 88, creatinine 3.2. Aside from the patient's uremia, patient may have a urinary tract infection, urine cultures ordered and will start patient on ceftriaxone empirically. I did hold the patient's metoprolol succinate this morning due to low BP, we did give a small 500 mL bolus. Cardiology consulted, appreciate recommendations nephrology also consulted will see patient this afternoon for additional recommendations. Renal ultrasound was performed yesterday showed mild bilateral parenchymal scar formation, spot protein, creatinine and urea ordered and is pending. Continue to monitor closely Although this document has been carefully reviewed, there may still be some phonetic and other typographical errors. These errors are purely grammatical due to imperfections in the software program and should not be construed in any way to compromise the substance of the patient's medical care during this visit.
[2024-06-27] MEDS: RINGERS LACTATED 1000 ML 1,000 ML 999 ML IV (11:13)
[2024-06-27] MEDS: cefTRIAXone/D5w 1gm IV premix 1 GM/50 ML BAG IV (11:20)
[2024-06-27 13:58] LABS: Reflex Lactate? Y
[2024-06-27 14:28] LABS: Lactic Acid, 3 HR 3.3 mMol/L (0.4-2.0)
[2024-06-27] MEDS: SODIUM CHLORIDE 0.9% 250 ML 250 ML 100 ML IV (14:42)
[2024-06-27] MEDS: MIDODRINE 5 MG TABLET PO ×2 (14:49→21:13)
[2024-06-27] MEDS: HEPARIN SOD INJ 5000 UNIT/ML VIAL SC ×2 (14:49→21:14)
[2024-06-27 16:51] LABS: Chloride,Urine Random < 20.0 mMol/L (55.0-125.0); Creatinine,Random Urine 72 mg/dL (30-125); Potassium,Urine Random 53 mMol/L (12-62); Sodium,Urine Random < 10.0 mMol/L (20.0-110.0)
[2024-06-27] MEDS: ONDANSETRON INJ 2 MG/ML INJ 2 ML 4 MG IV (17:17)
[2024-06-27 17:52] LABS: Ammonia 18 uMol/L (11-32)
[2024-06-27] MEDS: FAMOTIDINE 20 MG TABLET 10 MG PO (21:13)
[2024-06-27] MEDS: ATORVASTATIN CALCIUM 20 MG TABLET 80 MG PO (21:14)
[2024-06-27] MEDS: ACETAMINOPHEN 325 MG TABLET 650 MG PO (23:03)
[2024-06-28] VITALS (15 sets, daily range): BP systolic 95–118; BP diastolic 63–74; PULSE 60–91; RESP 14–99; TEMP 36.1–36.3; O2SAT 92–99
[2024-06-28] MEDS: HEPARIN SOD INJ 5000 UNIT/ML VIAL SC ×3 (05:45→21:44)
[2024-06-28] MEDS: MIDODRINE 5 MG TABLET PO ×3 (05:45→21:46)
[2024-06-28 06:11] LABS: Basophils # (Auto) 0.2 Thou/mm3 (0.0-0.2); Basophils % (Auto) 1 % (0-2.5); Eosinophils % (Auto) 0 % (0-10); Hematocrit 36.8 % (41.0-53.0); Hemoglobin 11.7 g/dL (13.5-16.0); Immature Granulocytes % (Auto) 4 % (0-0); Immature Granulocytes Auto 1.61 Thou/mm3 (0.00-0.00); Lymphocytes # (Auto) 1.2 Thou/mm3 (1.0-4.8); Lymphocytes % (Auto) 3 % (10-50); Mean Corpuscular HGB Conc 31.8 g/dl (31.0-37.0); Mean Corpuscular Hemoglobin 29.8 pg (25.0-35.0); Mean Corpuscular Volume 94 fL (80-100); Monocytes # (Auto) 3.2 Thou/mm3 (0.0-0.8); Monocytes % (Auto) 9 % (0-12); Neutrophils # (Auto) 30.1 Thou/mm3 (1.8-7.7); Neutrophils % (Auto) 83 % (37-80); Nucleated Red Blood Cell % 1 /100 WBC (0); Platelet Count 165 Thou/mm3 (140-440); RDW Standard Deviation 54.8 fL (35.1-43.9); Red Blood Count 3.92 Miln/mm3 (4.50-5.90)
[2024-06-28 06:20] LABS: White Blood Count 36.3 Thou/mm3 (3.8-10.6)
--- NOTE | 2024-06-28 06:21 | PC.NURSE ---
MD Gonzalez notified that patient's WBC this AM is 36.3. No new orders given
[2024-06-28 06:26] LABS: Path Review Blood Smear Sent to Pathologist
[2024-06-28 06:36] LABS: Alanine Aminotransferase 428 U/L (10-49); Albumin, Serum 2.6 gm/dL (3.4-4.8); Alkaline Phosphatase 209 U/L (46-116); Anion Gap 12 (7-16); Aspartate Amino Transferase 341 U/L (0-34); BUN/Creatinine Ratio 31 Ratio (12-20); Bilirubin,Total 6.1 mg/dL (0.3-1.2); Blood Urea Nitrogen 99 mg/dL (9-23); Calcium 6.9 mg/dL (8.3-10.6); Carbon Dioxide 26.1 mMol/L (20.0-31.0); Chloride 106 mMol/L (98-107); Creatinine (Component) 3.2 mg/dL (0.6-1.3); Estimated Creatinine Clearance 25.9 mL/min (>60); Globulin 2.7 gm/dL (2.3-3.5); Glucose 132 mg/dL (74-106); Magnesium 2.8 mg/dL (1.6-2.6); Osmolality,Calculated 319 (275-295); Potassium 3.8 mMol/L (3.4-5.1); Sodium 144 mMol/L (136-145); Total Protein 5.3 gm/dL (5.7-8.2); eGFR 21 See Note
[2024-06-28 08:38] LABS: Lactate (Lactic Acid) 3.6 mMol/L (0.4-2.0)
[2024-06-28] MEDS: CALCIUM CARBONATE 600 MG TABLET 1200 MG PO (08:59)
[2024-06-28] MEDS: ASPIRIN EC 81 MG TABEC PO (08:59)
[2024-06-28] MEDS: METOPROLOL SUCCINATE XL 25 MG TABCR PO (08:59)
[2024-06-28] MEDS: RINGERS LACTATED 1000 ML 1,000 ML 999 ML IV ×2 (09:00→14:55)
[2024-06-28] MEDS: cefTRIAXone/D5w 1gm IV premix 1 GM/50 ML BAG IV (09:00)
[2024-06-28] MEDS: PIPER/TAZO 3.375 GM PREMIX 3.375 GM/50 ML BAG IV ×3 (09:19→21:46)
--- NOTE | 2024-06-28 09:23 | PD.RESPRO ---
Documentation for date of: 06/28/24 Subjective Subjective Interval history: Mr. Fernandez is a 63-year-old male with past medical history of CAD, pacemaker/defibrillator by Dr. Ramirez in [place] for abnormal rhythm CHF, hypertension, COPD who came into our ER after he was woken up at 2 AM with chest pain. Patient was a poor historian but did endorse that he woke up at 2 AM with severe chest pain that caused some nausea and vomiting after which he decided to come to the ED. Patient lives alone he called 911. In the ED patient was found to be tachycardic with a pulse of 121 saturating at 92% on room air. Troponins were found to be elevated at 3.54 initially and climbed up to 4.52 by the time we saw him at bedside. Patient was also found to have elevated transaminases in the thousands. Chest x-ray revealed no pulmonary edema and EKG showed sinus tachycardia. Patient was given Zofran as well as 1 L bolus of fluids and morphine in the ER as well as aspirin and nitroglycerin and metoprolol which seem to have helped the patient's pain at the time. Patient had elevated JVP, bedside ultrasound showed high suspicion of cardiogenic shock patient was admitted to the ICU for further management. With further progression of hospital course patient was downgraded to telemetry, after being weaned off of Levophed and dobutamine. Patient's hospital course was complicated by ATN and shock liver. Nephrology consulted in setting of ATN. 06/27/2024: Patient's renal function today noted to be BUN 88, creatinine 3.2, GFR 21. Patient's urine output not being charted, ordered strict I&O's. Renal function is stable compared to yesterday, was given 1 L LR bolus today. Will follow renal function in a.m. open, patient did have elevated lactate today. Echocardiogram from 06/22 shows global hypokinesis with ejection fraction 15 to 20% 06/28/2024: Patient seen and examined at bedside, patient is alert and oriented x 3, though is somnolent and tired, patient has worsening lactate, otherwise has bilateral lower extremity mottling, there is concern of underlying shock, undifferentiated for now for which ICU team was consulted again today. Patient continues to have urine output, output not being charted as patient is noncompliant with urinary catheter, per nurse at bedside patient refuses catheterization and is removing catheter. Patient's BUN 99 today, creatinine stable at 3.2, GFR 21, patient does have concern of GI bleed, has had dark stools. Primary team will evaluate further, patient is still making urine, would recommend maintenance fluids low-dose 50 cc/h, 500 cc NS for about 10-hours, will monitor renal function in a.m. encouraged to obtain strict ULISES's and monitor urine output. Exam Vital Signs Temp Pulse Resp BP Pulse Ox O2 Del Method O2 Flow Rate 96.9 F 86 15 118/74 98 Nasal Cannula 3 06/28/24 08:00 06/28/24 08:59 06/28/24 08:00 06/28/24 08:59 06/28/24 08:00 06/28/24 08:00 06/28/24 08:00 Narrative Exam Constitutional: Pale disheveled elderly male in no acute distress CVS: RRR, S1 and S2 present, no murmurs, rubs or gallops . Capillary refills is about 4 seconds RESP: CTAB, no SOB, no rales, rhonchi or wheezing. No respiratory Distress GI: Normal BS, Nontender/Nondistended. MSK: Full range of motion, No trauma or deformities or masses. Skin: Skin is warm to the touch, there is mottling of the feet and knees Neuro: Patient is AAO x 3, somnolent unable to hold a conversation Objective Labs 06/29/24 05:21 06/29/24 05:21 Labs: Laboratory Results - last 24 hr 06/27/24 06/27/24 06/27/24 10:50 14:20 15:20 WBC RBC Hgb Hct MCV MCH MCHC RDW Std Deviation Plt Count Neut % (Auto) Lymph % (Auto) [place] % (Auto) Eos % (Auto) Baso % (Auto) Neut # (Auto) Lymph # (Auto) [place] # (Auto) Eos # (Auto) Baso # (Auto) Immature Gran # (Auto) Absolute Nucleated RBC Immature Gran % Nucleated RBC % Smear Path Review Sodium Potassium Chloride Carbon Dioxide Anion Gap BUN Creatinine Estim Creat Clear Calc eGFR BUN/Creatinine Ratio Glucose Calculated Osmolality Lactic Acid 3.0 H 3.3 H Calcium Corrected Calcium Phosphorus Magnesium Total Bilirubin AST ALT Alkaline Phosphatase Ammonia Total Protein Albumin Globulin Albumin/Globulin Ratio Ur Random Creatinine 72 Ur Random Sodium < 10.0 L Ur Random Potassium 53 Ur Random Chloride < 20.0 L Ur Random Urea Nitrogn 1099.0 H 06/27/24 06/28/24 06/28/24 17:25 04:56 08:13 WBC 36.3 H* D RBC 3.92 L Hgb 11.7 L Hct 36.8 L MCV 94 MCH 29.8 MCHC 31.8 RDW Std Deviation 54.8 H Plt Count 165 Neut % (Auto) 83 H Lymph % (Auto) 3 L [place] % (Auto) 9 Eos % (Auto) 0 Baso % (Auto) 1 Neut # (Auto) 30.1 H Lymph # (Auto) 1.2 [place] # (Auto) 3.2 H Eos # (Auto) 0.0 Baso # (Auto) 0.2 Immature Gran # (Auto) 1.61 H Absolute Nucleated RBC 0.40 H Immature Gran % 4 H Nucleated RBC % 1 H Smear Path Review Sent to Pathologist Sodium 144 Potassium 3.8 Chloride 106 Carbon Dioxide 26.1 Anion Gap 12 BUN 99 H Creatinine 3.2 H Estim Creat Clear Calc 25.9 L eGFR 21 L BUN/Creatinine Ratio 31 H Glucose 132 H Calculated Osmolality 319 H Lactic Acid 3.6 H Calcium 6.9 L Corrected Calcium 8.0 L Phosphorus 4.0 Magnesium 2.8 H Total Bilirubin 6.1 H AST 341 H ALT 428 H Alkaline Phosphatase 209 H Ammonia 18 Total Protein 5.3 L Albumin 2.6 L Globulin 2.7 Albumin/Globulin Ratio 1.0 L Ur Random Creatinine Ur Random Sodium Ur Random Potassium Ur Random Chloride Ur Random Urea Nitrogn ABG Interpretation ABG results: 06/19/24 06/19/24 06/20/24 16:21 17:41 08:48 ABG pH 7.10 L* ABG pCO2 20 L ABG pO2 105 ABG HCO3 6 L* ABG O2 Saturation 96 ABG Base Excess -21 L VBG pH 7.19 L 7.38 VBG pCO2 28 L 46 D VBG pO2 55 37 VBG Base Excess -16 L 1 06/20/24 06/20/24 06/20/24 11:10 17:54 19:45 ABG pH 7.39 D 7.39 ABG pCO2 40 D 45 ABG pO2 63 L D 90 D ABG HCO3 24 27 H ABG O2 Saturation 91 97 ABG Base Excess -1 2 VBG pH 7.37 7.45 VBG pCO2 44 36 VBG pO2 38 58 D VBG Base Excess 0 1 06/21/24 06/21/24 06/21/24 04:30 05:56 12:00 ABG pH 7.41 ABG pCO2 43 ABG pO2 102 ABG HCO3 27 H ABG O2 Saturation 99 H ABG Base Excess 2 VBG pH 7.53 7.39 VBG pCO2 29 L 51 D VBG pO2 115 H D 39 D VBG Base Excess 2 5 H 06/21/24 06/21/24 06/22/24 13:50 15:37 04:18 ABG pH 7.46 H ABG pCO2 39 ABG pO2 78 L D ABG HCO3 27 H ABG O2 Saturation 97 ABG Base Excess 3 VBG pH 7.41 7.54 VBG pCO2 49 30 L D VBG pO2 29 57 D VBG Base Excess 5 H 3 06/22/24 06/22/24 05:27 09:33 ABG pH ABG pCO2 ABG pO2 ABG HCO3 ABG O2 Saturation ABG Base Excess VBG pH 7.43 7.41 VBG pCO2 45 D 46 VBG pO2 39 48 VBG Base Excess 4 H 4 H Quality Measures Quality Measures VTE prophylaxis Assessment & Plan Assessment Current Active Medications: Generic Name Dose Route Start Last Admin Trade Name Freq PRN Reason Stop Dose Admin Acetaminophen 650 mg 06/19/24 14:18 Acetaminophen 325 Mg Tablet PO 07/19/24 14:17 Q6H PRN Fever >101.5 Acetaminophen 650 mg 06/19/24 14:18 06/27/24 23:03 Acetaminophen 325 Mg Tablet PO 07/19/24 14:17 650 mg Q6H PRN Administration PAIN SCALE 1-3 (mild Albuterol/Ipratropium 3 ml 06/20/24 07:13 Albuterol/Ipratropium (Duoneb) Rt [place] 3 Ml Nebu INH 07/20/24 07:12 Q2HR PRN SHORTNESS OF BREATH OR WHEEZE Aspirin 81 mg 06/20/24 09:00 06/28/24 08:59 Aspirin Ec 81 Mg Tabec PO 07/20/24 08:59 81 mg QDAY NYDIA Administration Atorvastatin Calcium 80 mg 06/20/24 21:00 06/27/24 21:14 Atorvastatin Calcium 20 Mg Tablet PO 07/20/24 20:59 80 mg HS NYDIA Administration Famotidine 10 mg 06/25/24 21:00 06/27/24 21:13 Famotidine 20 Mg Tablet PO 07/25/24 20:59 10 mg HS NYDIA Administration Heparin Sodium (Porcine) 5,000 unit 06/19/24 22:00 06/28/24 05:45 Heparin Sod Inj 5000 Unit/Ml Vial SC 07/03/24 21:59 5,000 unit Q8HR NYDIA Administration Lactated Ringer's 1,000 mls @ 999 mls/hr 06/28/24 08:51 06/28/24 09:00 Lactated Ringers IV 06/28/24 09:51 999 mls/hr .Q1H1M ONE Administration Piperacillin/Tazobactam/Dextrose 3.375 gm in 50 mls @ 100 mls/hr 06/28/24 09:15 06/28/24 09:19 Zosyn IV 06/28/24 09:44 100 mls/hr X1 ONE Administration Piperacillin/Tazobactam/Dextrose 3.375 gm in 50 mls @ 12.5 mls/hr 06/28/24 14:00 Zosyn IV 07/05/24 13:59 Q8HR NYDIA Metoprolol Succinate 25 mg 06/26/24 14:15 06/28/24 08:59 Metoprolol Succinate Xl 25 Mg Tabcr PO 07/26/24 14:14 25 mg QDAY NYDIA Administration Midodrine 5 mg 06/27/24 14:00 06/28/24 05:45 Midodrine 5 Mg Tablet PO 07/27/24 13:59 5 mg TID NYDIA Administration Ondansetron HCl 4 mg 06/19/24 14:18 06/27/24 17:17 Ondansetron Inj 2 Mg/Ml Inj 2 Ml IV 07/19/24 14:17 4 mg Q6H PRN Administration NAUSEA OR VOMITING Protocol Plan Shaheed Fernandez is a 63-year-old male with past medical history of CAD, pacemaker/defibrillator by Dr. Ramirez in [place] for abnormal rhythm CHF, hypertension, COPD who came into our ER after he was woken up at 2 AM with chest pain and admitted to the ICU for further management of shock and has since been downgraded to floors. #KERWIN secondary to ATN Patient's renal function today noted to be BUN 88, creatinine 3.2, GFR 21. Renal ultrasound 06/26/24 shows Mild bilateral renal parenchymal scar formation Recommendations/plan: -Patient was given 1 L LR bolus today, encouraged maintenance fluids 500 cc NS, 50 cc/h -Encouraged strict I&O's -Monitor renal function in a.m. -Avoid nephrotoxic agents, renally dose medications #Acute encephalopathy likely secondary to ICU delirium #Agitation?resolved #Ischemic hepatitis, improving #Hyperbilirubinemia #Shock, undifferentiated #Acute on chronic HFrEF, EF 15-20% #Troponinemia,?likely secondary to demand ischemia?resolved #Acute hypoxic respiratory failure due to pulmonary edema, resolved #History of COPD #Hypokalemia #High anion gap metabolic acidosis, resolved #Lactic acidosis, resolved -Management as per primary team Case discussed with Attending Dr. Rodriguez. Ritu Ray PGY1 Disclaimer: This note was dictated by speech recognition. Minor errors in inspector dials may be present due to voice recognition software. Attending Provider Attestation/Addendum Pt is seen and examined. Labs and investigations are reviewed. Agree witth assessment and plan by resident. agree with findings. Jose Rodriguez MD
[2024-06-28 11:33] LABS: Reflex Lactate? Y
--- NOTE | 2024-06-28 11:53 | PD.RESPRO ---
Documentation for date of: 06/28/24 Subjective Subjective Interval history: No acute overnight events noted. Seen and examined at bedside, and patient continues to have waxing and waning mentation as well as bowel bowel movements that are mixed with blood and some pieces of stool that are dark-colored. Trending lactate and currently peaking at 4.5, though in ICU was as high as 16. Additionally, WBC noted to jump from 20 to 36 and repeat increased to 42. Consulted ICU and recommended to obtain CTA abdomen due to concerns for ischemic bowel given that patient had abdominal pain after bowel movement with findings as mentioned above and history of cardiogenic shock upon presentation. However, patient is allergic to contrast and creatinine remains elevated at 3.2. Nephrology at this time recommends to continue monitoring. Consulted general surgery for possibility of ischemic bowel but given their relatively benign abdominal exam findings, not surgical abdomen. GI also consulted and recommends obtaining CT abdomen/pelvis for potential source identification. Exam Vital Signs Temp Pulse Resp BP Pulse Ox O2 Del Method O2 Flow Rate 96.9 F 86 15 118/74 98 Nasal Cannula 3 06/28/24 08:00 06/28/24 08:59 06/28/24 08:00 06/28/24 08:59 06/28/24 08:00 06/28/24 08:00 06/28/24 08:00 Narrative Exam General: alert, waxing and waning mentation, no acute distress HEENT: NC/AT, mucous membranes moist, bilateral sclera anicteric Cardiovascular: regular rate and rhythm, S1/S2 present, no murmurs appreciated Pulmonary: clear to auscultation bilaterally, no rales/rhonchi/wheezes Abdominal: mild distention, tender to palpation after BM but nontender shortly thereafter, bowel sounds present Musculoskeletal: normal ROM, no peripheral edema Skin: warm and dry, intact, no rashes Neuro: CN II-XII intact, no focal deficits Objective Labs 06/29/24 05:21 06/29/24 05:21 Labs: Laboratory Results - last 24 hr 06/27/24 06/27/24 06/27/24 14:20 15:20 17:25 WBC RBC Hgb Hct MCV MCH MCHC RDW Std Deviation Plt Count Neut % (Auto) Lymph % (Auto) [place] % (Auto) Eos % (Auto) Baso % (Auto) Neut # (Auto) Lymph # (Auto) [place] # (Auto) Eos # (Auto) Baso # (Auto) Immature Gran # (Auto) Absolute Nucleated RBC Immature Gran % Nucleated RBC % Smear Path Review Sodium Potassium Chloride Carbon Dioxide Anion Gap BUN Creatinine Estim Creat Clear Calc eGFR BUN/Creatinine Ratio Glucose Calculated Osmolality Lactic Acid 3.3 H Calcium Corrected Calcium Phosphorus Magnesium Total Bilirubin AST ALT Alkaline Phosphatase Ammonia 18 Total Protein Albumin Globulin Albumin/Globulin Ratio Ur Random Creatinine 72 Ur Random Sodium < 10.0 L Ur Random Potassium 53 Ur Random Chloride < 20.0 L Ur Random Urea Nitrogn 1099.0 H 06/28/24 06/28/24 04:56 08:13 WBC 36.3 H* D RBC 3.92 L Hgb 11.7 L Hct 36.8 L MCV 94 MCH 29.8 MCHC 31.8 RDW Std Deviation 54.8 H Plt Count 165 Neut % (Auto) 83 H Lymph % (Auto) 3 L [place] % (Auto) 9 Eos % (Auto) 0 Baso % (Auto) 1 Neut # (Auto) 30.1 H Lymph # (Auto) 1.2 [place] # (Auto) 3.2 H Eos # (Auto) 0.0 Baso # (Auto) 0.2 Immature Gran # (Auto) 1.61 H Absolute Nucleated RBC 0.40 H Immature Gran % 4 H Nucleated RBC % 1 H Smear Path Review Sent to Pathologist Sodium 144 Potassium 3.8 Chloride 106 Carbon Dioxide 26.1 Anion Gap 12 BUN 99 H Creatinine 3.2 H Estim Creat Clear Calc 25.9 L eGFR 21 L BUN/Creatinine Ratio 31 H Glucose 132 H Calculated Osmolality 319 H Lactic Acid 3.6 H Calcium 6.9 L Corrected Calcium 8.0 L Phosphorus 4.0 Magnesium 2.8 H Total Bilirubin 6.1 H AST 341 H ALT 428 H Alkaline Phosphatase 209 H Ammonia Total Protein 5.3 L Albumin 2.6 L Globulin 2.7 Albumin/Globulin Ratio 1.0 L Ur Random Creatinine Ur Random Sodium Ur Random Potassium Ur Random Chloride Ur Random Urea Nitrogn ABG Interpretation ABG results: 06/19/24 06/19/24 06/20/24 16:21 17:41 08:48 ABG pH 7.10 L* ABG pCO2 20 L ABG pO2 105 ABG HCO3 6 L* ABG O2 Saturation 96 ABG Base Excess -21 L VBG pH 7.19 L 7.38 VBG pCO2 28 L 46 D VBG pO2 55 37 VBG Base Excess -16 L 1 06/20/24 06/20/24 06/20/24 11:10 17:54 19:45 ABG pH 7.39 D 7.39 ABG pCO2 40 D 45 ABG pO2 63 L D 90 D ABG HCO3 24 27 H ABG O2 Saturation 91 97 ABG Base Excess -1 2 VBG pH 7.37 7.45 VBG pCO2 44 36 VBG pO2 38 58 D VBG Base Excess 0 1 06/21/24 06/21/24 06/21/24 04:30 05:56 12:00 ABG pH 7.41 ABG pCO2 43 ABG pO2 102 ABG HCO3 27 H ABG O2 Saturation 99 H ABG Base Excess 2 VBG pH 7.53 7.39 VBG pCO2 29 L 51 D VBG pO2 115 H D 39 D VBG Base Excess 2 5 H 06/21/24 06/21/24 06/22/24 13:50 15:37 04:18 ABG pH 7.46 H ABG pCO2 39 ABG pO2 78 L D ABG HCO3 27 H ABG O2 Saturation 97 ABG Base Excess 3 VBG pH 7.41 7.54 VBG pCO2 49 30 L D VBG pO2 29 57 D VBG Base Excess 5 H 3 06/22/24 06/22/24 05:27 09:33 ABG pH ABG pCO2 ABG pO2 ABG HCO3 ABG O2 Saturation ABG Base Excess VBG pH 7.43 7.41 VBG pCO2 45 D 46 VBG pO2 39 48 VBG Base Excess 4 H 4 H Quality Measures Quality Measures VTE prophylaxis Assessment & Plan Assessment Current Active Medications: Generic Name Dose Route Start Last Admin Trade Name Freq PRN Reason Stop Dose Admin Acetaminophen 650 mg 06/19/24 14:18 Acetaminophen 325 Mg Tablet PO 07/19/24 14:17 Q6H PRN Fever >101.5 Acetaminophen 650 mg 06/19/24 14:18 06/27/24 23:03 Acetaminophen 325 Mg Tablet PO 07/19/24 14:17 650 mg Q6H PRN Administration PAIN SCALE 1-3 (mild Albuterol/Ipratropium 3 ml 06/20/24 07:13 Albuterol/Ipratropium (Duoneb) Rt Yamila 3 Ml Nebu INH 07/20/24 07:12 Q2HR PRN SHORTNESS OF BREATH OR WHEEZE Aspirin 81 mg 06/20/24 09:00 06/28/24 08:59 Aspirin Ec 81 Mg Tabec PO 07/20/24 08:59 81 mg QDAY NYDIA Administration Atorvastatin Calcium 80 mg 06/20/24 21:00 06/27/24 21:14 Atorvastatin Calcium 20 Mg Tablet PO 07/20/24 20:59 80 mg HS NYDIA Administration Famotidine 10 mg 06/25/24 21:00 06/27/24 21:13 Famotidine 20 Mg Tablet PO 07/25/24 20:59 10 mg HS NYDIA Administration Heparin Sodium (Porcine) 5,000 unit 06/19/24 22:00 06/28/24 05:45 Heparin Sod Inj 5000 Unit/Ml Vial SC 07/03/24 21:59 5,000 unit Q8HR NYDIA Administration Piperacillin/Tazobactam/Dextrose 3.375 gm in 50 mls @ 12.5 mls/hr 06/28/24 14:00 Zosyn IV 07/05/24 13:59 Q8HR NYDIA Metoprolol Succinate 25 mg 06/26/24 14:15 06/28/24 08:59 Metoprolol Succinate Xl 25 Mg Tabcr PO 07/26/24 14:14 25 mg QDAY NYDIA Administration Midodrine 5 mg 06/27/24 14:00 06/28/24 05:45 Midodrine 5 Mg Tablet PO 07/27/24 13:59 5 mg TID NYDIA Administration Ondansetron HCl 4 mg 06/19/24 14:18 06/27/24 17:17 Ondansetron Inj 2 Mg/Ml Inj 2 Ml IV 07/19/24 14:17 4 mg Q6H PRN Administration NAUSEA OR VOMITING Protocol Plan Shaheed Fernandez is a 63-year-old male with past medical history of CAD, pacemaker/defibrillator by Dr. Ramirez in [place] for abnormal rhythm CHF, hypertension, COPD who came into our ER after he was woken up at 2 AM with chest pain and admitted to the ICU for further management of shock and has since been downgraded to floors. #Leukocytosis, secondary to ischemic bowel #Lactic acidosis Trending lactate and currently peaking at 4.5, in ICU was as high as 16. WBC increased from 20 to 36 and repeat increased to 42. Consulted ICU and recommended to obtain CTA abdomen due to concerns for ischemic bowel given that patient presented with cardiogenic shock, has had bloody bowel movements starting yesterday, FOBT (+), and abdominal pain on exam though resolved later on in same day. Attempted to obtain CTA abdomen but patient allergic to contrast and creatinine 3.2 and radiology stating to obtain without contrast. Also consulted general surgery for possibility of ischemic bowel but given their own relatively benign bowel, not surgical abdomen/candidate. GI also consulted and recommended obtaining CT A/P for source identification. Bedside echo 06/28 showed collapsible IVC. ? General surgery consulted, appreciate recommendations ? GI consulted, appreciate recommendations ? ICU consulted, appreciate recommendations ? Follow-up CT A/P ? Follow-up blood and urine cultures ? Continue zosyn #KERWIN secondary to ATN vs cardiorenal syndrome Renal ultrasound showed mild bilateral renal parenchymal scar formation. Renal function stable around 3.2. Patient is incontinent and unable to assess accurate I's and O's, but is still producing urine. BUN continues to increase and currently peaking at 99, which is likely contributing to altered mental status. ? Nephrology consulted, appreciate recommendations ? Folllow-up urine studies ? 500 cc IVF bolus given ? Avoid nephrotoxic agents, renally dose medications #Ischemic hepatitis, improving #Hyperbilirubinemia Likely shock liver in setting of cardiogenic shock. AST peaked > 6000, ALT peaked at > 3300. T bili continues to uptrend at 8.0. Abdominal ultrasound revealed gallbladder wall thickening could be possibly from congestion Patient denied any right upper quadrant tenderness and there was no jaundice or fevers ? CTM #Shock, resolved #Acute on chronic HFrEF, EF 15-20% #Troponinemia, likely secondary to demand ischemia, resolved Likely cardiogenic versus distributive. Presented with chest pain that started in the early hours of the night. [employer] consulted in ED, and Dr. Kiran did bedside US which showed estimated EF of 15 to 20%. Echo 06/22: Dilated cardiomyopathy, severe global hypokinesis/LV dysfunction, EF 15 to 20%, moderate to severe TR, moderate, PA pressure 55 mmHg, moderate MR secondary to mitral annulus dilatation, severely dilated LA, mildly dilated RA. History of meth abuse and he did test positive for methamphetamine on his urine tox. Presented with troponin of 3.5 and peaked at 13.25, BNP > 3280. Patient's cardiac output improved with pressor support and dobutamine drip in ICU but have since been discontinued. ? Cardiology consulted, recommended to start GDMT as BP tolerates ? Strict I's and O's ? Aspirin 81 mg p.o. daily ? Coreg switched to metoprolol succinate 25 mg p.o. daily #Acute encephalopathy likely secondary to ICU delirium #Agitation Likely metabolic from substance abuse versus shock. CT head 06/25 negative, ammonia within normal limits. Suspect ICU delirium vs hyperuricemia ? CTM vital signs and symptoms ? Considering patient's somnolence, Seroquel discontinued #Acute hypoxic respiratory failure due to pulmonary edema, resolved #History of COPD Currently saturating well on room air. Lungs clear to auscultation on exam. Previously spitting out frothy sputum that is mixed with dried blood likely from nasopharyngeal bleed vs DIC. ? Oxygen support ? Frequent suctioning ? DuoNebs as needed for wheezing #Hypokalemia Likely secondary to ATN. Phos and Mg within normal limits. ? Repleted with 60 mEq IV potassium ? Monitor daily labs and replete as needed #High anion gap metabolic acidosis, resolved Hospital Maintenance: Dispo: Pending clinical course, likely DC in 1 to 2 days pending improvement and SNF authorization as well as specialist recommendations FEN: Cardiac diet DVT PPx: Heparin GI PPx: pepcid IV lines: PIV Code Status: DNR/DNI ----- Plan discussed with attending physician Dr. Sarah Giron MD PGY-1 Internal Medicine Attending Provider Attestation/Addendum I have discussed and was present for the essential components of the history, physical examination, diagnosis, and treatment plan with the resident. I agree with the patient's care as documented by the resident and amended herein by me. Yuval Smith DO. Patient seen and evaluated this AM. No acute events overnight, patient's mentation is still not at baseline, he was able to answer questions this morning though however still very somnolent. Blood pressure still soft in the a.m. however did slightly improve in the mid afternoon. Patient on NC 3 L, SpO2 97% and has been afebrile. Significant labs today include a WBC of 36.3 however did uptrend to 42.6, hemoglobin 12.1 which has been stable, platelet count 195, neutrophil count 35.7, no eosinophils present, sodium potassium within normal limits, BUN 99 which is an uptrend from previous day and creatinine 3.2 which has been stable. Lactic acid 4.5 which is an increase, corrected calcium 8, mag 2.8, inflammatory markers were ordered today, ferritin elevated at 448, CRP 5.8, Pro-Jhonny 4.24 and ESR is pending. Unclear unclear etiology of the patient's sharply elevated WBC and lactic acidosis in the last 2 days, possible ischemic bowel however the patient really hasnt complained of much abdominal pain and was not tender to palpation of the abdomen this afternoon or this morning upon examination. Nursing staff has endorsed some bloody bowel movements and he was occult positive however Hb has slightly increased. General surgery was consulted and concluded the patient does not have any signs of bowel ischemia at the present time. Gastroenterology was also consulted and a CT abdomen and pelvis without contrast is pending per recomendations. BUN continues to increase, creatinine is relatively stable, no dialysis at this time per nephrology, will continue to administer fluids as necessary. Patient is already on Zosyn which we will continue, we did place the patient on metoprolol succinate several days ago however will hold as needed for soft blood pressure. Appreciate all specialist recommendations. Although this document has been carefully reviewed, there may still be some phonetic and other typographical errors. These errors are purely grammatical due to imperfections in the software program and should not be construed in any way to compromise the substance of the patient's medical care during this visit
[2024-06-28 12:17] LABS: Lactic Acid, 3 HR 4.5 mMol/L (0.4-2.0)
[2024-06-28 12:18] LABS: Basophils # (Auto) 0.2 Thou/mm3 (0.0-0.2); Basophils % (Auto) 0 % (0-2.5); Eosinophils % (Auto) 0 % (0-10); Hematocrit 36.9 % (41.0-53.0); Hemoglobin 12.1 g/dL (13.5-16.0); Immature Granulocytes % (Auto) 5 % (0-0); Immature Granulocytes Auto 1.97 Thou/mm3 (0.00-0.00); Lymphocytes # (Auto) 1.4 Thou/mm3 (1.0-4.8); Lymphocytes % (Auto) 3 % (10-50); Mean Corpuscular HGB Conc 32.8 g/dl (31.0-37.0); Mean Corpuscular Hemoglobin 29.7 pg (25.0-35.0); Mean Corpuscular Volume 90 fL (80-100); Monocytes # (Auto) 3.2 Thou/mm3 (0.0-0.8); Monocytes % (Auto) 8 % (0-12); Neutrophils # (Auto) 35.7 Thou/mm3 (1.8-7.7); Neutrophils % (Auto) 84 % (37-80); Nucleated Red Blood Cell # 0.38 Thou/mm3 (0.00-0.00); Nucleated Red Blood Cell % 1 /100 WBC (0); Platelet Count 195 Thou/mm3 (140-440); RDW Standard Deviation 53.3 fL (35.1-43.9); Red Blood Count 4.08 Miln/mm3 (4.50-5.90)
--- NOTE | 2024-06-28 12:18 | PD.RESPRO ---
Documentation for date of: 06/28/24 Exam Vital Signs Temp Pulse Resp BP Pulse Ox O2 Del Method O2 Flow Rate 96.9 F 86 15 118/74 98 Nasal Cannula 3 06/28/24 08:00 06/28/24 08:59 06/28/24 08:00 06/28/24 08:59 06/28/24 08:00 06/28/24 08:00 06/28/24 08:00 Objective Labs 06/28/24 04:56 06/28/24 04:56 Labs: Laboratory Results - last 24 hr 06/27/24 06/27/24 06/27/24 14:20 15:20 17:25 WBC RBC Hgb Hct MCV MCH MCHC RDW Std Deviation Plt Count Neut % (Auto) Lymph % (Auto) [place] % (Auto) Eos % (Auto) Baso % (Auto) Neut # (Auto) Lymph # (Auto) [place] # (Auto) Eos # (Auto) Baso # (Auto) Immature Gran # (Auto) Absolute Nucleated RBC Immature Gran % Nucleated RBC % Smear Path Review Sodium Potassium Chloride Carbon Dioxide Anion Gap BUN Creatinine Estim Creat Clear Calc eGFR BUN/Creatinine Ratio Glucose Calculated Osmolality Lactic Acid 3.3 H Calcium Corrected Calcium Phosphorus Magnesium Total Bilirubin AST ALT Alkaline Phosphatase Ammonia 18 Total Protein Albumin Globulin Albumin/Globulin Ratio Ur Random Creatinine 72 Ur Random Sodium < 10.0 L Ur Random Potassium 53 Ur Random Chloride < 20.0 L Ur Random Urea Nitrogn 1099.0 H 06/28/24 06/28/24 06/28/24 04:56 08:13 11:40 WBC 36.3 H* D RBC 3.92 L Hgb 11.7 L Hct 36.8 L MCV 94 MCH 29.8 MCHC 31.8 RDW Std Deviation 54.8 H Plt Count 165 Neut % (Auto) 83 H Lymph % (Auto) 3 L [place] % (Auto) 9 Eos % (Auto) 0 Baso % (Auto) 1 Neut # (Auto) 30.1 H Lymph # (Auto) 1.2 [place] # (Auto) 3.2 H Eos # (Auto) 0.0 Baso # (Auto) 0.2 Immature Gran # (Auto) 1.61 H Absolute Nucleated RBC 0.40 H Immature Gran % 4 H Nucleated RBC % 1 H Smear Path Review Sent to Pathologist Sodium 144 Potassium 3.8 Chloride 106 Carbon Dioxide 26.1 Anion Gap 12 BUN 99 H Creatinine 3.2 H Estim Creat Clear Calc 25.9 L eGFR 21 L BUN/Creatinine Ratio 31 H Glucose 132 H Calculated Osmolality 319 H Lactic Acid 3.6 H 4.5 H* Calcium 6.9 L Corrected Calcium 8.0 L Phosphorus 4.0 Magnesium 2.8 H Total Bilirubin 6.1 H AST 341 H ALT 428 H Alkaline Phosphatase 209 H Ammonia Total Protein 5.3 L Albumin 2.6 L Globulin 2.7 Albumin/Globulin Ratio 1.0 L Ur Random Creatinine Ur Random Sodium Ur Random Potassium Ur Random Chloride Ur Random Urea Nitrogn ABG Interpretation ABG results: 06/19/24 06/19/24 06/20/24 16:21 17:41 08:48 ABG pH 7.10 L* ABG pCO2 20 L ABG pO2 105 ABG HCO3 6 L* ABG O2 Saturation 96 ABG Base Excess -21 L VBG pH 7.19 L 7.38 VBG pCO2 28 L 46 D VBG pO2 55 37 VBG Base Excess -16 L 1 06/20/24 06/20/24 06/20/24 11:10 17:54 19:45 ABG pH 7.39 D 7.39 ABG pCO2 40 D 45 ABG pO2 63 L D 90 D ABG HCO3 24 27 H ABG O2 Saturation 91 97 ABG Base Excess -1 2 VBG pH 7.37 7.45 VBG pCO2 44 36 VBG pO2 38 58 D VBG Base Excess 0 1 06/21/24 06/21/24 06/21/24 04:30 05:56 12:00 ABG pH 7.41 ABG pCO2 43 ABG pO2 102 ABG HCO3 27 H ABG O2 Saturation 99 H ABG Base Excess 2 VBG pH 7.53 7.39 VBG pCO2 29 L 51 D VBG pO2 115 H D 39 D VBG Base Excess 2 5 H 06/21/24 06/21/24 06/22/24 13:50 15:37 04:18 ABG pH 7.46 H ABG pCO2 39 ABG pO2 78 L D ABG HCO3 27 H ABG O2 Saturation 97 ABG Base Excess 3 VBG pH 7.41 7.54 VBG pCO2 49 30 L D VBG pO2 29 57 D VBG Base Excess 5 H 3 06/22/24 06/22/24 05:27 09:33 ABG pH ABG pCO2 ABG pO2 ABG HCO3 ABG O2 Saturation ABG Base Excess VBG pH 7.43 7.41 VBG pCO2 45 D 46 VBG pO2 39 48 VBG Base Excess 4 H 4 H Quality Measures Quality Measures VTE prophylaxis Assessment & Plan Assessment Current Active Medications: Generic Name Dose Route Start Last Admin Trade Name Freq PRN Reason Stop Dose Admin Acetaminophen 650 mg 06/19/24 14:18 Acetaminophen 325 Mg Tablet PO 07/19/24 14:17 Q6H PRN Fever >101.5 Acetaminophen 650 mg 06/19/24 14:18 06/27/24 23:03 Acetaminophen 325 Mg Tablet PO 07/19/24 14:17 650 mg Q6H PRN Administration PAIN SCALE 1-3 (mild Albuterol/Ipratropium 3 ml 06/20/24 07:13 Albuterol/Ipratropium (Duoneb) Rt [place] 3 Ml Nebu INH 07/20/24 07:12 Q2HR PRN SHORTNESS OF BREATH OR WHEEZE Aspirin 81 mg 06/20/24 09:00 06/28/24 08:59 Aspirin Ec 81 Mg Tabec PO 07/20/24 08:59 81 mg QDAY NYDIA Administration Atorvastatin Calcium 80 mg 06/20/24 21:00 06/27/24 21:14 Atorvastatin Calcium 20 Mg Tablet PO 07/20/24 20:59 80 mg HS NYDIA Administration Famotidine 10 mg 06/25/24 21:00 06/27/24 21:13 Famotidine 20 Mg Tablet PO 07/25/24 20:59 10 mg HS NYDIA Administration Heparin Sodium (Porcine) 5,000 unit 06/19/24 22:00 06/28/24 05:45 Heparin Sod Inj 5000 Unit/Ml Vial SC 07/03/24 21:59 5,000 unit Q8HR NYDIA Administration Piperacillin/Tazobactam/Dextrose 3.375 gm in 50 mls @ 12.5 mls/hr 06/28/24 14:00 Zosyn IV 07/05/24 13:59 Q8HR NYDIA Metoprolol Succinate 25 mg 06/26/24 14:15 06/28/24 08:59 Metoprolol Succinate Xl 25 Mg Tabcr PO 07/26/24 14:14 25 mg QDAY NYDIA Administration Midodrine 5 mg 06/27/24 14:00 06/28/24 05:45 Midodrine 5 Mg Tablet PO 07/27/24 13:59 5 mg TID NYDIA Administration Ondansetron HCl 4 mg 06/19/24 14:18 06/27/24 17:17 Ondansetron Inj 2 Mg/Ml Inj 2 Ml IV 07/19/24 14:17 4 mg Q6H PRN Administration NAUSEA OR VOMITING Protocol
[2024-06-28 12:41] LABS: C-Reactive Protein 5.8 mg/dL (0.0-0.9); Procalcitonin 4.24 ng/ml (0.0-0.49)
[2024-06-28 12:46] LABS: White Blood Count 42.6 Thou/mm3 (3.8-10.6)
[2024-06-28 12:48] LABS: Path Review Blood Smear Sent to Pathologist
[2024-06-28 12:51] LABS: Sed Rate (ESR) 20 mm/hr (0-20)
[2024-06-28] MEDS: POLYETHYLENE GLYCOL 17 GM PACKET PO (12:53)
[2024-06-28 13:02] LABS: Ferritin 448 ng/mL (10.5-307.3)
--- NOTE | 2024-06-28 14:06 | ESPR_ITS ---
<Statement entered by Shin Avery MD - 06/29/24 10:54> I saw and evaluated the patient. I reviewed the resident?s note and agree with findings and plan as documented in the resident?s note. Given the patient initially presented with shock and is now having increasing white count and bloody stools, ischemic bowel should be high on the differential. Patient has renal failure, severe decompensated CHF, and signs of shock with increasing WBC. Goals of care discussion should be performed with the family. If the goals of care are aligned with aggressive continued support including central venous catheters, dialysis, possible inotropes and vasopressors the patient should be moved to the ICU expeditiously. CT abdomen pelvis with contrast recommended as well as surgery consult. Please reconsult ICU once goals of care have been determined for further plan/management Documentation for date of: 06/28/24 Subjective Subjective Interval history: Patient is a 63-year-old male with past medical history of CAD, pacemaker/defibrillator by Dr. Ramirez in [place] for abnormal rhythm CHF, hypertension, COPD who came into our ER after he was woken up at 2 AM with chest pain. Patient is a poor historian but does explain that he woke up at 2 AM with severe chest pain that caused some nausea and vomiting after which he decided to come to the ED. Patient lives alone he called 911. In the ED patient was found to be tachycardic with a pulse of 121 saturating at 92% on room air. Troponins were found to be elevated at 3.54 initially and climbed up to 4.52 by the time we saw him at bedside. Patient was also found to have elevated transaminases in the thousands. Chest x-ray revealed no pulmonary edema and EKG showed sinus tachycardia. Patient was given Zofran as well as 1 L bolus of fluids and morphine in the ER as well as aspirin and nitroglycerin and metoprolol which seem to have helped the patient's pain at the time. Physical exam revealed 2+ pitting edema in the lower extremities with bilateral lower extremities mottling up to the knees. Patient was pale and capillary refill was greater than 10 seconds. Patient's jugular venous pressure was elevated which was confirmed with ultrasound and patient was found to be likely in cardiogenic shock. The decision was made to admit patient to the ICU and we inserted a central line and arterial line. Further testing revealed that patient was methamphetamine positive. BUN was greater than 3280, lactic acid was elevated at 18 and pH was 7.10 with a pCO2 of 29 and pO2 of 105 subsequent VBG showed improvement in pH to 7.19. Patient was started on dobutamine drip in the ED as well as Levophed. 06/20/2024: Patient seen and examined in the ICU today. There were no major overnight events and patient was stable this morning. Cardiac output has maintained with pressor support and dobutamine. Patient has been spitting out frothy pink to dark brown material likely from pulmonary congestion. Patient's ABG and VBG showed increased cardiac output and is now warmer with no mottling and capillary refill of less than 3 seconds. Patient received 1 dose of Lasix 40 mg IV push. Will continue to monitor patient closely and try to wean him off of pressor support and inotropic support. Patient's PT and INR are elevated with an INR of 3.2. Patient is likely in DIC as his liver is still short with T. bili of 5.5 and AST greater than 6000 and ALT greater than 3300. Troponins have continued to climb to 12.9 but patient denies any chest pain, it is likely secondary to demand ischemia as well as damage from substance abuse, methamphetamine. Urine output has slowly improved. 06/21/2024: Overnight, patient was started on precedex for agitation and weaned off this morning. He remains on levophed at 0.03 and dobutamine at 0.2. He had good urine output at 2.6L in the last 24 hours and is net negative at 1.9L. Extremities are warm. His SvO2 with dobutamine at 2 was 100%, suggestive of peripheral shunting. Extremities are warm and liver enzymes are improving, suggestive that cardiogenic shock is improving. Patient was titrated off levophed and dobutamine adjusted from 2 to 1. The SvO2 was then 40%, so dobutamine was increased to 1.5. Will follow up on next VBG for SvO2 and adjust rate of dobutamine accordingly. For his ATN, patient now in polyuric phase so will replace volume with gentle IVF. Will discontinue arterial line. 06/22/2024: Patient was seen and examined in ICU today. There were no major overnight events and patient was gradually titrating down on dobutamine. Patient's official echo confirmed 15-20% EF. Dobutamine was stopped around 8 AM in the morning and follow up SvO2 showed adequate perfusion and patient continues to be warm to touch in the extremities as well as good urine output. Patient was started on coreg for goal directed medical therapy for HFrEF, and we are holding his TONI/ARBS until his kidney function improves. Patient was subsequently downgraded to telemetry in the afternoon and Dr Wright accepted the downgrade. We recommend adding the rest of goal directed medical therapy for HFrEF prior to DC. 06/23-06/27: Patient's hospital course on the floors was complicated by worsening mentation and patient's failure to thrive as he was not eating his meals. His liver shock improved slowly as his LFTs improved for the most part. 06/28/24: Today ICU was consulted due to possible shock and increasing white count. He has mottling of his feet and knee, there is abdominal distension and tenderness to palpation. There is guarding and on skin exam there is hematoma in the left lower quadrant. Patient has been having dark stools for the past two days. Lactic acid has been climbing tp 4.5 today. eGFR remains in the 20s with creatinine of 3.2 with BUN climbing to 99. Urine cultures and blood cultures were repeated and have been negative for 48 hrs. Ammonia is negative. Patient's presentation is concerning for ischemic bowel. Recommended primary team to order a CTA abdomen/pelvis. Given patient's heart failure and now failing renal function, further goals of care discussion is encouraged as patient's prognosis is guarded. Will follow patient. Exam Vital Signs Temp Pulse Resp BP Pulse Ox O2 Del Method O2 Flow Rate 97.4 F 62 18 101/67 97 Nasal Cannula 3 06/28/24 12:00 06/28/24 13:52 06/28/24 12:00 06/28/24 13:52 06/28/24 12:00 06/28/24 12:00 06/28/24 12:00 Narrative Exam Constitutional: Pale disheveled elderly male in no acute distress CVS: RRR, S1 and S2 present, no murmurs, rubs or gallops . Capillary refills is about 4 seconds RESP: CTAB, no SOB, no rales, rhonchi or wheezing. No respiratory Distress GI: Normal BS, Nontender/Nondistended. MSK: Full range of motion, No trauma or deformities or masses. Skin: Skin is warm to the touch, there is mottling of the feet and knees Neuro: Patient is AAO x 1 as he is alert to place but unable to answer questions Objective Labs 06/28/24 11:40 06/28/24 04:56 Labs: Laboratory Results - last 24 hr 06/27/24 06/27/24 06/27/24 14:20 15:20 17:25 WBC RBC Hgb Hct MCV MCH MCHC RDW Std Deviation Plt Count Neut % (Auto) Lymph % (Auto) [place] % (Auto) Eos % (Auto) Baso % (Auto) Neut # (Auto) Lymph # (Auto) [place] # (Auto) Eos # (Auto) Baso # (Auto) Immature Gran # (Auto) Absolute Nucleated RBC Immature Gran % Nucleated RBC % Smear Path Review ESR Sodium Potassium Chloride Carbon Dioxide Anion Gap BUN Creatinine Estim Creat Clear Calc eGFR BUN/Creatinine Ratio Glucose Calculated Osmolality Lactic Acid 3.3 H Calcium Corrected Calcium Phosphorus Magnesium Ferritin Total Bilirubin AST ALT Alkaline Phosphatase Ammonia 18 C-Reactive Prot, Quant Total Protein Albumin Globulin Albumin/Globulin Ratio Procalcitonin Ur Random Creatinine 72 Ur Random Sodium < 10.0 L Ur Random Potassium 53 Ur Random Chloride < 20.0 L Ur Random Urea Nitrogn 1099.0 H 06/28/24 06/28/24 06/28/24 04:56 08:02 08:13 WBC 36.3 H* D RBC 3.92 L Hgb 11.7 L Hct 36.8 L MCV 94 MCH 29.8 MCHC 31.8 RDW Std Deviation 54.8 H Plt Count 165 Neut % (Auto) 83 H Lymph % (Auto) 3 L [place] % (Auto) 9 Eos % (Auto) 0 Baso % (Auto) 1 Neut # (Auto) 30.1 H Lymph # (Auto) 1.2 [place] # (Auto) 3.2 H Eos # (Auto) 0.0 Baso # (Auto) 0.2 Immature Gran # (Auto) 1.61 H Absolute Nucleated RBC 0.40 H Immature Gran % 4 H Nucleated RBC % 1 H Smear Path Review Sent to Pathologist ESR Sodium 144 Potassium 3.8 Chloride 106 Carbon Dioxide 26.1 Anion Gap 12 BUN 99 H Creatinine 3.2 H Estim Creat Clear Calc 25.9 L eGFR 21 L BUN/Creatinine Ratio 31 H Glucose 132 H Calculated Osmolality 319 H Lactic Acid 3.6 H Calcium 6.9 L Corrected Calcium 8.0 L Phosphorus 4.0 Magnesium 2.8 H Ferritin 448 H Total Bilirubin 6.1 H AST 341 H ALT 428 H Alkaline Phosphatase 209 H Ammonia C-Reactive Prot, Quant Total Protein 5.3 L Albumin 2.6 L Globulin 2.7 Albumin/Globulin Ratio 1.0 L Procalcitonin Ur Random Creatinine Ur Random Sodium Ur Random Potassium Ur Random Chloride Ur Random Urea Nitrogn 06/28/24 11:40 WBC 42.6 H* D RBC 4.08 L Hgb 12.1 L Hct 36.9 L MCV 90 MCH 29.7 MCHC 32.8 RDW Std Deviation 53.3 H Plt Count 195 D Neut % (Auto) 84 H Lymph % (Auto) 3 L [place] % (Auto) 8 Eos % (Auto) 0 Baso % (Auto) 0 Neut # (Auto) 35.7 H Lymph # (Auto) 1.4 [place] # (Auto) 3.2 H Eos # (Auto) 0.0 Baso # (Auto) 0.2 Immature Gran # (Auto) 1.97 H Absolute Nucleated RBC 0.38 H Immature Gran % 5 H Nucleated RBC % 1 H Smear Path Review Sent to Pathologist ESR 20 Sodium Potassium Chloride Carbon Dioxide Anion Gap BUN Creatinine Estim Creat Clear Calc eGFR BUN/Creatinine Ratio Glucose Calculated Osmolality Lactic Acid 4.5 H* Calcium Corrected Calcium Phosphorus Magnesium Ferritin Total Bilirubin AST ALT Alkaline Phosphatase Ammonia C-Reactive Prot, Quant 5.8 H Total Protein Albumin Globulin Albumin/Globulin Ratio Procalcitonin 4.24 H Ur Random Creatinine Ur Random Sodium Ur Random Potassium Ur Random Chloride Ur Random Urea Nitrogn ABG Interpretation ABG results: 06/19/24 06/19/24 06/20/24 16:21 17:41 08:48 ABG pH 7.10 L* ABG pCO2 20 L ABG pO2 105 ABG HCO3 6 L* ABG O2 Saturation 96 ABG Base Excess -21 L VBG pH 7.19 L 7.38 VBG pCO2 28 L 46 D VBG pO2 55 37 VBG Base Excess -16 L 1 06/20/24 06/20/24 06/20/24 11:10 17:54 19:45 ABG pH 7.39 D 7.39 ABG pCO2 40 D 45 ABG pO2 63 L D 90 D ABG HCO3 24 27 H ABG O2 Saturation 91 97 ABG Base Excess -1 2 VBG pH 7.37 7.45 VBG pCO2 44 36 VBG pO2 38 58 D VBG Base Excess 0 1 06/21/24 06/21/24 06/21/24 04:30 05:56 12:00 ABG pH 7.41 ABG pCO2 43 ABG pO2 102 ABG HCO3 27 H ABG O2 Saturation 99 H ABG Base Excess 2 VBG pH 7.53 7.39 VBG pCO2 29 L 51 D VBG pO2 115 H D 39 D VBG Base Excess 2 5 H 06/21/24 06/21/24 06/22/24 13:50 15:37 04:18 ABG pH 7.46 H ABG pCO2 39 ABG pO2 78 L D ABG HCO3 27 H ABG O2 Saturation 97 ABG Base Excess 3 VBG pH 7.41 7.54 VBG pCO2 49 30 L D VBG pO2 29 57 D VBG Base Excess 5 H 3 06/22/24 06/22/24 05:27 09:33 ABG pH ABG pCO2 ABG pO2 ABG HCO3 ABG O2 Saturation ABG Base Excess VBG pH 7.43 7.41 VBG pCO2 45 D 46 VBG pO2 39 48 VBG Base Excess 4 H 4 H Quality Measures Quality Measures VTE prophylaxis Assessment & Plan Assessment Current Active Medications: Generic Name Dose Route Start Last Admin Trade Name Freq PRN Reason Stop Dose Admin Acetaminophen 650 mg 06/19/24 14:18 Acetaminophen 325 Mg Tablet PO 07/19/24 14:17 Q6H PRN Fever >101.5 Acetaminophen 650 mg 06/19/24 14:18 06/27/24 23:03 Acetaminophen 325 Mg Tablet PO 07/19/24 14:17 650 mg Q6H PRN Administration PAIN SCALE 1-3 (mild Albuterol/Ipratropium 3 ml 06/20/24 07:13 Albuterol/Ipratropium (Duoneb) Rt Yamila 3 Ml Nebu INH 07/20/24 07:12 Q2HR PRN SHORTNESS OF BREATH OR WHEEZE Aspirin 81 mg 06/20/24 09:00 06/28/24 08:59 Aspirin Ec 81 Mg Tabec PO 07/20/24 08:59 81 mg QDAY NYDIA Administration Atorvastatin Calcium 80 mg 06/20/24 21:00 06/27/24 21:14 Atorvastatin Calcium 20 Mg Tablet PO 07/20/24 20:59 80 mg HS NYDIA Administration Famotidine 10 mg 06/25/24 21:00 06/27/24 21:13 Famotidine 20 Mg Tablet PO 07/25/24 20:59 10 mg HS NYDIA Administration Heparin Sodium (Porcine) 5,000 unit 06/19/24 22:00 06/28/24 13:52 Heparin Sod Inj 5000 Unit/Ml Vial SC 07/03/24 21:59 5,000 unit Q8HR NYDIA Administration Piperacillin/Tazobactam/Dextrose 3.375 gm in 50 mls @ 12.5 mls/hr 06/28/24 14:00 06/28/24 13:51 Zosyn IV 07/05/24 13:59 12.5 mls/hr Q8HR NYDIA Administration Lactated Ringer's 500 mls @ 999 mls/hr 06/28/24 14:03 Lactated Ringers IV 06/28/24 14:33 .Q31M ONE Metoprolol Succinate 25 mg 06/26/24 14:15 06/28/24 08:59 Metoprolol Succinate Xl 25 Mg Tabcr PO 07/26/24 14:14 25 mg QDAY NYDIA Administration Midodrine 5 mg 06/27/24 14:00 06/28/24 13:52 Midodrine 5 Mg Tablet PO 07/27/24 13:59 5 mg TID NYDIA Administration Ondansetron HCl 4 mg 06/19/24 14:18 06/27/24 17:17 Ondansetron Inj 2 Mg/Ml Inj 2 Ml IV 07/19/24 14:17 4 mg Q6H PRN Administration NAUSEA OR VOMITING Protocol Plan 63-year-old male with past medical history of CAD, pacemaker/defibrillator by Dr. Ramirez in [place] for abnormal rhythm CHF, hypertension, COPD who was originally admitted for carcinogenic shock and treated now showing signs of possible ischemic bowel. Neuro Problems: Acute encephalograph DDx: Metabolic vs uremic Dx: BUN has been climbing, awaiting for bcx and ucx to finalize Rx: Continue fluids, f/u CTA abdomen to r/o ischemic bowel with bleed, consider dialysis to clear Uric acid CVS Problems: Shock, HFrEF DDx: echo 15-25% 5/5/25 vs hypovolemic vs septic Dx: Initial presentation was carcinogenic shock which responded to dobutamine, bedside echo showed contractible IVC, Rx: Pending final BCx and UCx, give some fluid back and consider dobutamine if his status worsens. Resp Problems: AHRF DDx: Aspiration Dx: Patient's mentation has worsened and O2 requirement has increased Rx: Antibiotics follow ABG GI Problems: Intractable abdominal pain DDx: Possible schemic bowel vs GIB Dx: Tenderness with palpation and guarding on physical exam, BUN uptrending and patient has had dark stools x 2days Rx: CTA abdomen/pelvis, consider gen surgery consultation vs GI consulttaion Renal Problems:KERWIN DDx:Worsening ATN vs dehydration from decreased PO intake Dx: GFR is 21 and patient is oliguric, Rx: Give fluids back, consider dialysis Lactic acidosis Secondary to worsening shock and decreased renal clearance Lactic acid 4.5 which has been climbing Give fluids and trend lactate Endocrine Stable ID/Skin Problems: Septic shock DDx: possible gi translocation Dx: Blood cultures and UCx pending. Procal is elevated Rx: Antibiotics Hematology Problems: Leukocytosis DDx: See ID Hospital Maintenance: FEN: Cardiac diet DVT PPx: Heparin GI PPx: Famotadine IV lines: PIV Khoury: Yes Code Status: DNR/DNI Dispo: Work up patient for possible ischemic bowel and give some fluids. If status worsens consider dobutamine. I discussed patient's care with interlibrary loan services librarian, Dr Bennie Chau MD, PGY3
--- NOTE | 2024-06-28 14:36 | XR_ITS ---
Examination: Abdomen 2 views Technique one AP upright AP supine abdomen 2 views Date and time: June 28, 2024 1451 hrs. Indications: Abdominal pain, clinical diagnosis ischemic bowel Findings: Nonobstructive bowel gas pattern. Moderate stool throughout the colon No air in the bowel wall and no free air is depicted Impression: No air in the bowel wall and no free air detected
--- NOTE | 2024-06-28 15:27 | PC.SS ---
Rounding: ICU downgrade, pending further workup
--- NOTE | 2024-06-28 15:31 | PD.IMCONS ---
HPI Data of Consult Requesting Physician: Luke Smith DO Primary Care Provider: Physician No Primary/Family Consult Narrative Reason for consult: Abdominal distention pain and melena History of present illness: 63 years old male I been asked to evaluate for 2-day history of melanotic stools as well as abdominal distention and leukocytosis Patient was admitted on 06/19/2024 when he made a 911 call with nausea vomiting watery loose diarrhea and at that time his troponin 1 was 3.54 went up to almost 10 Patient does have a history of congestive heart failure coronary artery disease COPD has placement of a pacemaker and defibrillator by Dr. Torres in [place] Abdominal ultrasound done on admission showed thickened gallbladder wall no stones and edematous gallbladder wall consistent with cholecystitis at that time HIDA scan was recommended by the radiologist cc:: cc: Luke Smith DO Review of Systems Review of Systems Systems Reviewed: All systems reviewed, normal except as documented Past Medical History Surgical History OTHER SURGICAL HX: As in the history of present illness Meds Home Medications and Allergies Home Medications ?Medication ?Instructions ?Recorded ?Confirmed ?Type digoxin 125 mcg (0.125 mg) tablet 0.125 mg PO DAILY 06/19/24 06/19/24 History empagliflozin 10 mg tablet 10 mg PO QAM 06/19/24 06/19/24 History (Jardiance) Allergies Allergy/AdvReac Type Severity Reaction Status Date / Time Iodinated Contrast Media Allergy Severe Swelling Verified 06/19/24 10:02 of Lip/Tongue/Throat iodine Allergy Severe Hives Verified 06/19/24 10:02 Exam Vital Signs Temp Pulse Resp BP Pulse Ox O2 Del Method O2 Flow Rate 97.4 F 62 18 101/67 97 Nasal Cannula 3 06/28/24 12:00 06/28/24 13:52 06/28/24 12:00 06/28/24 13:52 06/28/24 12:00 06/28/24 12:00 06/28/24 12:00 Constitutional Comments: Chronically ill-appearing on Ventimask Routine Respiratory Exam Comments: Positive rhonchi Routine Abdominal Exam Comments: Abdominal distention moderately in the left lower quadrant along with mottling of the lower extremities Results Labs 06/28/24 11:40 06/28/24 04:56 Labs: Short CBC 06/28/24 06/28/24 Range/Units 04:56 11:40 WBC 36.3 H* D 42.6 H* D (3.8-10.6) Thou/mm3 Hgb 11.7 L 12.1 L (13.5-16.0) g/dL Hct 36.8 L 36.9 L (41.0-53.0) % Plt Count 165 195 D (140-440) Thou/mm3 BMP 06/28/24 04:56 Sodium 144 Potassium 3.8 Chloride 106 Carbon Dioxide 26.1 BUN 99 H Creatinine 3.2 H Glucose 132 H Calcium 6.9 L Liver Function 06/28/24 Range/Units 04:56 Total Bilirubin 6.1 H (0.3-1.2) mg/dL AST 341 H (0-34) U/L ALT 428 H (10-49) U/L Alkaline Phosphatase 209 H (46-116) U/L Albumin 2.6 L (3.4-4.8) gm/dL ABG Interpretation ABG results: 06/19/24 06/19/24 06/20/24 16:21 17:41 08:48 ABG pH 7.10 L* ABG pCO2 20 L ABG pO2 105 ABG HCO3 6 L* ABG O2 Saturation 96 ABG Base Excess -21 L VBG pH 7.19 L 7.38 VBG pCO2 28 L 46 D VBG pO2 55 37 VBG Base Excess -16 L 1 06/20/24 06/20/24 06/20/24 11:10 17:54 19:45 ABG pH 7.39 D 7.39 ABG pCO2 40 D 45 ABG pO2 63 L D 90 D ABG HCO3 24 27 H ABG O2 Saturation 91 97 ABG Base Excess -1 2 VBG pH 7.37 7.45 VBG pCO2 44 36 VBG pO2 38 58 D VBG Base Excess 0 1 06/21/24 06/21/24 06/21/24 04:30 05:56 12:00 ABG pH 7.41 ABG pCO2 43 ABG pO2 102 ABG HCO3 27 H ABG O2 Saturation 99 H ABG Base Excess 2 VBG pH 7.53 7.39 VBG pCO2 29 L 51 D VBG pO2 115 H D 39 D VBG Base Excess 2 5 H 05/04/25 05/04/25 05/05/25 13:50 15:37 04:18 ABG pH 7.46 H ABG pCO2 39 ABG pO2 78 L D ABG HCO3 27 H ABG O2 Saturation 97 ABG Base Excess 3 VBG pH 7.41 7.54 VBG pCO2 49 30 L D VBG pO2 29 57 D VBG Base Excess 5 H 3 06/22/24 06/22/24 05:27 09:33 ABG pH ABG pCO2 ABG pO2 ABG HCO3 ABG O2 Saturation ABG Base Excess VBG pH 7.43 7.41 VBG pCO2 45 D 46 VBG pO2 39 48 VBG Base Excess 4 H 4 H Assessment and Plan Additional Assessment & Plan Additional Plan: # Abdominal distention with lactic acidosis and leukocytosis and moderate in the left lower quadrant and lower extremity mottling suggestive of an ischemic process Plan Recommend CT scan of the abdomen pelvis stat without contrast because of renal function it would have been better with IV contrast but we can do it Recommend stat surgical consultation I will put in the order for it Keep patient n.p.o. Other medical problems include Congestive heart failure Cardiac arrhythmias requiring placement of a pacemaker and a defibrillator COPD Abnormal ultrasound showing thickening of the gallbladder wall suggestive of cholecystitis on admission Once patient is stable recommend CCK HIDA scan with ejection fraction Procedures Arterial Line Size (Gauge): 20
--- NOTE | 2024-06-28 16:41 | XR_ITS ---
Examination: CT abdomen and pelvis without contrast. Coronal 3-D reconstructions. Sagittal 2-D reconstructions. Date and time of exam:June 28, 2024 1947 hours INDICATIONS: Abdominal pain and ecchymoses over the left lower abdomen CTDI: vol (mGy): 8.47 DLP: (mGycm): 520 Technique: Axial images of the abdomen have been obtained, 3 mm slice thickness Intravenous contrast material has not been administered. Low dose protocols were performed. One or more of the following dose reduction techniques were used; automated exposure control, adjustment of the mA and/or KV according to patient size, use of iterative reconstruction technique. Findings: Pneumonia left base with small left pleural effusion Mild enlargement cardiac contour Cirrhosis, mild to moderate ascites No gallstones Pancreatic head is abnormally enlarged, axial image 9, at least 4.8 cm No pancreatic mass No hydronephrosis No bowel obstruction No diverticulitis Diffuse thickening of the colonic wall Urinary bladder wall thickening up to 8 mm IMPRESSION: Pneumonia left base with small left pleural effusion Cirrhosis [id number] ascites Recommend MRI abdomen follow up pre and post contrast to confirm mass pancreatic head Hepatic colopathy. Cystitis pattern
--- NOTE | 2024-06-28 16:54 | PD.SURCONS ---
HPI Consult details Consult date: 06/28/24 Reason for consultation narrative: The patient was seen in consultation because of abdominal distention and dark stools and suspicious for small bowel ischemia History of present illness: History of present illness is not obtained from the patient because he is confused and is not able to give any history. Patient has spent more than we can this hospital and he came with chest pain and was found to have very unstable vital signs. He has been in ICU and was treated for cardiogenic shock and hypotension I was then stabilized. He was transferred to the regular floor. Apparently the patient's abdomen changed today and is having some diffuse tenderness on palpation. Therefore surgical consultation is obtained. Patient has had not had any vomiting. With markedly elevated liver enzymes and renal failure. His other diagnoses consist of cardiomyopathy COPD and congestive heart failure with poor ejection fraction and supraventricular tachycardia. Patient has had a history of multiple organ failure. At the bedside he was able to respond and when I asked him whether he has any abdominal pain he said no. Past Medical History Past Medical History CARDIAC: Positive Cardiac Disorders, Congestive Heart Failure and Hypertension RESPIRATORY: Positive Chronic Obstructive Pulmonary Disease (COPD); Negative Asthma GENITOURINARY: Negative Renal Disease ENDOCRINE: Negative Diabetes Mellitus Type 1 or Diabetes Mellitus Type 2 HEMATOLOGIC: Negative Sickle Cell Disease PSYCHO/SOCIAL: Positive Depression and Anxiety Family History FAMILY HISTORY: Positive Family Cardiac Disorders Surgical History SURGICAL: Negative Cardiac Catheterization OTHER SURGICAL HX: As in the history of present illness Social History SMOKING STATUS: Former smoker SUBSTANCE USE: former substance user, amphetamines and methamphetamine Meds Home Medications and Allergies Home Medications ?Medication ?Instructions ?Recorded ?Confirmed ?Type digoxin 125 mcg (0.125 mg) tablet 0.125 mg PO DAILY 06/19/24 06/19/24 History empagliflozin 10 mg tablet 10 mg PO QAM 06/19/24 06/19/24 History (Jardiance) Allergies Allergy/AdvReac Type Severity Reaction Status Date / Time Iodinated Contrast Media Allergy Severe Swelling Verified 06/19/24 10:02 of Lip/Tongue/Throat iodine Allergy Severe Hives Verified 06/19/24 10:02 Exam Vital Signs Temp Pulse Resp BP Pulse Ox O2 Del Method O2 Flow Rate 97.2 F 86 24 H 99/63 97 Nasal Cannula 3 06/28/24 15:51 06/28/24 15:51 06/28/24 15:51 06/28/24 15:51 06/28/24 15:51 06/28/24 15:51 06/28/24 15:51 Narrative Exam Physical examination revealed an elderly gentleman who appeared older than his age of 63. His mouth is dry and lips are scaly. But his breathing is reasonably comfortable even though slightly increased rate. His vital signs are reasonably stable with a pulse of 86. Constitutional Constitutional: no acute distress Routine Abdominal Exam Comments: Examination of the abdomen showed slight distention throughout the abdomen but no tenderness anywhere on palpation. There are no signs of peritonitis. Bowel sounds are present but hypoactive. Patient has had ecchymosis over the right groin where central line was inserted. He also has some ecchymosis over the left side of the abdomen for which I do not have a cause. Lower extremities revealed some ecchymosis and chronic changes in the right foot looks slightly cool. The pedal pulses are not palpable Routine Rectal Exam Comments: Deferred because of the patient's position Results Results: Laboratory Laboratory Narrative: Laboratory results show considerable abnormality of the leukocytes around 42,000. His renal functions are very abnormal and his liver enzymes were extremely high and it is trending downwards. His lactic acid is 4.5 and his procalcitonin is also elevated along with D-dimer. Results: Imaging Imaging narrative: Patient's echocardiogram showed ejection fraction around 15 to 20% with global hypokinesia and congestive heart failure Abdominal series ordered today showed no dilated loops of bowel or anything to suggest ischemia Assessment & Plan Additional Assessment Additional comments: Impression: This patient obviously has multiple medical problems and is recovering from a significant and prolonged stay from ICU. At the present time he does not seem to have any signs of bowel ischemia. Plan Plan: Reexamination periodically. I do not know the reason for his leukocytosis and lactic acidosis. I will see him again if needed.
[2024-06-28 17:56] LABS: Base Excess, Venous 2 (-3-3); O2 Saturation, Venous 90 % (96-97); PCO2, Venous 40 mmHg (36-56); PO2, Venous 58 mmHg (15-58); pH, Venous 7.42 (7.33-7.66)
[2024-06-28 18:41] LABS: INR 1.8 (0.9-1.3); Prothrombin Time 18.7 Seconds (9.0-12.2)
[2024-06-28 19:18] LABS: Lactate (Lactic Acid) 2.6 mMol/L (0.4-2.0)
[2024-06-28] MEDS: FAMOTIDINE 20 MG TABLET 10 MG PO (21:45)
[2024-06-28 22:16] LABS: Reflex Lactate? Y
[2024-06-29] VITALS (13 sets, daily range): BP systolic 77–98; BP diastolic 51–69; PULSE 76–88; RESP 14–94; TEMP 35.7–36.9; O2SAT 90–100; BMI 24.9
--- NOTE | 2024-06-29 03:41 | PC.NURSE ---
DR. TEJADA MADE AWARE OF NO RIGHT PEDAL PULSE WITH DOPPLER, + RIGHT POPLITEAL PULSE WITH DOPPLER. MD STATES ROUNDING MD'S ARE AWARE. RELAYED THAT PROGRESS NOTES DO NOT INCLUDE FINDINGS RELATED TO LOSS OF RIGHT PEDAL PULSE. MD STATES THAT HE WILL LOOK OVER CHART. NO NEW ORDERS AT THIS TIME.
--- NOTE | 2024-06-29 04:57 | XR_ITS ---
Examination: Arterial duplex lower extremity study. Date and time of exam: June 29, 2024 0525 hours INDICATIONS: Absent right pedal and popliteal pulse on clinical examination Findings: Duplex sonographic imaging of the lower extremity arteries using B-mode/Barrientos scale imaging and Doppler spectral analysis and color flow. Right common femoral artery demonstrates monophasic flow. Right superficial femoral artery demonstrates monophasic flow. Right popliteal artery demonstrates monophasic flow. Right posterior tibial artery demonstrated monophasic flow. Left common femoral artery demonstrates monophasic flow. Left superficial femoral artery demonstrates monophasic flow. Left popliteal artery demonstrates monophasic flow. Left posterior tibial artery demonstrated monophasic flow. Impression: Severe bilateral peripheral obstructive arterial disease Consider correlation with CTA abdominal aorta iliofemoral runoff post intravenous contrast
--- NOTE | 2024-06-29 04:58 | XR_ITS ---
Examination: Venous duplex lower extremity sonogram, bilateral. Date and time of exam: June 29, 2024 0515 hours INDICATIONS: No right pedal or popliteal pulse, altered mental status patient is immobile Technique: Multiple sonographic images of the deep venous system have been obtained. B-mode/2-D grayscale imaging of vascular structures and Doppler spectral analysis (waveforms) and color performed Both legs are examined. Findings: Deep venous systems do not demonstrate abnormal echogenicity. Study limited secondary to patient pain No diagnostic visualization left popliteal vein All visualized deep veins exhibit compressibility. All visualized deep veins exhibit augmentation. Impression: Limited study, no DVT demonstrated
[2024-06-29] MEDS: PIPER/TAZO 3.375 GM PREMIX 3.375 GM/50 ML BAG IV ×2 (05:56→13:22)
[2024-06-29] MEDS: MIDODRINE 5 MG TABLET PO ×2 (05:56→13:21)
[2024-06-29] MEDS: HEPARIN SOD INJ 5000 UNIT/ML VIAL SC (05:56)
[2024-06-29 06:46] LABS: Basophils % (Auto) 0 % (0-2.5); Eosinophils % (Auto) 0 % (0-10); Hematocrit 38.9 % (41.0-53.0); Hemoglobin 12.9 g/dL (13.5-16.0); Immature Granulocytes % (Auto) 4 % (0-0); Immature Granulocytes Auto 2.41 Thou/mm3 (0.00-0.00); Lymphocytes # (Auto) 1.4 Thou/mm3 (1.0-4.8); Lymphocytes % (Auto) 3 % (10-50); Mean Corpuscular HGB Conc 33.2 g/dl (31.0-37.0); Mean Corpuscular Hemoglobin 30.1 pg (25.0-35.0); Mean Corpuscular Volume 91 fL (80-100); Monocytes % (Auto) 6 % (0-12); Neutrophils # (Auto) 47.8 Thou/mm3 (1.8-7.7); Neutrophils % (Auto) 87 % (37-80); Nucleated Red Blood Cell # 0.22 Thou/mm3 (0.00-0.00); Nucleated Red Blood Cell % 0 /100 WBC (0); Platelet Count 190 Thou/mm3 (140-440); RDW Standard Deviation 54.4 fL (35.1-43.9); Red Blood Count 4.29 Miln/mm3 (4.50-5.90)
[2024-06-29 06:47] LABS: OBS Card Expiration Date 2026-09; OBS Card Lot # 23001; OBS Developer Lot # 230002; OBS Performed By GEMMW1; OBS QC OK? Yes; Occult Blood, Stool Positive (Negative)
[2024-06-29 06:50] LABS: White Blood Count 54.7 Thou/mm3 (3.8-10.6)
[2024-06-29 07:04] LABS: Alanine Aminotransferase 367 U/L (10-49); Albumin, Serum 2.4 gm/dL (3.4-4.8); Alkaline Phosphatase 237 U/L (46-116); Anion Gap 12 (7-16); Aspartate Amino Transferase 405 U/L (0-34); BUN/Creatinine Ratio 31 Ratio (12-20); Bilirubin,Total 5.8 mg/dL (0.3-1.2); Calcium 7.2 mg/dL (8.3-10.6); Calcium (Corrected) 8.5 mg/dL (8.5-10.1); Carbon Dioxide 26.6 mMol/L (20.0-31.0); Chloride 106 mMol/L (98-107); Creatinine (Component) 3.7 mg/dL (0.6-1.3); Estimated Creatinine Clearance 22.4 mL/min (>60); Globulin 2.5 gm/dL (2.3-3.5); Glucose 76 mg/dL (74-106); Magnesium 2.9 mg/dL (1.6-2.6); Osmolality,Calculated 323 (275-295); Potassium 3.7 mMol/L (3.4-5.1); Sodium 145 mMol/L (136-145); Total Protein 4.9 gm/dL (5.7-8.2); eGFR 18 See Note
[2024-06-29 07:05] LABS: Blood Urea Nitrogen 113 mg/dL (9-23)
[2024-06-29] MEDS: PANTOPRAZOLE INJ 40 MG VIAL 80 MG IV (08:41)
[2024-06-29] MEDS: RINGERS LACTATED 1000 ML 1,000 ML 250 ML IV (08:41)
[2024-06-29] MEDS: ASPIRIN EC 81 MG TABEC PO (08:41)
[2024-06-29 09:07] LABS: Path Review Blood Smear Sent to Pathologist
--- NOTE | 2024-06-29 10:30 | PC.SS ---
SS follow up note; White blood counts high, Repeat cultures pending. Patient will discharge to [facility] pending auth.
[2024-06-29] MEDS: VANCOMYCIN/NS 1 GM IVPB 200 ML IV (10:36)
--- NOTE | 2024-06-29 11:28 | PD.RESPRO ---
Documentation for date of: 06/29/24 Subjective Subjective Interval history: Mr. Fernandez is a 63-year-old male with past medical history of CAD, pacemaker/defibrillator by Dr. Ramirez in [place] for abnormal rhythm CHF, hypertension, COPD who came into our ER after he was woken up at 2 AM with chest pain. Patient was a poor historian but did endorse that he woke up at 2 AM with severe chest pain that caused some nausea and vomiting after which he decided to come to the ED. Patient lives alone he called 911. In the ED patient was found to be tachycardic with a pulse of 121 saturating at 92% on room air. Troponins were found to be elevated at 3.54 initially and climbed up to 4.52 by the time we saw him at bedside. Patient was also found to have elevated transaminases in the thousands. Chest x-ray revealed no pulmonary edema and EKG showed sinus tachycardia. Patient was given Zofran as well as 1 L bolus of fluids and morphine in the ER as well as aspirin and nitroglycerin and metoprolol which seem to have helped the patient's pain at the time. Patient had elevated JVP, bedside ultrasound showed high suspicion of cardiogenic shock patient was admitted to the ICU for further management. With further progression of hospital course patient was downgraded to telemetry, after being weaned off of Levophed and dobutamine. Patient's hospital course was complicated by ATN and shock liver. Nephrology consulted in setting of ATN. 06/27/2024: Patient's renal function today noted to be BUN 88, creatinine 3.2, GFR 21. Patient's urine output not being charted, ordered strict I&O's. Renal function is stable compared to yesterday, was given 1 L LR bolus today. Will follow renal function in a.m. open, patient did have elevated lactate today. Echocardiogram from 06/22 shows global hypokinesis with ejection fraction 15 to 20% 06/28/2024: Patient seen and examined at bedside, patient is alert and oriented x 3, though is somnolent and tired, patient has worsening lactate, otherwise has bilateral lower extremity mottling, there is concern of underlying shock, undifferentiated for now for which ICU team was consulted again today. Patient continues to have urine output, output not being charted as patient is noncompliant with urinary catheter, per nurse at bedside patient refuses catheterization and is removing catheter. Patient's BUN 99 today, creatinine stable at 3.2, GFR 21, patient does have concern of GI bleed, has had dark stools. Primary team will evaluate further, patient is still making urine, would recommend maintenance fluids low-dose 50 cc/h, 500 cc NS for about 10-hours, will monitor renal function in a.m. encouraged to obtain strict ULISES's and monitor urine output. 06/29/2024: Patient seen and examined at bedside, patient is scheduled for ex lap by general surgeon today, was seen and assessed by surgeon. Worsening renal function noted BUN 113, creatinine 3.7, GFR 18, patient's urine output not being charted, patient has refractory shock possible underlying bowel ischemia. Will continue with conservative management for now, patient will most likely need dialysis if renal function continues to worsen, highly recommend discussing goals of care with patient's family. Patient has overall poor prognosis, severely reduced ejection fraction. Kindly inform if any change in condition, monitor closely. Exam Vital Signs Temp Pulse Resp BP Pulse Ox O2 Del Method O2 Flow Rate 97.0 F 79 18 94/58 L 94 L Oxy Mask 5 06/29/24 08:00 06/29/24 08:37 06/29/24 08:00 06/29/24 08:37 06/29/24 08:00 06/29/24 08:00 06/29/24 08:00 Narrative Exam Constitutional: Pale disheveled elderly male in no acute distress CVS: RRR, S1 and S2 present, no murmurs, rubs or gallops . Capillary refills is about 4 seconds RESP: CTAB, no SOB, no rales, rhonchi or wheezing. No respiratory Distress GI: Normal BS, Nontender/Nondistended. MSK: Full range of motion, No trauma or deformities or masses. Skin: Skin is warm to the touch, there is mottling of the feet and knees Neuro: Patient is AAO x 3, somnolent unable to hold a conversation Objective Labs 06/29/24 05:21 06/29/24 05:21 Labs: Laboratory Results - last 24 hr 06/27/24 06/28/24 06/28/24 15:55 08:02 11:40 WBC 42.6 H* D RBC 4.08 L Hgb 12.1 L Hct 36.9 L MCV 90 MCH 29.7 MCHC 32.8 RDW Std Deviation 53.3 H Plt Count 195 D Neut % (Auto) 84 H Lymph % (Auto) 3 L [place] % (Auto) 8 Eos % (Auto) 0 Baso % (Auto) 0 Neut # (Auto) 35.7 H Lymph # (Auto) 1.4 [place] # (Auto) 3.2 H Eos # (Auto) 0.0 Baso # (Auto) 0.2 Immature Gran # (Auto) 1.97 H Absolute Nucleated RBC 0.38 H Immature Gran % 5 H Nucleated RBC % 1 H Smear Path Review Sent to Pathologist ESR 20 PT INR VBG pH VBG pCO2 VBG pO2 VBG O2 Sat (Ariana) VBG Base Excess Sodium Potassium Chloride Carbon Dioxide Anion Gap BUN Creatinine Estim Creat Clear Calc eGFR BUN/Creatinine Ratio Glucose Calculated Osmolality Lactic Acid 4.5 H* Calcium Corrected Calcium Phosphorus Magnesium Ferritin 448 H Total Bilirubin AST ALT Alkaline Phosphatase C-Reactive Prot, Quant 5.8 H Total Protein Albumin Globulin Albumin/Globulin Ratio Procalcitonin 4.24 H Stool Occult Blood Positive A 06/28/24 06/28/24 06/28/24 17:24 17:26 18:57 WBC RBC Hgb Hct MCV MCH MCHC RDW Std Deviation Plt Count Neut % (Auto) Lymph % (Auto) [place] % (Auto) Eos % (Auto) Baso % (Auto) Neut # (Auto) Lymph # (Auto) [place] # (Auto) Eos # (Auto) Baso # (Auto) Immature Gran # (Auto) Absolute Nucleated RBC Immature Gran % Nucleated RBC % Smear Path Review ESR PT 18.7 H INR 1.8 H VBG pH 7.42 VBG pCO2 40 VBG pO2 58 VBG O2 Sat (Ariana) 90 L VBG Base Excess 2 Sodium Potassium Chloride Carbon Dioxide Anion Gap BUN Creatinine Estim Creat Clear Calc eGFR BUN/Creatinine Ratio Glucose Calculated Osmolality Lactic Acid 2.6 H Calcium Corrected Calcium Phosphorus Magnesium Ferritin Total Bilirubin AST ALT Alkaline Phosphatase C-Reactive Prot, Quant Total Protein Albumin Globulin Albumin/Globulin Ratio Procalcitonin Stool Occult Blood 06/28/24 06/29/24 23:00 05:21 WBC 54.7 H* D RBC 4.29 L Hgb 12.9 L Hct 38.9 L MCV 91 MCH 30.1 MCHC 33.2 RDW Std Deviation 54.4 H Plt Count 190 Neut % (Auto) 87 H Lymph % (Auto) 3 L [place] % (Auto) 6 Eos % (Auto) 0 Baso % (Auto) 0 Neut # (Auto) 47.8 H Lymph # (Auto) 1.4 [place] # (Auto) 3.0 H Eos # (Auto) 0.0 Baso # (Auto) 0.0 Immature Gran # (Auto) 2.41 H Absolute Nucleated RBC 0.22 H Immature Gran % 4 H Nucleated RBC % 0 Smear Path Review Sent to Pathologist ESR PT INR VBG pH VBG pCO2 VBG pO2 VBG O2 Sat (Ariana) VBG Base Excess Sodium 145 Potassium 3.7 Chloride 106 Carbon Dioxide 26.6 Anion Gap 12 BUN 113 H* Creatinine 3.7 H D Estim Creat Clear Calc 22.4 L eGFR 18 L BUN/Creatinine Ratio 31 H Glucose 76 D Calculated Osmolality 323 H Lactic Acid 3.0 H Calcium 7.2 L Corrected Calcium 8.5 Phosphorus 5.0 Magnesium 2.9 H Ferritin Total Bilirubin 5.8 H AST 405 H ALT 367 H Alkaline Phosphatase 237 H D C-Reactive Prot, Quant Total Protein 4.9 L Albumin 2.4 L Globulin 2.5 Albumin/Globulin Ratio 1.0 L Procalcitonin Stool Occult Blood ABG Interpretation ABG results: 06/19/24 06/19/24 06/20/24 16:21 17:41 08:48 ABG pH 7.10 L* ABG pCO2 20 L ABG pO2 105 ABG HCO3 6 L* ABG O2 Saturation 96 ABG Base Excess -21 L VBG pH 7.19 L 7.38 VBG pCO2 28 L 46 D VBG pO2 55 37 VBG Base Excess -16 L 1 06/20/24 06/20/24 06/20/24 11:10 17:54 19:45 ABG pH 7.39 D 7.39 ABG pCO2 40 D 45 ABG pO2 63 L D 90 D ABG HCO3 24 27 H ABG O2 Saturation 91 97 ABG Base Excess -1 2 VBG pH 7.37 7.45 VBG pCO2 44 36 VBG pO2 38 58 D VBG Base Excess 0 1 06/21/24 06/21/24 06/21/24 04:30 05:56 12:00 ABG pH 7.41 ABG pCO2 43 ABG pO2 102 ABG HCO3 27 H ABG O2 Saturation 99 H ABG Base Excess 2 VBG pH 7.53 7.39 VBG pCO2 29 L 51 D VBG pO2 115 H D 39 D VBG Base Excess 2 5 H 06/21/24 06/21/24 06/22/24 13:50 15:37 04:18 ABG pH 7.46 H ABG pCO2 39 ABG pO2 78 L D ABG HCO3 27 H ABG O2 Saturation 97 ABG Base Excess 3 VBG pH 7.41 7.54 VBG pCO2 49 30 L D VBG pO2 29 57 D VBG Base Excess 5 H 3 06/22/24 06/22/24 06/28/24 05:27 09:33 17:24 ABG pH ABG pCO2 ABG pO2 ABG HCO3 ABG O2 Saturation ABG Base Excess VBG pH 7.43 7.41 7.42 VBG pCO2 45 D 46 40 VBG pO2 39 48 58 VBG Base Excess 4 H 4 H 2 Quality Measures Quality Measures VTE prophylaxis Assessment & Plan Assessment Current Active Medications: Generic Name Dose Route Start Last Admin Trade Name Freq PRN Reason Stop Dose Admin Acetaminophen 650 mg 06/19/24 14:18 Acetaminophen 325 Mg Tablet PO 07/19/24 14:17 Q6H PRN Fever >101.5 Acetaminophen 650 mg 06/19/24 14:18 06/27/24 23:03 Acetaminophen 325 Mg Tablet PO 07/19/24 14:17 650 mg Q6H PRN Administration PAIN SCALE 1-3 (mild Albuterol/Ipratropium 3 ml 06/20/24 07:13 Albuterol/Ipratropium (Duoneb) Rt Yamila 3 Ml Nebu INH 07/20/24 07:12 Q2HR PRN SHORTNESS OF BREATH OR WHEEZE Aspirin 81 mg 06/20/24 09:00 06/29/24 08:41 Aspirin Ec 81 Mg Tabec PO 07/20/24 08:59 81 mg QDAY NYDIA Administration Atorvastatin Calcium 80 mg 06/20/24 21:00 06/27/24 21:14 Atorvastatin Calcium 20 Mg Tablet PO 07/20/24 20:59 80 mg HS NYDIA Administration Heparin Sodium (Porcine) 5,000 unit 06/19/24 22:00 06/29/24 05:56 Heparin Sod Inj 5000 Unit/Ml Vial SC 07/03/24 21:59 5,000 unit Q8HR NYDIA Administration Piperacillin/Tazobactam/Dextrose 3.375 gm in 50 mls @ 12.5 mls/hr 06/28/24 14:00 06/29/24 05:56 Zosyn IV 07/05/24 13:59 12.5 mls/hr Q8HR NYDIA Administration Lactated Ringer's 1,000 mls @ 250 mls/hr 06/29/24 08:45 06/29/24 08:41 Lactated Ringers IV 06/29/24 12:44 250 mls/hr .Q4H ONE Administration Metoprolol Succinate 25 mg 06/26/24 14:15 06/29/24 08:37 Metoprolol Succinate Xl 25 Mg Tabcr PO 07/26/24 14:14 Not Given QDAY NYDIA Midodrine 5 mg 06/27/24 14:00 06/29/24 05:56 Midodrine 5 Mg Tablet PO 07/27/24 13:59 5 mg TID NYDIA Administration Ondansetron HCl 4 mg 06/19/24 14:18 06/27/24 17:17 Ondansetron Inj 2 Mg/Ml Inj 2 Ml IV 07/19/24 14:17 4 mg Q6H PRN Administration NAUSEA OR VOMITING Protocol Pantoprazole Sodium 40 mg 06/29/24 21:00 Pantoprazole Inj 40 Mg Vial IV 07/29/24 20:59 BID NYDIA Pharmacy Consult 1 each 06/29/24 08:17 Pharmacy Renal Dose Adjustment 1 Ea XX 07/29/24 08:16 PRN PRN CONSULT Pharmacy Consult 1 each 06/29/24 09:00 Vancomycin Pharmacy To Dose 1 Each Each IV 07/29/24 08:59 QDAY PRN CONSULT Plan Shaheed Fernandez is a 63-year-old male with past medical history of CAD, pacemaker/defibrillator by Dr. Ramirez in [place] for abnormal rhythm CHF, hypertension, COPD who came into our ER after he was woken up at 2 AM with chest pain and admitted to the ICU for further management of shock and has since been downgraded to floors. #KERWIN secondary to ATN Patient's renal function today noted to be BUN 88, creatinine 3.2, GFR 21. Renal ultrasound 06/26/24 shows Mild bilateral renal parenchymal scar formation Recommendations/plan: -Patient was given LR bolus today, continue with conservative management, patient has worsening of renal function will likely need hemodialysis soon. -Overall patient has poor prognosis, recommend goals of care discussion with patient's family. -Monitor mentation and renal function closely. -Encouraged strict I&O's -Avoid nephrotoxic agents, renally dose medications #Acute encephalopathy likely secondary to ICU delirium #Agitation?resolved #Ischemic hepatitis, improving #Hyperbilirubinemia #Shock, undifferentiated #Acute on chronic HFrEF, EF 15-20% #Troponinemia,?likely secondary to demand ischemia?resolved #Acute hypoxic respiratory failure due to pulmonary edema, resolved #History of COPD #Hypokalemia #High anion gap metabolic acidosis, resolved #Lactic acidosis, resolved -Management as per primary team Case discussed with Attending Dr. Rodriguez. Ritu Ray PGY1 Disclaimer: This note was dictated by speech recognition. Minor errors in lithographic artist may be present due to voice recognition software. Attending Provider Attestation/Addendum Pt is seen and examined. Labs and investigations are reviewed. Agree witth assessment and plan by resident. agree with findings. Jose Rodriguez MD
--- NOTE | 2024-06-29 11:53 | ESPR_ITS ---
<Statement entered by Mayela Kiran MD - 06/30/24 08:19> The patient is evaluated with PGY 3 patient not doing well clinically appears to be hypotensive and the patient appears to be in septic shock acute abdomen planning for surgery later on in the afternoon agree with decision to take the patient surgery though very very high risk based on low ejection fraction of 15 to 20% combination of cardiogenic and septic shock extremely poor prognosis patient may not survive but no other choice other than leaving the patient no code but patient's apparently recommended to have the emergent surgery laparotomy later on. Documentation for date of: 06/29/24 Subjective Subjective Interval history: patient exained bedside this morning, his white count went upto 54.7 , he is complaining of pain abdomen . Dr Hazel is planning to do surgery today . he has poor prognosis Exam Vital Signs Temp Pulse Resp BP Pulse Ox O2 Del Method O2 Flow Rate 97.0 F 79 18 94/58 L 94 L Oxy Mask 5 06/29/24 08:00 06/29/24 08:37 06/29/24 08:00 06/29/24 08:37 06/29/24 08:00 06/29/24 08:00 06/29/24 08:00 Narrative Exam Gen: ill looking male, looks older than his age. restrained in bed HEENT: NCAT, PERRLA, EOMI, MMM, anicteric conjunctivae. CVS: normal S1 and S2. RRR. No M/R/G. Resp: Minimal rhonchi B/L. No rhonchi, rales, crackles or wheezing. Abd: tender in all quadrant. MSK: Good ROM in BUE & BLE. No edema BLE. Objective Labs 06/29/24 05:21 06/29/24 05:21 Labs: Laboratory Results - last 24 hr 06/27/24 06/28/24 06/28/24 15:55 08:02 11:40 WBC 42.6 H* D RBC 4.08 L Hgb 12.1 L Hct 36.9 L MCV 90 MCH 29.7 MCHC 32.8 RDW Std Deviation 53.3 H Plt Count 195 D Neut % (Auto) 84 H Lymph % (Auto) 3 L [place] % (Auto) 8 Eos % (Auto) 0 Baso % (Auto) 0 Neut # (Auto) 35.7 H Lymph # (Auto) 1.4 [place] # (Auto) 3.2 H Eos # (Auto) 0.0 Baso # (Auto) 0.2 Immature Gran # (Auto) 1.97 H Absolute Nucleated RBC 0.38 H Immature Gran % 5 H Nucleated RBC % 1 H Smear Path Review Sent to Pathologist ESR 20 PT INR VBG pH VBG pCO2 VBG pO2 VBG O2 Sat (Ariana) VBG Base Excess Sodium Potassium Chloride Carbon Dioxide Anion Gap BUN Creatinine Estim Creat Clear Calc eGFR BUN/Creatinine Ratio Glucose Calculated Osmolality Lactic Acid 4.5 H* Calcium Corrected Calcium Phosphorus Magnesium Ferritin 448 H Total Bilirubin AST ALT Alkaline Phosphatase C-Reactive Prot, Quant 5.8 H Total Protein Albumin Globulin Albumin/Globulin Ratio Procalcitonin 4.24 H Stool Occult Blood Positive A 06/28/24 06/28/24 06/28/24 17:24 17:26 18:57 WBC RBC Hgb Hct MCV MCH MCHC RDW Std Deviation Plt Count Neut % (Auto) Lymph % (Auto) [place] % (Auto) Eos % (Auto) Baso % (Auto) Neut # (Auto) Lymph # (Auto) [place] # (Auto) Eos # (Auto) Baso # (Auto) Immature Gran # (Auto) Absolute Nucleated RBC Immature Gran % Nucleated RBC % Smear Path Review ESR PT 18.7 H INR 1.8 H VBG pH 7.42 VBG pCO2 40 VBG pO2 58 VBG O2 Sat (Ariana) 90 L VBG Base Excess 2 Sodium Potassium Chloride Carbon Dioxide Anion Gap BUN Creatinine Estim Creat Clear Calc eGFR BUN/Creatinine Ratio Glucose Calculated Osmolality Lactic Acid 2.6 H Calcium Corrected Calcium Phosphorus Magnesium Ferritin Total Bilirubin AST ALT Alkaline Phosphatase C-Reactive Prot, Quant Total Protein Albumin Globulin Albumin/Globulin Ratio Procalcitonin Stool Occult Blood 06/28/24 06/29/24 23:00 05:21 WBC 54.7 H* D RBC 4.29 L Hgb 12.9 L Hct 38.9 L MCV 91 MCH 30.1 MCHC 33.2 RDW Std Deviation 54.4 H Plt Count 190 Neut % (Auto) 87 H Lymph % (Auto) 3 L [place] % (Auto) 6 Eos % (Auto) 0 Baso % (Auto) 0 Neut # (Auto) 47.8 H Lymph # (Auto) 1.4 [place] # (Auto) 3.0 H Eos # (Auto) 0.0 Baso # (Auto) 0.0 Immature Gran # (Auto) 2.41 H Absolute Nucleated RBC 0.22 H Immature Gran % 4 H Nucleated RBC % 0 Smear Path Review Sent to Pathologist ESR PT INR VBG pH VBG pCO2 VBG pO2 VBG O2 Sat (Ariana) VBG Base Excess Sodium 145 Potassium 3.7 Chloride 106 Carbon Dioxide 26.6 Anion Gap 12 BUN 113 H* Creatinine 3.7 H D Estim Creat Clear Calc 22.4 L eGFR 18 L BUN/Creatinine Ratio 31 H Glucose 76 D Calculated Osmolality 323 H Lactic Acid 3.0 H Calcium 7.2 L Corrected Calcium 8.5 Phosphorus 5.0 Magnesium 2.9 H Ferritin Total Bilirubin 5.8 H AST 405 H ALT 367 H Alkaline Phosphatase 237 H D C-Reactive Prot, Quant Total Protein 4.9 L Albumin 2.4 L Globulin 2.5 Albumin/Globulin Ratio 1.0 L Procalcitonin Stool Occult Blood ABG Interpretation ABG results: 06/19/24 06/19/24 06/20/24 16:21 17:41 08:48 ABG pH 7.10 L* ABG pCO2 20 L ABG pO2 105 ABG HCO3 6 L* ABG O2 Saturation 96 ABG Base Excess -21 L VBG pH 7.19 L 7.38 VBG pCO2 28 L 46 D VBG pO2 55 37 VBG Base Excess -16 L 1 06/20/24 06/20/24 06/20/24 11:10 17:54 19:45 ABG pH 7.39 D 7.39 ABG pCO2 40 D 45 ABG pO2 63 L D 90 D ABG HCO3 24 27 H ABG O2 Saturation 91 97 ABG Base Excess -1 2 VBG pH 7.37 7.45 VBG pCO2 44 36 VBG pO2 38 58 D VBG Base Excess 0 1 06/21/24 06/21/24 06/21/24 04:30 05:56 12:00 ABG pH 7.41 ABG pCO2 43 ABG pO2 102 ABG HCO3 27 H ABG O2 Saturation 99 H ABG Base Excess 2 VBG pH 7.53 7.39 VBG pCO2 29 L 51 D VBG pO2 115 H D 39 D VBG Base Excess 2 5 H 06/21/24 06/21/24 06/22/24 13:50 15:37 04:18 ABG pH 7.46 H ABG pCO2 39 ABG pO2 78 L D ABG HCO3 27 H ABG O2 Saturation 97 ABG Base Excess 3 VBG pH 7.41 7.54 VBG pCO2 49 30 L D VBG pO2 29 57 D VBG Base Excess 5 H 3 06/22/24 06/22/24 06/28/24 05:27 09:33 17:24 ABG pH ABG pCO2 ABG pO2 ABG HCO3 ABG O2 Saturation ABG Base Excess VBG pH 7.43 7.41 7.42 VBG pCO2 45 D 46 40 VBG pO2 39 48 58 VBG Base Excess 4 H 4 H 2 Quality Measures Quality Measures VTE prophylaxis Assessment & Plan Assessment Current Active Medications: Generic Name Dose Route Start Last Admin Trade Name Freq PRN Reason Stop Dose Admin Acetaminophen 650 mg 06/19/24 14:18 Acetaminophen 325 Mg Tablet PO 07/19/24 14:17 Q6H PRN Fever >101.5 Acetaminophen 650 mg 06/19/24 14:18 06/27/24 23:03 Acetaminophen 325 Mg Tablet PO 07/19/24 14:17 650 mg Q6H PRN Administration PAIN SCALE 1-3 (mild Albuterol/Ipratropium 3 ml 06/20/24 07:13 Albuterol/Ipratropium (Duoneb) Rt Yamila 3 Ml Nebu INH 07/20/24 07:12 Q2HR PRN SHORTNESS OF BREATH OR WHEEZE Aspirin 81 mg 06/20/24 09:00 06/29/24 08:41 Aspirin Ec 81 Mg Tabec PO 07/20/24 08:59 81 mg QDAY NYDIA Administration Atorvastatin Calcium 80 mg 06/20/24 21:00 06/27/24 21:14 Atorvastatin Calcium 20 Mg Tablet PO 07/20/24 20:59 80 mg HS NYDIA Administration Heparin Sodium (Porcine) 5,000 unit 06/19/24 22:00 06/29/24 05:56 Heparin Sod Inj 5000 Unit/Ml Vial SC 07/03/24 21:59 5,000 unit Q8HR NYDIA Administration Piperacillin/Tazobactam/Dextrose 3.375 gm in 50 mls @ 12.5 mls/hr 06/28/24 14:00 06/29/24 05:56 Zosyn IV 07/05/24 13:59 12.5 mls/hr Q8HR NYDIA Administration Lactated Ringer's 1,000 mls @ 250 mls/hr 06/29/24 08:45 06/29/24 08:41 Lactated Ringers IV 06/29/24 12:44 250 mls/hr .Q4H ONE Administration Metoprolol Succinate 25 mg 06/26/24 14:15 06/29/24 08:37 Metoprolol Succinate Xl 25 Mg Tabcr PO 07/26/24 14:14 Not Given QDAY NYDIA Midodrine 5 mg 06/27/24 14:00 06/29/24 05:56 Midodrine 5 Mg Tablet PO 07/27/24 13:59 5 mg TID NYDIA Administration Ondansetron HCl 4 mg 06/19/24 14:18 06/27/24 17:17 Ondansetron Inj 2 Mg/Ml Inj 2 Ml IV 07/19/24 14:17 4 mg Q6H PRN Administration NAUSEA OR VOMITING Protocol Pantoprazole Sodium 40 mg 06/29/24 21:00 Pantoprazole Inj 40 Mg Vial IV 07/29/24 20:59 BID NYDIA Pharmacy Consult 1 each 06/29/24 08:17 Pharmacy Renal Dose Adjustment 1 Ea XX 07/29/24 08:16 PRN PRN CONSULT Pharmacy Consult 1 each 06/29/24 09:00 Vancomycin Pharmacy To Dose 1 Each Each IV 07/29/24 08:59 QDAY PRN CONSULT Plan 63-year-old male with past medical history of coronary artery disease, pacemaker/defibilator placed by Dr. 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 Initial labs in the ED showed WBC count of 29.8 . pH?7.10, pCO2 20, bicarb of 6, sodium?137, potassium?4.7, chloride 97, carbon oxide?14.6, BUN 33, AG 28, creatinine 2.5, lactic acid?18, total bilirubin?5.3, AST?5489, ALT?2363, alk phos?140, elevated troponin initial was 3.5 for the repeat troponin is 4.52. Chest x-ray did not show any pneumonia/no pulmonary fuction . # Cardiogenic shock- resolved # NSTEMI most likely type II in setting of Meth use. # Cardiomyopathy from meth use. # HFrEF 15-20 % -pt came to ED with [facility] complain of pain abdomen , labs showed elevated troponin 3.5 , repeat troponin was 4.5 , -motteling present on B/l legs -he denies chest pain -Bedside US showed EF of 15-20 % -he has BLENDING TECHNICIAN-D placed by Dr Tam from [place] unknown exact date -His elevated troponin could be type I versus type II, most likely in the setting of sepsis -Echo 2018 shows - Normal left ventricular size and function. Approximate ejection fraction is 30-35%. Moderate mitral and tricuspid regurgitation noted. Mild pulmonic regurgitation.Mild PHTN. Slight posterior MVP. -he received 1 L NS in ED. 06/20/2024: troponin went upto 12 , meth positive in utox , lactic acid trending down. he is still on dobutamine 2mcg , AST > 6000, ALT- 3300, procsl- 6.08 . levophed added to maintain the pressure. he has overall poor prognosis, levophed requirement going up . 06/21/2024: Norepinephrine was discontinued by ICU team, he is able to maintain blood pressure around 90/60. Continue dobutamine drip. LFTs are downtrending. 06/22/2024: He is being off pressors. Echo showed -Findings are consistent with dilated cardiomyopathy severe global hypokinesis.Left ventricle is markedly dilated with severe LV dysfunction severe global hypokinesis ejection fraction 15 to 20% . he needs to quit meth permanently . patient downgraded to floors . 06/23/2024: He will require goal-directed medical therapy currently only on Coreg, His kidney function is creatinine 2.4 with creatinine clearance of 24.4. Patient has home Jardiance who, Lasix and lisinopril at home. he needs to quit meth and follow this PCP . he is restrained in bed , probably withdrawing from meth. 06/25/2024: He will require goal-directed medical therapy currently only on Coreg, His kidney function is creatinine 3 with creatinine clearance of 27.7 Patient has home Jardiance who, Lasix and lisinopril at home. he needs to quit meth and follow this PCP .Head Ct was ordered by primary team which showed - Negative for acute hemorrhage, mass effect or midline shift. pending placement. . He can follow-up with primary apparatus repair mechanic as an outpatient he has a private apparatus repair mechanic Dr. Torres in [place]. 06/27/2024: BP remains soft 92/66, HR 87 with METOPROLOL XL 25 mg daily. No improvement in renal function from yesterday, CR 3.2, BUN 88, GFR 21. Potassium 4.2, mag 2.3. ? Continue METOPROLOL XL 25 daily for NSVT as long as BP tolerates ? Continue IVF, monitor renal function ? Maintain K>4, MAG >2 06/29/2024: his white count went upto 54.7 , he is complaining of pain abdomen . Dr Hazel is planning to do surgery today . He has poor prognosis , his kidney function is worsening with BUN of 113 and cr of 3.7 . Continue Metoprolol. # H/o HTN - BNP ->3280 -currently current management. Rest of medical problem management as per ICU team. Case discussed with my attending Dr Magno Shea MD,PGY-3
--- NOTE | 2024-06-29 13:39 | PD.SURPROG ---
Documentation for date of: 06/29/24 Subjective Subjective Brief History: History of present illness is not obtained from the patient because he is confused and is not able to give any history. Patient has spent more than we can this hospital and he came with chest pain and was found to have very unstable vital signs. He has been in ICU and was treated for cardiogenic shock and hypotension I was then stabilized. He was transferred to the regular floor. Apparently the patient's abdomen changed today and is having some diffuse tenderness on palpation. Therefore surgical consultation is obtained. Patient has had not had any vomiting. With markedly elevated liver enzymes and renal failure. His other diagnoses consist of cardiomyopathy COPD and congestive heart failure with poor ejection fraction and supraventricular tachycardia. Patient has had a history of multiple organ failure. At the bedside he was able to respond and when I asked him whether he has any abdominal pain he said no. Narrative: The patient was seen today and he was complaining of abdominal pain. Exam Vital Signs Temp Pulse Resp BP Pulse Ox O2 Del Method O2 Flow Rate 97.0 F 83 18 87/57 L 94 L Oxy Mask 5 06/29/24 08:00 06/29/24 13:21 06/29/24 08:00 06/29/24 13:21 06/29/24 08:00 06/29/24 08:00 06/29/24 08:00 Vital signs are surprisingly normal but his blood pressure dropping down in the 80s Routine Abdominal Exam Comments: Abdominal examination showed distention as well as diffuse tenderness Results Results: Laboratory Laboratory Narrative: WBC is up to 52,000 and renal functions are getting worse Assessment & Plan Assessment Additional comments: Impression: I cannot rule out intra-abdominal problem now since his examination is changed from last evening Plan Plan: Patient is a high risk for exploration but however there is no other option if the family wants me to operate. Temporarily he will be of DNR status and then reinstated after the procedure. I told the family that this chance of recovery is very small and he may have a cardiac arrest even during the surgery. They understand.
[2024-06-29] MEDS: SODIUM CHLORIDE 0.9% 500 ML 500 ML 999 ML IV (15:56)
--- NOTE | 2024-06-29 16:38 | ESPR_ITS ---
Documentation for date of: 06/29/24 Subjective Subjective Interval history: More abdominal distention Leukocytosis uptrending Discussed the case with medical care evaluation specialist Exploration today at 6 PM Exam Vital Signs Temp Pulse Resp BP Pulse Ox O2 Del Method O2 Flow Rate 97.3 F 76 18 83/55 L 94 L Room Air 8 06/29/24 16:21 06/29/24 16:21 06/29/24 16:21 06/29/24 16:21 06/29/24 16:21 06/29/24 12:00 06/29/24 16:21 Objective Labs 06/29/24 05:21 06/29/24 05:21 Labs: Laboratory Results - last 24 hr 06/27/24 06/28/24 06/28/24 15:55 17:24 17:26 WBC RBC Hgb Hct MCV MCH MCHC RDW Std Deviation Plt Count Neut % (Auto) Lymph % (Auto) [place] % (Auto) Eos % (Auto) Baso % (Auto) Neut # (Auto) Lymph # (Auto) [place] # (Auto) Eos # (Auto) Baso # (Auto) Immature Gran # (Auto) Absolute Nucleated RBC Immature Gran % Nucleated RBC % Smear Path Review PT 18.7 H INR 1.8 H VBG pH 7.42 VBG pCO2 40 VBG pO2 58 VBG O2 Sat (Ariana) 90 L VBG Base Excess 2 Sodium Potassium Chloride Carbon Dioxide Anion Gap BUN Creatinine Estim Creat Clear Calc eGFR BUN/Creatinine Ratio Glucose Calculated Osmolality Lactic Acid Calcium Corrected Calcium Phosphorus Magnesium Total Bilirubin AST ALT Alkaline Phosphatase Total Protein Albumin Globulin Albumin/Globulin Ratio Stool Occult Blood Positive A Blood Type Antibody Screen Blood Bank Wristband ID Blood Bank Comment 06/28/24 06/28/24 06/29/24 18:57 23:00 05:21 WBC 54.7 H* D RBC 4.29 L Hgb 12.9 L Hct 38.9 L MCV 91 MCH 30.1 MCHC 33.2 RDW Std Deviation 54.4 H Plt Count 190 Neut % (Auto) 87 H Lymph % (Auto) 3 L [place] % (Auto) 6 Eos % (Auto) 0 Baso % (Auto) 0 Neut # (Auto) 47.8 H Lymph # (Auto) 1.4 [place] # (Auto) 3.0 H Eos # (Auto) 0.0 Baso # (Auto) 0.0 Immature Gran # (Auto) 2.41 H Absolute Nucleated RBC 0.22 H Immature Gran % 4 H Nucleated RBC % 0 Smear Path Review Sent to Pathologist PT INR VBG pH VBG pCO2 VBG pO2 VBG O2 Sat (Ariana) VBG Base Excess Sodium 145 Potassium 3.7 Chloride 106 Carbon Dioxide 26.6 Anion Gap 12 BUN 113 H* Creatinine 3.7 H D Estim Creat Clear Calc 22.4 L eGFR 18 L BUN/Creatinine Ratio 31 H Glucose 76 D Calculated Osmolality 323 H Lactic Acid 2.6 H 3.0 H Calcium 7.2 L Corrected Calcium 8.5 Phosphorus 5.0 Magnesium 2.9 H Total Bilirubin 5.8 H AST 405 H ALT 367 H Alkaline Phosphatase 237 H D Total Protein 4.9 L Albumin 2.4 L Globulin 2.5 Albumin/Globulin Ratio 1.0 L Stool Occult Blood Blood Type Antibody Screen Blood Bank Wristband ID Blood Bank Comment 06/29/24 13:49 WBC RBC Hgb Hct MCV MCH MCHC RDW Std Deviation Plt Count Neut % (Auto) Lymph % (Auto) [place] % (Auto) Eos % (Auto) Baso % (Auto) Neut # (Auto) Lymph # (Auto) [place] # (Auto) Eos # (Auto) Baso # (Auto) Immature Gran # (Auto) Absolute Nucleated RBC Immature Gran % Nucleated RBC % Smear Path Review PT INR VBG pH VBG pCO2 VBG pO2 VBG O2 Sat (Ariana) VBG Base Excess Sodium Potassium Chloride Carbon Dioxide Anion Gap BUN Creatinine Estim Creat Clear Calc eGFR BUN/Creatinine Ratio Glucose Calculated Osmolality Lactic Acid Calcium Corrected Calcium Phosphorus Magnesium Total Bilirubin AST ALT Alkaline Phosphatase Total Protein Albumin Globulin Albumin/Globulin Ratio Stool Occult Blood Blood Type O Negative Antibody Screen NEGATIVE Blood Bank Wristband ID Yes Blood Bank Comment FFP Ready Impressions Impression: Worsening abdominal distention and uptrending leukocytosis suggestive of ischemic bowel disease Agree with exploration ABG Interpretation ABG results: 06/19/24 06/19/24 06/20/24 16:21 17:41 08:48 ABG pH 7.10 L* ABG pCO2 20 L ABG pO2 105 ABG HCO3 6 L* ABG O2 Saturation 96 ABG Base Excess -21 L VBG pH 7.19 L 7.38 VBG pCO2 28 L 46 D VBG pO2 55 37 VBG Base Excess -16 L 1 06/20/24 06/20/24 06/20/24 11:10 17:54 19:45 ABG pH 7.39 D 7.39 ABG pCO2 40 D 45 ABG pO2 63 L D 90 D ABG HCO3 24 27 H ABG O2 Saturation 91 97 ABG Base Excess -1 2 VBG pH 7.37 7.45 VBG pCO2 44 36 VBG pO2 38 58 D VBG Base Excess 0 1 06/21/24 06/21/24 06/21/24 04:30 05:56 12:00 ABG pH 7.41 ABG pCO2 43 ABG pO2 102 ABG HCO3 27 H ABG O2 Saturation 99 H ABG Base Excess 2 VBG pH 7.53 7.39 VBG pCO2 29 L 51 D VBG pO2 115 H D 39 D VBG Base Excess 2 5 H 06/21/24 06/21/24 06/22/24 13:50 15:37 04:18 ABG pH 7.46 H ABG pCO2 39 ABG pO2 78 L D ABG HCO3 27 H ABG O2 Saturation 97 ABG Base Excess 3 VBG pH 7.41 7.54 VBG pCO2 49 30 L D VBG pO2 29 57 D VBG Base Excess 5 H 3 06/22/24 06/22/24 06/28/24 05:27 09:33 17:24 ABG pH ABG pCO2 ABG pO2 ABG HCO3 ABG O2 Saturation ABG Base Excess VBG pH 7.43 7.41 7.42 VBG pCO2 45 D 46 40 VBG pO2 39 48 58 VBG Base Excess 4 H 4 H 2 Assessment & Plan A&P Narrative # Abdominal distention with lactic acidosis and leukocytosis and moderate in the left lower quadrant and lower extremity mottling suggestive of an ischemic process Plan Recommend CT scan of the abdomen pelvis stat without contrast because of renal function it would have been better with IV contrast but we can do it Recommend stat surgical consultation I will put in the order for it Keep patient n.p.o. Other medical problems include Congestive heart failure Cardiac arrhythmias requiring placement of a pacemaker and a defibrillator COPD Abnormal ultrasound showing thickening of the gallbladder wall suggestive of cholecystitis on admission Once patient is stable recommend CCK HIDA scan with ejection fraction Time Spent With Patient Time: Total time spent is greater than 50% in coordination of care (as documented) at patient's floor/unit and/or counseling patient: Procedures Arterial Line Size (Gauge): 20
--- NOTE | 2024-06-29 16:54 | PD.RESPRO ---
Documentation for date of: 06/29/24 Subjective Subjective Interval history: Overnight, no acute events reported other than 9 beat V. tach. Patient continues to be altered and lethargic. On physical exam today, patient's abdomen appeared to be more distended. Labs significant for leukocytosis of 55 and BUN increased to 113. However, no fevers noted. Blood pressure is soft in the range of 95-97/69-74. Spoke with patient's son, Brennan and at this time would agree to take patient to surgery for ex lap with general surgery. Patient's son, Brennan understands that there is a high risk of mortality during surgery given patient's low ejection fraction and clinical course thus far. ICU team was contacted to place a dialysis catheter line as patient would most likely require dialysis status post surgery in the morning tomorrow. Ex lap is scheduled for this evening with general surgery. Exam Vital Signs Temp Pulse Resp BP Pulse Ox O2 Del Method O2 Flow Rate 97.3 F 76 18 83/55 L 94 L Room Air 8 06/29/24 16:21 06/29/24 16:21 06/29/24 16:21 06/29/24 16:21 06/29/24 16:21 06/29/24 12:00 06/29/24 16:21 Narrative Exam General Appearance: Pt more lethargic and not awake or alert, but in no apparent distress, seen with oxy mask. HEENT: NC/AT, no scleral icterus, no conjunctival pallor Lungs: CTAB, no wheezes or crackles appreciated CVS: RRR, S1/S2 heard, no murmurs or rubs appreciated ABD: More distended, tender to palpation diffusely, bowel sounds present but decreased EXT: no deformity/edema/lesions/cyanosis/clubbing, radial pulses 2+ BL, DP pulses 2 + BL SKIN: Skin exam normal without any rashes except for ecchymosis to right lower quadrant extending into the right groin and some ecchymosis seen on the left lower quadrant Neuro: Able to respond to his name however goes back to sleep. Unable to assess motor and strength at this time Psych: Unable to assess at this time due to mental state Objective Labs 06/29/24 05:21 06/29/24 05:21 Labs: Laboratory Results - last 24 hr 06/27/24 06/28/24 06/28/24 15:55 17:24 17:26 WBC RBC Hgb Hct MCV MCH MCHC RDW Std Deviation Plt Count Neut % (Auto) Lymph % (Auto) [place] % (Auto) Eos % (Auto) Baso % (Auto) Neut # (Auto) Lymph # (Auto) [place] # (Auto) Eos # (Auto) Baso # (Auto) Immature Gran # (Auto) Absolute Nucleated RBC Immature Gran % Nucleated RBC % Smear Path Review PT 18.7 H INR 1.8 H VBG pH 7.42 VBG pCO2 40 VBG pO2 58 VBG O2 Sat (Ariana) 90 L VBG Base Excess 2 Sodium Potassium Chloride Carbon Dioxide Anion Gap BUN Creatinine Estim Creat Clear Calc eGFR BUN/Creatinine Ratio Glucose Calculated Osmolality Lactic Acid Calcium Corrected Calcium Phosphorus Magnesium Total Bilirubin AST ALT Alkaline Phosphatase Total Protein Albumin Globulin Albumin/Globulin Ratio Stool Occult Blood Positive A Blood Type Antibody Screen Blood Bank Wristband ID Blood Bank Comment 06/28/24 06/28/24 06/29/24 18:57 23:00 05:21 WBC 54.7 H* D RBC 4.29 L Hgb 12.9 L Hct 38.9 L MCV 91 MCH 30.1 MCHC 33.2 RDW Std Deviation 54.4 H Plt Count 190 Neut % (Auto) 87 H Lymph % (Auto) 3 L [place] % (Auto) 6 Eos % (Auto) 0 Baso % (Auto) 0 Neut # (Auto) 47.8 H Lymph # (Auto) 1.4 [place] # (Auto) 3.0 H Eos # (Auto) 0.0 Baso # (Auto) 0.0 Immature Gran # (Auto) 2.41 H Absolute Nucleated RBC 0.22 H Immature Gran % 4 H Nucleated RBC % 0 Smear Path Review Sent to Pathologist PT INR VBG pH VBG pCO2 VBG pO2 VBG O2 Sat (Ariana) VBG Base Excess Sodium 145 Potassium 3.7 Chloride 106 Carbon Dioxide 26.6 Anion Gap 12 BUN 113 H* Creatinine 3.7 H D Estim Creat Clear Calc 22.4 L eGFR 18 L BUN/Creatinine Ratio 31 H Glucose 76 D Calculated Osmolality 323 H Lactic Acid 2.6 H 3.0 H Calcium 7.2 L Corrected Calcium 8.5 Phosphorus 5.0 Magnesium 2.9 H Total Bilirubin 5.8 H AST 405 H ALT 367 H Alkaline Phosphatase 237 H D Total Protein 4.9 L Albumin 2.4 L Globulin 2.5 Albumin/Globulin Ratio 1.0 L Stool Occult Blood Blood Type Antibody Screen Blood Bank Wristband ID Blood Bank Comment 06/29/24 13:49 WBC RBC Hgb Hct MCV MCH MCHC RDW Std Deviation Plt Count Neut % (Auto) Lymph % (Auto) [place] % (Auto) Eos % (Auto) Baso % (Auto) Neut # (Auto) Lymph # (Auto) [place] # (Auto) Eos # (Auto) Baso # (Auto) Immature Gran # (Auto) Absolute Nucleated RBC Immature Gran % Nucleated RBC % Smear Path Review PT INR VBG pH VBG pCO2 VBG pO2 VBG O2 Sat (Ariana) VBG Base Excess Sodium Potassium Chloride Carbon Dioxide Anion Gap BUN Creatinine Estim Creat Clear Calc eGFR BUN/Creatinine Ratio Glucose Calculated Osmolality Lactic Acid Calcium Corrected Calcium Phosphorus Magnesium Total Bilirubin AST ALT Alkaline Phosphatase Total Protein Albumin Globulin Albumin/Globulin Ratio Stool Occult Blood Blood Type O Negative Antibody Screen NEGATIVE Blood Bank Wristband ID Yes Blood Bank Comment FFP Ready ABG Interpretation ABG results: 06/19/24 06/19/24 06/20/24 16:21 17:41 08:48 ABG pH 7.10 L* ABG pCO2 20 L ABG pO2 105 ABG HCO3 6 L* ABG O2 Saturation 96 ABG Base Excess -21 L VBG pH 7.19 L 7.38 VBG pCO2 28 L 46 D VBG pO2 55 37 VBG Base Excess -16 L 1 06/20/24 06/20/24 06/20/24 11:10 17:54 19:45 ABG pH 7.39 D 7.39 ABG pCO2 40 D 45 ABG pO2 63 L D 90 D ABG HCO3 24 27 H ABG O2 Saturation 91 97 ABG Base Excess -1 2 VBG pH 7.37 7.45 VBG pCO2 44 36 VBG pO2 38 58 D VBG Base Excess 0 1 06/21/24 06/21/24 06/21/24 04:30 05:56 12:00 ABG pH 7.41 ABG pCO2 43 ABG pO2 102 ABG HCO3 27 H ABG O2 Saturation 99 H ABG Base Excess 2 VBG pH 7.53 7.39 VBG pCO2 29 L 51 D VBG pO2 115 H D 39 D VBG Base Excess 2 5 H 06/21/24 06/21/24 06/22/24 13:50 15:37 04:18 ABG pH 7.46 H ABG pCO2 39 ABG pO2 78 L D ABG HCO3 27 H ABG O2 Saturation 97 ABG Base Excess 3 VBG pH 7.41 7.54 VBG pCO2 49 30 L D VBG pO2 29 57 D VBG Base Excess 5 H 3 06/22/24 06/22/24 06/28/24 05:27 09:33 17:24 ABG pH ABG pCO2 ABG pO2 ABG HCO3 ABG O2 Saturation ABG Base Excess VBG pH 7.43 7.41 7.42 VBG pCO2 45 D 46 40 VBG pO2 39 48 58 VBG Base Excess 4 H 4 H 2 Quality Measures Quality Measures VTE prophylaxis Assessment & Plan Assessment Current Active Medications: Generic Name Dose Route Start Last Admin Trade Name Freq PRN Reason Stop Dose Admin Acetaminophen 650 mg 06/19/24 14:18 Acetaminophen 325 Mg Tablet PO 07/19/24 14:17 Q6H PRN Fever >101.5 Acetaminophen 650 mg 06/19/24 14:18 06/27/24 23:03 Acetaminophen 325 Mg Tablet PO 07/19/24 14:17 650 mg Q6H PRN Administration PAIN SCALE 1-3 (mild Albuterol/Ipratropium 3 ml 06/20/24 07:13 Albuterol/Ipratropium (Duoneb) Rt Yamila 3 Ml Nebu INH 07/20/24 07:12 Q2HR PRN SHORTNESS OF BREATH OR WHEEZE Aspirin 81 mg 06/20/24 09:00 06/29/24 08:41 Aspirin Ec 81 Mg Tabec PO 07/20/24 08:59 81 mg QDAY NYDIA Administration Atorvastatin Calcium 80 mg 06/20/24 21:00 06/27/24 21:14 Atorvastatin Calcium 20 Mg Tablet PO 07/20/24 20:59 80 mg HS NYDIA Administration Heparin Sodium (Porcine) 5,000 unit 06/19/24 22:00 06/29/24 15:26 Heparin Sod Inj 5000 Unit/Ml Vial SC 07/03/24 21:59 Not Given Q8HR NYDIA Piperacillin/Tazobactam/Dextrose 3.375 gm in 50 mls @ 12.5 mls/hr 06/28/24 14:00 06/29/24 13:22 Zosyn IV 07/05/24 13:59 12.5 mls/hr Q8HR NYDIA Administration Metoprolol Succinate 25 mg 06/26/24 14:15 06/29/24 08:37 Metoprolol Succinate Xl 25 Mg Tabcr PO 07/26/24 14:14 Not Given QDAY NYDIA Midodrine 5 mg 06/27/24 14:00 06/29/24 13:21 Midodrine 5 Mg Tablet PO 07/27/24 13:59 5 mg TID NYDIA Administration Ondansetron HCl 4 mg 06/19/24 14:18 06/27/24 17:17 Ondansetron Inj 2 Mg/Ml Inj 2 Ml IV 07/19/24 14:17 4 mg Q6H PRN Administration NAUSEA OR VOMITING Protocol Pantoprazole Sodium 40 mg 06/29/24 21:00 Pantoprazole Inj 40 Mg Vial IV 07/29/24 20:59 BID NYDIA Pharmacy Consult 1 each 06/29/24 08:17 Pharmacy Renal Dose Adjustment 1 Ea XX 07/29/24 08:16 PRN PRN CONSULT Pharmacy Consult 1 each 06/29/24 09:00 Vancomycin Pharmacy To Dose 1 Each Each IV 07/29/24 08:59 QDAY PRN CONSULT Plan Shaheed Fernandez is a 63-year-old male with past medical history of CAD, pacemaker/defibrillator by Dr. Ramirez in [place] for abnormal rhythm CHF, hypertension, COPD who came into our ER after he was woken up at 2 AM with chest pain and admitted to the ICU for further management of shock and has since been downgraded to floors. #Leukocytosis, secondary to ischemic bowel versus GPC bacteremia #Lactic acidosis Trending lactate and currently peaking at 4.5, in ICU was as high as 16. WBC increased from 20 to 36 and repeat increased to 42. Consulted ICU and recommended to obtain CTA abdomen due to concerns for ischemic bowel given that patient presented with cardiogenic shock, has had bloody bowel movements starting yesterday, FOBT (+), and abdominal pain on exam though resolved later on in same day. Attempted to obtain CTA abdomen but patient allergic to contrast and creatinine 3.2 and radiology stating to obtain without contrast. Also consulted general surgery for possibility of ischemic bowel but given their own relatively benign bowel, not surgical abdomen/candidate. GI also consulted and recommended obtaining CT A/P for source identification. Bedside echo 06/28 showed collapsible IVC. 1 out of 2 GPC grew in blood cultures CT abdomen pelvis showed Mild to moderate ascites, hepatic colopathy and cystitis pattern, with pneumonia and left pleural effusion but small, and chronic cirrhosis; pancreatic head also appears to be abnormally enlarged and diffuse thickening of colonic wall ? General surgery consulted, appreciate recommendations ? General Surgery at this time will take patient to surgery for ex lap for further exploration ? GI consulted, appreciate recommendations ? ICU consulted, appreciate recommendations ? Follow-up CT A/P ? Follow-up blood and urine cultures and repeat blood cultures ordered ? Continue zosyn and vancomycin #KERWIN secondary to ATN vs cardiorenal syndrome Renal ultrasound showed mild bilateral renal parenchymal scar formation. Renal function stable around 3.2. Patient is incontinent and unable to assess accurate I's and O's, but is still producing urine. BUN continues to increase and currently peaking at 99, which is likely contributing to altered mental status. ? Nephrology consulted, appreciate recommendations ? Folllow-up urine studies ? 500 cc IVF bolus given ? Avoid nephrotoxic agents, renally dose medications #Ischemic hepatitis, improving #Hyperbilirubinemia Likely shock liver in setting of cardiogenic shock. AST peaked > 6000, ALT peaked at > 3300. T bili continues to uptrend at 8.0. Abdominal ultrasound revealed gallbladder wall thickening could be possibly from congestion Patient denied any right upper quadrant tenderness and there was no jaundice or fevers ? CTM #Shock-worsening #Acute on chronic HFrEF, EF 15-20% #Troponinemia, likely secondary to demand ischemia, resolved Likely cardiogenic versus distributive. Presented with chest pain that started in the early hours of the night. Manuscript Reader consulted in ED, and Dr. Kiran did bedside US which showed estimated EF of 15 to 20%. Echo 06/22: Dilated cardiomyopathy, severe global hypokinesis/LV dysfunction, EF 15 to 20%, moderate to severe TR, moderate, PA pressure 55 mmHg, moderate MR secondary to mitral annulus dilatation, severely dilated LA, mildly dilated RA. History of meth abuse and he did test positive for methamphetamine on his urine tox. Presented with troponin of 3.5 and peaked at 13.25, BNP > 3280. Patient's cardiac output improved with pressor support and dobutamine drip in ICU but have since been discontinued. ? Cardiology consulted, recommended to start GDMT as BP tolerates ? Strict I's and O's ? Aspirin 81 mg p.o. daily ? Coreg switched to metoprolol succinate 25 mg p.o. daily #Acute encephalopathy likely secondary to ICU delirium #Agitation Likely metabolic from substance abuse versus shock. CT head 06/25 negative, ammonia within normal limits. Suspect ICU delirium vs hyperuricemia ? CTM vital signs and symptoms ? Considering patient's somnolence, Seroquel discontinued #Acute hypoxic respiratory failure due to pulmonary edema, resolved #History of COPD Currently saturating well on room air. Lungs clear to auscultation on exam. Previously spitting out frothy sputum that is mixed with dried blood likely from nasopharyngeal bleed vs DIC. ? Oxygen support ? Frequent suctioning ? DuoNebs as needed for wheezing #Hypokalemia Likely secondary to ATN. Phos and Mg within normal limits. ? Repleted with 60 mEq IV potassium ? Monitor daily labs and replete as needed #High anion gap metabolic acidosis, resolved Hospital Maintenance: Dispo: Patient is pending surgery with general surgery today, and will most likely require ICU for further monitoring and stabilization FEN: N.p.o. DVT PPx: Heparin held in lieu of surgery GI PPx: pepcid IV lines: PIV Code Status: DNR/DNI Patient's plan and care discussed with my attending, Dr. Sarah Wright MD PGY-2 Attending Provider Attestation/Addendum I have discussed and was present for the essential components of the history, physical examination, diagnosis, and treatment plan with the resident. I agree with the patient's care as documented by the resident and amended herein by me. Yuval Smith, DO. Patient seen and evaluated this AM. Blood pressure 97/69 mmHg, runs of V. tach overnight, patient now on NC 5 L, SpO2 94%, patient afebrile overnight. Significant labs include an uptrending WBC to 54, hemoglobin 13, sodium 145, potassium 3.7, BUN increased to 02/19/2012 and creatinine increased to 3.7. LA 3.0. Urine output has also decreased over the past 2 days, 360 mL overnight. T. bili 5.8 and liver enzymes continue to be very elevated. the patient's abdomen distended with some eccymosis and seamed to be more painful to palpation, this was a change from previous days. Per gastroenterology recommendations, a CT abdomen and pelvis was performed yesterday without contrast due to renal failure, significant for left base pneumonia with small left pleural effusion, cirrhosis, mild to moderate ascites, diffuse thickening of the colonic wall, hepatic colopathy and a cystitis pattern. Blood cultures drawn yesterday demonstrating gram-positive cocci and gram-positive rods from a single set anaerobic bottle. Repeat were drawn and are pending. Patient presently on Zosyn The patient was evaluated by general surgery yesterday and examination was unimpressive for acute abdomen at that time. This was the case for our exam as well, the patient seemingly had periods of abdominal pain with palpation yesterday however it would resolve. Patient's fecal occult was positive on the afternoon of 06/27 however the patient's hemoglobin has been uptrending. Considering acute change in clinical status today and continued decline in UoP and worsening WBS, general surgery and gastroenterology both agree that exploratory laparotomy is the neck step to evaluate for possible ischemic bowel. We did speak with the patient's two sons prior to surgery one son wishes for the patient to remain on comfort measures only however the other son Brennan wants to proceed with surgery as he understands the prognosis is very poor otherwise, they were both in agreement to proceed this morning. In all likelihood, the patient may during surgery due to the high risks and patients comorbidities which was explained to the patient's two sons and they understood. If there are complications, the patient's family will likely choose comfort measures only if the patient makes it through the surgery. Patient is presently DNR/DNI however will become full code for the surgery alone and then revert back to DNR/DNI. Prior to surgery, Dr. Hazel wishes to speak to the family himself to verify their wishes and to explain the risks involved. The patiently can likely go to surgery this afternoon however will need a central line and likely plasma transfusion prior as blood pressure is being soft. ICU team has consulted and will be helping out this. Patient will also need dialysis after surgery is complete per nephrology recommendations. Will continue to monitor closely, patients condition is guarded. Although this document has been carefully reviewed, there may still be some phonetic and other typographical errors. These errors are purely grammatical due to imperfections in the software program and should not be construed in any way to compromise the substance of the patient's medical care during this visit.
--- NOTE | 2024-06-29 17:05 | XR_ITS ---
Examination: AP chest single view TECHNIQUE: Portable sitting AP chest single view Date time: June 29, 2024 1737 hours, comparison June 20, 2024 INDICATIONS: Postsurgical line placement FINDINGS: Right internal jugular central line tip SVC satisfactory position, no pneumothorax Mild prominence left ventricle Mild vascular congestion Cardiac leads stable position IMPRESSION: Right internal jugular central line tip SVC satisfactory position
--- NOTE | 2024-06-29 17:14 | PD.RESPROC ---
Procedures Procedure Date / Time 06/29/24 0914 Arterial Line Size (Gauge): 20 Central Line Placement Right IJ: Indication(s): shock Informed consent obtained: obtained from surrogate decision maker Time out done, and the following verified: correct patient, side and site, procedure and patient position Patient placed on monitor/pulse ox: Yes Hand Hygiene: scrub, soap & water and alcohol-based hand rub Max Sterile Barrier Techniques used: cap, mask, sterile gown, sterile gloves and sterile full body drape Central line prep: Chlorhexidine scrub and sterile drapes applied Local anesthesia used: lidocaine 1% Amount of anesthesia used (mL): 2 Ultrasound used for placement: Yes Sterile Technique if Ultrasound used, including sterile gel: yes Central line lumen inserted: triple Post procedure: sutured in place, good blood return, all ports aspirated, flushed, capped and sterile dressing applied Post procedure x-ray: tip of catheter in good position Patient tolerated procedure: well and no complications EBL(ml): 1 Complications: none
--- NOTE | 2024-06-29 18:04 | ESPR_ITS ---
<Statement entered by Shin Avery MD - 06/30/24 08:03> TOTAL CC TIME: 45 MIN I saw and evaluated the patient. I reviewed the resident?s note and agree with findings and plan as documented in the resident?s note. Upon my evaluation, this patient had a high probability of imminent or life- threatening deterioration due to septic shock, suspected ischemic bowel which required my direct attention, intervention, and personal management. This time is exclusive of time spent on procedures, which are documented separately if performed. Pending operative evaluation of ischemic bowel. Further recommendations to follow postoperative course. Continue IV fluid resuscitative efforts. Overall prognosis is poor due to comorbidities Documentation for date of: 06/29/24 Subjective Subjective Interval history: Patient is a 63-year-old male with past medical history of CAD, pacemaker/defibrillator by Dr. Ramirez in [place] for abnormal rhythm CHF, hypertension, COPD who came into our ER after he was woken up at 2 AM with chest pain. Patient is a poor historian but does explain that he woke up at 2 AM with severe chest pain that caused some nausea and vomiting after which he decided to come to the ED. Patient lives alone he called 911. In the ED patient was found to be tachycardic with a pulse of 121 saturating at 92% on room air. Troponins were found to be elevated at 3.54 initially and climbed up to 4.52 by the time we saw him at bedside. Patient was also found to have elevated transaminases in the thousands. Chest x-ray revealed no pulmonary edema and EKG showed sinus tachycardia. Patient was given Zofran as well as 1 L bolus of fluids and morphine in the ER as well as aspirin and nitroglycerin and metoprolol which seem to have helped the patient's pain at the time. Physical exam revealed 2+ pitting edema in the lower extremities with bilateral lower extremities mottling up to the knees. Patient was pale and capillary refill was greater than 10 seconds. Patient's jugular venous pressure was elevated which was confirmed with ultrasound and patient was found to be likely in cardiogenic shock. The decision was made to admit patient to the ICU and we inserted a central line and arterial line. Further testing revealed that patient was methamphetamine positive. BUN was greater than 3280, lactic acid was elevated at 18 and pH was 7.10 with a pCO2 of 29 and pO2 of 105 subsequent VBG showed improvement in pH to 7.19. Patient was started on dobutamine drip in the ED as well as Levophed. 06/20/2024: Patient seen and examined in the ICU today. There were no major overnight events and patient was stable this morning. Cardiac output has maintained with pressor support and dobutamine. Patient has been spitting out frothy pink to dark brown material likely from pulmonary congestion. Patient's ABG and VBG showed increased cardiac output and is now warmer with no mottling and capillary refill of less than 3 seconds. Patient received 1 dose of Lasix 40 mg IV push. Will continue to monitor patient closely and try to wean him off of pressor support and inotropic support. Patient's PT and INR are elevated with an INR of 3.2. Patient is likely in DIC as his liver is still short with T. bili of 5.5 and AST greater than 6000 and ALT greater than 3300. Troponins have continued to climb to 12.9 but patient denies any chest pain, it is likely secondary to demand ischemia as well as damage from substance abuse, methamphetamine. Urine output has slowly improved. 06/21/2024: Overnight, patient was started on precedex for agitation and weaned off this morning. He remains on levophed at 0.03 and dobutamine at 0.2. He had good urine output at 2.6L in the last 24 hours and is net negative at 1.9L. Extremities are warm. His SvO2 with dobutamine at 2 was 100%, suggestive of peripheral shunting. Extremities are warm and liver enzymes are improving, suggestive that cardiogenic shock is improving. Patient was titrated off levophed and dobutamine adjusted from 2 to 1. The SvO2 was then 40%, so dobutamine was increased to 1.5. Will follow up on next VBG for SvO2 and adjust rate of dobutamine accordingly. For his ATN, patient now in polyuric phase so will replace volume with gentle IVF. Will discontinue arterial line. 06/22/2024: Patient was seen and examined in ICU today. There were no major overnight events and patient was gradually titrating down on dobutamine. Patient's official echo confirmed 15-20% EF. Dobutamine was stopped around 8 AM in the morning and follow up SvO2 showed adequate perfusion and patient continues to be warm to touch in the extremities as well as good urine output. Patient was started on coreg for goal directed medical therapy for HFrEF, and we are holding his TONI/ARBS until his kidney function improves. Patient was subsequently downgraded to telemetry in the afternoon and Dr Wright accepted the downgrade. We recommend adding the rest of goal directed medical therapy for HFrEF prior to DC. 06/23-06/27: Patient's hospital course on the floors was complicated by worsening mentation and patient's failure to thrive as he was not eating his meals. His liver shock improved slowly as his LFTs improved for the most part. 06/28/24: Today ICU was consulted due to possible shock and increasing white count. He has mottling of his feet and knee, there is abdominal distension and tenderness to palpation. There is guarding and on skin exam there is hematoma in the left lower quadrant. Patient has been having dark stools for the past two days. Lactic acid has been climbing tp 4.5 today. eGFR remains in the 20s with creatinine of 3.2 with BUN climbing to 99. Urine cultures and blood cultures were repeated and have been negative for 48 hrs. Ammonia is negative. Patient's presentation is concerning for ischemic bowel. Recommended primary team to order a CTA abdomen/pelvis. Given patient's heart failure and now failing renal function, further goals of care discussion is encouraged as patient's prognosis is guarded. Will follow patient. 06/29/2024: Patient was seen and examined in telemetry today. Overnight patient seemed to maintain a MAP of over 65 with additional fluids given. His lactate had improved from 4.6-3. Further plan of care discussions were held by primary decision maker, patient's son Brennan, who expressed that he wanted to give his father a fighting chance with surgery. He had an extensive conversation with general surgery and they will maintain close communications in terms of findings during the ex lap and way the benefits of proceeding at that time. Patient's creatinine continued to climb with a BUN of 113 and a creatinine of 3.7 There has been virtually no urine output. Patient's WBC continues to climb to 54.7 and his abdominal exam continued to be tender and mildly distended. Patient's platelets were 190 with a hemoglobin 12.9. We inserted a right IJ central line for access as patient would likely need pressor support. Patient would likely need ICU level of care post surgery once successful. Exam Vital Signs Temp Pulse Resp BP Pulse Ox O2 Del Method O2 Flow Rate 97.3 F 76 18 83/55 L 94 L Room Air 8 06/29/24 16:21 06/29/24 16:21 06/29/24 16:21 06/29/24 16:21 06/29/24 16:21 06/29/24 12:00 06/29/24 16:21 Narrative Exam Constitutional: Pale disheveled elderly male in distress and incoherently speaking. CVS: RRR, S1 and S2 present, no murmurs, rubs or gallops . Capillary refills is about 4 seconds RESP: CTAB, no SOB, no rales, rhonchi or wheezing. No respiratory Distress GI: Distended abdomen with tenderness to palpation. Decreased bowel sounds. There is ecchymosis on the left lower quadrant. MSK: Full range of motion, No trauma or deformities or masses. Skin: Skin is warm to the touch, there is mottling of the knees Neuro: Patient is AAO x 1 as he is alert to place but unable to answer questions Objective Labs 06/29/24 05:21 06/29/24 05:21 Labs: Laboratory Results - last 24 hr 06/27/24 06/28/24 06/28/24 15:55 17:26 18:57 WBC RBC Hgb Hct MCV MCH MCHC RDW Std Deviation Plt Count Neut % (Auto) Lymph % (Auto) [place] % (Auto) Eos % (Auto) Baso % (Auto) Neut # (Auto) Lymph # (Auto) [place] # (Auto) Eos # (Auto) Baso # (Auto) Immature Gran # (Auto) Absolute Nucleated RBC Immature Gran % Nucleated RBC % Smear Path Review PT 18.7 H INR 1.8 H Sodium Potassium Chloride Carbon Dioxide Anion Gap BUN Creatinine Estim Creat Clear Calc eGFR BUN/Creatinine Ratio Glucose Calculated Osmolality Lactic Acid 2.6 H Calcium Corrected Calcium Phosphorus Magnesium Total Bilirubin AST ALT Alkaline Phosphatase Total Protein Albumin Globulin Albumin/Globulin Ratio Stool Occult Blood Positive A Blood Type Antibody Screen Blood Bank Wristband ID Blood Bank Comment 06/28/24 06/29/24 06/29/24 23:00 05:21 13:49 WBC 54.7 H* D RBC 4.29 L Hgb 12.9 L Hct 38.9 L MCV 91 MCH 30.1 MCHC 33.2 RDW Std Deviation 54.4 H Plt Count 190 Neut % (Auto) 87 H Lymph % (Auto) 3 L [place] % (Auto) 6 Eos % (Auto) 0 Baso % (Auto) 0 Neut # (Auto) 47.8 H Lymph # (Auto) 1.4 [place] # (Auto) 3.0 H Eos # (Auto) 0.0 Baso # (Auto) 0.0 Immature Gran # (Auto) 2.41 H Absolute Nucleated RBC 0.22 H Immature Gran % 4 H Nucleated RBC % 0 Smear Path Review Sent to Pathologist PT INR Sodium 145 Potassium 3.7 Chloride 106 Carbon Dioxide 26.6 Anion Gap 12 BUN 113 H* Creatinine 3.7 H D Estim Creat Clear Calc 22.4 L eGFR 18 L BUN/Creatinine Ratio 31 H Glucose 76 D Calculated Osmolality 323 H Lactic Acid 3.0 H Calcium 7.2 L Corrected Calcium 8.5 Phosphorus 5.0 Magnesium 2.9 H Total Bilirubin 5.8 H AST 405 H ALT 367 H Alkaline Phosphatase 237 H D Total Protein 4.9 L Albumin 2.4 L Globulin 2.5 Albumin/Globulin Ratio 1.0 L Stool Occult Blood Blood Type O Negative Antibody Screen NEGATIVE Blood Bank Wristband ID Yes Blood Bank Comment FFP Ready ABG Interpretation ABG results: 06/19/24 06/19/24 06/20/24 16:21 17:41 08:48 ABG pH 7.10 L* ABG pCO2 20 L ABG pO2 105 ABG HCO3 6 L* ABG O2 Saturation 96 ABG Base Excess -21 L VBG pH 7.19 L 7.38 VBG pCO2 28 L 46 D VBG pO2 55 37 VBG Base Excess -16 L 1 06/20/24 06/20/24 06/20/24 11:10 17:54 19:45 ABG pH 7.39 D 7.39 ABG pCO2 40 D 45 ABG pO2 63 L D 90 D ABG HCO3 24 27 H ABG O2 Saturation 91 97 ABG Base Excess -1 2 VBG pH 7.37 7.45 VBG pCO2 44 36 VBG pO2 38 58 D VBG Base Excess 0 1 06/21/24 06/21/24 06/21/24 04:30 05:56 12:00 ABG pH 7.41 ABG pCO2 43 ABG pO2 102 ABG HCO3 27 H ABG O2 Saturation 99 H ABG Base Excess 2 VBG pH 7.53 7.39 VBG pCO2 29 L 51 D VBG pO2 115 H D 39 D VBG Base Excess 2 5 H 06/21/24 06/21/24 06/22/24 13:50 15:37 04:18 ABG pH 7.46 H ABG pCO2 39 ABG pO2 78 L D ABG HCO3 27 H ABG O2 Saturation 97 ABG Base Excess 3 VBG pH 7.41 7.54 VBG pCO2 49 30 L D VBG pO2 29 57 D VBG Base Excess 5 H 3 06/22/24 06/22/24 06/28/24 05:27 09:33 17:24 ABG pH ABG pCO2 ABG pO2 ABG HCO3 ABG O2 Saturation ABG Base Excess VBG pH 7.43 7.41 7.42 VBG pCO2 45 D 46 40 VBG pO2 39 48 58 VBG Base Excess 4 H 4 H 2 Quality Measures Quality Measures VTE prophylaxis Assessment & Plan Assessment Current Active Medications: Generic Name Dose Route Start Last Admin Trade Name Freq PRN Reason Stop Dose Admin Acetaminophen 650 mg 06/19/24 14:18 Acetaminophen 325 Mg Tablet PO 07/19/24 14:17 Q6H PRN Fever >101.5 Acetaminophen 650 mg 06/19/24 14:18 06/27/24 23:03 Acetaminophen 325 Mg Tablet PO 07/19/24 14:17 650 mg Q6H PRN Administration PAIN SCALE 1-3 (mild Albuterol/Ipratropium 3 ml 06/20/24 07:13 Albuterol/Ipratropium (Duoneb) Rt Yamila 3 Ml Nebu INH 07/20/24 07:12 Q2HR PRN SHORTNESS OF BREATH OR WHEEZE Aspirin 81 mg 06/20/24 09:00 06/29/24 08:41 Aspirin Ec 81 Mg Tabec PO 07/20/24 08:59 81 mg QDAY NYDIA Administration Atorvastatin Calcium 80 mg 06/20/24 21:00 06/27/24 21:14 Atorvastatin Calcium 20 Mg Tablet PO 07/20/24 20:59 80 mg HS NYDIA Administration Heparin Sodium (Porcine) 5,000 unit 06/19/24 22:00 06/29/24 15:26 Heparin Sod Inj 5000 Unit/Ml Vial SC 07/03/24 21:59 Not Given Q8HR NYDIA Piperacillin/Tazobactam/Dextrose 3.375 gm in 50 mls @ 12.5 mls/hr 06/28/24 14:00 06/29/24 13:22 Zosyn IV 07/05/24 13:59 12.5 mls/hr Q8HR NYDIA Administration Metoprolol Succinate 25 mg 06/26/24 14:15 06/29/24 08:37 Metoprolol Succinate Xl 25 Mg Tabcr PO 07/26/24 14:14 Not Given QDAY NYDIA Midodrine 5 mg 06/27/24 14:00 06/29/24 13:21 Midodrine 5 Mg Tablet PO 07/27/24 13:59 5 mg TID NYDIA Administration Ondansetron HCl 4 mg 06/19/24 14:18 06/27/24 17:17 Ondansetron Inj 2 Mg/Ml Inj 2 Ml IV 07/19/24 14:17 4 mg Q6H PRN Administration NAUSEA OR VOMITING Protocol Pantoprazole Sodium 40 mg 06/29/24 21:00 Pantoprazole Inj 40 Mg Vial IV 07/29/24 20:59 BID NYDIA Pharmacy Consult 1 each 06/29/24 08:17 Pharmacy Renal Dose Adjustment 1 Ea XX 07/29/24 08:16 PRN PRN CONSULT Pharmacy Consult 1 each 06/29/24 09:00 Vancomycin Pharmacy To Dose 1 Each Each IV 07/29/24 08:59 QDAY PRN CONSULT Plan 63-year-old male with past medical history of CAD, pacemaker/defibrillator by Dr. Ramirez in [place] for abnormal rhythm CHF, hypertension, COPD who was originally admitted for carcinogenic shock and treated now showing signs of possible ischemic bowel. Neuro Problems: Acute encephalograph DDx: Metabolic vs uremic Dx: BUN has been climbing, awaiting for bcx and ucx to finalize Rx: Patient will undergo surgery today and will likely need to be intubated and sedated. Will evaluate after procedure CVS Problems: Shock, HFrEF DDx: echo 15-25% 06/22/24 vs hypovolemic vs septic from necrotic bowel Dx: Initial presentation was carcinogenic shock which responded to dobutamine, bedside echo showed collapsible IVC, Blood cultures on 06/28/2024 preliminarily grew GPC and GPR bacteremia. Repeat blood cultures today are pending Rx: Pending final BCx and UCx, continue antibiotics, begin pressor support if MAP is less than 60. After surgery patient will likely need support with dobutamine, fluid resuscitation, albumin replacement, hydrocortisone Resp Problems: AHRF DDx: Aspiration Dx: Patient's mentation has worsened and O2 requirement has increased Rx: Antibiotics follow ABG. GI Problems: Intractable abdominal pain DDx: Possible schemic bowel vs GIB Dx: Tenderness with palpation and guarding on physical exam, BUN uptrending and patient has had dark stools x 2days. CTA abdomen/pelvis Revealed small left pleural effusion, cirrhosis, moderate ascites, hepatic colopathy and cystitis pattern. There remains high suspicion for ischemic bowel for which patient will need ex lap Rx:, Patient will undergo ex lap surgery today at 6 PM. Renal Problems:KERWIN?worsening DDx:Worsening ATN vs dehydration from decreased PO intake Dx: GFR is 21 and patient is oliguric, Rx: Patient had decreased urine output despite fluid resuscitation. Patient will likely need dialysis tomorrow. Lactic acidosis Secondary to worsening shock and decreased renal clearance Lactic acid improved to 3.0 yesterday however it climbed slightly today. Will reassess after surgery and likely do dialysis in the morning. Endocrine Stable ID/Skin Problems: Severe septic shock DDx: possible gi translocation Dx: Blood cultures on 06/28/2024 grew GPC and GPR preliminarily. And UCx pending. Procal is elevated Rx: Broad spectrum antibiotics (Zosyn), repeat blood cultures, adjust underlying source likely ischemic bowel. Hematology Problems: Leukocytosis DDx: See ID Hospital Maintenance: FEN: N.p.o. DVT PPx: Heparin GI PPx: PPI IV twice daily IV lines: PIV, right IJ Khoury: Yes Code Status: DNR/DNI Dispo: Patient will undergo exploratory laparotomy with general surgery today and likely be transferred to the unit for pressor support and resuscitation. Prognosis is guarded I discussed patient's care with truck body repairer, Dr Bennie Chau MD, PGY3
--- NOTE | 2024-06-29 18:21 | PC.NURSE ---
Pt was taken to surgery with first unit of plasma still running, surgery to complete unit. 1 unit of FFP being thawed in blood bank ready to be picked up. pt confused, lethargic, on 15L oxymask with blood pressure in the 80's. MD aware. Per anesthesiologist pt to be kept intubated after surgery and to be sent to ICU. risk management internship made aware. Pts joe Amin at bedside made aware of the plan of care.
--- NOTE | 2024-06-29 19:16 | PD.SURPROG ---
Documentation for date of: 06/29/24 Subjective Subjective Brief History: History of present illness is not obtained from the patient because he is confused and is not able to give any history. Patient has spent more than we can this hospital and he came with chest pain and was found to have very unstable vital signs. He has been in ICU and was treated for cardiogenic shock and hypotension I was then stabilized. He was transferred to the regular floor. Apparently the patient's abdomen changed today and is having some diffuse tenderness on palpation. Therefore surgical consultation is obtained. Patient has had not had any vomiting. With markedly elevated liver enzymes and renal failure. His other diagnoses consist of cardiomyopathy COPD and congestive heart failure with poor ejection fraction and supraventricular tachycardia. Patient has had a history of multiple organ failure. At the bedside he was able to respond and when I asked him whether he has any abdominal pain he said no. Narrative: The patient was taken to the operating room with the intent of exploration. But patient had a cardiac arrest in the operating room and he could not be revived even though temporarily he had a pulse that returned. On the monitor he only had a PEA. Since the patient was pronounced at no surgery was performed Exam Vital Signs Temp Pulse Resp BP Pulse Ox O2 Del Method O2 Flow Rate 97.3 F 80 18 83/55 L 93 L Oxy Mask 15 06/29/24 16:21 06/29/24 18:15 06/29/24 18:15 06/29/24 16:21 06/29/24 18:15 06/29/24 16:00 06/29/24 18:15
--- NOTE | 2024-06-29 20:52 | PD.ANESPROG ---
Documentation for date of: 06/29/24 ANESTHESIA NOTE: This patient was taken to OR earlier today for ex lap for acute abdomen and suspected ischemic bowel but had cardiac arrest intra-op after induction and intubation and pronounced pulseless intra-op after cardiac arrest * 2 after brief ROSC. This note is late entry after the event and patient care. Pre-op, today was my first time being aware of his case after the surgeon asked for anesthesia eval while I was busy with scheduled OR cases and add-ons. He has significant hx including NM, CHF s/p AICD, COPD, HTN. He has been hospitalized for multiple days with initial presentation with chest pain and reportedly elevated Troponins, including ICU admission and placed on pressors for cardiogenic shock, had markedly elevated LFTs, and also elevated Lactic, Tox positive for meth. He was down graded from ICU and then developed abnormal abdominal exam and markedly elevated WBC and positive for blood in stool, also KERWIN, and reportedly poor UOP. He has been managed by medicine and cardiology service and the surgeon consulted seemingly today for acute abdomen. He had hypotension, SBP 70-80s, and hypoxia (O2 sat 94% on high flow face mask). His last echo report this admission is markedly abnormal with EF 15% with global LV hypokinesis with regional wall motion abnormalities, significant MR and TR, elevated PA pressures. He has had elevated INR also, last INR 1.8 yesterday. After I reviewed his chart during my OR day, I had brief discussion with the surgeon about this critical patient and the surgeon was going to discuss whether to proceed with the surgery with the family. In the meantime, I recommended to give him FFP if his surgery does proceed today. Later, I was informed that the surgeon and the family decided to proceed with his surgery, so I went to see him in 266 with his son at bedside. He appeared pale and lethargic and was on 15 l/min face mask O2. His abdomen was tender and there was ecchymosis on his lower abdomen. He had diaper in place, no villasenor. He reportedly did not have nausea or vomiting today. Medicine team was planning on placing central line, which I agreed with pre-op and recommended A line also if they had time. So he was given R IJ central line pre-op. I had detailed discussion with his son Brennan at his bedside about his critical condition and possible complications including cardiopulmonary instability and post op ICU admission and vent support. I clearly discussed with them this surgery being thought as life saving and they agreed to proceed despite high risk and his DNR status was also discussed and they agreed to pause his DNR intra-op. When the OR team was ready, he was brought to the holding area with his two sons, where I saw them again and all agreed to proceed. He was taken to OR on face mask O2 and his initial vitals showed O2 76% on face mask O2 measured at his ears and SBP 70s. He was lethargic but responded to simple commands. I slowly induced him with low dose IV Versed and Fentanyl and intubated him easily and successfully. His O2 sat was 92% after intubation, he had clear breath sounds bilaterally, but his EtCo2 was low 20s, which is markedly lower than usual, and I immediately suspected poor circulation and I gave him IV Epi in titrated doses that I had already prepared. However despite treatment, his EtCO2 continued to down trend and pulse ox reading disappeared with poor waveform, so I alerted the OR team of impending instability and called the code when he was in PEA, and ACLS based resuscitation was started immediately with appropriate vent settings on 100% FiO2, chest compressions, and IV meds and code cart was brought in. Multiple OR and hospital personnel responded to code. Multiple cycles of CPR were performed along with IV Epi, CaCl and Bicarb pushes given. He remained in PEA throughout. His AICD was left as is without magnet or any manipulation. The surgeon was present and aware. After about 10-12 minutes of resuscitation, ROSC was obtained with palpable L carotid pulse and femoral pulses and regular narrow QRS rhythm on monitor, and his EtCO2 alex to 26. The surgeon and I discussed that once we got ROSC, we could attempt to proceed with this life saving surgery; however, shortly after, he continued to down trend again with falling EtCO2 and he became pulseless again. So resuscitation was again restarted, while OR personnel and the surgeon reached out to family and then reportedly I was informed that the family wanted to suspend further resuscitation at that point. So then resuscitation was stopped and he remained in PEA with no measurable EtCO2 and no pulse ox reading. The surgeon and the OR team was aware of the termination of resuscitation efforts. Then after discussing with the OR management, plan was made to remove all lines/tube and take him to PACU to allow family visitation/closure and proceed with remaining process of patient. At the end, all his IVs and line were removed, dressing applied, ETT removed also, he was cleaned and then taken to PACU with respect. Before leaving the OR, I confirmed, with the OR FA present, no pulse, no respirations, no patient movement, no response to stimulation and mottling of his skin. At end, he was taken to PACU with OR team and I escorted his two sons from the waiting area to his bedside and they were given time and space to grieve. They acknowledged that this was a fighting chance for him and were accepting and thankful of the care. I gave them brief report of the intra-op event and they had no further questions and were thankful. The OR personnel continued with the further process of report/paperwork. Cheikh Muro MD Anesthesia Progress Note Progress Note Most recent Vital Signs: Last Vital Signs Temp 97.3 F 06/29/24 16:21 Pulse 80 06/29/24 18:15 Resp 18 06/29/24 18:15 BP 83/55 L 06/29/24 16:21 Pulse Ox 93 L 06/29/24 18:15 O2 Del Method Oxy Mask 06/29/24 16:00 O2 Flow Rate 15 06/29/24 18:15
--- NOTE | 2024-06-30 08:22 | SUR.OPER ---
06/30/24 at approx. 0820: Chart opened and reviewed by Arturo Oropeza RN the following day to ensure a complete chart/documentation.
--- NOTE | 2024-06-30 14:53 | PD.DDS ---
Documentation for date of: 06/30/24 Summary Date and Time Date of admission: 06/19/24 14:15 Summary Details: Mr. Fernandez is a 63-year-old male with past medical history of CAD, pacemaker/defibrillator by Dr. Ramirez in [place] for abnormal rhythm CHF, hypertension, COPD who came initially to the ED with chest pain and admitted to ICU for further management of shock. Initial presentation was carcinogenic shock which responded to dobutamine and bedside echo showed collapsible IVC. Echo showed dilated cardiomyopathy, severe global hypokinesis/LV dysfunction, EF 15 to 20% amd moderate to severe TR, MR and dilated LA. Urine toxicology was positive for meth use. Troponin peaked at 13.25 and BNP > 3280. In addition to cardiogenic shock, patient presented with ischemic hepatitis presenting as shock liver from initial cardiogenic shock insult. Patient was stablized and downgraded to medicine floors on 06/23/23 after vasopressors were weaned off. However, patient's hospital course was complicated with acute encephalopathy in the setting of uremia, lactic acidosis, pro-angel elevation, increased O2 requirements and WBC, and intractable abdominal pain with bloody stools for the last two days. CTA abdomen/pelvis revealed small left pleural effusion, cirrhosis, moderate ascites, hepatic colopathy and cystitis pattern, but due to high suspicion for ischemic bowel, general surgery and GI were consulted. Repeat blood cultures were also collected and grew preliminary 1/2 bottles of GPC and GPR, however most likely contamination. Patient was placed on broad spectrum Antibiotics meanwhile and general surgery recommended patient to undergo exlaparatomy, and all risks were discussed with patient's decision maker, patient's son, and agreed to pursue despite strong risk for mortality during surgery. D/t rising BUN/Cr patient progressively had poor urine output and virtually none on day of scheduled surgery. Patient's family agreed to suspend code status in lieu of surgery, and during induction for intubation, patient went into cardiac arrest-PEA. Patient achieved ROSC briefly with palpable L carotid and L femoral pulses and narrow QRS on tele monitor, after 3 rounds of epinephrine, 1 Bicarb amp, and 1 Ca amp, but shortly after went into cardiac arrest-PEA, and CPR was resumed. Family was updated of patient's progress and decided to suspend further efforts on resuscitation. Patient was pronounced at 19:[address] Jina in the OR. Patient was taken to PACU for family viewing. Patient's family were understanding and thankful. Condolences were offered by OR team. Hospital diagnoses treated during hospital stay: #Cardiac arrest-PEA x 2 #Shock secondary to Ischemic bowel #Lactic acidosis #KERWIN secondary to ATN vs cardiorenal syndrome #Ischemic hepatitis #Hyperbilirubinemia #Acute on chronic HFrEF, EF 15-20% #Troponinemia, likely secondary to demand ischemia, resolved #Acute encephalopathy likely secondary to ICU delirium #Agitation #Acute hypoxic respiratory failure due to pulmonary edema, resolved #History of COPD #Hypokalemia #High anion gap metabolic acidosis, resolved Patient's plan and care discussed with my attending, Dr. Sarah Wright MD PGY-2 Additional Data Confirmation of as documented by pronouncing clinician: no pulse, no respirations, no heart sounds and pupils fixed and dilated Family: contacted Additional persons at bedside: other Attending/PCP notified?: Yes Attending physician: Luke Smith, DO Was code activated?: Yes Visit Providers Provider Primary care physician: Physician No Primary/Family Consults: 06/19/24 15:58 Consult to Cardiology Urgent Comment: cardigenic shock Consulting Provider: Mayela Kiran 06/22/24 17:31 Referral Physical Therapy Routine Comment: Physician Instructions: 06/26/24 08:14 Consult to Nephrology Stat Comment: renal failure s/p cardiogenic shock Consulting Provider: Jose Rodriguez 06/28/24 14:04 Consult to General Surgery Urgent Comment: Concern for ischemic bowel Consulting Provider: Roopa Charlton 06/28/24 14:05 Consult to Gastroenterology Urgent Comment: Concern for ischemic bowel Consulting Provider: Joy Harkins 06/28/24 16:33 Consult to General Surgery Urgent Comment: Consulting Provider: Roopa Charlton 06/28/24 17:00 Consult to Towing Pilot Routine Comment: Consulting Provider: Shin Avery Discharge Plan Plan Patient Disposition: Patient/Caregiver Discharge Instructions Print Language: Citizen Of [place]
== END 2024-06-29 19:01 | disposition expired ==
LOC: SERX 10:22 → SERHOLD 15:07 → S2SX 17:07 → S2NX 06-24 15:43
PROVIDERS: Specialist; Student in an Organized Health Care Education/Training Program; Surgery; Admitting Provider Internal Medicine Critical Care Medicine; Emergency Provider Emergency Medicine; Visit Provider Student in an Organized Health Care Education/Training Program
PROC: (CPT 49000; principal; 2024-06-29 17:00)
DX: I11.0 Hypertensive heart disease with heart failure (principal); D65 Disseminated intravascular coagulation [defibrination syndrome]; I21.A1 Myocardial infarction type 2; G93.41 Metabolic encephalopathy; I50.23 Acute on chronic systolic (congestive) heart failure; J18.9 Pneumonia, unspecified organism; K72.00 Acute and subacute hepatic failure without coma; N17.0 Acute kidney failure with tubular necrosis; J96.01 Acute respiratory failure with hypoxia; E87.20 Acidosis, unspecified; F05 Delirium due to known physiological condition; J44.0 Chronic obstructive pulmonary disease with (acute) lower respiratory infection; K55.9 Vascular disorder of intestine, unspecified; K92.0 Hematemesis; R18.8 Other ascites; I47.10 Supraventricular tachycardia, unspecified; I47.20 Ventricular tachycardia, unspecified; R57.0 Cardiogenic shock; I42.7 Cardiomyopathy due to drug and external agent; I25.10 Atherosclerotic heart disease of native coronary artery without angina pectoris; J44.9 Chronic obstructive pulmonary disease, unspecified; F15.10 Other stimulant abuse, uncomplicated; I08.1 Rheumatic disorders of both mitral and tricuspid valves; E86.9 Volume depletion, unspecified; I25.2 Old myocardial infarction; I42.0 Dilated cardiomyopathy; E87.6 Hypokalemia; K74.60 Unspecified cirrhosis of liver; N30.90 Cystitis, unspecified without hematuria; R62.7 Adult failure to thrive; Z51.5 Encounter for palliative care; Z66 Do not resuscitate; Z79.82 Long term (current) use of aspirin; Z79.84 Long term (current) use of oral hypoglycemic drugs; Z79.899 Other long term (current) drug therapy; Z87.891 Personal history of nicotine dependence; Z91.041 Radiographic dye allergy status; Z91.148 Patient's other noncompliance with medication regimen for other reason; Z95.810 Presence of automatic (implantable) cardiac defibrillator; I46.8 Cardiac arrest due to other underlying condition
CPT/HCPCS: 36415; 36600; 70450; 71045; 74018; 74019; 74176; 76705; 76770; 80053; 80061; 80307; 81001; 82140; 82270; 82436; 82570; 82728; 82803; 83036; 83605; 83690; 83735; 83880; 84100; 84133; 84145; 84300; 84443; 84484; 84540; 85007; 85025; 85027; 85379; 85384; 85610; 85652; 85730; 86140; 86850; 86900; 86901; 86927; 87040; 87081; 87086; 93005; 93306; 93925; 93970; 96361; 96365; 96375; 96376; 97161; 99291; A4217; A4649; J0171; J0613; J0696; J1250; J1644; J1938; J2250; J2270; J2405; J2470; J2543; J3010; J3370; J3490; J7030; J7040; J7050; J7120; P9060; A9270